=== PATIENT | female | born 1955 | race African-American/Black ===

== ENCOUNTER 2021-10-04 10:44 | Inpatient (IN) | payer OTHER, SELFPAY ==
[2021-10-04] VITALS (7 sets, daily range): BP systolic 130–164; BP diastolic 72–92; PULSE 78–90; RESP 16–20; TEMP 36.9–37.2; O2SAT 95–100; BMI 27.3; BMI 28.8
--- NOTE | ~2021-10-04 | CT_ITS ---
EXAMINATION: CT HEAD WITHOUT CONTRAST CLINICAL INFORMATION: Weakness. COMPARISON: None available. TECHNIQUE: Contiguous axial imaging was performed from the skull base to vertex without intravenous administration of contrast. This CT examination was performed using dose optimization techniques as appropriate, variously including the following: *Automated exposure control. *Adjustment of mA and/or kV according to patient size (this includes techniques or standardized protocols for targeted exams where dose is matched to indication/reason for exam; i.e. extremities or head). *Use of iterative reconstruction technique. DLP: 614 mGy-cm FINDINGS: There appears to be a small region of lost velasco-white matter differentiation within the lateral aspect of the left frontal lobe. No evidence of acute intracranial hemorrhage. Partially confluent and scattered hypoattenuation in the periventricular and deep white matter are consistent with moderate microangiopathy. Proportional prominence of the ventricles and sulcal spaces. No evidence for obstructive hydrocephalus. No abnormal mass effect or midline shift. No extra-axial fluid collections. Calcific atherosclerotic disease of the intracranial internal carotid arteries. No hyperdense vessel sign. No acute soft tissue or osseous abnormalities. Mild mucosal thickening of the paranasal sinuses. The mastoid air cells and middle ear cavities are clear. Bilateral lens extractions. CT/CT head/brain wo con IMPRESSION: 1. There appears to be a small region of lost velasco-white matter differentiation within the lateral left frontal lobe. Although age indeterminate, this may represent sequela of a small acute to subacute infarct. 2. No evidence of acute intracranial hemorrhage. 3. Moderate underlying microangiopathy and generalized cerebral volume loss. This critical result was discussed with Dr. Montague at 15:05 on 10/04/2021 and it was ascertained that the content and urgency of the report was understood at the time of direct communication.
--- NOTE | ~2021-10-04 | MR_ITS ---
EXAMINATION: MR BRAIN WITHOUT CONTRAST CLINICAL INFORMATION: Cerebrovascular accident. COMPARISON: CT head from 10/04/2021. TECHNIQUE: MRI of the brain was obtained using routine sequences without contrast. FINDINGS: No focal restricted diffusion is demonstrated to suggest acute or subacute cerebral ischemia. No evidence of acute or chronic hemorrhagic products on heme-sensitive imaging. Partially confluent and scattered Periventricular, deep white matter, and brainstem T2 FLAIR hyperintensities consistent with moderate underlying microangiopathy. Proportional prominence of the ventricles and sulcal spaces without evidence of obstructive hydrocephalus. No abnormal mass effect. No midline shift. Normal appearance of the pituitary gland. Normal positioning of the cerebellar tonsils. Normal arterial and venous vascular flow voids are present. Normal, homogeneous marrow signal. Mild to moderate mucosal thickening of the paranasal sinuses. No signal abnormalities within the mastoids MR/MR head/brain wo con IMPRESSION: 1. No acute intracranial abnormalities. 2. Moderate underlying microangiopathy and generalized cerebral volume loss.
--- NOTE | ~2021-10-04 | XR_ITS ---
EXAMINATION: XR CHEST CLINICAL INFORMATION: Weakness COMPARISON: None TECHNIQUE: 2 views of the chest were obtained. FINDINGS: No significant abnormality is noted involving the heart, lungs, mediastinum, bony thorax or soft tissues. XR/XR chest 2V IMPRESSION: Unremarkable chest examination.
[2021-10-04 11:23] LABS: MANUAL DIFF FLAG NO
[2021-10-04 11:24] LABS: Basophils Percent Auto 0.4 % (0-2); Eosinophils Absolute Auto 0.4 X10*3/uL (0.0-0.4); Eosinophils Percent Auto 4.4 % (0-4); Hematocrit 39.8 % (37.0-47.0); Hemoglobin 12.5 g/dl (12.0-16.0); Imm Gran Abs Auto 0.02 X10*3/uL (0.00-0.03); Imm Gran Pct Auto 0.2 % (0.0-0.4); Lymphocytes Absolute Auto 2.5 X10*3/uL (1.2-4.9); Lymphocytes Percent Auto 26.4 % (20-40); Mean Corpuscular HGB Conc 31.4 g/dl (31.0-35.0); Mean Corpuscular Hemoglobin 26.7 pg (27.0-33.0); Mean Platelet Volume 10.4 fL (9.4-12.3); Monocytes Absolute Auto 0.6 X10*3/uL (0.1-1.2); Monocytes Percent Auto 6.5 % (2-11); Neutrophils Absolute Auto 5.9 x10*3/uL (2.0-8.3); Neutrophils Percent Auto 62.1 % (45-73); Platelet Count 288 X10*3/uL (160-400); Red Blood Count 4.68 X10*6/uL (4.20-5.50); Red Cell Distribution Width 14.3 % (11.0-16.0); White Blood Count 9.5 X10*3/uL (4.8-10.8)
[2021-10-04 11:45] LABS: Anion Gap 9 (12-20); Blood Urea Nitrogen 11 mg/dL (9-16); Calcium 11.8 mg/dL (8.4-10.2); Carbon Dioxide 28 mmol/L (22-29); Chloride 105 mmol/L (96-108); Creatinine Clr Calc Pharmacy 47.3; Estimated Glomerular Filt Rate 49; Glucose Random 258 mg/dL (60-115); Potassium 4.4 mmol/L (3.3-5.1); Sodium 138 mmol/L (135-145)
--- NOTE | 2021-10-04 12:40 | ECG_ITS ---
Test Reason : weakness Blood Pressure : / mmHG Vent. Rate : 079 BPM Atrial Rate : 079 BPM P-R Int : 144 ms QRS Dur : 094 ms QT Int : 422 ms P-R-T Axes : 017 046 032 degrees QTc Int : 483 ms Normal sinus rhythm Normal ECG No previous ECGs available Referred By: Gordon Montague Electronically Signed By:Victor Manuel Delgado
--- NOTE | 2021-10-04 12:42 | ED_ITS ---
HPI - General Adult General Chief complaint: General Medical Stated complaint: GENERAL WEAKNESS PER EMS Time Seen by Provider: 10/04/21 12:27 Source: patient History of Present Illness HPI narrative: Patient presenting with weakness and imbalance with concerns of possible stroke. Patient states last known well time was last night when she went to bed. She woke up at 09:00 with the symptoms. She describes it as an off-balance sensation with a shuffling gait. She states initially her speech was slurred as well but that seems to be improving but is not 100% back to normal. No prior history of similar issues. She denies any focal weakness. Some blurred vision which is worse today than her baseline blurred vision. No diplopia. Some nausea earlier today without vomiting or diarrhea. No headache. No chest pain. No dyspnea. No recent illness. No history of smoking History of hypertension Related Data Allergies Allergy/AdvReac Type Severity Reaction Status Date / Time oxycodone Allergy Rash Verified 10/04/21 11:09 Penicillins Allergy Rash Verified 10/04/21 11:09 Review of Systems Constitutional: Comments: No fevers or chills Eyes: Comments: Blurred vision. No diplopia Cardiovascular: Comments: No chest pain or palpitation Respiratory: Comments: No dyspnea or cough Gastrointestinal: Comments: Nausea. No vomiting or diarrhea Genitourinary: Comments: No dysuria Musculoskeletal: Comments: No musculoskeletal pain Integumentary/Breasts: Comments: No rash Neurologic: Comments: Generalized weakness with ataxia and slurred speech. [facility] Past Medical History Medical History (Updated 10/04/21 @ 15:11 by Gordon Montague MD) Diabetes 1.5, managed as type 2 HTN (hypertension) Social History Social History Advance Directives: No Advance Directives Information Provided: No Physical Exam ED Vital Signs: Vital Signs - 24 hr 10/04/21 11:10 10/04/21 15:04 Temperature 98.8 F Pulse Rate 90 89 Respiratory Rate 16 16 Blood Pressure 164/92 H 139/79 Pulse Oximetry 100 96 BMI result Body Mass Index 27.3 Const Other: Awake and alert in no acute distress HENMT Other: Normocephalic atraumatic. Pupils equal round reactive to light. Extraocular muscles intact without nystagmus. Eyes Other: No dysconjugate gaze. Vision is grossly intact without obvious field deficits Neck Other: No meningismus Resp Other: No respiratory distress. Clear and equal bilaterally. Mildly diminished however Cardio Other: Regular rate and rhythm without murmurs rubs or gallops GI Other: Soft nontender nondistended Skin Other: Warm and dry without rash Neuro Other: Awake alert and oriented. Strength is intact in all 4 extremities. No obvious aphasia or dysarthria. No pronator drift Rijauk-cz-wvio is intact Mtdw-vk-cqdh is intact Romberg is positive in that she is unable to stand with feet together and eyes closed. She is unable to walk heel to toe. She is able to ambulate although with a slightly shuffling gait. Course Course Course Narrative: Mild generalized weakness with ataxia but without focal cerebellar findings on exam. Stroke is possible but other etiologies are as well. She is outside of any drug-related and no. Her stroke scale is 0 and likely does not have a large vessel occlusion or is candidate for extraction. Will complete workup including blood work and urinalysis. CT scan ordered. 15:10. Lab work is relatively unremarkable but chemistries do show a glucose of 258 with a calcium of 11.8. CT scan shows question of a left frontal area of acute to subacute infarct. Will hospitalized for further workup including Neurology evaluation and MRI. Medical Decision Making Lab Data Result diagrams: 10/04/21 11:20 10/04/21 11:20 Labs: Lab Results 10/04/21 10/04/21 10/04/21 Range/Units 11:20 11:20 12:58 WBC 9.5 (4.8-10.8) X10*3/uL RBC 4.68 (4.20-5.50) X10*6/uL Hgb 12.5 (12.0-16.0) g/dl Hct 39.8 (37.0-47.0) % MCV 85.0 (80.0-98.0) fL MCH 26.7 L (27.0-33.0) pg MCHC 31.4 (31.0-35.0) g/dl RDW 14.3 (11.0-16.0) % Plt Count 288 (160-400) X10*3/uL MPV 10.4 (9.4-12.3) fL Immature Gran % (Auto) 0.2 (0.0-0.4) % Neut % (Auto) 62.1 (45-73) % Lymph % (Auto) 26.4 (20-40) % Barrow % (Auto) 6.5 (2-11) % Eos % (Auto) 4.4 H (0-4) % Baso % (Auto) 0.4 (0-2) % Lymph # (Auto) 2.5 (1.2-4.9) X10*3/uL Barrow # (Auto) 0.6 (0.1-1.2) X10*3/uL Eos # (Auto) 0.4 (0.0-0.4) X10*3/uL Baso # (Auto) 0.0 (0.0-0.2) X10*3/uL Abs Immat Gran (auto) 0.02 (0.00-0.03) X10*3/uL Absolute Neuts (auto) 5.9 (2.0-8.3) x10*3/uL Absolute Nucleated RBC 0.000 (0.0-0.012) X10*3/uL Nucleated RBC % (auto) 0.0 (0.0-0.2) /100WBC Sodium 138 (135-145) mmol/L Potassium 4.4 (3.3-5.1) mmol/L Chloride 105 (96-108) mmol/L Carbon Dioxide 28 (22-29) mmol/L Anion Gap 9 L (12-20) BUN 11 (9-16) mg/dL Creatinine 1.11 (0.5-1.4) mg/dL Estim Creat Clear Calc 47.3 Estimated GFR 49 Random Glucose 258 H (60-115) mg/dL Calcium 11.8 H (8.4-10.2) mg/dL Troponin I High Sens 7.9 (<3.5-17.0) ng/L TSH (0.32-4.0) uIU/mL 10/04/21 Range/Units 12:58 WBC (4.8-10.8) X10*3/uL RBC (4.20-5.50) X10*6/uL Hgb (12.0-16.0) g/dl Hct (37.0-47.0) % MCV (80.0-98.0) fL MCH (27.0-33.0) pg MCHC (31.0-35.0) g/dl RDW (11.0-16.0) % Plt Count (160-400) X10*3/uL MPV (9.4-12.3) fL Immature Gran % (Auto) (0.0-0.4) % Neut % (Auto) (45-73) % Lymph % (Auto) (20-40) % Barrow % (Auto) (2-11) % Eos % (Auto) (0-4) % Baso % (Auto) (0-2) % Lymph # (Auto) (1.2-4.9) X10*3/uL Barrow # (Auto) (0.1-1.2) X10*3/uL Eos # (Auto) (0.0-0.4) X10*3/uL Baso # (Auto) (0.0-0.2) X10*3/uL Abs Immat Gran (auto) (0.00-0.03) X10*3/uL Absolute Neuts (auto) (2.0-8.3) x10*3/uL Absolute Nucleated RBC (0.0-0.012) X10*3/uL Nucleated RBC % (auto) (0.0-0.2) /100WBC Sodium (135-145) mmol/L Potassium (3.3-5.1) mmol/L Chloride (96-108) mmol/L Carbon Dioxide (22-29) mmol/L Anion Gap (12-20) BUN (9-16) mg/dL Creatinine (0.5-1.4) mg/dL Estim Creat Clear Calc Estimated GFR Random Glucose (60-115) mg/dL Calcium (8.4-10.2) mg/dL Troponin I High Sens (<3.5-17.0) ng/L TSH 1.86 (0.32-4.0) uIU/mL Discharge Plan Discharge Patient Disposition: Admitted As Inpatient
[2021-10-04] MEDS: 0.9 % Sodium Chloride 500 ML IV (13:07)
--- NOTE | 2021-10-04 13:13 | PC.NURSE ---
Pt comes in from home via EMS with complaints of feeling off with slurred speech. Pt is A&Ox3, speaking slowly but clearly. +PERRLA, No visable neuro deficiets noted at this time. IV established, labs drawn. Call hernandez within reach. Will continue to monitor.
[2021-10-04 13:36] LABS: Troponin-I High Sensitivity 7.9 ng/L (<3.5-17.0)
[2021-10-04 13:51] LABS: TSH reflex Free T4 1.86 uIU/mL (0.32-4.0)
[2021-10-04 15:21] LABS: Appearance Urine CLEAR; Color Urine YELLOW; Glucose Urine UA NEG (NEG); Leukocyte Esterase Urine 1+ (NEG); Nitrite Urine NEG (NEG); PH 6.5 (5.0-8.0); Specific Gravity - Urine <= 1.005 (1.005-1.025); UACC Culture Trigger YES; Urine Blood NEG (NEG); Urine Ketones NEG (NEG); Urine Protein NEG (NEG-TRACE)
--- NOTE | 2021-10-04 15:32 | PHA.MEDREC ---
Pharmacy Consult ? Medication Reconciliation Pharmacy has completed the medication reconciliation.
[2021-10-04 15:35] LABS: COVID-19 Test Negative (Negative)
[2021-10-04 15:50] LABS: Bacteria Urine TRACE /LPF; RBC Urine 0-2 /HPF (0); Squamous Epithelial Cell Urine TRACE /LPF
--- NOTE | 2021-10-04 15:53 | P.HPHOSP_ITS ---
History of Present Illness Date of Service: 10/04/21 Attending physician on admission: Amira Edward Chief Complaint: cva 66-year-old female with multiple comorbidities including diabetes, hyperlipidemia also has history of bipolar disorder: Came to the hospital because of almost a week of symptoms of slurred speech and feeling wobbly- she says that the symptoms are ongoing for at least a week duration, her balance is also off-because of that she decided to come to the hospital. Currently her speech is improved significantly and back to normal, still has some ataxia with walking. Patient speech improved to the baseline, she can walk some steps but says feels slightly wobbly otherwise that is also improving as per the patient. She denies any blurred vision to me, no diplopia. Patient denies any dizziness, any weakness or numbness or headache. Denies any new complaint of chest pain or shortness of breath or abdominal pain or fever or chills or nausea or vomiting Denies any cough Denies any weakness or numbness. ED: Labs, EKG and imaging reviewed: CBC fine, BMP also fine except creatinine is 1.11, calcium of 11.8 TSH 1.86, troponin x1 is 7.9,ekg : nsr. Review of Systems Review of Systems: As above. [facility] Medical History Diabetes 1.5, managed as type 2 HTN (hypertension) Pertinent family history: sister- has dm. Social History Advance Directives: No Advance Directives Information Provided: No Meds Allergies Allergy/AdvReac Type Severity Reaction Status Date / Time oxycodone Allergy Rash Verified 10/04/21 11:09 Penicillins Allergy Rash Verified 10/04/21 11:09 Active Medications: Current Medications Aspirin (Aspirin Enteric Coated 81 Mg Tablet.) 81 mg PO DAILY GEORGE Atorvastatin Calcium (Atorvastatin Calcium 20 Mg Tablet) 20 mg PO DAILY GEORGE Benztropine Mesylate (Benztropine Mesylate 1 Mg Tablet) 1 mg PO BEDTIME GEORGE Dextrose (Dextrose 50 % 25 Gm/50 Ml Syringe) 25 gm IVPUSH Q15M PRN; Protocol PRN Reason: per Hypoglycemia Standing Ord. Enoxaparin Sodium (Enoxaparin Sodium 40 Mg/0.4 Ml Syringe) 40 mg SUBCUT Q24H GEORGE Glucose (Glucose Gel 15 Gm Gel..Gram.) 15 gm PO Q15M PRN; Protocol PRN Reason: per Hypoglycemia Standing Ord. Haloperidol (Haloperidol 5 Mg Tablet) 10 mg PO BEDTIME [facility] Lactated Ringer's (Lr) 1,000 mls @ 80 mls/hr IVCONT .[id number] [facility] Insulin Human Lispro (Insulin Lispro 100 Unit/Ml 3 Ml Vial) 0 unit SUBCUT QIDACHS [facility]; Protocol Wykoff Carbonate (Wykoff Carbonate Er 450 Mg Tablet.Er) 900 mg PO BEDTIME GEORGE Nortriptyline HCl (Nortriptyline Hcl 10 Mg Capsule) 10 mg PO BEDTIME [facility] Pharmacy Consult (Consult Rx Perform Med Rec) 1 each MISCELLANE ONCE PRN PRN Reason: Consult order Home Medications Medication Instructions Recorded Confirmed Last Taken Type aspirin 81 mg tablet,delayed 1 tab PO DAILY 10/04/21 10/04/21 10/04/21 History release atorvastatin 20 mg tablet 1 tab PO DAILY 10/04/21 10/04/21 10/04/21 History benztropine 1 mg tablet 1 tab PO BEDTIME 10/04/21 10/04/21 10/03/21 History glipizide 5 mg tablet, extended 1 tab PO BID 10/04/21 10/04/21 10/04/21 History release 24 hr haloperidol 10 mg tablet 1 tab PO BEDTIME 10/04/21 10/04/21 10/03/21 History lithium carbonate 450 mg 2 tab PO BEDTIME 10/04/21 10/04/21 10/03/21 History tablet,extended release metformin 500 mg tablet,extended 1,000 mg PO BID 10/04/21 10/04/21 10/03/21 History release 24 hr nortriptyline 10 mg capsule 1 cap PO BEDTIME 10/04/21 10/04/21 10/03/21 History Physical Exam Vital Signs and Narrative: Vital Signs: Last Vital Signs Temp 98.8 F 10/04/21 15:04 Pulse 89 10/04/21 15:04 Resp 16 10/04/21 15:04 BP 139/79 10/04/21 15:04 Pulse Ox 96 10/04/21 15:04 BMI result Body Mass Index 27.3 Appearance: Alert.? Oriented X3.? not in distress.? Eyes: Pupils equal, round and reactive to light.? Sclera nonicteric.? ENT: Pharynx normal.? Moist mucous membranes. cvs: rrr, [id number] . res: clear to auscultation ,no rhonchii or wheezing abd: no rebound or guarding ,nt, bs present. ext pulses present , no cyanosis . neuro: axo3 , strength and sensation -seems intact dtr -equivocal. finger to nose - did walk few steps but feels slightly ataxic . Results Labs CBC and Chem 7: 10/04/21 11:20 10/04/21 11:20 Labs: Laboratory Results - last 24 hr 10/04/21 10/04/21 10/04/21 11:20 11:20 12:58 MCV 85.0 MCH 26.7 L MCHC 31.4 RDW 14.3 Plt Count 288 MPV 10.4 Immature Gran % (Auto) 0.2 Neut % (Auto) 62.1 Lymph % (Auto) 26.4 Weld % (Auto) 6.5 Eos % (Auto) 4.4 H Baso % (Auto) 0.4 Lymph # (Auto) 2.5 Weld # (Auto) 0.6 Eos # (Auto) 0.4 Baso # (Auto) 0.0 Abs Immat Gran (auto) 0.02 Absolute Neuts (auto) 5.9 Absolute Nucleated RBC 0.000 Nucleated RBC % (auto) 0.0 Anion Gap 9 L Creatinine 1.11 Estim Creat Clear Calc 47.3 Estimated GFR 49 Random Glucose 258 H Calcium 11.8 H TSH 1.86 Urine Color Urine Appearance Urine pH Ur Specific Lander Urine Protein Urine Glucose (UA) Urine Ketones Urine Blood Urine Nitrite Ur Leukocyte Esterase Urine RBC Urine WBC Ur Squamous Epith Cells Urine Bacteria COVID-19 (PATRICIA) COVID-19 Clin Com 10/04/21 10/04/21 15:15 15:15 MCV MCH MCHC RDW Plt Count MPV Immature Gran % (Auto) Neut % (Auto) Lymph % (Auto) Weld % (Auto) Eos % (Auto) Baso % (Auto) Lymph # (Auto) Weld # (Auto) Eos # (Auto) Baso # (Auto) Abs Immat Gran (auto) Absolute Neuts (auto) Absolute Nucleated RBC Nucleated RBC % (auto) Anion Gap Creatinine Estim Creat Clear Calc Estimated GFR Random Glucose Calcium TSH Urine Color YELLOW Urine Appearance CLEAR Urine pH 6.5 Ur Specific Lander <= 1.005 Urine Protein NEG Urine Glucose (UA) NEG Urine Ketones NEG Urine Blood NEG Urine Nitrite NEG Ur Leukocyte Esterase 1+ H Urine RBC 0-2 Urine WBC 1-4 Ur Squamous Epith Cells TRACE Urine Bacteria TRACE COVID-19 (PATRICIA) Negative COVID-19 Clin Com See Note ABG Attestation: I personally reviewed and interpreted this ABG as follows: (nsr) Imaging Radiologist's Impressions: Impressions Head CT 10/04/21 14:03 IMPRESSION: 1. There appears to be a small region of lost velasco-white matter differentiation within the lateral left frontal lobe. Although age indeterminate, this may represent sequela of a small acute to subacute infarct. 2. No evidence of acute intracranial hemorrhage. 3. Moderate underlying microangiopathy and generalized cerebral volume loss. This critical result was discussed with Dr. Montague at 15:05 on 10/04/2021 and it was ascertained that the content and urgency of the report was understood at the time of direct communication. Chest X-Ray 10/04/21 14:06 IMPRESSION: Unremarkable chest examination. Assessment and Plan (1) Hypercalcemia: Status: Acute (2) KEESHA (acute kidney injury): Status: Acute (3) Stroke: Status: Acute Plan 66-year-old female with CVA. 1. CVA: moniter tele neurochecks CT head shows:velasco-white matter differentiation within the lateral left frontal lobe-small acute to subacute infarct. MRI and echo added for cva workup. Continue aspirin, statin, lipid panel added, neuro evaluation, pt/ot . 2. DM: Only have 1 fingerstick of 258 so far Monitor fingersticks with coverage Hold oral hypoglycemics. Hemoglobin A1c 3. Hypercalcemia: 11.8 ? Question related to dehydration Hydrate, monitor BMP in the morning, if still elevated calcium level may need further workup, consider nephrology evaluation. 4. Hyperlipidemia: Continue statin 5. Bipolar disorder: Continue home medications. 6. possible mild keesha : baseline cr not available . hydrate and moniter bmp, if does not improve-consider nephrology evaluation. Based on above CVA, hypercalcemia, possible keesha: Patient may need possible 2 midnight stays. Above management discussed with the patient and patient family Mr. Eisenberg (cell [phone]) in detail length they both understand and in agreement with above plan, also discussed what code status patient is full code. Assessment and plan coordination time spent is 70 minute. Quality Stroke Does the patient have a stroke diagnosis?: Yes Reason for No Anti-thrombotic by Day Two: N/A - Med Ordered VTE Prior VTE?: No VTE Risk Level:: Medical - moderate - high VTE Device Contraindication: N/A - Device Ordered VTE Drug Contraindication: N/A - Med Ordered
[2021-10-04] MEDS: Lactated Ringers 1,000 ML 80 ML IVCONT (16:51)
[2021-10-04] MEDS: Aspirin Enteric Coated 325 MG TABLET.DR PO (16:51)
[2021-10-04] MEDS: Enoxaparin Sodium 40 MG/0.4 ML SYRINGE SUBCUT (16:51)
[2021-10-04 18:29] LABS: Glucose, Whole Blood 145 mg/dL (60-115)
[2021-10-04 20:24] LABS: Anion Gap 10 (12-20); Blood Urea Nitrogen 10 mg/dL (9-16); Calcium 11.7 mg/dL (8.4-10.2); Carbon Dioxide 26 mmol/L (22-29); Chloride 109 mmol/L (96-108); Creatinine Clr Calc Pharmacy 49.6; Estimated Glomerular Filt Rate 52; Glucose Random 266 mg/dL (60-115); Potassium 4.6 mmol/L (3.3-5.1); Sodium 140 mmol/L (135-145)
--- NOTE | 2021-10-04 20:46 | PC.NURSE ---
PT AWAITING FOR TRANSPORT TO FLOOR. PT A&OX3, SKIN W/D. RESPIRATIONS EASY, N/L. SKIN W/D. AWAITING FOR FURTHER ORDERS.
--- NOTE | 2021-10-04 21:10 | PC.NURSE ---
REPORT GIVEN TO TIESHA RIVAS. PT TO FLOOR IN [facility] IN [facility].
[2021-10-04 21:55] LABS: Glucose, Whole Blood 196 mg/dL (60-115)
[2021-10-04] MEDS: HaloperidoL 5 MG TABLET 10 MG PO (22:02)
[2021-10-04] MEDS: Lithium Carbonate ER 450 MG TABLET.ER 900 MG PO (22:03)
[2021-10-04] MEDS: Benztropine Mesylate 1 MG TABLET PO (22:03)
[2021-10-04] MEDS: Nortriptyline HCl 10 MG CAPSULE PO (22:03)
[2021-10-05] MEDS: Melatonin 3 MG TABLET 6 MG PO (02:21)
[2021-10-05 03:31] VITALS: BP 130/63; PULSE 81; RESP 19; TEMP 36.8; O2SAT 98
[2021-10-05] MEDS: Lactated Ringers 1,000 ML 80 ML IVCONT ×2 (04:24→20:02)
[2021-10-05 06:56] LABS: MANUAL DIFF FLAG NO
[2021-10-05 07:01] LABS: Basophils Percent Auto 0.4 % (0-2); Eosinophils Absolute Auto 0.5 X10*3/uL (0.0-0.4); Hemoglobin 12.3 g/dl (12.0-16.0); Imm Gran Abs Auto 0.01 X10*3/uL (0.00-0.03); Imm Gran Pct Auto 0.1 % (0.0-0.4); Lymphocytes Absolute Auto 2.6 X10*3/uL (1.2-4.9); Lymphocytes Percent Auto 26.5 % (20-40); Mean Corpuscular HGB Conc 31.5 g/dl (31.0-35.0); Mean Corpuscular Hemoglobin 26.7 pg (27.0-33.0); Mean Corpuscular Volume 84.8 fL (80.0-98.0); Mean Platelet Volume 10.6 fL (9.4-12.3); Monocytes Absolute Auto 0.8 X10*3/uL (0.1-1.2); Monocytes Percent Auto 8.2 % (2-11); Neutrophils Percent Auto 59.8 % (45-73); Platelet Count 308 X10*3/uL (160-400); Red Cell Distribution Width 14.3 % (11.0-16.0)
[2021-10-05 07:14] VITALS: BP 137/69; PULSE 90; RESP 18; TEMP 36.7; O2SAT 98
[2021-10-05 07:16] LABS: Estimated Average Glucose 243 mg/dL; Hemoglobin A1c % 10.1 %
[2021-10-05 07:33] LABS: Anion Gap 9 (12-20); Blood Urea Nitrogen 10 mg/dL (9-16); Calcium 11.6 mg/dL (8.4-10.2); Carbon Dioxide 25 mmol/L (22-29); Chloride 108 mmol/L (96-108); Cholesterol 119 mg/dL; Estimated Glomerular Filt Rate 57; Glucose Random 229 mg/dL (60-115); HDL Cholesterol 28 mg/dL; LDL Cholesterol Calculated 45 mg/dl; Potassium 4.4 mmol/L (3.3-5.1); Sodium 138 mmol/L (135-145); Triglycerides 231 mg/dL
[2021-10-05 07:45] LABS: Glucose, Whole Blood 235 mg/dL (60-115)
[2021-10-05 08:07] LABS: Albumin Level 3.8 g/dL (3.5-5.0)
[2021-10-05] MEDS: Aspirin Enteric Coated 81 MG TABLET.DR PO (08:29)
[2021-10-05] MEDS: Atorvastatin Calcium 20 MG TABLET PO (08:29)
--- NOTE | 2021-10-05 08:30 | CA_ITS ---
Transthoracic Echocardiogram Patient (Last, First, Middle): Jeanne Donis, Gender: Female Date of : 1955 Age: 66 Procedure Date: 10/05/2021 Procedure Type: Transthoracic Echocardiogram Location: [facility] [place] Height: 160.02 cm Weight: 73.48 kg BSA: 1.77 m2 Heart Rate: bpm BP: 130 / 63 mmHg Qa Consultant: JOSÉ MANUEL Elkins MD: Amira Edward MD Symptoms: cva Study Quality: Fair Conclusions: - Normal left ventricular cavity size. There is normal left ventricular wall thickness. The left ventricular systolic function is hyperdynamic. The visually estimated ejection fraction is between 65-70%. - Normal right ventricular cavity size and systolic function. Findings Left Ventricle Normal left ventricular cavity size. There is normal left ventricular wall thickness. The left ventricular systolic function is hyperdynamic. The visually estimated ejection fraction is between 65-70%. There is no evidence of regional wall motion abnormalities. Diastolic function is normal for age. Right Ventricle Normal right ventricular cavity size and systolic function. Atria Both atria are normal in size. Aortic Valve Normal aortic valve structure and function. There is no aortic valve stenosis. There is no aortic valve regurgitation. Mitral Valve The mitral valve appears normal. There is no mitral valve regurgitation. There is no mitral valve stenosis. Pulmonic Valve The pulmonic valve is likely normal. Tricuspid Valve Normal tricuspid valve structure and function. There is trace tricuspid valve regurgitation. Normal right atrial pressure. There is no evidence of pulmonary hypertension. Great Vessels The visualized portions of the pulmonary artery and branches are normal. Venous The inferior vena cava is normal in size and collapses greater than 50% with inspiration. Pericardium/Pleural There is no evidence of pericardial effusion. Prior Study Comparison No prior study available for comparison. Measurements 2D Linear Measurements IVSd: 1.07 0.6-0.9/0.6-1.0 cm LVIDd: 3.59 3.9-5.3/4.2-5.9 cm LVIDd Index: 2.03 2.4-3.2/2.2-3.1 cm/m2 LVIDs: 2.28 2.0-3.6 cm LVPWd: 0.79 0.7-1.1 cm LA Diam: 2.90 2.7-3.8/3.0-4.0 cm LAIDs Index: 1.64 1.5-2.3 cm/m2 LV Mass: 120.33 67-162/88-224 g LV Mass Index: 67.98 43-95/49-115 g/m2 LVOT Diam: 2.00 3.0+(-)1.3 cm 2D Systolic Function EF 4C: 61.80 >55% EF 2C: 57.70 >55% EF BiP: 59.50 >55% Mitral Valve MV Pk E: 0.72 MV PK A: 0.82 MV Decel Time: 245.00 E/A: 0.90 E'Lateral: 9.46 E'Medial: 6.53 E/E' Med: 11.00 E/E' Lat: 7.60 PHT: 72.00 MVA PHT: 3.06 Decel Bingham: 2.93 Aortic Valve AoV Pk Carlos: 1.43 AoV Mn Carlos: 0.97 AoV VTI: 0.25 AoV Pk Grad: 8.00 Aov Mn Grad: 4.00 PERI Cont.VTI: 2.56 LVOT LVOT Pk Carlos: 1.10 LVOT Mn Carlos: 0.69 LVOT VTI: 0.20 LVOT Pk Grad: 5.00 LVOT Mn Grad: 2.00 LVOT Diam: 2.00 LVOT Area: 3.14 Diastolic Function MV Pk E: 0.72 MV Pk A: 0.82 E/A: 0.90 E'Medial: 6.53 E/E' Med: 11.00 E' Laterial: 9.46 E/E' Lat: 7.60 Right Ventricle TAPSE (mm): 17.00 TVS' Carlos: 13.80 Tricuspid Valve TR Pk Carlos: 1.95 TR Pk Grad: 15.00 RA Press: 3.00 RVSP: 18.00 Great Vessels Aorta Ao Asc: 3.30 2.1-3.4 cm Ao Arch: 3.20 Updated in Other Vendor System with Status of Final Victor Manuel Delgado MD electronically signed on 10/05/2021 2:20:11 PM with status of Final
[2021-10-05 08:47] VITALS: BP 137/69; PULSE 90; O2SAT 98
--- NOTE | 2021-10-05 09:34 | MHC.CM.PN ---
CM met with Patient at bedside; Patient lives alone in an apartment and required no DME nor services [employer]. PT is recommending home with services but Patient does have her first appointment with her new PCP- DR.Izabela Guillory until 10/23/21.Patient's Brother is her HCP, but she preferred not to reveal his name. Patient indicated that her [id number] would provide transportation home but also indicated that her Son does not live nearby. Patient has received [facility] vax X3.
[2021-10-05 11:15] LABS: Glucose, Whole Blood 257 mg/dL (60-115)
--- NOTE | 2021-10-05 11:38 | PM.NEUROCN ---
History of Present Illness Data of Consult Service Date: 10/05/21 Primary Care Provider: Unknown Physician HPI Reason for consult: Difficulty speaking 66 years old woman who I was asked to see for possibility of stroke to explain difficulty speaking. Apparently this was noted during last few days with unsteadiness. When she was in hospital her speech was noted to be much better. There was no complaint of headache nausea vomiting change in her vision or loss of consciousness. There was no breathing difficulty. There was no complaint of swallowing difficulty Review of Systems Review of Systems: No recent cold or flu-like illness PMFSH Past Medical History Medical History Diabetes 1.5, managed as type 2 HTN (hypertension) Social History Social History Household Members: None Housing: Apartment Do you presently have visiting nurse or other home services: Yes (just got services but hasn't met them yet) Patient Tobacco Use Status: Never used Tobacco service: No Current occupational status: retired Meds Allergies Allergy/AdvReac Type Severity Reaction Status Date / Time oxycodone Allergy Rash Verified 10/04/21 11:09 Penicillins Allergy Rash Verified 10/04/21 11:09 Active Medications: Current Medications Aspirin (Aspirin Enteric Coated 81 Mg Tablet.) 81 mg PO DAILY [facility] Last Admin: 10/05/21 08:29 Dose: 81 mg Documented by: Atorvastatin Calcium (Atorvastatin Calcium 20 Mg Tablet) 20 mg PO DAILY [facility] Last Admin: 10/05/21 08:29 Dose: 20 mg Documented by: Benztropine Mesylate (Benztropine Mesylate 1 Mg Tablet) 1 mg PO BEDTIME [facility] Last Admin: 10/04/21 22:03 Dose: 1 mg Documented by: Dextrose (Dextrose 50 % 25 Gm/50 Ml Syringe) 25 gm IVPUSH Q15M PRN; Protocol PRN Reason: per Hypoglycemia Standing Ord. Enoxaparin Sodium (Enoxaparin Sodium 40 Mg/0.4 Ml Syringe) 40 mg SUBCUT Q24H [facility] Last Admin: 10/04/21 16:51 Dose: 40 mg Documented by: Glucose (Glucose Gel 15 Gm Gel..Gram.) 15 gm PO Q15M PRN; Protocol PRN Reason: per Hypoglycemia Standing Ord. Haloperidol (Haloperidol 5 Mg Tablet) 10 mg PO BEDTIME [facility] Last Admin: 10/04/21 22:02 Dose: 10 mg Documented by: Lactated Ringer's (Lr) 1,000 mls @ 80 mls/hr IVCONT .[id number] [facility] Last Admin: 10/05/21 04:24 Dose: 80 mls/hr Documented by: Insulin Human Lispro (Insulin Lispro 100 Unit/Ml 3 Ml Vial) 0 unit SUBCUT QIDACHS [facility]; Protocol Last Admin: 10/05/21 08:31 Dose: Not Given Documented by: [place] Carbonate ([place] Carbonate Er 450 Mg Tablet.Er) 900 mg PO BEDTIME [facility] Last Admin: 10/04/21 22:03 Dose: 900 mg Documented by: Melatonin (Melatonin 3 Mg Tablet) 6 mg PO BEDTIME PRN PRN Reason: Sleep Last Admin: 10/05/21 02:21 Dose: 6 mg Documented by: Nortriptyline HCl (Nortriptyline Hcl 10 Mg Capsule) 10 mg PO BEDTIME [facility] Last Admin: 10/04/21 22:03 Dose: 10 mg Documented by: Pharmacy Consult (Consult Rx Perform Med Rec) 1 each MISCELLANE ONCE PRN PRN Reason: Consult order Home Medications Medication Instructions Recorded Confirmed Last Taken Type aspirin 81 mg tablet,delayed 1 tab PO DAILY 10/04/21 10/04/21 10/04/21 History release atorvastatin 20 mg tablet 1 tab PO DAILY 10/04/21 10/04/21 10/04/21 History benztropine 1 mg tablet 1 tab PO BEDTIME 10/04/21 10/04/21 10/03/21 History glipizide 5 mg tablet, extended 1 tab PO BID 10/04/21 10/04/21 10/04/21 History release 24 hr haloperidol 10 mg tablet 1 tab PO BEDTIME 10/04/21 10/04/21 10/03/21 History lithium carbonate 450 mg 2 tab PO BEDTIME 10/04/21 10/04/21 10/03/21 History tablet,extended release metformin 500 mg tablet,extended 1,000 mg PO BID 10/04/21 10/04/21 10/03/21 History release 24 hr nortriptyline 10 mg capsule 1 cap PO BEDTIME 10/04/21 10/04/21 10/03/21 History Physical Exam Vital Signs: Vital Signs: Last Vital Signs Temp 98.1 F 10/05/21 07:14 Pulse 90 10/05/21 08:47 Resp 18 10/05/21 07:14 BP 137/69 10/05/21 08:47 Pulse Ox 98 10/05/21 08:47 BMI result Body Mass Index 28.8 Neuro: Other: She was alert and awake with normal spontaneity of speech fluency comprehension and affect. Speech was normal. Pupils were round reactive to light. Extraocular muscles were intact. Visual feliciano are full. Face was symmetrical. Tongue slightly deviated to right there was no pronator drift. Deep tendon reflexes were trace to absent with flexor plantars. Results Labs CBC & Chem 7: 10/05/21 06:37 10/05/21 06:37 Labs: Short CBC 10/05/21 Range/Units 06:37 WBC 10.0 (4.8-10.8) X10*3/uL Hgb 12.3 (12.0-16.0) g/dl Hct 39.0 (37.0-47.0) % Plt Count 308 (160-400) X10*3/uL BMP 10/04/21 10/04/21 10/05/21 11:20 19:59 06:37 Sodium 138 140 138 Potassium 4.4 4.6 4.4 Chloride 105 109 H 108 Carbon Dioxide 28 26 25 BUN 11 10 10 Creatinine 1.11 1.06 0.98 Calcium 11.8 H 11.7 H 11.6 H Liver Function 10/05/21 Range/Units 06:37 Albumin 3.8 (3.5-5.0) g/dL Urine 10/04/21 Range/Units 15:15 Urine Color YELLOW Urine Appearance CLEAR Urine pH 6.5 (5.0-8.0) Ur Specific [place] <= 1.005 (1.005-1.025) Urine Protein NEG (NEG-TRACE) MG/DL Urine Glucose (UA) NEG (NEG) MG/DL Her noncontrast MRI of brain revealed moderately severe chronic ischemic changes but no acute lesion. Moderately severe atrophy was also noted. Assessment and Plan (1) Difficulty speaking: Status: Acute 66 years old woman who apparently had few days of difficulty speaking and generalized weakness. On examination today her speech was okay and language was normal. There was no focal finding. MRI of brain did not reveal any acute finding though moderately severe atrophy and chronic microvascular ischemic changes were noted. There is no indication of an acute neurological event. Overall presentation was not suggestive of a peripheral neuropathic process either. For microvascular disease, I would recommend anti-platelet agent blood pressure control and statin. Procedures Date of Service Date of Service: 10/05/21
[2021-10-05 11:45] VITALS: BP 149/75; PULSE 90; RESP 20; TEMP 37.2; O2SAT 100
--- NOTE | 2021-10-05 14:40 | P.PNIM_ITS ---
Subjective Subjective Date of Service: 10/05/21 <LONNIE Tellez - Last Filed: 10/05/21 15:02> 10/05/21 <Peter Muller MD - Last Filed: 10/05/21 15:36> Interval History: seen and examined this morning admitted for possible stroke, MRI negative for acute stroke patient reporting some word finding difficulty, vague historian, seems somewhat confused. <LONNIE Tellez - Last Filed: 10/05/21 15:02> Constitutional Constitutional: Denies chills and Denies fever(s) <LONNIE Tellez - Last Filed: 10/05/21 15:02> Cardiovascular Cardiovascular: Denies chest pain <LONNIE Tellez - Last Filed: 10/05/21 15:02> Respiratory Respiratory: Denies cough <LONNIE Tellez - Last Filed: 10/05/21 15:02> Gastrointestinal Gastrointestinal: Denies abdominal pain <LONNIE Tellez - Last Filed: 10/05/21 15:02> Physical Exam Vital Signs: Vital Signs: Last Vital Signs Temp 98.9 F 10/05/21 11:45 Pulse 90 10/05/21 11:45 Resp 20 10/05/21 11:45 BP 149/75 H 10/05/21 11:45 Pulse Ox 100 10/05/21 11:45 BMI result Body Mass Index 28.8 <LONNIE Tellez - Last Filed: 10/05/21 15:02> Const: General: cooperative, comfortable, alert and awake <LONNIE Tellez - Last Filed: 10/05/21 15:02> Resp: Effort & Inspection: normal respiratory effort and able to speak in complete sentences <LONNIE Tellez - Last Filed: 10/05/21 15:02> Auscultation: clear to auscultation bilaterally <LONNIE Tellez - Last Filed: 10/05/21 15:02> Cardio: Rate: regular rate <LONNIE Tellez Last Filed: 10/05/21 15:02> Heart sounds: S1 normal heart sound present and S2 normal heart sound present <LONNIE Tellez - Last Filed: 10/05/21 15:02> Neuro: Other: reporting word finding difficulty; ?mild slurring of speech; strenght equal b/l upper and lower extremities; no focal deficits appreciated <LONNIE Tellez - Last Filed: 10/05/21 15:02> Extrem: Other: moving all 4 extremities spontaneously; no leg edema <LONNIE Tellez - Last Filed: 10/05/21 15:02> Objective Data Active Medications Aspirin (Aspirin Enteric Coated 81 Mg Tablet.Dr) 81 mg PO DAILY [facility] Last Admin: 10/05/21 08:29 Dose: 81 mg Documented by: EMILY Atorvastatin Calcium (Atorvastatin Calcium 20 Mg Tablet) 20 mg PO DAILY [facility] Last Admin: 10/05/21 08:29 Dose: 20 mg Documented by: EMILY Benztropine Mesylate (Benztropine Mesylate 1 Mg Tablet) 1 mg PO BEDTIME [facility] Last Admin: 10/04/21 22:03 Dose: 1 mg Documented by: LUIS Dextrose (Dextrose 50 % 25 Gm/50 Ml Syringe) 25 gm IVPUSH Q15M PRN; Protocol PRN Reason: per Hypoglycemia Standing Ord. Enoxaparin Sodium (Enoxaparin Sodium 40 Mg/0.4 Ml Syringe) 40 mg SUBCUT Q24H [facility] Last Admin: 10/04/21 16:51 Dose: 40 mg Documented by: MATTHEW-RAMSK Glucose (Glucose Gel 15 Gm Gel..Gram.) 15 gm PO Q15M PRN; Protocol PRN Reason: per Hypoglycemia Standing Ord. Haloperidol (Haloperidol 5 Mg Tablet) 10 mg PO BEDTIME [facility] Last Admin: 10/04/21 22:02 Dose: 10 mg Documented by: LUIS Lactated Ringer's (Lr) 1,000 mls @ 80 mls/hr IVCONT .[id number] [facility] Last Admin: 10/05/21 04:24 Dose: 80 mls/hr Documented by: LUIS Insulin Human Lispro (Insulin Lispro 100 Unit/Ml 3 Ml Vial) 0 unit SUBCUT QIDACHS [facility]; Protocol Last Admin: 10/05/21 11:39 Dose: Not Given Documented by: EMILY Non-Admin Reason: Patient Refused [place] Carbonate ([place] Carbonate Er 450 Mg Tablet.Er) 900 mg PO BEDTIME [facility] Last Admin: 10/04/21 22:03 Dose: 900 mg Documented by: LUIS Melatonin (Melatonin 3 Mg Tablet) 6 mg PO BEDTIME PRN PRN Reason: Sleep Last Admin: 10/05/21 02:21 Dose: 6 mg Documented by: LUIS Nortriptyline HCl (Nortriptyline Hcl 10 Mg Capsule) 10 mg PO BEDTIME [facility] Last Admin: 10/04/21 22:03 Dose: 10 mg Documented by: LUIS Pharmacy Consult (Consult Rx Perform Med Rec) 1 each MISCELLANE ONCE PRN PRN Reason: Consult order <LONNIE Tellez - Last Filed: 10/05/21 15:02> Labs CBC & Chem 7: : 10/05/21 06:37 10/05/21 06:37 <LONNIE Tellez - Last Filed: 10/05/21 15:02> Labs: Laboratory Results - last 24 hr 10/04/21 10/04/21 10/04/21 15:15 15:15 18:24 MCV MCH MCHC RDW Plt Count MPV Immature Gran % (Auto) Neut % (Auto) Lymph % (Auto) [place] % (Auto) Eos % (Auto) Baso % (Auto) Lymph # (Auto) [place] # (Auto) Eos # (Auto) Baso # (Auto) Abs Immat Gran (auto) Absolute Neuts (auto) Absolute Nucleated RBC Nucleated RBC % (auto) Anion Gap Estim Creat Clear Calc Estimated GFR POC Glucose 145 H Random Glucose Estimat Average Glucose Hemoglobin A1c % Calcium Albumin Triglycerides Cholesterol LDL Cholesterol, Calc HDL Cholesterol Urine Color YELLOW Urine Appearance CLEAR Urine pH 6.5 Ur Specific [place] <= 1.005 Urine Protein NEG Urine Glucose (UA) NEG Urine Ketones NEG Urine Blood NEG Urine Nitrite NEG Ur Leukocyte Esterase 1+ H Urine RBC 0-2 Urine WBC 1-4 Ur Squamous Epith Cells TRACE Urine Bacteria TRACE COVID-19 (PATRICIA) Negative COVID-19 Clin Com See Note 10/04/21 10/04/21 10/05/21 19:59 21:51 06:37 MCV MCH MCHC RDW Plt Count MPV Immature Gran % (Auto) Neut % (Auto) Lymph % (Auto) [place] % (Auto) Eos % (Auto) Baso % (Auto) Lymph # (Auto) [place] # (Auto) Eos # (Auto) Baso # (Auto) Abs Immat Gran (auto) Absolute Neuts (auto) Absolute Nucleated RBC Nucleated RBC % (auto) Anion Gap 10 L 9 L Estim Creat Clear Calc 49.6 55.0 Estimated GFR 52 57 POC Glucose 196 H Random Glucose 266 H 229 H Estimat Average Glucose Hemoglobin A1c % Calcium 11.7 H 11.6 H Albumin 3.8 Triglycerides 231 Cholesterol 119 LDL Cholesterol, Calc 45 HDL Cholesterol 28 Urine Color Urine Appearance Urine pH Ur Specific [place] Urine Protein Urine Glucose (UA) Urine Ketones Urine Blood Urine Nitrite Ur Leukocyte Esterase Urine RBC Urine WBC Ur Squamous Epith Cells Urine Bacteria COVID-19 (PATRICIA) COVID-19 Clin Com 10/05/21 10/05/21 10/05/21 06:37 06:37 07:13 MCV 84.8 MCH 26.7 L MCHC 31.5 RDW 14.3 Plt Count 308 MPV 10.6 Immature Gran % (Auto) 0.1 Neut % (Auto) 59.8 Lymph % (Auto) 26.5 [place] % (Auto) 8.2 Eos % (Auto) 5.0 H Baso % (Auto) 0.4 Lymph # (Auto) 2.6 [place] # (Auto) 0.8 Eos # (Auto) 0.5 H Baso # (Auto) 0.0 Abs Immat Gran (auto) 0.01 Absolute Neuts (auto) 6.0 Absolute Nucleated RBC 0.000 Nucleated RBC % (auto) 0.0 Anion Gap Estim Creat Clear Calc Estimated GFR POC Glucose 235 H Random Glucose Estimat Average Glucose 243 Hemoglobin A1c % 10.1 Calcium Albumin Triglycerides Cholesterol LDL Cholesterol, Calc HDL Cholesterol Urine Color Urine Appearance Urine pH Ur Specific [place] Urine Protein Urine Glucose (UA) Urine Ketones Urine Blood Urine Nitrite Ur Leukocyte Esterase Urine RBC Urine WBC Ur Squamous Epith Cells Urine Bacteria COVID-19 (PATRICIA) COVID-19 Clin Com 10/05/21 11:06 MCV MCH MCHC RDW Plt Count MPV Immature Gran % (Auto) Neut % (Auto) Lymph % (Auto) [place] % (Auto) Eos % (Auto) Baso % (Auto) Lymph # (Auto) [place] # (Auto) Eos # (Auto) Baso # (Auto) Abs Immat Gran (auto) Absolute Neuts (auto) Absolute Nucleated RBC Nucleated RBC % (auto) Anion Gap Estim Creat Clear Calc Estimated GFR POC Glucose 257 H Random Glucose Estimat Average Glucose Hemoglobin A1c % Calcium Albumin Triglycerides Cholesterol LDL Cholesterol, Calc HDL Cholesterol Urine Color Urine Appearance Urine pH Ur Specific [place] Urine Protein Urine Glucose (UA) Urine Ketones Urine Blood Urine Nitrite Ur Leukocyte Esterase Urine RBC Urine WBC Ur Squamous Epith Cells Urine Bacteria COVID-19 (PATRICIA) COVID-19 Clin Com <LONNIE Tellez - Last Filed: 10/05/21 15:02> Microbiology Microbiology Results: Microbiology 10/04/21 Unknown Urine Culture - Final Urine clean catch - Urine velasco top Strep agalactiae (Grp B) <LONNIE Tellez - Last Filed: 10/05/21 15:02> Assessment and Plan (1) UTI (urinary tract infection): Status: Acute <LONNIE Tellez - Last Filed: 10/05/21 15:02> Plan 66-year-old female with CVA. CVA: CT head shows:velasco-white matter differentiation within the lateral left frontal lobe-small acute to subacute infarct. MRI with no acute intracranial abnormalities - does show moderately severe atrophy and chronic microvascular ischemic changes seen by neuro, no evidence of acute neurological event - rec aspirin, statin and BP control for chronic changes seen Continue aspirin, statin Seen by PT- rec home PT UTI UCx growing group b strep will start IV ceftriaxone follow final culture sensitivities DM: Hold home glipizide and metformin continue SSI, POCs Hypercalcemia: 11.8 ? Question related to dehydration continue IVF recommend outpatient follow up Hyperlipidemia: Continue statin Bipolar disorder: Continue home medications lithium level pending possible mild trent : baseline cr not available slight improvement in creatinine but this may be her baseline renal function follow bnp DVT ppx - mechanical devices code status - full code attending - dr. muller Pt requires continued hospitalization due to UTI, psych eval for competency dispo - pt rec home with PT, unable to have home services as she has not followed up with PCP <LONNIE Tellez - Last Filed: 10/05/21 15:02> 66-year-old female with CVA. CVA: CT head shows:[place]co-white matter differentiation within the lateral left frontal lobe-small acute to subacute infarct. MRI with no acute intracranial abnormalities - does show moderately severe atrophy and chronic microvascular ischemic changes seen by neuro, no evidence of acute neurological event - rec aspirin, statin and BP control for chronic changes seen Continue aspirin, statin Seen by PT- rec home PT UTI UCx growing group b strep will start IV ceftriaxone follow final culture sensitivities DM: Hold home glipizide and metformin continue SSI, POCs Hypercalcemia: 11.8 ? Question related to dehydration continue IVF recommend outpatient follow up Hyperlipidemia: Continue statin Bipolar disorder: Continue home medications lithium level pending possible mild trent : baseline cr not available slight improvement in creatinine but this may be her baseline renal function follow bnp DVT ppx - mechanical devices code status - full code attending - dr. muller Pt requires continued hospitalization due to UTI, psych eval for competency dispo - pt rec home with PT, unable to have home services as she has not foll owed up with PCP Attending addendum: Acute CVA has been ruled out -- negative MRI. <Peter Muller MD - Last Filed: 10/05/21 15:36> Quality Stroke Does the patient have a stroke diagnosis?: Yes <LONNIE Tellez - Last Filed: 10/05/21 15:02> Reason for No Anti-thrombotic by Day Two: N/A - Med Ordered <LONNIE Tellez - Last Filed: 10/05/21 15:02> VTE Prior VTE?: No <LONNIE Tellez - Last Filed: 10/05/21 15:02> VTE Risk Level:: Medical - moderate - high <LONNIE Tellez - Last Filed: 10/05/21 15:02> VTE Device Contraindication: N/A - Device Ordered <LONNIE Tellez - Last Filed: 10/05/21 15:02> VTE Drug Contraindication: N/A - Med Ordered <LONNIE Tellez - Last Filed: 10/05/21 15:02>
[2021-10-05 15:13] LABS: Lithium 1.06 mmol/L (0.60-1.20)
[2021-10-05 15:15] VITALS: BP 149/83; PULSE 94; RESP 14; TEMP 37.1; O2SAT 98
--- NOTE | 2021-10-05 15:52 | PM.PSYCN ---
History of Present Illness Date of Service: 10/05/2021 Chief Complaint: Cva Reason for Consult: Competency Evaluation Requesting physician: Monik Schuler Discussed with referring provider: Yes Sources of Information: patient interviewed and chart reviewed Additional Sources of Information: Attempted to reach son 2X, at [phone], left message. Please note: Patient reports she lives alone, listed same phone number as her home number. HPI Narrative: Patient is a 66-year-old female with multiple comorbidities, including diabetes, hyperlipidemia, bipolar disorder. EMS was activated after almost 1 week of symptoms, including slurred speech and feeling ?wobbly?. When she presented to the hospital, speech was slurred, however has improved. Psychiatry was consulted regarding a capacity evaluation. Patient was sitting up in chair in room, with dark sunglasses on. Upon interview, she was calm, cooperative, but guarded. She was able to tell me that she was at [facility], and that she was here because she may have had a stroke. She was able to tell me it was October, although she did state 2019 for the year. When asked the day or date, after several minutes, she stated she was not sure, but possibly October 07. She says that she lives by herself in an apartment, and that her son lives nearby. Her speech was clear but slow, with some word-finding difficulty. She also was a vague historian at times, with several variations on whether she has any social supports/family nearby. She reported to me that her son lives nearby, however, as per , she had stated earlier today that she does not have any family in the area. She appeared to be vaguely confused at times. However, when discussing treatment, she was able to tell me that therapy has been recommended. When asked about her history of bipolar disorder, she nodded in agreement that she does have bipolar disorder. When asked about her medications, she stated that she feels her medications are fine, I feel stable , with no further discussion. She then stated that her son was coming to the hospital soon, and that she would prefer to answer any further questions while he was present. I attempted to call her son at the phone number listed for him, . I left a voicemail. However, I did notice later in chart that she had also listed the same phone number as her home number. I then went to her room and asked her for her son's phone number, and she declined to provide it. Past Psychiatric History: History of bipolar disorder. Outpatient psychiatrist Dr. Rosa Faulkner prescribes lithium ER 900 mg at bedtime, Haldol 10 mg at bedtime, nortriptyline 10 mg at bedtime., benzotropine at bedtime. Medical Evaluation Reviewed: Yes Personal & Social History: Retired Lives alone Brother is HCP Lists son as assembly person Review of Systems Review of Systems A full review of systems was completed and was negative with the exception of pertinent positives noted in history of the presenting illness (HPI). [facility] Medical History Diabetes 1.5, managed as type 2 HTN (hypertension) Family History: unknown Social History: Retired Lives alone in apartment Has a brother, and a son. Substance History: None reported Trauma History: None reported Diagnostics Vital Signs (24Hr): Vital Signs - 24 hr 10/04/21 18:00 10/04/21 20:30 10/04/21 21:40 Temperature 98.9 F 99.0 F Pulse Rate 81 78 84 Respiratory Rate 17 20 20 Blood Pressure 145/88 H 150/75 H 162/74 H Pulse Oximetry 99 97 97 10/04/21 23:29 10/05/21 03:31 10/05/21 07:14 Temperature 98.5 F 98.3 F 98.1 F Pulse Rate 86 81 90 Respiratory Rate 20 19 18 Blood Pressure 160/72 H 130/63 137/69 Pulse Oximetry 95 98 98 10/05/21 08:47 10/05/21 11:45 10/05/21 15:15 Temperature 98.9 F 98.8 F Pulse Rate 90 90 94 Respiratory Rate 20 14 Blood Pressure 137/69 149/75 H 149/83 H Pulse Oximetry 98 100 98 BMI result Body Mass Index 28.8 Labs Results: 10/05/21 06:37 10/05/21 06:37 Labs: Laboratory Results - last 48 hr 10/04/21 10/04/21 10/04/21 11:20 11:20 12:58 WBC 9.5 RBC 4.68 Hgb 12.5 Hct 39.8 MCV 85.0 MCH 26.7 L MCHC 31.4 RDW 14.3 Plt Count 288 MPV 10.4 Immature Gran % (Auto) 0.2 Neut % (Auto) 62.1 Lymph % (Auto) 26.4 Crane % (Auto) 6.5 Eos % (Auto) 4.4 H Baso % (Auto) 0.4 Lymph # (Auto) 2.5 Crane # (Auto) 0.6 Eos # (Auto) 0.4 Baso # (Auto) 0.0 Abs Immat Gran (auto) 0.02 Absolute Neuts (auto) 5.9 Absolute Nucleated RBC 0.000 Nucleated RBC % (auto) 0.0 Sodium 138 Potassium 4.4 Chloride 105 Carbon Dioxide 28 Anion Gap 9 L BUN 11 Creatinine 1.11 Estim Creat Clear Calc 47.3 Estimated GFR 49 POC Glucose Random Glucose 258 H Estimat Average Glucose Hemoglobin A1c % Calcium 11.8 H Troponin I High Sens 7.9 Albumin Triglycerides Cholesterol LDL Cholesterol, Calc HDL Cholesterol TSH Urine Color Urine Appearance Urine pH Ur Specific Norman Urine Protein Urine Glucose (UA) Urine Ketones Urine Blood Urine Nitrite Ur Leukocyte Esterase Urine RBC Urine WBC Ur Squamous Epith Cells Urine Bacteria Iatan COVID-19 (PATRICIA) COVID-[employer] 10/04/21 10/04/21 10/04/21 12:58 15:15 15:15 WBC RBC Hgb Hct MCV MCH MCHC RDW Plt Count MPV Immature Gran % (Auto) Neut % (Auto) Lymph % (Auto) Crane % (Auto) Eos % (Auto) Baso % (Auto) Lymph # (Auto) Crane # (Auto) Eos # (Auto) Baso # (Auto) Abs Immat Gran (auto) Absolute Neuts (auto) Absolute Nucleated RBC Nucleated RBC % (auto) Sodium Potassium Chloride Carbon Dioxide Anion Gap BUN Creatinine Estim Creat Clear Calc Estimated GFR POC Glucose Random Glucose Estimat Average Glucose Hemoglobin A1c % Calcium Troponin I High Sens Albumin Triglycerides Cholesterol LDL Cholesterol, Calc HDL Cholesterol TSH 1.86 Urine Color YELLOW Urine Appearance CLEAR Urine pH 6.5 Ur Specific Norman <= 1.005 Urine Protein NEG Urine Glucose (UA) NEG Urine Ketones NEG Urine Blood NEG Urine Nitrite NEG Ur Leukocyte Esterase 1+ H Urine RBC 0-2 Urine WBC 1-4 Ur Squamous Epith Cells TRACE Urine Bacteria TRACE Iatan COVID-19 (PATRICIA) Negative COVID-19 [employer] See Note 10/04/21 10/04/21 10/04/21 18:24 19:59 21:51 WBC RBC Hgb Hct MCV MCH MCHC RDW Plt Count MPV Immature Gran % (Auto) Neut % (Auto) Lymph % (Auto) Crane % (Auto) Eos % (Auto) Baso % (Auto) Lymph # (Auto) Crane # (Auto) Eos # (Auto) Baso # (Auto) Abs Immat Gran (auto) Absolute Neuts (auto) Absolute Nucleated RBC Nucleated RBC % (auto) Sodium 140 Potassium 4.6 Chloride 109 H Carbon Dioxide 26 Anion Gap 10 L BUN 10 Creatinine 1.06 Estim Creat Clear Calc 49.6 Estimated GFR 52 POC Glucose 145 H 196 H Random Glucose 266 H Estimat Average Glucose Hemoglobin A1c % Calcium 11.7 H Troponin I High Sens Albumin Triglycerides Cholesterol LDL Cholesterol, Calc HDL Cholesterol TSH Urine Color Urine Appearance Urine pH Ur Specific Norman Urine Protein Urine Glucose (UA) Urine Ketones Urine Blood Urine Nitrite Ur Leukocyte Esterase Urine RBC Urine WBC Ur Squamous Epith Cells Urine Bacteria Iatan COVID-19 (PATRICIA) COVID-19 Clin Com 10/05/21 10/05/21 10/05/21 06:37 06:37 06:37 WBC 10.0 RBC 4.60 Hgb 12.3 Hct 39.0 MCV 84.8 MCH 26.7 L MCHC 31.5 RDW 14.3 Plt Count 308 MPV 10.6 Immature Gran % (Auto) 0.1 Neut % (Auto) 59.8 Lymph % (Auto) 26.5 Crane % (Auto) 8.2 Eos % (Auto) 5.0 H Baso % (Auto) 0.4 Lymph # (Auto) 2.6 Crane # (Auto) 0.8 Eos # (Auto) 0.5 H Baso # (Auto) 0.0 Abs Immat Gran (auto) 0.01 Absolute Neuts (auto) 6.0 Absolute Nucleated RBC 0.000 Nucleated RBC % (auto) 0.0 Sodium 138 Potassium 4.4 Chloride 108 Carbon Dioxide 25 Anion Gap 9 L BUN 10 Creatinine 0.98 Estim Creat Clear Calc 55.0 Estimated GFR 57 POC Glucose Random Glucose 229 H Estimat Average Glucose 243 Hemoglobin A1c % 10.1 Calcium 11.6 H Troponin I High Sens Albumin 3.8 Triglycerides 231 Cholesterol 119 LDL Cholesterol, Calc 45 HDL Cholesterol 28 TSH Urine Color Urine Appearance Urine pH Ur Specific Norman Urine Protein Urine Glucose (UA) Urine Ketones Urine Blood Urine Nitrite Ur Leukocyte Esterase Urine RBC Urine WBC Ur Squamous Epith Cells Urine Bacteria Iatan COVID-19 (PATRICIA) COVID-19 Clin Com 10/05/21 10/05/21 10/05/21 07:13 11:06 14:51 WBC RBC Hgb Hct MCV MCH MCHC RDW Plt Count MPV Immature Gran % (Auto) Neut % (Auto) Lymph % (Auto) Crane % (Auto) Eos % (Auto) Baso % (Auto) Lymph # (Auto) Crane # (Auto) Eos # (Auto) Baso # (Auto) Abs Immat Gran (auto) Absolute Neuts (auto) Absolute Nucleated RBC Nucleated RBC % (auto) Sodium Potassium Chloride Carbon Dioxide Anion Gap BUN Creatinine Estim Creat Clear Calc Estimated GFR POC Glucose 235 H 257 H Random Glucose Estimat Average Glucose Hemoglobin A1c % Calcium Troponin I High Sens Albumin Triglycerides Cholesterol LDL Cholesterol, Calc HDL Cholesterol TSH Urine Color Urine Appearance Urine pH Ur Specific Norman Urine Protein Urine Glucose (UA) Urine Ketones Urine Blood Urine Nitrite Ur Leukocyte Esterase Urine RBC Urine WBC Ur Squamous Epith Cells Urine Bacteria Iatan 1.06 COVID-19 (PATRICIA) COVID-19 Clin Com Imaging Radiology Impressions: ITS Impressions Head CT 10/04/21 14:03 IMPRESSION: 1. There appears to be a small region of lost velasco-white matter differentiation within the lateral left frontal lobe. Although age indeterminate, this may represent sequela of a small acute to subacute infarct. 2. No evidence of acute intracranial hemorrhage. 3. Moderate underlying microangiopathy and generalized cerebral volume loss. This critical result was discussed with Dr. Montague at 15:05 on 10/04/2021 and it was ascertained that the content and urgency of the report was understood at the time of direct communication. Chest X-Ray 10/04/21 14:06 IMPRESSION: Unremarkable chest examination. Brain MRI 10/04/21 16:30 IMPRESSION: 1. No acute intracranial abnormalities. 2. Moderate underlying microangiopathy and generalized cerebral volume loss. Mental Status Exam Mental Status Exam Narrative: Well-developed, overweight female, in NAD. Sitting up in chair in room. No abnormal movements noted, no cogwheeling. Patient did not appear to be responding to any type of internal stimuli during encounter. Presented as suspicious, guarded. Wearing dark colored sunglasses. Speech was clear, slow, appeared to have difficulty with word finding. Patient Appearance: Well Grooomed Patient Orientation: Person, Place and Situation Level of Consciousness: Awake and Alert Patient Behavior: Guarded, Suspicious and Poor Eye Contact (wore dark colored sunglasses throughout interview.) Mood Description: Calm Affect Description: Suspicious and Constricted Patient Cognition Impaired: Yes Ability to Follow Directions: Good Speech Pattern: Clear, Difficulty Finding Words, Soft-Spoken and Long Pauses Memory Description: Intact (Memory appeared grossly intact, however was difficult to fully assess.) Hallucinations: None Delusions: Paranoid Ideation (Presented as guarded, suspicious. Difficult to fully assess if experiencing any paranoia.) Thought Process: Slowed Thinking Thought Content: positive for Disoriented (Oriented to self, place, situation. Appears confused at times however.) Judgement: Fair Medications Medications Current Medications Aspirin (Aspirin Enteric Coated 81 Mg Tablet.) 81 mg PO DAILY [facility] Last Admin: 10/05/21 08:29 Dose: 81 mg Documented by: Atorvastatin Calcium (Atorvastatin Calcium 20 Mg Tablet) 20 mg PO DAILY [facility] Last Admin: 10/05/21 08:29 Dose: 20 mg Documented by: Benztropine Mesylate (Benztropine Mesylate 1 Mg Tablet) 1 mg PO BEDTIME [facility] Last Admin: 10/04/21 22:03 Dose: 1 mg Documented by: Dextrose (Dextrose 50 % 25 Gm/50 Ml Syringe) 25 gm IVPUSH Q15M PRN; Protocol PRN Reason: per Hypoglycemia Standing Ord. Enoxaparin Sodium (Enoxaparin Sodium 40 Mg/0.4 Ml Syringe) 40 mg SUBCUT Q24H [facility] Last Admin: 10/04/21 16:51 Dose: 40 mg Documented by: Glucose (Glucose Gel 15 Gm Gel..Gram.) 15 gm PO Q15M PRN; Protocol PRN Reason: per Hypoglycemia Standing Ord. Haloperidol (Haloperidol 5 Mg Tablet) 10 mg PO BEDTIME [facility] Last Admin: 10/04/21 22:02 Dose: 10 mg Documented by: Lactated Ringer's (Lr) 1,000 mls @ 80 mls/hr IVCONT .[id number] [facility] Last Admin: 10/05/21 04:24 Dose: 80 mls/hr Documented by: Ceftriaxone Sodium 1 gm/ (Sodium Chloride) 50 mls @ 100 mls/hr IV Q24H [facility] Insulin Human Lispro (Insulin Lispro 100 Unit/Ml 3 Ml Vial) 0 unit SUBCUT QIDACHS [facility]; Protocol Last Admin: 10/05/21 11:39 Dose: Not Given Documented by: Iatan Carbonate (Iatan Carbonate Er 450 Mg Tablet.Er) 900 mg PO BEDTIME [facility] Last Admin: 10/04/21 22:03 Dose: 900 mg Documented by: Melatonin (Melatonin 3 Mg Tablet) 6 mg PO BEDTIME PRN PRN Reason: Sleep Last Admin: 10/05/21 02:21 Dose: 6 mg Documented by: Nortriptyline HCl (Nortriptyline Hcl 10 Mg Capsule) 10 mg PO BEDTIME [facility] Last Admin: 10/04/21 22:03 Dose: 10 mg Documented by: Pharmacy Consult (Consult Rx Perform Med Rec) 1 each MISCELLANE ONCE PRN PRN Reason: Consult order Allergies Allergies Allergy/AdvReac Type Severity Reaction Status Date / Time oxycodone Allergy Rash Verified 10/04/21 11:09 Penicillins Allergy Rash Verified 10/04/21 11:09 Assessment & Plan Assessment & Plan (1) Encounter for assessment of healthcare decision-making capacity: Status: Acute Code(s): Z02.79 - Encounter for issue of other medical certificate Assessment and Plan: Patient was mostly agreeable, although did present with constricted affect, guarded during interview. She was able to state where she is, reason she is in the hospital, and her name. She knew the month is October, although had some difficulty with date including year. She stated that she is aware that therapy is being recommended. Patient has also been diagnosed with urinary tract infection, and has begun antibiotic therapy today. (2) Bipolar disorder: Status: Acute Code(s): F31.9 - Bipolar disorder, unspecified Assessment and Plan: Client does state that she has a diagnosis of bipolar disorder. She currently is receiving medications including nortriptyline, lithium, Haldol. She did not discuss anything further, except to state that her medications are fine, and that she feels stable. She did not display any type of manic or hypomanic behavior, and did not make any statements regarding SI or any other safety concerns. Plan At this time, without any collateral information from family, it is unclear as to whether this patient has capacity at this time. As patient has also been diagnosed with both CVA and UTI, if she were determined to lack capacity, there is an expectation that as her symptoms resolve this determination could change. Plan: Continue to obtain collateral information. Iatan level ordered. Follow up with patient tomorrow morning in order to assess further. I have shared this information with provider Monik Schuler, via secure electronic messaging system. I spent 45_ minutes with the patient and/or on the patient floor today, greater than?50% of which was spent counseling/coordinating care. Patient educated on: diagnosis, therapeutic strategies and medical condition Informed Consent: further education needed
[2021-10-05] MEDS: cefTRIAXone sodium 1 GM in 0.9 % Sodium Chloride 50 ML IV (16:26)
[2021-10-05] MEDS: Enoxaparin Sodium 40 MG/0.4 ML SYRINGE SUBCUT (16:27)
[2021-10-05 16:33] LABS: Glucose, Whole Blood 244 mg/dL (60-115)
[2021-10-05 19:00] VITALS: BP 142/73; PULSE 85; RESP 14; TEMP 37.3; O2SAT 98
[2021-10-05] MEDS: Benztropine Mesylate 1 MG TABLET PO (20:02)
[2021-10-05] MEDS: HaloperidoL 5 MG TABLET 10 MG PO (20:02)
[2021-10-05] MEDS: Lithium Carbonate ER 450 MG TABLET.ER 900 MG PO (20:02)
[2021-10-05] MEDS: Nortriptyline HCl 10 MG CAPSULE PO (20:02)
[2021-10-05 21:00] LABS: Glucose, Whole Blood 210 mg/dL (60-115)
[2021-10-06] VITALS (8 sets, daily range): BP systolic 130–155; BP diastolic 66–80; PULSE 75–96; RESP 17–19; TEMP 36.4–37.2; O2SAT 94–98
[2021-10-06 07:26] LABS: Glucose, Whole Blood 239 mg/dL (60-115)
[2021-10-06] MEDS: Aspirin Enteric Coated 81 MG TABLET.DR PO (07:38)
[2021-10-06] MEDS: Atorvastatin Calcium 20 MG TABLET PO (07:38)
[2021-10-06] MEDS: Lactated Ringers 1,000 ML 80 ML IVCONT ×2 (07:44→20:07)
--- NOTE | 2021-10-06 09:04 | HO.PSYCHPN ---
Subjective Subjective Date of Service: 10/06/21 Reason For Visit: [facility] Proxy: No Guardianship: No Medical Problems Affecting Mental Status: Yes Interim History: [place] level 1.06. I met with patient this morning, I also spoke with her son at length on phone. Son informs me that his mother is fully independent and highly functioning when home. A 16-year-old granddaughter lives with her. He came to see his mother last evening, and she was fully alert and oriented, coherent. He did report that he noticed that she had some difficulty with word finding, otherwise was fine. He also reported that in the past when she has had a UTI, she did become confused. Patient was sitting up in chair, dressed in hospital attire when I entered room. She was just finishing up with occupational therapist at the time. She was alert and oriented. Fully conversant, speech clear, soft, coherent. Denied any thoughts of self-harm, denied any depression, anxiety, or symptoms of hypomania. She did state however, that she felt ?a little confused ?. She became tearful at that time. When asked to elaborate, she stated ?I can not find my son's phone number ?. She stated that it is in her cellphone, but that she could not access it. Phone was charged, she had difficulty remembering had to retrieve her son's phone number. I wrote the number down on a piece of paper for her, she looked at the number, and stated yes that is the correct number for her son. Medication Compliance: Yes Side effects from medications: No Review of Systems Constitutional: Reports no additional constitutional complaints Mental Status Exam Mental Status Exam Narrative: Well-developed female, in NAD. Appropriate grooming. Ambulation not observed. No abnormal movements noted. More conversant, more cooperative this morning. Did not appear guarded or constricted. Full range of affect, with no constriction/lability. Tearful for several moments, when reporting she could not remember her son's phone number. Patient Appearance: Well Grooomed and Appropriate Patient Orientation: Person, Time and Situation Level of Consciousness: Awake, Appropriate and Alert Patient Behavior: Appropriate, Cooperative and Good Eye Contact Mood Description: Calm and Appropriate Affect Description: Appropriate and Anxious (briefly tearful, stated she feels she is 'a little confused today . ) Patient Cognition Impaired: No Ability to Follow Directions: Good Speech Pattern: Clear, Soft-Spoken and Long Pauses (difficulty with word finding during encounter. Improved from yesterday) Memory Description: Intact (grossly intact. ) and Working Impaired (could not remember son's phone number. ) Hallucinations: None Delusions: Not Present Thought Process: Intact and Confusion (reports some confusion, difficulty remembering her son's phone number) Thought Content: positive for Intact Judgement: Fair (fair but adequate. ) Diagnostics Vital Signs (24Hr): Vital Signs - 24 hr 10/05/21 11:45 10/05/21 15:15 10/05/21 19:00 Temperature 98.9 F 98.8 F 99.1 F Pulse Rate 90 94 85 Respiratory Rate 20 14 14 Blood Pressure 149/75 H 149/83 H 142/73 H Pulse Oximetry 100 98 98 10/06/21 00:00 10/06/21 04:00 10/06/21 07:05 Temperature 98.4 F 97.5 F 98.1 F Pulse Rate 85 75 79 Respiratory Rate 18 18 18 Blood Pressure 143/66 H 130/71 131/67 Pulse Oximetry 94 98 95 BMI result Body Mass Index 28.8 Labs Results: 10/05/21 06:37 10/05/21 06:37 Labs: Laboratory Results - last 48 hr 10/04/21 10/04/21 10/04/21 11:20 11:20 12:58 WBC 9.5 RBC 4.68 Hgb 12.5 Hct 39.8 MCV 85.0 MCH 26.7 L MCHC 31.4 RDW 14.3 Plt Count 288 MPV 10.4 Immature Gran % (Auto) 0.2 Neut % (Auto) 62.1 Lymph % (Auto) 26.4 Hinds % (Auto) 6.5 Eos % (Auto) 4.4 H Baso % (Auto) 0.4 Lymph # (Auto) 2.5 Hinds # (Auto) 0.6 Eos # (Auto) 0.4 Baso # (Auto) 0.0 Abs Immat Gran (auto) 0.02 Absolute Neuts (auto) 5.9 Absolute Nucleated RBC 0.000 Nucleated RBC % (auto) 0.0 Sodium 138 Potassium 4.4 Chloride 105 Carbon Dioxide 28 Anion Gap 9 L BUN 11 Creatinine 1.11 Estim Creat Clear Calc 47.3 Estimated GFR 49 POC Glucose Random Glucose 258 H Estimat Average Glucose Hemoglobin A1c % Calcium 11.8 H Troponin I High Sens 7.9 Albumin Triglycerides Cholesterol LDL Cholesterol, Calc HDL Cholesterol TSH Urine Color Urine Appearance Urine pH Ur Specific [place] Urine Protein Urine Glucose (UA) Urine Ketones Urine Blood Urine Nitrite Ur Leukocyte Esterase Urine RBC Urine WBC Ur Squamous Epith Cells Urine Bacteria [place] COVID-19 (PATRICIA) COVID-19 Clin Com 10/04/21 10/04/21 10/04/21 12:58 15:15 15:15 WBC RBC Hgb Hct MCV MCH MCHC RDW Plt Count MPV Immature Gran % (Auto) Neut % (Auto) Lymph % (Auto) Hind[place] % (Auto) Eos % (Auto) Baso % (Auto) Lymph # (Auto) [place] # (Auto) Eos # (Auto) Baso # (Auto) Abs Immat Gran (auto) Absolute Neuts (auto) Absolute Nucleated RBC Nucleated RBC % (auto) Sodium Potassium Chloride Carbon Dioxide Anion Gap BUN Creatinine Estim Creat Clear Calc Estimated GFR POC Glucose Random Glucose Estimat Average Glucose Hemoglobin A1c % Calcium Troponin I High Sens Albumin Triglycerides Cholesterol LDL Cholesterol, Calc HDL Cholesterol TSH 1.86 Urine Color YELLOW Urine Appearance CLEAR Urine pH 6.5 Ur Specific [place] <= 1.005 Urine Protein NEG Urine Glucose (UA) NEG Urine Ketones NEG Urine Blood NEG Urine Nitrite NEG Ur Leukocyte Esterase 1+ H Urine RBC 0-2 Urine WBC 1-4 Ur Squamous Epith Cells TRACE Urine Bacteria TRACE [place] COVID-19 (PATRICIA) Negative COVID-19 Clin Com See Note 10/04/21 10/04/21 10/04/21 18:24 19:59 21:51 WBC RBC Hgb Hct MCV MCH MCHC RDW Plt Count MPV Immature Gran % (Auto) Neut % (Auto) Lymph % (Auto) Hind[place] % (Auto) Eos % (Auto) Baso % (Auto) Lymph # (Auto) [place] # (Auto) Eos # (Auto) Baso # (Auto) Abs Immat Gran (auto) Absolute Neuts (auto) Absolute Nucleated RBC Nucleated RBC % (auto) Sodium 140 Potassium 4.6 Chloride 109 H Carbon Dioxide 26 Anion Gap 10 L BUN 10 Creatinine 1.06 Estim Creat Clear Calc 49.6 Estimated GFR 52 POC Glucose 145 H 196 H Random Glucose 266 H Estimat Average Glucose Hemoglobin A1c % Calcium 11.7 H Troponin I High Sens Albumin Triglycerides Cholesterol LDL Cholesterol, Calc HDL Cholesterol TSH Urine Color Urine Appearance Urine pH Ur Specific [place] Urine Protein Urine Glucose (UA) Urine Ketones Urine Blood Urine Nitrite Ur Leukocyte Esterase Urine RBC Urine WBC Ur Squamous Epith Cells Urine Bacteria [place] COVID-19 (PATRICIA) COVID-19 navigaya 10/05/21 10/05/21 10/05/21 06:37 06:37 06:37 WBC 10.0 RBC 4.60 Hgb 12.3 Hct 39.0 MCV 84.8 MCH 26.7 L MCHC 31.5 RDW 14.3 Plt Count 308 MPV 10.6 Immature Gran % (Auto) 0.1 Neut % (Auto) 59.8 Lymph % (Auto) 26.5 Hinds % (Auto) 8.2 Eos % (Auto) 5.0 H Baso % (Auto) 0.4 Lymph # (Auto) 2.6 Hinds # (Auto) 0.8 Eos # (Auto) 0.5 H Baso # (Auto) 0.0 Abs Immat Gran (auto) 0.01 Absolute Neuts (auto) 6.0 Absolute Nucleated RBC 0.000 Nucleated RBC % (auto) 0.0 Sodium 138 Potassium 4.4 Chloride 108 Carbon Dioxide 25 Anion Gap 9 L BUN 10 Creatinine 0.98 Estim Creat Clear Calc 55.0 Estimated GFR 57 POC Glucose Random Glucose 229 H Estimat Average Glucose 243 Hemoglobin A1c % 10.1 Calcium 11.6 H Troponin I High Sens Albumin 3.8 Triglycerides 231 Cholesterol 119 LDL Cholesterol, Calc 45 HDL Cholesterol 28 TSH Urine Color Urine Appearance Urine pH Ur Specific [place] Urine Protein Urine Glucose (UA) Urine Ketones Urine Blood Urine Nitrite Ur Leukocyte Esterase Urine RBC Urine WBC Ur Squamous Epith Cells Urine Bacteria [place] COVID-19 (PATRICIA) COVID-19 navigaya 10/05/21 10/05/21 10/05/21 07:13 11:06 14:51 WBC RBC Hgb Hct MCV MCH MCHC RDW Plt Count MPV Immature Gran % (Auto) Neut % (Auto) Lymph % (Auto) Hinds % (Auto) Eos % (Auto) Baso % (Auto) Lymph # (Auto) [place] # (Auto) Eos # (Auto) Baso # (Auto) Abs Immat Gran (auto) Absolute Neuts (auto) Absolute Nucleated RBC Nucleated RBC % (auto) Sodium Potassium Chloride Carbon Dioxide Anion Gap BUN Creatinine Estim Creat Clear Calc Estimated GFR POC Glucose 235 H 257 H Random Glucose Estimat Average Glucose Hemoglobin A1c % Calcium Troponin I High Sens Albumin Triglycerides Cholesterol LDL Cholesterol, Calc HDL Cholesterol TSH Urine Color Urine Appearance Urine pH Ur Specific [place] Urine Protein Urine Glucose (UA) Urine Ketones Urine Blood Urine Nitrite Ur Leukocyte Esterase Urine RBC Urine WBC Ur Squamous Epith Cells Urine Bacteria [place] 1.06 COVID-19 (PATRICIA) COVID-19 Clin Com 10/05/21 10/05/21 10/06/21 16:27 20:58 07:08 WBC RBC Hgb Hct MCV MCH MCHC RDW Plt Count MPV Immature Gran % (Auto) Neut % (Auto) Lymph % (Auto) [place] % (Auto) Eos % (Auto) Baso % (Auto) Lymph # (Auto) [place] # (Auto) Eos # (Auto) Baso # (Auto) Abs Immat Gran (auto) Absolute Neuts (auto) Absolute Nucleated RBC Nucleated RBC % (auto) Sodium Potassium Chloride Carbon Dioxide Anion Gap BUN Creatinine Estim Creat Clear Calc Estimated GFR POC Glucose 244 H 210 H 239 H Random Glucose Estimat Average Glucose Hemoglobin A1c % Calcium Troponin I High Sens Albumin Triglycerides Cholesterol LDL Cholesterol, Calc HDL Cholesterol TSH Urine Color Urine Appearance Urine pH Ur Specific [place] Urine Protein Urine Glucose (UA) Urine Ketones Urine Blood Urine Nitrite Ur Leukocyte Esterase Urine RBC Urine WBC Ur Squamous Epith Cells Urine Bacteria [place] COVID-19 (PATRICIA) COVID-19 Clin Com Imaging Radiology Impressions: ITS Impressions Head CT 10/04/21 14:03 IMPRESSION: 1. There appears to be a small region of lost velasco-white matter differentiation within the lateral left frontal lobe. Although age indeterminate, this may represent sequela of a small acute to subacute infarct. 2. No evidence of acute intracranial hemorrhage. 3. Moderate underlying microangiopathy and generalized cerebral volume loss. This critical result was discussed with Dr. Montague at 15:05 on 10/04/2021 and it was ascertained that the content and urgency of the report was understood at the time of direct communication. Chest X-Ray 10/04/21 14:06 IMPRESSION: Unremarkable chest examination. Brain MRI 10/04/21 16:30 IMPRESSION: 1. No acute intracranial abnormalities. 2. Moderate underlying microangiopathy and generalized cerebral volume loss. Medications Medications Current Medications Aspirin (Aspirin Enteric Coated 81 Mg Tablet.) 81 mg PO DAILY [facility] Last Admin: 10/06/21 07:38 Dose: 81 mg Documented by: Atorvastatin Calcium (Atorvastatin Calcium 20 Mg Tablet) 20 mg PO DAILY [facility] Last Admin: 10/06/21 07:38 Dose: 20 mg Documented by: Benztropine Mesylate (Benztropine Mesylate 1 Mg Tablet) 1 mg PO BEDTIME [facility] Last Admin: 10/05/21 20:02 Dose: 1 mg Documented by: Dextrose (Dextrose 50 % 25 Gm/50 Ml Syringe) 25 gm IVPUSH Q15M PRN; Protocol PRN Reason: per Hypoglycemia Standing Ord. Enoxaparin Sodium (Enoxaparin Sodium 40 Mg/0.4 Ml Syringe) 40 mg SUBCUT Q24H [facility] Last Admin: 10/05/21 16:27 Dose: 40 mg Documented by: Glucose (Glucose Gel 15 Gm Gel..Gram.) 15 gm PO Q15M PRN; Protocol PRN Reason: per Hypoglycemia Standing Ord. Haloperidol (Haloperidol 5 Mg Tablet) 10 mg PO BEDTIME [facility] Last Admin: 10/05/21 20:02 Dose: 10 mg Documented by: Lactated Ringer's (Lr) 1,000 mls @ 80 mls/hr IVCONT .[id number] [facility] Last Admin: 10/06/21 07:44 Dose: 80 mls/hr Documented by: Ceftriaxone Sodium 1 gm/ (Sodium Chloride) 50 mls @ 100 mls/hr IV Q24H [facility] Last Infusion: 10/05/21 17:33 Dose: Infused Documented by: Insulin Human Lispro (Insulin Lispro 100 Unit/Ml 3 Ml Vial) 0 unit SUBCUT QIDACHS [facility]; Protocol Last Admin: 10/06/21 07:39 Dose: Not Given Documented by: [place] Carbonate ([place] Carbonate Er 450 Mg Tablet.Er) 900 mg PO BEDTIME [facility] Last Admin: 10/05/21 20:02 Dose: 900 mg Documented by: Melatonin (Melatonin 3 Mg Tablet) 6 mg PO BEDTIME PRN PRN Reason: Sleep Last Admin: 10/05/21 02:21 Dose: 6 mg Documented by: Nortriptyline HCl (Nortriptyline Hcl 10 Mg Capsule) 10 mg PO BEDTIME [facility] Last Admin: 10/05/21 20:02 Dose: 10 mg Documented by: Pharmacy Consult (Consult Rx Perform Med Rec) 1 each MISCELLANE ONCE PRN PRN Reason: Consult order Allergies Allergies Allergy/AdvReac Type Severity Reaction Status Date / Time oxycodone Allergy Rash Verified 10/04/21 11:09 Penicillins Allergy Rash Verified 10/04/21 11:09 Assessment & Plan Assessment & Plan (1) Encounter for assessment of healthcare decision-making capacity: Status: Acute Code(s): Z02.79 - Encounter for issue of other medical certificate Assessment and Plan: 10/06/21: Met with patient this a.m.. She was alert and oriented, fully cooperative and conversant. Continues with some difficulty regarding word finding. Reports that she feels she is beginning to feel ?a little confused ?. Became tearful, stating she could not access her son's phone number in her phone, could not remember it. Phone number was provided. Regarding capacity, she was able to take in information regarding her current medical condition, including urinary tract infection. She was able to process this information in a meaningful way, and make decisions based on this information. I spoke with her son at length, [place]. He reports that his mother is highly functioning and independent until several days ago when she came to the hospital. He met with her last evening, and felt that she was fully alert and oriented. Patient has a 16-year-old granddaughter lives with her. He lives 1 hour away, but would like to be contacted regarding any type of discharge planning and care needs. He can be reached at [phone]. He did state however that when his mother has had a UTI in the past, she did become confused during it. RECOMMENDATIONS: At this time, patient appears to have capacity for medical decision making. Patient did express concern that she felt she was becoming slightly confused this morning. Would recommend remain inpatient until she receives several more days of antibiotics. I have shared this with provider Monik Schuler, as well as child welfare caseworker. Thank you. If you have any further questions or concerns, please do not hesitate to contact psychiatry consult service. 10/05/21: Patient was mostly agreeable, although did present with constricted affect, guarded during interview. She was able to state where she is, reason she is in the hospital, and her name. She knew the month is October, although had some difficulty with date including year. She stated that she is aware that therapy is being recommended. Patient has also been diagnosed with urinary tract infection, and has begun antibiotic therapy today. (2) Bipolar disorder: Status: Acute Code(s): F31.9 - Bipolar disorder, unspecified Assessment and Plan: Client does state that she has a diagnosis of bipolar disorder. She currently is receiving medications including nortriptyline, lithium, Haldol. She did not discuss anything further, except to state that her medications are fine, and that she feels stable. She did not display any type of manic or hypomanic behavior, and did not make any statements regarding SI or any other safety concerns. Plan At this time, without any collateral information from family, it is unclear as to whether this patient has capacity at this time. As patient has also been diagnosed with both CVA and UTI, if she were determined to lack capacity, there is an expectation that as her symptoms resolve this determination could change. Plan: Continue to obtain collateral information. [place] level ordered. Follow up with patient tomorrow morning in order to assess further. I have shared this information with provider Monik Schuler, via secure electronic messaging system. I spent minutes with the patient and/or on the patient floor today, greater than?50% of which was spent counseling/coordinating care. Reason for contiued inpatient stay Substantial Risk for: inability to function and med/psych decompensation
--- NOTE | 2021-10-06 11:04 | MHC.SL.SWA ---
Speech Pathologist Impression: Risk of Aspiration Due to: None Dysphasia Diet Status: 1 time follow up with SALES REPRESENTATIVE DOOR TO DOOR may be offered to determine if patient is tolerating his current diet Liquid Consistency and Strategies for Safe Swallow: Liquid Intake Recommendation: Thin Liquid Intake Strategies: Unrestricted Solid Food Consistency: Dietary Recommendations: Regular Additional Modifications to Solid Foods: na Oral Medication Intake: Whole with Liquid Please contact the pharmacy regarding appropriate crushable or liquid drug formulations that are available whenever modified delivery is recommended. Compensatory Strategies and Precautions to be Taken for Safe Swallow: Sitting Upright (90 deg) Liquids from Cup Liquids from Straw Alternate Liquids/Solids Supervision While Eating and Drinking for Safe Swallow: None Needed Foods to Avoid: Swallowing Recommended Treatments: Recommendation for Speech: NA:Typical Evaluation Comment: Mild slushy speech appeared to be related to lack of maxillary dentition. Word retrieval appears to be within functional. Conversational speech was maintained. Frequency/Duration: 1 time follow up for diet toleration Date Range for Service Req: while inpatient Timeline to reassess: PRN Wedding Cake Designer Clinican/Clinical Fellow: No Supervisory Statement: I have reviewed and agree with the student/clinical fellow's documentation: N/A Speech Language Pathologist: Alyce Esparza M.A., CCC-SALES REPRESENTATIVE DOOR TO DOOR
--- NOTE | 2021-10-06 11:11 | HO.PM.IMPN ---
Subjective Subjective Date of Service: 10/06/21 Interval History: seen and examined this morning no slurred speech, still seems somewhat confused awake and alert, oriented to person, vague to situation. unable to remember son's phone number and just staring at phone when asked to look up the number denies any abdominal pain, nausea, vomiting or fever Review of Systems Review of Systems: Yes all other systems are reviewed and are negative Constitutional Constitutional: Denies chills and Denies fever(s) Cardiovascular Cardiovascular: Denies chest pain and Denies dyspnea Respiratory Respiratory: Denies cough and Denies dyspnea Gastrointestinal Gastrointestinal: Denies abdominal pain, Denies nausea and Denies vomiting Genitourinary Genitourinary: Denies dysuria Neurologic Neurologic: Reports confusion Psychiatric Psychiatric: Reports confusion Physical Exam Vital Signs: Vital Signs: Last Vital Signs Temp 98.1 F 10/06/21 07:05 Pulse 79 10/06/21 07:05 Resp 18 10/06/21 07:05 BP 131/67 10/06/21 07:05 Pulse Ox 95 10/06/21 07:05 BMI result Body Mass Index 28.8 Const: General: cooperative, comfortable, no acute distress, alert, awake and confusion Orientation/consciousness: confusion Resp: Effort & Inspection: normal respiratory effort and able to speak in complete sentences Auscultation: clear to auscultation bilaterally Cardio: Rate: regular rate Heart sounds: S1 normal heart sound present and S2 normal heart sound present Neuro: Other: non-focal; moving all extremities; confused, follows commands General: confusion Extrem: Other: moving all 4 extremities spontaneously; no leg edema Objective Data Active Medications Aspirin (Aspirin Enteric Coated 81 Mg Tablet.) 81 mg PO DAILY [facility] Last Admin: 10/06/21 07:38 Dose: 81 mg Documented by: REYMUNDO Atorvastatin Calcium (Atorvastatin Calcium 20 Mg Tablet) 20 mg PO DAILY [facility] Last Admin: 10/06/21 07:38 Dose: 20 mg Documented by: REYMUNDO Benztropine Mesylate (Benztropine Mesylate 1 Mg Tablet) 1 mg PO BEDTIME [facility] Last Admin: 10/05/21 20:02 Dose: 1 mg Documented by: ELI Dextrose (Dextrose 50 % 25 Gm/50 Ml Syringe) 25 gm IVPUSH Q15M PRN; Protocol PRN Reason: per Hypoglycemia Standing Ord. Enoxaparin Sodium (Enoxaparin Sodium 40 Mg/0.4 Ml Syringe) 40 mg SUBCUT Q24H [facility] Last Admin: 10/05/21 16:27 Dose: 40 mg Documented by: ELI Glucose (Glucose Gel 15 Gm Gel..Gram.) 15 gm PO Q15M PRN; Protocol PRN Reason: per Hypoglycemia Standing Ord. Haloperidol (Haloperidol 5 Mg Tablet) 10 mg PO BEDTIME [facility] Last Admin: 10/05/21 20:02 Dose: 10 mg Documented by: ELI Lactated Ringer's (Lr) 1,000 mls @ 80 mls/hr IVCONT .[id number] [facility] Last Admin: 10/06/21 07:44 Dose: 80 mls/hr Documented by: REYMUNDO Ceftriaxone Sodium 1 gm/ (Sodium Chloride) 50 mls @ 100 mls/hr IV Q24H [facility] Last Infusion: 10/05/21 17:33 Dose: 0 mls/hr Documented by: ELI Insulin Human Lispro (Insulin Lispro 100 Unit/Ml 3 Ml Vial) 0 unit SUBCUT QIDACHS [facility]; Protocol Last Admin: 10/06/21 07:39 Dose: Not Given Documented by: REYMUNDO Non-Admin Reason: Patient Refused [place] Carbonate ([place] Carbonate Er 450 Mg Tablet.Er) 900 mg PO BEDTIME [facility] Last Admin: 10/05/21 20:02 Dose: 900 mg Documented by: ELI Melatonin (Melatonin 3 Mg Tablet) 6 mg PO BEDTIME PRN PRN Reason: Sleep Last Admin: 10/05/21 02:21 Dose: 6 mg Documented by: LUIS Nortriptyline HCl (Nortriptyline Hcl 10 Mg Capsule) 10 mg PO BEDTIME [facility] Last Admin: 10/05/21 20:02 Dose: 10 mg Documented by: ELI Pharmacy Consult (Consult Rx Perform Med Rec) 1 each MISCELLANE ONCE PRN PRN Reason: Consult order Labs CBC & Chem 7: 10/05/21 06:37 10/05/21 06:37 Labs: Laboratory Results - last 24 hr 10/05/21 10/05/21 10/05/21 11:06 14:51 16:27 POC Glucose 257 H 244 H [place] 1.06 10/05/21 10/06/21 20:58 07:08 POC Glucose 210 H 239 H [place] Microbiology Microbiology Results: Microbiology 10/04/21 Unknown Urine Culture - Final Urine clean catch - Urine velasco top Strep agalactiae (Grp B) Assessment and Plan (1) Toxic metabolic encephalopathy: Status: Acute Plan 66-year-old female admitted due to concern over acute stroke UTI NO evidence of sepsis UCx growing strep agalactiae continue IV ceftriaxone, day #2; likely d/c with ceftin Toxic metabolic encephalopathy secondary to UTI with probable underlying cognitive impairment based on imaging studies son reports pt was independent prior to admission scored 4/30 on MoCA IV abx as above psych eval for competency CVA ruled out CT head shows:velasco-white matter differentiation within the lateral left frontal lobe-small acute to subacute infarct. MRI with no acute intracranial abnormalities - does show moderately severe atrophy and chronic microvascular ischemic changes seen by neuro, no evidence of acute neurological event - rec aspirin, statin and BP control for chronic changes seen Continue aspirin, statin DM: Hold home glipizide and metformin continue SSI, POCs Hypercalcemia: 11.8 ? Question related to dehydration recommend outpatient follow up Hyperlipidemia: Continue statin Bipolar disorder: Continue home medications lithium level pending possible mild trent : baseline cr not available slight improvement in creatinine but this may be her baseline renal function follow bnp DVT ppx - mechanical devices code status - full code attending - dr. muller Pt requires continued hospitalization due to UTI, requiring IV abx, and encephalopathy. dispo - pt rec home with PT, unable to have home services as she has not followed up with PCP. If no improvement in cognition after treatment for UTI, may need d/c to SNF vs home with family for safety Quality Stroke Does the patient have a stroke diagnosis?: Yes Reason for No Anti-thrombotic by Day Two: N/A - Med Ordered VTE Prior VTE?: No VTE Risk Level:: Medical - moderate - high VTE Device Contraindication: N/A - Device Ordered VTE Drug Contraindication: N/A - Med Ordered
[2021-10-06 11:13] LABS: Glucose, Whole Blood 227 mg/dL (60-115)
--- NOTE | 2021-10-06 13:02 | MHC.CM.PN ---
Female 66 DX UTI Per MD rounds no discharge today. DP home with services, family transport.
[2021-10-06] MEDS: cefTRIAXone sodium 1 GM in 0.9 % Sodium Chloride 50 ML IV (15:13)
[2021-10-06] MEDS: Enoxaparin Sodium 40 MG/0.4 ML SYRINGE SUBCUT (15:18)
[2021-10-06 16:20] LABS: Glucose, Whole Blood 240 mg/dL (60-115)
[2021-10-06 19:50] LABS: Glucose, Whole Blood 272 mg/dL (60-115)
[2021-10-06] MEDS: Lithium Carbonate ER 450 MG TABLET.ER 900 MG PO (20:08)
[2021-10-06] MEDS: Benztropine Mesylate 1 MG TABLET PO (20:08)
[2021-10-06] MEDS: Nortriptyline HCl 10 MG CAPSULE PO (20:08)
[2021-10-06] MEDS: HaloperidoL 5 MG TABLET 10 MG PO (20:08)
[2021-10-07] VITALS (7 sets, daily range): BP systolic 120–159; BP diastolic 71–84; PULSE 71–94; RESP 18–20; TEMP 36.4–37.6; O2SAT 93–100
[2021-10-07] MEDS: Lactated Ringers 1,000 ML 80 ML IVCONT (06:25)
[2021-10-07 07:19] LABS: Glucose, Whole Blood 258 mg/dL (60-115)
[2021-10-07] MEDS: Atorvastatin Calcium 20 MG TABLET PO (10:13)
[2021-10-07] MEDS: Aspirin Enteric Coated 81 MG TABLET.DR PO (10:13)
[2021-10-07 11:28] LABS: Glucose, Whole Blood 328 mg/dL (60-115)
--- NOTE | 2021-10-07 13:39 | HO.PM.IMPN ---
Subjective Subjective Date of Service: 10/07/21 Review of Systems no slurred speech awake and alert, oriented to person, place and situation. denies any abdominal pain, nausea, vomiting or fever Physical Exam Vital Signs: Vital Signs: Last Vital Signs Temp 98.9 F 10/07/21 11:05 Pulse 77 10/07/21 11:05 Resp 18 10/07/21 11:05 BP 120/84 10/07/21 11:05 Pulse Ox 99 10/07/21 11:05 BMI result Body Mass Index 28.8 Appearing in no acute distress lung sounds are clear to auscultation heart regular rate rhythm, clear S1, S2 positive bowel sounds, abdomen is soft, nontender neuro patient is alert x3, no focal deficits Objective Data Active Medications Aspirin (Aspirin Enteric Coated 81 Mg Tablet.Dr) 81 mg PO DAILY [facility] Last Admin: 10/07/21 10:13 Dose: 81 mg Documented by: ANDRIA Atorvastatin Calcium (Atorvastatin Calcium 20 Mg Tablet) 20 mg PO DAILY [facility] Last Admin: 10/07/21 10:13 Dose: 20 mg Documented by: ANDRIA Benztropine Mesylate (Benztropine Mesylate 1 Mg Tablet) 1 mg PO BEDTIME [facility] Last Admin: 10/06/21 20:08 Dose: 1 mg Documented by: LEN Dextrose (Dextrose 50 % 25 Gm/50 Ml Vial) 25 gm IVPUSH Q15M PRN; Protocol PRN Reason: per Hypoglycemia Standing Ord. Enoxaparin Sodium (Enoxaparin Sodium 40 Mg/0.4 Ml Syringe) 40 mg SUBCUT Q24H [facility] Last Admin: 10/06/21 15:18 Dose: 40 mg Documented by: REYMUNDO Glucose (Glucose Gel 15 Gm Gel..Gram.) 15 gm PO Q15M PRN; Protocol PRN Reason: per Hypoglycemia Standing Ord. Haloperidol (Haloperidol 5 Mg Tablet) 10 mg PO BEDTIME [facility] Last Admin: 10/06/21 20:08 Dose: 10 mg Documented by: LEN Lactated Ringer's (Lr) 1,000 mls @ 80 mls/hr IVCONT .[id number] [facility] Last Admin: 10/07/21 06:25 Dose: 80 mls/hr Documented by: LEN Ceftriaxone Sodium 1 gm/ (Sodium Chloride) 50 mls @ 100 mls/hr IV Q24H [facility] Last Infusion: 10/06/21 15:48 Dose: 0 mls/hr Documented by: REYMUNDO Insulin Human Lispro (Insulin Lispro 100 Unit/Ml 3 Ml Vial) 0 unit SUBCUT QIDACHS [facility]; Protocol Last Admin: 10/07/21 10:18 Dose: Not Given Documented by: ANDRIA Non-Admin Reason: No Insulin Coverage Tripp Carbonate (Tripp Carbonate Er 450 Mg Tablet.Er) 900 mg PO BEDTIME [facility] Last Admin: 10/06/21 20:08 Dose: 900 mg Documented by: LEN Melatonin (Melatonin 3 Mg Tablet) 6 mg PO BEDTIME PRN PRN Reason: Sleep Last Admin: 10/05/21 02:21 Dose: 6 mg Documented by: LUIS Nortriptyline HCl (Nortriptyline Hcl 10 Mg Capsule) 10 mg PO BEDTIME [facility] Last Admin: 10/06/21 20:08 Dose: 10 mg Documented by: LEN Pharmacy Consult (Consult Rx Perform Med Rec) 1 each MISCELLANE ONCE PRN PRN Reason: Consult order Labs CBC & Chem 7: 10/05/21 06:37 10/05/21 06:37 Labs: Laboratory Results - last 24 hr 10/06/21 10/06/21 10/07/21 15:57 19:10 07:13 POC Glucose 240 H 272 H 258 H 10/07/21 11:08 POC Glucose 328 H Assessment and Plan (1) Toxic metabolic encephalopathy: Status: Acute Plan 66-year-old female admitted due to concern over acute stroke UTI N evidence of sepsis UCx growing strep agalactiae continue IV ceftriaxone, day likely d/c with ceftin Toxic metabolic encephalopathy secondary to UTI with probable underlying cognitive impairment based on imaging studies son reports pt was independent prior to admission scored 4/30 on [facility]CA IV abx as above psych eval for competency pending CVA ruled out CT head shows:velasco-white matter differentiation within the lateral left frontal lobe-small acute to subacute infarct. MRI with no acute intracranial abnormalities - does show moderately severe atrophy and chronic microvascular ischemic changes seen by neuro, no evidence of acute neurological event - rec aspirin, statin and BP control for chronic changes seen Continue aspirin, statin DM: Hold home glipizide and metformin continue SSI, POCs Hypercalcemia: 11.8 ? Question related to dehydration recommend outpatient follow up Hyperlipidemia: Continue statin Bipolar disorder: Continue home medications lithium level pending possible mild tretn : baseline cr not available slight improvement in creatinine but this may be her baseline renal function follow bnp DVT ppx - mechanical devices code status - full code attending - dr. Dempsey Pt requires continued hospitalization due to UTI, requiring IV abx, and encephalopathy. dispo -Home when medically stable Quality Stroke Does the patient have a stroke diagnosis?: Yes Reason for No Anti-thrombotic by Day Two: N/A - Med Ordered VTE Prior VTE?: No VTE Risk Level:: Medical - moderate - high VTE Device Contraindication: N/A - Device Ordered VTE Drug Contraindication: N/A - Med Ordered
[2021-10-07 16:25] LABS: Glucose, Whole Blood 255 mg/dL (60-115)
[2021-10-07] MEDS: cefTRIAXone sodium 1 GM in 0.9 % Sodium Chloride 50 ML IV (17:24)
--- NOTE | 2021-10-07 18:25 | PC.NURSE ---
Pt was refusing insulin even though her POC were high. She insists that she will only take her home diabetes meds. MOLD SANDER was notified; asked me to tell her that she couldn't go home unless she took the insulin, which I did. Pt because agitated. She now reports that we took her medication and papers out of her purse. I called her son and explained the situation about the insulin and assured him that when she refused I didn't give it. He spoke to her, she told him that we were giving her medication she didn't want to take. MOLD SANDER was notified.
[2021-10-07 20:37] LABS: Glucose, Whole Blood 281 mg/dL (60-115)
[2021-10-07] MEDS: HaloperidoL 5 MG TABLET 10 MG PO (20:52)
[2021-10-07] MEDS: Benztropine Mesylate 1 MG TABLET PO (20:52)
[2021-10-07] MEDS: Nortriptyline HCl 10 MG CAPSULE PO (20:52)
[2021-10-07] MEDS: Lithium Carbonate ER 450 MG TABLET.ER 900 MG PO (20:52)
[2021-10-08 03:33] VITALS: BP 157/70; PULSE 71; RESP 19; TEMP 36.8; O2SAT 96
[2021-10-08 07:17] LABS: Glucose, Whole Blood 146 mg/dL (60-115)
[2021-10-08 07:44] VITALS: BP 132/68; PULSE 77; RESP 16; TEMP 37.1; O2SAT 95
[2021-10-08 11:22] LABS: Glucose, Whole Blood 219 mg/dL (60-115)
--- NOTE | 2021-10-08 11:31 | HO.PM.IMPN ---
Subjective Subjective Date of Service: 10/08/21 Review of Systems no slurred speech awake and alert, oriented to person, place and situation. denies any abdominal pain, nausea, vomiting or fever Agitated today, refusing to take her insulin attempted to call son to update, but no answer Physical Exam Vital Signs: Vital Signs: Last Vital Signs Temp 98.7 F 10/08/21 07:44 Pulse 77 10/08/21 07:44 Resp 16 10/08/21 07:44 BP 132/68 10/08/21 07:44 Pulse Ox 95 10/08/21 07:44 BMI result Body Mass Index 28.8 Patient did not allow me to examine her, she was agitated Objective Data Active Medications Aspirin (Aspirin Enteric Coated 81 Mg Tablet.) 81 mg PO DAILY [facility] Last Admin: 10/08/21 08:48 Dose: Not Given Documented by: ANDRIA Non-Admin Reason: Patient Refused Atorvastatin Calcium (Atorvastatin Calcium 20 Mg Tablet) 20 mg PO DAILY [facility] Last Admin: 10/08/21 08:48 Dose: Not Given Documented by: ANDRIA Non-Admin Reason: Patient Refused Benztropine Mesylate (Benztropine Mesylate 1 Mg Tablet) 1 mg PO BEDTIME [facility] Last Admin: 10/07/21 20:52 Dose: 1 mg Documented by: LEN Dextrose (Dextrose 50 % 25 Gm/50 Ml Vial) 25 gm IVPUSH Q15M PRN; Protocol PRN Reason: per Hypoglycemia Standing Ord. Enoxaparin Sodium (Enoxaparin Sodium 40 Mg/0.4 Ml Syringe) 40 mg SUBCUT Q24H [facility] Last Admin: 10/07/21 17:27 Dose: Not Given Documented by: ANDRIA Non-Admin Reason: Patient Refused Glucose (Glucose Gel 15 Gm Gel..Gram.) 15 gm PO Q15M PRN; Protocol PRN Reason: per Hypoglycemia Standing Ord. Haloperidol (Haloperidol 5 Mg Tablet) 10 mg PO BEDTIME [facility] Last Admin: 10/07/21 20:52 Dose: 10 mg Documented by: LEN Ceftriaxone Sodium 1 gm/ (Sodium Chloride) 50 mls @ 100 mls/hr IV Q24H [facility] Last Infusion: 10/07/21 18:40 Dose: 0 mls/hr Documented by: ANDRIA Insulin Human Lispro (Insulin Lispro 100 Unit/Ml 3 Ml Vial) 0 unit SUBCUT QIDACHS [facility]; Protocol Last Admin: 10/08/21 08:46 Dose: Not Given Documented by: ANDRIA Non-Admin Reason: No Insulin Coverage Rolette Carbonate (Rolette Carbonate Er 450 Mg Tablet.Er) 900 mg PO BEDTIME [facility] Last Admin: 10/07/21 20:52 Dose: 900 mg Documented by: LEN Melatonin (Melatonin 3 Mg Tablet) 6 mg PO BEDTIME PRN PRN Reason: Sleep Last Admin: 10/05/21 02:21 Dose: 6 mg Documented by: LUIS Nortriptyline HCl (Nortriptyline Hcl 10 Mg Capsule) 10 mg PO BEDTIME [facility] Last Admin: 10/07/21 20:52 Dose: 10 mg Documented by: LEN Pharmacy Consult (Consult Rx Perform Med Rec) 1 each MISCELLANE ONCE PRN PRN Reason: Consult order Labs CBC & Chem 7: 10/05/21 06:37 10/05/21 06:37 Labs: Laboratory Results - last 24 hr 10/07/21 10/07/21 10/08/21 16:22 20:33 07:07 POC Glucose 255 H 281 H 146 H 10/08/21 11:15 POC Glucose 219 H Assessment and Plan (1) Toxic metabolic encephalopathy: Status: Acute Plan 66-year-old female admitted due to concern over acute stroke UTI No evidence of sepsis UCx growing strep agalactiae continue IV ceftriaxone, day likely d/c with ceftin Toxic metabolic encephalopathy. more agitated today declining to take insulin and other medication secondary to UTI with probable underlying cognitive impairment based on imaging studies scored 4/30 on [facility]CA psych re-eval for competency pending CVA ruled out CT head shows:velasco-white matter differentiation within the lateral left frontal lobe-small acute to subacute infarct. MRI with no acute intracranial abnormalities - does show moderately severe atrophy and chronic microvascular ischemic changes seen by neuro, no evidence of acute neurological event - rec aspirin, statin and BP control for chronic changes seen Continue aspirin, statin DM: continue glipizide and metformin refusing SSI POCs Hypercalcemia 11.8 related to dehydration recommend outpatient follow up Hyperlipidemia Continue statin Bipolar disorder: Continue home medications lithium level pending possible mild trent : baseline cr not available slight improvement in creatinine but this may be her baseline renal function follow bnp DVT ppx - mechanical devices code status - full code attending - dr. Dempsey Pt requires continued hospitalization due to UTI, requiring IV abx, and encephalopathy. dispo -Home when medically stable Quality Stroke Does the patient have a stroke diagnosis?: Yes Reason for No Anti-thrombotic by Day Two: N/A - Med Ordered VTE Prior VTE?: No VTE Risk Level:: Medical - moderate - high VTE Device Contraindication: N/A - Device Ordered VTE Drug Contraindication: N/A - Med Ordered
[2021-10-08 11:51] VITALS: BP 140/65; PULSE 89; RESP 16; TEMP 37.2; O2SAT 95
[2021-10-08 15:27] VITALS: BP 143/72; PULSE 94; RESP 16; TEMP 36.1; O2SAT 99
[2021-10-08 16:14] LABS: Glucose, Whole Blood 229 mg/dL (60-115)
[2021-10-08 19:52] VITALS: BP 135/79; PULSE 100; RESP 16; TEMP 37.4; O2SAT 99
[2021-10-08 20:08] LABS: Glucose, Whole Blood 239 mg/dL (60-115)
[2021-10-08] MEDS: Lithium Carbonate ER 450 MG TABLET.ER 900 MG PO (21:13)
[2021-10-08] MEDS: HaloperidoL 5 MG TABLET 10 MG PO (21:13)
[2021-10-08] MEDS: Nortriptyline HCl 10 MG CAPSULE PO (21:13)
[2021-10-08] MEDS: Benztropine Mesylate 1 MG TABLET PO (21:14)
[2021-10-09 06:43] LABS: Hematocrit 40.7 % (37.0-47.0); Hemoglobin 12.7 g/dl (12.0-16.0); Mean Corpuscular HGB Conc 31.2 g/dl (31.0-35.0); Mean Corpuscular Hemoglobin 26.7 pg (27.0-33.0); Mean Corpuscular Volume 85.5 fL (80.0-98.0); Mean Platelet Volume 10.8 fL (9.4-12.3); Platelet Count 301 X10*3/uL (160-400); Red Blood Count 4.76 X10*6/uL (4.20-5.50); Red Cell Distribution Width 14.1 % (11.0-16.0); White Blood Count 9.6 X10*3/uL (4.8-10.8)
[2021-10-09 07:02] LABS: Anion Gap 13 (12-20); Blood Urea Nitrogen 10 mg/dL (9-16); Calcium 11.9 mg/dL (8.4-10.2); Carbon Dioxide 22 mmol/L (22-29); Chloride 106 mmol/L (96-108); Creatinine Clr Calc Pharmacy 46.5; Estimated Glomerular Filt Rate 47; Glucose Random 274 mg/dL (60-115); Potassium 4.3 mmol/L (3.3-5.1); Sodium 137 mmol/L (135-145)
[2021-10-09 07:40] LABS: Glucose, Whole Blood 256 mg/dL (60-115)
--- NOTE | 2021-10-09 09:36 | P.PNPSI_ITS ---
Subjective Subjective Date of Service: 10/09/21 Reason For Visit: [facility] Proxy: Yes Guardianship: No Medical Problems Affecting Mental Status: Yes (delirium, UTI) Interim History: Patient was sitting up in chair with breakfast tray. She had a knife and fork in her hands, making cutting motions, with no food present. Distracted, irritable during encounter. Poor eye contact. Refused most of exam. When a sked where she was, stated angrily ?I know where I am at in the hospital ?. Refused to answer any other questions regarding mental status. Medication Compliance: Intermittent Side effects from medications: No Review of Systems UTI, delirium Medical Review of Systems: unchanged Review of Systems Review of Systems Yes Unobtainable due to mental status Mental Status Exam Mental Status Exam Narrative: Patient presented with angry irritable affect. Appear to be confused. Refused to participate with full mental status exam. Patient Appearance: Fatigued and Appropriate Patient Orientation: Person, Place (stated hospital ) and Situation (vague, did not appear to have full understanding at this time) Level of Consciousness: Awake Patient Behavior: Guarded, Belligerent, Confused, Uncooperative and Poor Eye Contact Affect Description: Hostile Speech Pattern: Clear Judgement: Poor Diagnostics Vital Signs (24Hr): Vital Signs - 24 hr 10/08/21 11:51 10/08/21 15:27 10/08/21 19:52 Temperature 99.0 F 97 F 99.3 F Pulse Rate 89 94 100 Respiratory Rate 16 16 16 Blood Pressure 140/65 H 143/72 H 135/79 Pulse Oximetry 95 99 99 BMI result Body Mass Index 28.8 Labs Results: 10/09/21 06:20 10/09/21 06:20 Labs: Laboratory Results - last 48 hr 10/07/21 10/07/21 10/07/21 11:08 16:22 20:33 WBC RBC Hgb Hct MCV MCH MCHC RDW Plt Count MPV Absolute Nucleated RBC Nucleated RBC % (auto) Sodium Potassium Chloride Carbon Dioxide Anion Gap BUN Creatinine Estim Creat Clear Calc Estimated GFR POC Glucose 328 H 255 H 281 H Random Glucose Calcium 10/08/21 10/08/21 10/08/21 07:07 11:15 16:01 WBC RBC Hgb Hct MCV MCH MCHC RDW Plt Count MPV Absolute Nucleated RBC Nucleated RBC % (auto) Sodium Potassium Chloride Carbon Dioxide Anion Gap BUN Creatinine Estim Creat Clear Calc Estimated GFR POC Glucose 146 H 219 H 229 H Random Glucose Calcium 10/08/21 10/09/21 10/09/21 19:56 06:20 06:20 WBC 9.6 RBC 4.76 Hgb 12.7 Hct 40.7 MCV 85.5 MCH 26.7 L MCHC 31.2 RDW 14.1 Plt Count 301 MPV 10.8 Absolute Nucleated RBC 0.000 Nucleated RBC % (auto) 0.0 Sodium 137 Potassium 4.3 Chloride 106 Carbon Dioxide 22 Anion Gap 13 BUN 10 Creatinine 1.16 Estim Creat Clear Calc 46.5 Estimated GFR 47 POC Glucose 239 H Random Glucose 274 H Calcium 11.9 H 10/09/21 07:37 WBC RBC Hgb Hct MCV MCH MCHC RDW Plt Count MPV Absolute Nucleated RBC Nucleated RBC % (auto) Sodium Potassium Chloride Carbon Dioxide Anion Gap BUN Creatinine Estim Creat Clear Calc Estimated GFR POC Glucose 256 H Random Glucose Calcium Imaging Radiology Impressions: ITS Impressions Head CT 10/04/21 14:03 IMPRESSION: 1. There appears to be a small region of lost velasco-white matter differentiation within the lateral left frontal lobe. Although age indeterminate, this may represent sequela of a small acute to subacute infarct. 2. No evidence of acute intracranial hemorrhage. 3. Moderate underlying microangiopathy and generalized cerebral volume loss. This critical result was discussed with Dr. Montague at 15:05 on 10/04/2021 and it was ascertained that the content and urgency of the report was understood at the time of direct communication. Chest X-Ray 10/04/21 14:06 IMPRESSION: Unremarkable chest examination. Brain MRI 10/04/21 16:30 IMPRESSION: 1. No acute intracranial abnormalities. 2. Moderate underlying microangiopathy and generalized cerebral volume loss. Medications Medications Current Medications Aspirin (Aspirin Enteric Coated 81 Mg Tablet.) 81 mg PO DAILY [facility] Last Admin: 10/08/21 08:48 Dose: Not Given Documented by: Atorvastatin Calcium (Atorvastatin Calcium 20 Mg Tablet) 20 mg PO DAILY [facility] Last Admin: 10/08/21 08:48 Dose: Not Given Documented by: Benztropine Mesylate (Benztropine Mesylate 1 Mg Tablet) 1 mg PO BEDTIME [facility] Last Admin: 10/08/21 21:14 Dose: 1 mg Documented by: Dextrose (Dextrose 50 % 25 Gm/50 Ml Vial) 25 gm IVPUSH Q15M PRN; Protocol PRN Reason: per Hypoglycemia Standing Ord. Enoxaparin Sodium (Enoxaparin Sodium 40 Mg/0.4 Ml Syringe) 40 mg SUBCUT Q24H [facility] Last Admin: 10/08/21 16:05 Dose: Not Given Documented by: Glipizide (Glipizide 5 Mg Tablet) 5 mg PO BIDWM [facility] Last Admin: 10/08/21 16:06 Dose: Not Given Documented by: Glucose (Glucose Gel 15 Gm Gel..Gram.) 15 gm PO Q15M PRN; Protocol PRN Reason: per Hypoglycemia Standing Ord. Haloperidol (Haloperidol 5 Mg Tablet) 10 mg PO BEDTIME [facility] Last Admin: 10/08/21 21:13 Dose: 10 mg Documented by: Ceftriaxone Sodium 1 gm/ (Sodium Chloride) 50 mls @ 100 mls/hr IV Q24H [facility] Last Admin: 10/08/21 16:03 Dose: Not Given Documented by: Insulin Human Lispro (Insulin Lispro 100 Unit/Ml 3 Ml Vial) 0 unit SUBCUT QIDACHS [facility]; Protocol Last Admin: 10/08/21 21:11 Dose: Not Given Documented by: Conrad Carbonate (Conrad Carbonate Er 450 Mg Tablet.Er) 900 mg PO BEDTIME [facility] Last Admin: 10/08/21 21:13 Dose: 900 mg Documented by: Melatonin (Melatonin 3 Mg Tablet) 6 mg PO BEDTIME PRN PRN Reason: Sleep Last Admin: 10/05/21 02:21 Dose: 6 mg Documented by: Metformin HCl (Metformin Hcl 1,000 Mg Tablet) 1,000 mg PO BIDWM [facility] Last Admin: 10/08/21 16:06 Dose: Not Given Documented by: Nortriptyline HCl (Nortriptyline Hcl 10 Mg Capsule) 10 mg PO BEDTIME [facility] Last Admin: 10/08/21 21:13 Dose: 10 mg Documented by: Pharmacy Consult (Consult Rx Perform Med Rec) 1 each MISCELLANE ONCE PRN PRN Reason: Consult order Allergies Allergies Allergy/AdvReac Type Severity Reaction Status Date / Time oxycodone Allergy Rash Verified 10/04/21 11:09 Penicillins Allergy Rash Verified 10/04/21 11:09 Assessment & Plan Assessment & Plan (1) Toxic metabolic encephalopathy: Status: Acute Code(s): G92.8 - Other toxic encephalopathy (2) Encounter for assessment of healthcare decision-making capacity: Status: Acute Code(s): Z02.79 - Encounter for issue of other medical certificate Assessment and Plan: Patient appeared confused, and agitated. Oriented to self, and described placed as a hospital . At she was unable to explain why she was in the hospital, or the treatment she was receiving. She then became angry, refusing to answer further questions, with poor eye contact. Appeared to be making cutting motions with a fork and knife, with no food present. Became angry when I offered to open her orange juice container, stating that it was not juice. Stated at 1 point ?0h my God I do not believe this ?. I called her son Elgin and spoke at length with him. He reports that he had spoken with her on the phone earlier today and that she appeared confused while he was speaking with her. He states that when she had an episode of delirium with a UTI 1 year ago, she had been found running around the neighborhood in her [facility], asking people if they had seen her granddaughter. She was taken to the hospital at that time, and once her UTI was treated the delirium quickly resolved. He again stated that normally she is extremely high functioning and independent. (3) Bipolar disorder: Status: Acute Code(s): F31.9 - Bipolar disorder, unspecified Assessment and Plan: Patient has consistently been taking her bipolar medications, does not appear to be in a manic or hypomanic episode at this time. Discuss this with her son, he is in agreement, as he states that when his mother has had manic episodes in the past it is quite different presentation that at present. Plan Psychiatry follow-up on 10/09/21: Patient appears to lack capacity at this time, most likely due to delirium related to UTI. She was unable to take in information regarding her current medical condition. She was unable to process any information in a meaningful way at this time, as well as unable to make sound decisions based on that information. As is frequent with delirium, it waxes and wanes. Capacity is fluid, and she may be fully alert and oriented within several days, or even at times during the same day, and at that time may be fully capable of making informed decisions. However, she appears to have declined since I last met with her on October 06. I did speak at length with her son on the phone, and he was in agreement with this, as when he spoke with her earlier today she had appeared more confused. PSYCH RECOMMENDATIONS: 1. Patient lacks capacity at this time. 2. Continue with current medications prescribed for bipolar disorder. She does not appear to be experiencing any type of lucila or hypomania related to bipolar disorder. 3. Her son Elgin Donis, phone number [phone], would like to be kept informed regarding his mother's condition, and also regarding discharge planning. 4. Please take into consideration the following delirium prevention strategies: Avoid benzodiazepines or anticholinergic medications. Room lights should be on during the day, which shades up. Lytes should be off which shades drawn at night. Try to minimize nighttime disruptions. Keep patient awake and engaged during the day. Allow her son to visit as much as possible, as this will help reorient her. Any glasses/hearing aids, if uses, should be readily available. Thank you. 66-year-old female admitted due to concern over acute stroke UTI No evidence of sepsis UCx growing strep agalactiae continue IV ceftriaxone, day likely d/c with ceftin Toxic metabolic encephalopathy. more agitated today declining to take insulin and other medication secondary to UTI with probable underlying cognitive impairment based on imaging studies scored 4/30 on [facility] psych re-eval for competency pending CVA ruled out CT head shows:velasco-white matter differentiation within the lateral left frontal lobe-small acute to subacute infarct. MRI with no acute intracranial abnormalities - does show moderately severe atrophy and chronic microvascular ischemic changes seen by neuro, no evidence of acute neurological event - rec aspirin, statin and BP control for chronic changes seen Continue aspirin, statin DM: continue glipizide and metformin refusing SSI POCs Hypercalcemia 11.8 related to dehydration recommend outpatient follow up Hyperlipidemia Continue statin Bipolar disorder: Continue home medications lithium level pending possible mild trent : baseline cr not available slight improvement in creatinine but this may be her baseline renal function follow bnp DVT ppx - mechanical devices code status - full code attending - dr. Dempsey Pt requires continued hospitalization due to UTI, requiring IV abx, and ence phalopathy. dispo -Home when medically stable I spent minutes with the patient and/or on the patient floor today, greater than?50% of which was spent counseling/coordinating care. Reason for contiued inpatient stay Substantial Risk for: inability to function, rapid decompensation and med/psych decompensation
--- NOTE | 2021-10-09 10:51 | P.PNIM_ITS ---
Subjective Subjective Date of Service: 10/09/21 Review of Systems awake and alert, oriented to person, place and situation. denies any abdominal pain, nausea, vomiting or fever Agitated today, refusing to take her insulin Physical Exam 2 Vital Signs: Vital Signs: Last Vital Signs Temp 99.3 F 10/08/21 19:52 Pulse 100 10/08/21 19:52 Resp 16 10/08/21 19:52 BP 135/79 10/08/21 19:52 Pulse Ox 99 10/08/21 19:52 BMI result Body Mass Index 28.8 Appearing in no acute distress lung sounds are clear to auscultation heart regular rate rhythm, clear S1, S2 positive bowel sounds, abdomen is soft, nontender neuro patient is alert x3, confused Objective Data Active Medications Aspirin (Aspirin Enteric Coated 81 Mg Tablet.Dr) 81 mg PO DAILY [facility] Last Admin: 10/09/21 09:57 Dose: Not Given Documented by: ARACELI Non-Admin Reason: Patient Refused Atorvastatin Calcium (Atorvastatin Calcium 20 Mg Tablet) 20 mg PO DAILY [facility] Last Admin: 10/09/21 09:57 Dose: Not Given Documented by: ARACELI Non-Admin Reason: Patient Refused Benztropine Mesylate (Benztropine Mesylate 1 Mg Tablet) 1 mg PO BEDTIME [facility] Last Admin: 10/08/21 21:14 Dose: 1 mg Documented by: LUIS Dextrose (Dextrose 50 % 25 Gm/50 Ml Vial) 25 gm IVPUSH Q15M PRN; Protocol PRN Reason: per Hypoglycemia Standing Ord. Enoxaparin Sodium (Enoxaparin Sodium 40 Mg/0.4 Ml Syringe) 40 mg SUBCUT Q24H [facility] Last Admin: 10/08/21 16:05 Dose: Not Given Documented by: ANDREA Non-Admin Reason: Patient Refused Comments: [employer]ER and nursing camera supervisor (NS) notified Glipizide (Glipizide 5 Mg Tablet) 5 mg PO BIDWM [facility] Last Admin: 10/09/21 09:56 Dose: Not Given Documented by: ARACELI Non-Admin Reason: Patient Refused Glucose (Glucose Gel 15 Gm Gel..Gram.) 15 gm PO Q15M PRN; Protocol PRN Reason: per Hypoglycemia Standing Ord. Haloperidol (Haloperidol 5 Mg Tablet) 10 mg PO BEDTIME [facility] Last Admin: 10/08/21 21:13 Dose: 10 mg Documented by: LUIS Ceftriaxone Sodium 1 gm/ (Sodium Chloride) 50 mls @ 100 mls/hr IV Q24H [facility] Last Admin: 10/08/21 16:03 Dose: Not Given Documented by: ANDREA Non-Admin Reason: Patient Refused Comments: [employer]ORER and NS notified Insulin Human Lispro (Insulin Lispro 100 Unit/Ml 3 Ml Vial) 0 unit SUBCUT QIDACHS [facility]; Protocol Last Admin: 10/09/21 09:53 Dose: Not Given Documented by: ARACELI Non-Admin Reason: Patient Refused [place] Carbonate ([place] Carbonate Er 450 Mg Tablet.Er) 900 mg PO BEDTIME [facility] Last Admin: 10/08/21 21:13 Dose: 900 mg Documented by: LUIS Melatonin (Melatonin 3 Mg Tablet) 6 mg PO BEDTIME PRN PRN Reason: Sleep Last Admin: 10/05/21 02:21 Dose: 6 mg Documented by: LUIS Metformin HCl (Metformin Hcl 1,000 Mg Tablet) 1,000 mg PO BIDWM [facility] Last Admin: 10/09/21 09:57 Dose: Not Given Documented by: ARACELI Non-Admin Reason: Patient Refused Nortriptyline HCl (Nortriptyline Hcl 10 Mg Capsule) 10 mg PO BEDTIME [facility] Last Admin: 10/08/21 21:13 Dose: 10 mg Documented by: LUIS Pharmacy Consult (Consult Rx Perform Med Rec) 1 each MISCELLANE ONCE PRN PRN Reason: Consult order Labs CBC & Chem 7: 10/09/21 06:20 10/09/21 06:20 Labs: Laboratory Results - last 24 hr 10/08/21 10/08/21 10/08/21 11:15 16:01 19:56 MCV MCH MCHC RDW Plt Count MPV Absolute Nucleated RBC Nucleated RBC % (auto) Anion Gap Estim Creat Clear Calc Estimated GFR POC Glucose 219 H 229 H 239 H Random Glucose Calcium 10/09/21 10/09/21 10/09/21 06:20 06:20 07:37 MCV 85.5 MCH 26.7 L MCHC 31.2 RDW 14.1 Plt Count 301 MPV 10.8 Absolute Nucleated RBC 0.000 Nucleated RBC % (auto) 0.0 Anion Gap 13 Estim Creat Clear Calc 46.5 Estimated GFR 47 POC Glucose 256 H Random Glucose 274 H Calcium 11.9 H Assessment and Plan (1) Toxic metabolic encephalopathy: Status: Acute Plan 66-year-old female admitted due to concern over acute stroke Toxic metabolic encephalopathy. more agitated today declining to take insulin and other medication secondary to UTI with probable underlying cognitive impairment based on imaging studies scored 4/30 on [facility] psych re-eval 10/09/21 deemed patient not competent, delirium, patient's son is aware, she will need placement to a nursing facility UTI No evidence of sepsis UCx growing strep agalactiae continue IV ceftriaxone, d/c with ceftin CVA ruled out CT head shows:velasco-white matter differentiation within the lateral left frontal lobe-small acute to subacute infarct. MRI with no acute intracranial abnormalities - does show moderately severe atrophy and chronic microvascular ischemic changes seen by neuro, no evidence of acute neurological event - rec aspirin, statin and BP control for chronic changes seen Continue aspirin, statin DM: continue glipizide and metformin refusing SSI POCs Hypercalcemia 11.8 related to dehydration recommend outpatient follow up Hyperlipidemia Continue statin Bipolar disorder: Continue home medications lithium level pending possible mild trent : baseline cr not available slight improvement in creatinine but this may be her baseline renal function follow bnp DVT ppx - mechanical devices code status - full code attending -Dr. Basilio Pt requires continued hospitalization at this point as patient is medically clear she has been found incompetent of making medical decisions, she does not have 24 hour care at home therefore she require placement in a nursing facility, that is pending Quality Stroke Does the patient have a stroke diagnosis?: Yes Reason for No Anti-thrombotic by Day Two: N/A - Med Ordered VTE Prior VTE?: No VTE Risk Level:: Medical - moderate - high VTE Device Contraindication: N/A - Device Ordered VTE Drug Contraindication: N/A - Med Ordered
[2021-10-09 11:13] LABS: Glucose, Whole Blood 265 mg/dL (60-115)
--- NOTE | 2021-10-09 11:34 | MHC.CM.PN ---
CM spoke with Son/Elgin at [phone] regarding dc planning. Elgin is in agreement to STR and multiple referrals have been made.Patient does not have a HCP and per Psych, Capacity appears to wax and wane and today Psych deemed her to not have capacity. Patient has received all 3 Covid vax. CM will follow.
[2021-10-09] MEDS: Insulin Lispro 100 UNIT/ML 3 ML VIAL SUBCUT (11:57)
[2021-10-09 13:51] VITALS: BP 135/79; PULSE 100; O2SAT 99
[2021-10-09 15:11] VITALS: BP 139/85; PULSE 102; RESP 18; TEMP 37.1; O2SAT 98
[2021-10-09 16:00] LABS: Glucose, Whole Blood 236 mg/dL (60-115)
[2021-10-09] MEDS: cefTRIAXone sodium 1 GM in 0.9 % Sodium Chloride 50 ML IV (16:17)
--- NOTE | 2021-10-09 16:26 | MHC.SLORD ---
Speech Language Pathology Order Status: Patient is on unmodified diet regular solids and thin liquids- Plan for f/u tomorrow to ensure tolerance.
[2021-10-09] MEDS: glipiZIDE 5 MG TABLET PO (17:30)
[2021-10-09] MEDS: metFORMIN HCl 1,000 MG TABLET 1000 MG PO (17:30)
--- NOTE | 2021-10-09 23:11 | PC.NURSE ---
Patient refusing all care tonight, refusing medications: [place], Cogentin, Northriptyline,Haldol DR Taylor pittman
[2021-10-10 07:48] LABS: Glucose, Whole Blood 189 mg/dL (60-115)
[2021-10-10] MEDS: Insulin Lispro 100 UNIT/ML 3 ML VIAL SUBCUT ×2 (08:34→12:09)
--- NOTE | 2021-10-10 10:08 | P.PNIM_ITS ---
Subjective Subjective Date of Service: 10/10/21 Review of Systems awake and alert, more confused today, pinching at the air Refusing medications Physical Exam Vital Signs: Vital Signs: Last Vital Signs Temp 98.7 F 10/09/21 15:11 Pulse 102 H 10/09/21 15:11 Resp 18 10/09/21 15:11 BP 139/85 10/09/21 15:11 Pulse Ox 98 10/09/21 15:11 BMI result Body Mass Index 28.8 Appearing in no acute distress lung sounds are clear to auscultation heart regular rate rhythm, clear S1, S2 positive bowel sounds, abdomen is soft, nontender neuro patient is alert, confused Objective Data Active Medications Aspirin (Aspirin Enteric Coated 81 Mg Tablet.Dr) 81 mg PO DAILY [facility] Last Admin: 10/10/21 08:37 Dose: Not Given Documented by: DILLON Non-Admin Reason: Patient Refused Atorvastatin Calcium (Atorvastatin Calcium 20 Mg Tablet) 20 mg PO DAILY [facility] Last Admin: 10/10/21 08:37 Dose: Not Given Documented by: DILLON Non-Admin Reason: Patient Refused Benztropine Mesylate (Benztropine Mesylate 1 Mg Tablet) 1 mg PO BEDTIME [facility] Last Admin: 10/09/21 21:12 Dose: Not Given Documented by: ELI Non-Admin Reason: Patient Refused Dextrose (Dextrose 50 % 25 Gm/50 Ml Vial) 25 gm IVPUSH Q15M PRN; Protocol PRN Reason: per Hypoglycemia Standing Ord. Enoxaparin Sodium (Enoxaparin Sodium 40 Mg/0.4 Ml Syringe) 40 mg SUBCUT Q24H [facility] Last Admin: 10/09/21 17:33 Dose: Not Given Documented by: ELI Non-Admin Reason: Patient Refused Glipizide (Glipizide 5 Mg Tablet) 5 mg PO BIDWM [facility] Last Admin: 10/10/21 08:36 Dose: Not Given Documented by: DILLON Non-Admin Reason: Patient Refused Glucose (Glucose Gel 15 Gm Gel..Gram.) 15 gm PO Q15M PRN; Protocol PRN Reason: per Hypoglycemia Standing Ord. Haloperidol (Haloperidol 5 Mg Tablet) 10 mg PO BEDTIME [facility] Last Admin: 10/09/21 21:12 Dose: Not Given Documented by: ELI Non-Admin Reason: Patient Refused Insulin Human Lispro (Insulin Lispro 100 Unit/Ml 3 Ml Vial) 0 unit SUBCUT QIDACHS [facility]; Protocol Last Admin: 10/10/21 08:34 Dose: 2 unit Documented by: DILLON [place] Carbonate ([place] Carbonate Er 450 Mg Tablet.Er) 900 mg PO BEDTIME [facility] Last Admin: 10/09/21 21:12 Dose: Not Given Documented by: ELI Non-Admin Reason: Patient Refused Melatonin (Melatonin 3 Mg Tablet) 6 mg PO BEDTIME PRN PRN Reason: Sleep Last Admin: 10/05/21 02:21 Dose: 6 mg Documented by: LUIS Metformin HCl (Metformin Hcl 1,000 Mg Tablet) 1,000 mg PO BIDWM [facility] Last Admin: 10/10/21 08:37 Dose: Not Given Documented by: DILLON Non-Admin Reason: Patient Refused Nortriptyline HCl (Nortriptyline Hcl 10 Mg Capsule) 10 mg PO BEDTIME [facility] Last Admin: 10/09/21 21:13 Dose: Not Given Documented by: ELI Non-Admin Reason: Patient Refused Pharmacy Consult (Consult Rx Perform Med Rec) 1 each MISCELLANE ONCE PRN PRN Reason: Consult order Labs CBC & Chem 7: 10/09/21 06:20 10/09/21 06:20 Labs: Laboratory Results - last 24 hr 10/09/21 10/09/21 10/10/21 11:08 15:23 07:45 POC Glucose 265 H 236 H 189 H Assessment and Plan (1) Toxic metabolic encephalopathy: Status: Acute Plan 66-year-old female admitted with ecnephalopathy secondary to UTI Toxic metabolic encephalopathy. more agitated today declining to take insulin and other medication secondary to UTI with probable underlying cognitive impairment based on imaging studies scored 4/30 on [facility] psych re-eval 10/09/21 deemed patient not competent, delirium, patient's son is aware, she will need placement to a nursing facility repeat ua and blood cx, try to switch medications to IV/IM if available UTI No evidence of sepsis UCx growing strep agalactiae continue IV ceftriaxone completed 5 day course CVA ruled out CT head shows:velasco-white matter differentiation within the lateral left frontal lobe-small acute to subacute infarct. MRI with no acute intracranial abnormalities - does show moderately severe atrophy and chronic microvascular ischemic changes seen by neuro, no evidence of acute neurological event - rec aspirin, statin and BP control for chronic changes seen Continue aspirin, statin DM: continue glipizide and metformin refusing SSI POCs Hypercalcemia 11.8 related to dehydration recommend outpatient follow up Hyperlipidemia Continue statin Bipolar disorder: Continue home medications lithium level pending possible mild trent : baseline cr not available slight improvement in creatinine but this may be her baseline renal function follow bnp DVT ppx - mechanical devices code status - full code attending -Dr. Basilio Pt requires continued hospitalization at this point as patient is medically clear she has been found incompetent of making medical decisions, she does not have 24 hour care at home therefore she require placement in a nursing facility, that is pending Quality Stroke Does the patient have a stroke diagnosis?: Yes Reason for No Anti-thrombotic by Day Two: N/A - Med Ordered VTE Prior VTE?: No VTE Risk Level:: Medical - moderate - high VTE Device Contraindication: N/A - Device Ordered VTE Drug Contraindication: N/A - Med Ordered
[2021-10-10 11:46] VITALS: BP 145/68; PULSE 98; RESP 18; TEMP 36.6; O2SAT 99
[2021-10-10 11:48] LABS: Glucose, Whole Blood 253 mg/dL (60-115)
--- NOTE | 2021-10-10 12:54 | PC.NURSE ---
Patient refusing cardiac monitoring. Patient fighting with staff when attempt to place back on. Vikki Couch made aware, per [employer] [facility]GR okay for cardiac monitoring to be discharged.
--- NOTE | 2021-10-10 13:02 | MHC.SLORD ---
Speech Language Pathology Order Status: Attempted to see pt this a.m. Per sitter, Pt had refused breakfast this morning. When re-attempted, Pt refused food from [employer]IDENC[employer] PROGRAM COORDINATOR. Pt agitated, confused, asking for son and asking that I check into her food. Will re-attempt tomorrow a.m.
--- NOTE | 2021-10-10 13:22 | P.CNNE_ITS ---
History of Present Illness Data of Consult Service Date: 10/10/21 Primary Care Provider: Unknown Physician HPI Reason for consult: Altered mental status and agitation This is a 66-year-old woman with a long psychiatric history, bipolar disorder on not Haldol and lithium with therapeutic lithium levels was admitted with acute to did knee injury hypercalcemia and was evaluated earlier by Dr. Aries schmitz possible stroke because of some speech problems however the MRI did not show any acute stroke. I was asked to evaluate her because of her ongoing mental status problems of aggitation and confusion and fluctuating status. Review of Systems Review of Systems: Drowsy but arousable. Mumbles and does noot provide any useful information. Occasionally follows one-step commands. Playing with the bedclothes Refusing medications Yes all other systems are reviewed and are negative and Unobtainable due to mental status Constitutional: Constitutional: Reports no additional constitutional complaints, Denies chills and Denies fever(s) Cardiovascular: Cardiovascular: Denies chest pain and Denies dyspnea Respiratory: Respiratory: Denies cough and Denies dyspnea Gastrointestinal: Gastrointestinal: Denies abdominal pain, Denies nausea and Denies vomiting Neurologic: Reports confusion Psychiatric: Psychiatric: Reports confusion [facility] Past Medical History Medical History Diabetes 1.5, managed as type 2 HTN (hypertension) Family History Pertinent family history: sister- has dm. Social History Social History Household Members: None Housing: Apartment Do you presently have visiting nurse or other home services: Yes (just got services but hasn't met them yet) Patient Tobacco Use Status: Never used Tobacco service: No Current occupational status: retired Meds Allergies Allergy/AdvReac Type Severity Reaction Status Date / Time oxycodone Allergy Rash Verified 10/04/21 11:09 Penicillins Allergy Rash Verified 10/04/21 11:09 Active Medications: Current Medications Aspirin (Aspirin Enteric Coated 81 Mg Tablet.) 81 mg PO DAILY [facility] Last Admin: 10/10/21 08:37 Dose: Not Given Documented by: Atorvastatin Calcium (Atorvastatin Calcium 20 Mg Tablet) 20 mg PO DAILY [facility] Last Admin: 10/10/21 08:37 Dose: Not Given Documented by: Benztropine Mesylate (Benztropine Mesylate 1 Mg Tablet) 1 mg PO BEDTIME [facility] Last Admin: 10/09/21 21:12 Dose: Not Given Documented by: Dextrose (Dextrose 50 % 25 Gm/50 Ml Vial) 25 gm IVPUSH Q15M PRN; Protocol PRN Reason: per Hypoglycemia Standing Ord. Enoxaparin Sodium (Enoxaparin Sodium 40 Mg/0.4 Ml Syringe) 40 mg SUBCUT Q24H [facility] Last Admin: 10/09/21 17:33 Dose: Not Given Documented by: Glipizide (Glipizide 5 Mg Tablet) 5 mg PO BIDWM [facility] Last Admin: 10/10/21 08:36 Dose: Not Given Documented by: Glucose (Glucose Gel 15 Gm Gel..Gram.) 15 gm PO Q15M PRN; Protocol PRN Reason: per Hypoglycemia Standing Ord. Haloperidol Lactate (Haloperidol Lactate 5 Mg/Ml Vial) 10 mg IM BEDTIME [facility] Insulin Human Lispro (Insulin Lispro 100 Unit/Ml 3 Ml Vial) 0 unit SUBCUT QIDACHS [facility]; Protocol Last Admin: 10/10/21 12:09 Dose: 6 unit Documented by: [place] Carbonate ([place] Carbonate 300 Mg Capsule) 300 mg PO TID [facility] Melatonin (Melatonin 3 Mg Tablet) 6 mg PO BEDTIME PRN PRN Reason: Sleep Last Admin: 10/05/21 02:21 Dose: 6 mg Documented by: Metformin HCl (Metformin Hcl 1,000 Mg Tablet) 1,000 mg PO BIDWM [facility] Last Admin: 10/10/21 08:37 Dose: Not Given Documented by: Nortriptyline HCl (Nortriptyline Hcl 10 Mg Capsule) 10 mg PO BEDTIME [facility] Last Admin: 10/09/21 21:13 Dose: Not Given Documented by: Pharmacy Consult (Consult Rx Perform Med Rec) 1 each MISCELLANE ONCE PRN PRN Reason: Consult order Home Medications Medication Instructions Recorded Confirmed Last Taken Type aspirin 81 mg tablet,delayed 1 tab PO DAILY 10/04/21 10/04/21 10/04/21 History release atorvastatin 20 mg tablet 1 tab PO DAILY 10/04/21 10/04/21 10/04/21 History benztropine 1 mg tablet 1 tab PO BEDTIME 10/04/21 10/04/21 10/03/21 History glipizide 5 mg tablet, extended 1 tab PO BID 10/04/21 10/04/21 10/04/21 History release 24 hr haloperidol 10 mg tablet 1 tab PO BEDTIME 10/04/21 10/04/21 10/03/21 History lithium carbonate 450 mg 2 tab PO BEDTIME 10/04/21 10/04/21 10/03/21 History tablet,extended release metformin 500 mg tablet,extended 1,000 mg PO BID 10/04/21 10/04/21 10/03/21 History release 24 hr nortriptyline 10 mg capsule 1 cap PO BEDTIME 10/04/21 10/04/21 10/03/21 History Physical Exam Vital Signs: Vital Signs: Last Vital Signs Temp 97.9 F 10/10/21 11:46 Pulse 98 10/10/21 11:46 Resp 18 10/10/21 11:46 BP 145/68 H 10/10/21 11:46 Pulse Ox 99 10/10/21 11:46 BMI result Body Mass Index 28.8 Const: General: cooperative, comfortable, no acute distress, alert, awake and confusion Orientation/consciousness: confusion Resp: Effort & Inspection: normal respiratory effort and able to speak in complete sentences Auscultation: clear to auscultation bilaterally Cardio: Rate: regular rate Heart sounds: S1 normal heart sound present and S2 normal heart sound present Neuro: Other: Lethargic but arousable. Only mumbles and moans and will occasionally follow one step commands. No meaningful or intelligible speech. Non-focalExam, moving all extremities; confused, General: confusion Extrem: Other: moving all 4 extremities spontaneously; no leg edema Results Labs CBC & Chem 7: 10/09/21 06:20 10/09/21 06:20 Microbiology Microbiology Results: Microbiology 10/04/21 Unknown Urine clean catch - Urine velasco top Urine Culture - Final Strep agalactiae (Grp B) Assessment and Plan (1) Toxic metabolic encephalopathy: Status: Acute She appears to have a fluctuating mental status of agitation and confusion which appears to be superimposed on possible baseline dementia. No baseline information is available and there are no family members who can provide that information. Her MRI shows generalized atrophy and diffuse white matter microangiopathy. Metabolic parameters are unremarkable except for hyperg lycemia. Recommendations: EEG. Check liver profile and serum ammonia. Recheck kidney functions. TSH, T4, B12 and folate levels and RPR (2) Bipolar disorder: Status: Acute (3) Dementia: Status: Acute Plan 66-year-old female admitted with ecnephalopathy secondary to UTI Toxic metabolic encephalopathy. more agitated today declining to take insulin and other medication secondary to UTI with probable underlying cognitive impairment based on imaging studies scored 4/30 on [facility] psych re-eval 10/09/21 deemed patient not competent, delirium, patient's son is aware, she will need placement to a nursing facility repeat ua and blood cx, try to switch medications to IV/IM if available UTI No evidence of sepsis UCx growing strep agalactiae continue IV ceftriaxone completed 5 day course CVA ruled out CT head shows:velasco-white matter differentiation within the lateral left frontal lobe-small acute to subacute infarct. MRI with no acute intracranial abnormalities - does show moderately severe atrophy and chronic microvascular ischemic changes seen by neuro, no evidence of acute neurological event - rec aspirin, statin and BP control for chronic changes seen Continue aspirin, statin DM: continue glipizide and metformin refusing SSI POCs Hypercalcemia 11.8 related to dehydration recommend outpatient follow up Hyperlipidemia Continue statin Bipolar disorder: Continue home medications lithium level pending possible mild trent : baseline cr not available slight improvement in creatinine but this may be her baseline renal function follow bnp DVT ppx - mechanical devices code status - full code attending -Dr. Basilio Pt requires continued hospitalization at this point as patient is medically clear she has been found incompetent of making medical decisions, she does not have 24 hour care at home therefore she require placement in a nursing facility, that is pending Procedures Date of Service Date of Service: 10/10/21
[2021-10-10 15:51] LABS: Appearance Urine CLEAR; Color Urine YELLOW; Glucose Urine UA NEG (NEG); Leukocyte Esterase Urine 2+ (NEG); Nitrite Urine NEG (NEG); Specific Gravity - Urine 1.025 (1.005-1.025); UACC Culture Trigger YES; Urine Blood NEG (NEG); Urine Ketones 15 MG/DL (NEG); Urine Protein 1+ MG/DL (NEG-TRACE)
[2021-10-10 16:00] LABS: RBC Urine 0 /HPF (0); Squamous Epithelial Cell Urine 1+ /LPF; WBC Urine 30-49 /HPF (0-4)
[2021-10-10 16:01] LABS: Bacteria Urine 1+ /LPF
[2021-10-10 19:14] VITALS: BP 136/80; PULSE 87; RESP 18; TEMP 37.2; O2SAT 98
[2021-10-10] MEDS: Haloperidol Lactate 5 MG/ML VIAL 10 MG IM (20:39)
--- NOTE | 2021-10-10 20:50 | PC.NURSE ---
Pt agreed to take her po medications ,she was holding medications in her mouth and then she went to the bathroom an spit them out. patient agreed to take Haldol IM .
[2021-10-11 06:59] VITALS: BP 140/72; PULSE 83; RESP 16; TEMP 36.7; O2SAT 100
[2021-10-11 07:01] LABS: Glucose, Whole Blood 234 mg/dL (60-115)
[2021-10-11] MEDS: Insulin Lispro 100 UNIT/ML 3 ML VIAL SUBCUT ×2 (07:47→13:20)
--- NOTE | 2021-10-11 10:39 | MHC.SLORD ---
Speech Language Pathology Order Status: Per RN patient has no reported difficulty with regular solids/thin liquids. Further ST intervention is no longer warranted as patient is tolerating unmodified consistencies. Please re-refer if there are any changes or further concern.
[2021-10-11 12:00] VITALS: BP 138/69; PULSE 91; RESP 18; TEMP 36.8; O2SAT 98
[2021-10-11 12:24] LABS: Glucose, Whole Blood 207 mg/dL (60-115)
--- NOTE | 2021-10-11 12:34 | HO.PM.IMPN ---
Subjective Subjective Date of Service: 10/11/21 Interval History: Seen in f/u for confusion, agiation, seem calmer today Review of Systems confsion, agitation at time Physical Exam Vital Signs: Vital Signs: Last Vital Signs Temp 98.2 F 10/11/21 12:00 Pulse 91 10/11/21 12:00 Resp 18 10/11/21 12:00 BP 138/69 10/11/21 12:00 Pulse Ox 98 10/11/21 12:00 BMI result Body Mass Index 28.8 Const: Other: General: AO X 1, no acute distress Resp: CTA bilateral CVS: S1,S2,RRR GI: +BS, NT, no distention Skin: No rash Neuro: motor grossly intact Psych: appropriate affect Objective Data Active Medications Aspirin (Aspirin Enteric Coated 81 Mg Tablet.) 81 mg PO DAILY [facility] Last Admin: 10/11/21 07:51 Dose: Not Given Documented by: COLUMBA Non-Admin Reason: Patient Refused Atorvastatin Calcium (Atorvastatin Calcium 20 Mg Tablet) 20 mg PO DAILY [facility] Last Admin: 10/11/21 07:51 Dose: Not Given Documented by: COLUMBA Non-Admin Reason: Patient Refused Benztropine Mesylate (Benztropine Mesylate 1 Mg Tablet) 1 mg PO BEDTIME [facility] Last Admin: 10/10/21 21:18 Dose: Not Given Documented by: ELI Non-Admin Reason: Patient Refused Dextrose (Dextrose 50 % 25 Gm/50 Ml Vial) 25 gm IVPUSH Q15M PRN; Protocol PRN Reason: per Hypoglycemia Standing Ord. Enoxaparin Sodium (Enoxaparin Sodium 40 Mg/0.4 Ml Syringe) 40 mg SUBCUT Q24H [facility] Last Admin: 10/10/21 17:49 Dose: Not Given Documented by: ELI Non-Admin Reason: Patient Refused Glipizide (Glipizide 5 Mg Tablet) 5 mg PO BIDWM [facility] Last Admin: 10/11/21 07:50 Dose: Not Given Documented by: COLUMBA Non-Admin Reason: Patient Refused Glucose (Glucose Gel 15 Gm Gel..Gram.) 15 gm PO Q15M PRN; Protocol PRN Reason: per Hypoglycemia Standing Ord. Haloperidol Lactate (Haloperidol Lactate 5 Mg/Ml Vial) 10 mg IM BEDTIME [facility] Last Admin: 10/10/21 20:39 Dose: 10 mg Documented by: ELI Insulin Human Lispro (Insulin Lispro 100 Unit/Ml 3 Ml Vial) 0 unit SUBCUT QIDACHS [facility]; Protocol Last Admin: 10/11/21 11:34 Dose: Not Given Documented by: COLUMBA Non-Admin Reason: Patient Refused [place] Carbonate ([place] Carbonate 300 Mg Capsule) 300 mg PO TID [facility] Last Admin: 10/11/21 07:52 Dose: Not Given Documented by: COLUMBA Non-Admin Reason: Patient Refused Melatonin (Melatonin 3 Mg Tablet) 6 mg PO BEDTIME PRN PRN Reason: Sleep Last Admin: 10/05/21 02:21 Dose: 6 mg Documented by: LUIS Metformin HCl (Metformin Hcl 1,000 Mg Tablet) 1,000 mg PO BIDWM [facility] Last Admin: 10/11/21 07:51 Dose: Not Given Documented by: COLUMBA Non-Admin Reason: Patient Refused Nortriptyline HCl (Nortriptyline Hcl 10 Mg Capsule) 10 mg PO BEDTIME [facility] Last Admin: 10/10/21 21:19 Dose: Not Given Documented by: ELI Non-Admin Reason: Patient Refused Pharmacy Consult (Consult Rx Perform Med Rec) 1 each MISCELLANE ONCE PRN PRN Reason: Consult order Labs CBC & Chem 7: 10/09/21 06:20 10/09/21 06:20 Labs: Laboratory Results - last 24 hr 10/10/21 10/11/21 10/11/21 15:26 06:57 12:16 POC Glucose 234 H 207 H Urine Color YELLOW Urine Appearance CLEAR Urine pH 6.0 Ur Specific [place] 1.025 Urine Protein 1+ H Urine Glucose (UA) NEG Urine Ketones 15 Urine Blood NEG Urine Nitrite NEG Ur Leukocyte Esterase 2+ H Urine RBC 0 Urine WBC 30-49 H Ur Squamous Epith Cells 1+ Urine Bacteria 1+ Assessment and Plan (1) Toxic metabolic encephalopathy: Status: Acute Plan 66-year-old female admitted with ecnephalopathy secondary to UTI Toxic metabolic encephalopathy. Fluctuating sensorium,, etiology no exact.. possible dementia, UTI, CT and MRI chronic changes, no acute stroke neuro recom: EEG.? Check liver profile and serum ammonia.? Recheck kidney functions.? TSH, T4, B12 and folate levels and RPR..TSH is normal, check rest of labs UT--group B strep, treated with Ceftriaxone x 5 days DM: continue glipizide and metformin refusing SSI POCs Hypercalcemia--could be contributiing to AMS, repeat calcium Hyperlipidemia Continue statin Bipolar disorder: Continue home medications lithium level on 10/05 was normal mild KEESHA--resolved. DVT ppx - mechanical devices code status - full code attending -Dr. Basilio Pt requires continued hospitalization at this point as patient is medically clear she has been found incompetent of making medical decisions, she does not have 24 hour care at home therefore she require placement in a nursing facility, that is pending Quality Stroke Does the patient have a stroke diagnosis?: Yes Reason for No Anti-thrombotic by Day Two: N/A - Med Ordered VTE Prior VTE?: No VTE Risk Level:: Medical - moderate - high VTE Device Contraindication: N/A - Device Ordered VTE Drug Contraindication: N/A - Med Ordered
[2021-10-11] MEDS: metFORMIN HCl 1,000 MG TABLET 1000 MG PO (13:17)
[2021-10-11] MEDS: glipiZIDE 5 MG TABLET PO (13:17)
[2021-10-11] MEDS: Lithium Carbonate 300 MG CAPSULE PO ×2 (13:19→21:22)
--- NOTE | 2021-10-11 15:17 | MHC.CM.PN ---
Female 66 UTI confusion, 1:[address] PT is working with patient. Patient has psych history. She now has a UTI. DP STR vs Possible INPT Psych admit.
[2021-10-11 16:22] VITALS: BP 153/91; PULSE 87; RESP 20; TEMP 36.7; O2SAT 100
[2021-10-11 16:29] LABS: Glucose, Whole Blood 170 mg/dL (60-115)
[2021-10-11 21:20] VITALS: BP 140/77; PULSE 92; RESP 18; TEMP 36.1; O2SAT 98
[2021-10-11] MEDS: Benztropine Mesylate 1 MG TABLET PO (21:22)
[2021-10-11] MEDS: Nortriptyline HCl 10 MG CAPSULE PO (21:22)
[2021-10-11] MEDS: Haloperidol Lactate 5 MG/ML VIAL 10 MG IM (21:27)
[2021-10-11 21:37] LABS: Glucose, Whole Blood 148 mg/dL (60-115)
[2021-10-12] VITALS: BP 136/61; PULSE 90; RESP 18; TEMP 36.2; O2SAT 99
--- NOTE | 2021-10-12 | EEG_ITS ---
This is a 16-channel EEG with an EKG lead. Patient is reported confused and restless during the tracing. Background EEG rhythm is generally slow and 7 to 8 hertz, 5 to 30 microvolt anteriorly and lower amplitude fast anteriorly. Photic stimulation and hyperventilation were not performed. Cardiac lead does not reveal any significant abnormality. No sharp wave spikes or paroxysmal tendency noted. IMPRESSION: Generalized slowing with no evidence of seizure disorder. Generalized slowing usually comes from metabolic toxic abnormalities. MD JOSE Leonard/BEE / [id number]
--- NOTE | 2021-10-12 00:09 | PC.NURSE ---
7p-11p Patient was calm, cooperative during assessment with this rn, patient took all bedtime medications without issue. Patient allowed to take vital signs, asked for a snack.
[2021-10-12 07:13] LABS: Glucose, Whole Blood 165 mg/dL (60-115)
[2021-10-12 07:32] VITALS: BP 130/60; PULSE 80; RESP 12; TEMP 36.5; O2SAT 100
--- NOTE | 2021-10-12 10:00 | P.CDIC_ITS ---
CDI Concurrent Query Documentation Clarification: PHYSICIAN'S DOCUMENTATION REQUEST Date of Query: 10/12/21 1000 Patient Name: Jeanne Donis Admit Date: 10/04/21 Dear Doctor, A review of the medical record indicates additional documentation may be needed. Please review below and update the documentation accordingly. Clinical Indicators: Risk Factors/Clinical Indicators/Treatments [facility] Dementia Nursing notes 10/05 - patient refusing all care, refusing medications, MD aware. Nursing notes 10/09 - Psych deemed her to be not to have capacity. Nursing notes 10/10 - patient refusing cardiac monitoring, fighting with staff, DUTY MANAGER made aware. If possible, please further clarify type of Dementia and any associated manifestations: Disease Type: Dementia Associated Manifestations: * Dementia without behavioral disturbance * Dementia with behavioral disturbance * Aggressive behavior * Combative behavior * Violent behavior * Dementia with delirium * Confusion * Sundowning * Dementia with wandering * No associated manifestations * Other ? please specify * Unable to determine Use of terms such as suspected, likely, concern for, or probable (associated with a specific diagnosis that is being evaluated, monitored, or treated as if it exists) are acceptable and can be coded in the inpatient setting, when documented at the time of discharge. Thank you, Gege Reid [facility], CDIS Extension: [phone] Please use your independent medical judgment in providing your response. THIS QUERY IS PART OF THE PERMANENT MEDICAL RECORD Provider Response: Other Other Diagnosis: dementia with behavioral disturbance
--- NOTE | 2021-10-12 10:00 | MHC.CDI.CONC ---
CDI Concurrent Query Documentation Clarification: PHYSICIAN'S DOCUMENTATION REQUEST Date of Query: 10/12/21 1000 Patient Name: Jeanne Donis Admit Date: 10/04/21 Dear Doctor, A review of the medical record indicates additional documentation may be needed. Please review below and update the documentation accordingly. Clinical Indicators: Risk Factors/Clinical Indicators/Treatments [facility] Dementia Nursing notes 10/05 - patient refusing all care, refusing medications, MD aware. Nursing notes 10/09 - Psych deemed her to be not to have capacity. Nursing notes 10/10 - patient refusing cardiac monitoring, fighting with staff, UNIT COORDINATOR made aware. If possible, please further clarify type of Dementia and any associated manifestations: Disease Type: Dementia Associated Manifestations: Dementia without behavioral disturbance Dementia with behavioral disturbance Aggressive behavior Combative behavior Violent behavior Dementia with delirium Confusion Sundowning Dementia with wandering No associated manifestations Other ? please specify Unable to determine Use of terms such as suspected, likely, concern for, or probable (associated with a specific diagnosis that is being evaluated, monitored, or treated as if it exists) are acceptable and can be coded in the inpatient setting, when documented at the time of discharge. Thank you, Gege Reid [facility], CDIS Extension: [phone] Please use your independent medical judgment in providing your response. THIS QUERY IS PART OF THE PERMANENT MEDICAL RECORD Provider Response: Other Other Diagnosis: dementia with behavioral disturbance
[2021-10-12 11:29] LABS: Alanine Aminotransferase 21 U/L (0-31); Albumin Level 4.4 g/dL (3.5-5.0); Alkaline Phosphatase 208 U/L (39-117); Anion Gap 12 (12-20); Aspartate Amino Transferase 29 U/L (5-31); Bilirubin Direct 0.3 mg/dL (0.0-0.5); Bilirubin Total 0.8 mg/dL (0.0-1.0); Blood Urea Nitrogen 16 mg/dL (9-16); Carbon Dioxide 25 mmol/L (22-29); Chloride 103 mmol/L (96-108); Creatinine Clr Calc Pharmacy 39.6; Estimated Glomerular Filt Rate 39; Glucose Random 246 mg/dL (60-115); Potassium 4.3 mmol/L (3.3-5.1); Sodium 136 mmol/L (135-145)
--- NOTE | 2021-10-12 11:35 | MHC.CM.PN ---
CM left a detailed message for Son/Elgin @ [phone], requesting a copy of Patient's HCP, if indeed there is one. CM will follow.Patient is not yet ready for dc to SNF/STR r/t still having a 1:1 Sitter.
[2021-10-12 11:46] LABS: Syphilis Screen Nonreactive (Nonreactive)
[2021-10-12 11:57] LABS: Folate 12.7 ng/mL (> or = 4.0); Vitamin B12 604 pg/mL (200-900)
--- NOTE | 2021-10-12 13:22 | MHC.CM.PN ---
CM received a return call from Patient's Son Elgin; he is not aware of there being a HCP.
[2021-10-12 13:51] LABS: Lithium 0.92 mmol/L (0.60-1.20)
--- NOTE | 2021-10-12 14:27 | MHC.CARE ---
Risk Assessment: CARE Team met with Pt secondary to consult placed for bipolar disorder. Upon approach Pt was completing ADLs. Pt presented as calm with a somewhat irritable edge of wanting to leave though not understanding she can't at this time. Pt was orientated to time and situation only. Pt reported she lives alone and was doing well until she came to the hospital and does not correlate her medical admission due to her being unwell. Pt reports she has a psychiatrist who she is unaware who it is. Pt reported one prior IPLOC admission. Pts short term memory appears impaired. CARE Team left message with Pts son Elgin to obtain more collateral information. Based on meeting with Pt and based on chart review. Pt does not present with significant psychiatric symptoms and does not require a IPLOC admission at this time. Plan for Pt to continue to followed by case management for placement. CARE Team consulted with MANPREET Whitfield
--- NOTE | 2021-10-12 14:30 | PC.NURSE ---
Pt refused all AM meds. Including insulin. Pt has no IV access. Monik FLEMING made aware. Pt resting in bed. Telesitter present. No current complaints
[2021-10-12] MEDS: metFORMIN HCl 1,000 MG TABLET 1000 MG PO (16:57)
[2021-10-12] MEDS: glipiZIDE 5 MG TABLET PO (16:57)
[2021-10-12] MEDS: Lithium Carbonate 300 MG CAPSULE PO ×2 (16:58→21:35)
--- NOTE | 2021-10-12 17:38 | HO.PM.IMPN ---
Subjective Subjective Date of Service: 10/12/21 Interval History: seen and examined this morning patient easily awakens to verbal stimuli denies any specific complaints, but states she wants to go home today continues to be confused, not a reliable historian Review of Systems Review of Systems: Yes Unobtainable due to mental condition Physical Exam Vital Signs: Vital Signs: Last Vital Signs Temp 97.7 F 10/12/21 07:32 Pulse 80 10/12/21 07:32 Resp 12 10/12/21 07:32 BP 130/60 10/12/21 07:32 Pulse Ox 100 10/12/21 07:32 BMI result Body Mass Index 28.8 Const: General: healthy appearing, comfortable, no acute distress, alert and awake Nutritional Appearance: average body habitus and well nourished Resp: Effort & Inspection: normal respiratory effort and able to speak in complete sentences Cardio: Rate: regular rate Heart sounds: S1 normal heart sound present and S2 normal heart sound present GI: Inspection: No distended Palpation (GI): Soft to palpation and nontender Extrem: Other: moving all 4 extremities spontaneously Objective Data Active Medications Aspirin (Aspirin Enteric Coated 81 Mg Tablet.) 81 mg PO DAILY [facility] Last Admin: 10/12/21 12:34 Dose: Not Given Documented by: EMILY Non-Admin Reason: Patient Refused Atorvastatin Calcium (Atorvastatin Calcium 20 Mg Tablet) 20 mg PO DAILY [facility] Last Admin: 10/12/21 12:34 Dose: Not Given Documented by: EMILY Non-Admin Reason: Patient Refused Benztropine Mesylate (Benztropine Mesylate 1 Mg Tablet) 1 mg PO BEDTIME [facility] Last Admin: 10/11/21 21:22 Dose: 1 mg Documented by: ARUNA Dextrose (Dextrose 50 % 25 Gm/50 Ml Vial) 25 gm IVPUSH Q15M PRN; Protocol PRN Reason: per Hypoglycemia Standing Ord. Enoxaparin Sodium (Enoxaparin Sodium 40 Mg/0.4 Ml Syringe) 40 mg SUBCUT Q24H [facility] Last Admin: 10/12/21 16:59 Dose: Not Given Documented by: ANDREA Non-Admin Reason: Patient Refused Glipizide (Glipizide 5 Mg Tablet) 5 mg PO BIDWM [facility] Last Admin: 10/12/21 16:57 Dose: 5 mg Documented by: ANDREA Glucose (Glucose Gel 15 Gm Gel..Gram.) 15 gm PO Q15M PRN; Protocol PRN Reason: per Hypoglycemia Standing Ord. Haloperidol Lactate (Haloperidol Lactate 5 Mg/Ml Vial) 7 mg IM BEDTIME [facility] Insulin Human Lispro (Insulin Lispro 100 Unit/Ml 3 Ml Vial) 0 unit SUBCUT QIDACHS [facility]; Protocol Last Admin: 10/12/21 16:59 Dose: Not Given Documented by: ANDREA Non-Admin Reason: Patient Refused [place] Carbonate ([place] Carbonate 300 Mg Capsule) 300 mg PO TID [facility] Last Admin: 10/12/21 16:58 Dose: 300 mg Documented by: ANDREA Melatonin (Melatonin 3 Mg Tablet) 6 mg PO BEDTIME PRN PRN Reason: Sleep Last Admin: 10/05/21 02:21 Dose: 6 mg Documented by: LUIS Metformin HCl (Metformin Hcl 1,000 Mg Tablet) 1,000 mg PO BIDWM [facility] Last Admin: 10/12/21 16:57 Dose: 1,000 mg Documented by: ANDREA Nortriptyline HCl (Nortriptyline Hcl 10 Mg Capsule) 10 mg PO BEDTIME [facility] Last Admin: 10/11/21 21:22 Dose: 10 mg Documented by: ARUNA Pharmacy Consult (Consult Rx Perform Med Rec) 1 each MISCELLANE ONCE PRN PRN Reason: Consult order Labs CBC & Chem 7: 10/09/21 06:20 10/12/21 10:20 Labs: Laboratory Results - last 24 hr 10/11/21 10/12/21 10/12/21 21:30 07:09 10:20 Anion Gap 12 Estim Creat Clear Calc 39.6 Estimated GFR 39 POC Glucose 148 H 165 H Random Glucose 246 H Calcium 12.0 H Total Bilirubin 0.8 Direct Bilirubin 0.3 AST 29 ALT 21 Alkaline Phosphatase 208 H Total Protein 8.0 Albumin 4.4 Vitamin B12 Folate [place] T.pallidum Ab (EIA) 10/12/21 10/12/21 10/12/21 10:20 10:20 13:34 Anion Gap Estim Creat Clear Calc Estimated GFR POC Glucose Random Glucose Calcium Total Bilirubin Direct Bilirubin AST ALT Alkaline Phosphatase Total Protein Albumin Vitamin B12 604 Folate 12.7 [place] 0.92 T.pallidum Ab (EIA) Nonreactive Microbiology Microbiology Results: Microbiology 10/11/21 09:13 Blood Culture - Preliminary Blood - Venous No growth after 24 hours. 10/11/21 09:19 Blood Culture - Preliminary Blood - Venous No growth after 24 hours. 10/10/21 15:52 Urine Culture - Final Urine clean catch - Urine velasco top Assessment and Plan (1) Dementia: Status: Acute (2) Bipolar disorder: Status: Acute Plan 66-year-old female admitted with encephalopathy secondary to UTI Toxic metabolic encephalopathy with probably underlying dementia scored 4/30 on [facility] psych deemed patient not competent s/p treatment for UTI with no improvement Brain imaging with no stroke only chronic changes Seen by neuro B12, folate, tsh, RPR wnl Hypercalcemia unclear if contributing to change in mental status PTH pending Bipolar disorder:? Continue home medications lithium level from 3/3 normal, repeat today also therapeutic seen by care team, does not meet criteria for inpatient psych strep agalactiae UTI completed 5 day course DM:? continue glipizide and metformin refusing SSI POCs Hyperlipidemia Continue statin possible mild trent : baseline cr not available slight improvement in creatinine but this may be her baseline renal function follow bnp DVT ppx - mechanical devices code status - full code attending -Dr. Basilio? Pt requires continued hospitalization for ongoing workup related to encephalopathy and hypercalcemia does NOT have capacity to make medical decisions Will requrie placement - no HCP on file, CM following Quality Stroke Does the patient have a stroke diagnosis?: Yes Reason for No Anti-thrombotic by Day Two: N/A - Med Ordered VTE Prior VTE?: No VTE Risk Level:: Medical - moderate - high VTE Device Contraindication: N/A - Device Ordered VTE Drug Contraindication: N/A - Med Ordered
[2021-10-12] MEDS: Nortriptyline HCl 10 MG CAPSULE PO (21:35)
[2021-10-12] MEDS: Benztropine Mesylate 1 MG TABLET PO (21:36)
[2021-10-12] MEDS: HaloperidoL 5 MG TABLET PO (21:39)
[2021-10-13 03:11] VITALS: BP 147/70; PULSE 82; RESP 17; TEMP 36.4; O2SAT 100
[2021-10-13 07:30] VITALS: BP 131/64; PULSE 88; RESP 18; TEMP 36.3; O2SAT 98
[2021-10-13 07:55] LABS: Glucose, Whole Blood 145 mg/dL (60-115)
[2021-10-13] MEDS: Lithium Carbonate 300 MG CAPSULE PO ×2 (13:00→20:34)
[2021-10-13] MEDS: Atorvastatin Calcium 20 MG TABLET PO (13:01)
[2021-10-13] MEDS: Aspirin Enteric Coated 81 MG TABLET.DR PO (13:01)
[2021-10-13] MEDS: glipiZIDE 5 MG TABLET PO (13:01)
[2021-10-13] MEDS: metFORMIN HCl 1,000 MG TABLET 1000 MG PO (13:01)
--- NOTE | 2021-10-13 13:11 | CONS_ITS ---
DATE OF SERVICE: 10/13/2021 REASON FOR CONSULTATION: I was asked to see the patient to assist in evaluation and management of the patient's calcium level, which was 12.0. In reviewing the records, the calcium has been in the 11.6 to 12.0 range since October 04. PTH level is pending. HISTORY OF PRESENT ILLNESS: In summary, the patient is a 66-year-old admitted to the hospital on October 04 with slurred speech and feeling wobbly for the past several days and altered mental status with psychiatric history. The patient is being evaluated for urinary tract infection, which she is getting some antibiotics and the altered mental status and her psych issues and noted to have hypercalcemia. PAST MEDICAL HISTORY: Notable for diabetes, hyperlipidemia, bipolar disorder, hypertension and now the hypercalcemia and urinary tract infections and psych history. MEDICATIONS ON ADMISSION: Listed including aspirin; Lipitor; glipizide; Haldol; lithium, which she has been on long-standing; and metformin. ALLERGIES: SHE HAS ALLERGIES OXYCODONE AND PENICILLIN LISTED. CURRENT MEDICATIONS: Noted in the MAR. SOCIAL HISTORY: She is nonsmoker, nondrinker. No illicit drug use. REVIEW OF SYSTEMS: As noted above. PHYSICAL EXAMINATION: VITAL SIGNS: Blood pressure 130/60 with a heart rate in the 80s. HEAD: Atraumatic, normocephalic. NECK: Supple. Mucous membranes moist. LUNGS: Breath sounds bilaterally. CARDIAC: Regular rate and rhythm without rub. ABDOMEN: Soft, nontender. Good bowel sounds. No CVA tenderness. EXTREMITIES: No edema. LABORATORY DATA: Labs from yesterday show sodium 136, potassium 4.3, chloride 103, bicarb 25, BUN 16, creatinine 1.36. Creatinine has been in the 0.9 to 1.36 range. Calcium level 12.0. That has now been a 4.4. As mentioned, PTH is pending. Hemoglobin 12.7, hematocrit 40.7, white blood cell 9.6. IMPRESSION: 1. A 66-year-old diabetic, hypertensive patient noted to be hypercalcemic with a psych history, maintained on lithium. 2. Hypercalcemia. There is a subgroup of patients on lithium who developed hyperparathyroidism. Certainly need to rule this out. This would be very suspicious as the cause of her hypercalcemia. Other possibilities such as vitamin D overload state need to be ruled out, although seems less likely. Occasionally, we can see in patient with sarcoid and Americans have more risk for sarcoid and this could be in the cause and so we need to rule this out. Underlying myeloma would also be in the differential as the cause of the hypercalcemia. 3. Renal dysfunction. Creatinine has bumped up to 1.36. It is most likely multifactorial. We will need to monitor it. She is maintained on lithium. 4. Psychiatric disorder, bipolar, maintained on lithium. 5. Diabetes. SUGGESTIONS: At this time include check intact PTH level. Check vitamin D 25 and 125 level. Serum immunofixation. Follow serum calcium level. Depending on the workup, she may need further evaluation and management including possibly a parathyroidectomy depending on the workup. We will check a urine calcium level to creatinine ratio as well. There are several patients that have hypercalcemia with normal urinary calcium excretion that is familial hypercalcemia. We will follow the patient with the team. 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 This is a benign cause of hypercalcemia that tends to runs in families. The way you diagnose it can be tricky. They have mild hypercalcemia with a normal PTH typically and low urine calcium excretion. Occasionally, the patient could have a slightly high PTH, which makes the diagnosis more challenging. MD GALILEA Garza/BEE / [id number]
--- NOTE | 2021-10-13 14:02 | P.PNIM_ITS ---
Subjective Subjective Date of Service: 10/13/21 Interval History: seen and examined this morning pleasant and cooperative no overnight events no specific complaints at this time Review of Systems Review of Systems: Yes all other systems are reviewed and are negative Cardiovascular Cardiovascular: Denies chest pain and Denies dyspnea Respiratory Respiratory: Denies dyspnea Gastrointestinal Gastrointestinal: Denies abdominal pain, Denies diarrhea, Denies nausea and Denies vomiting Neurologic Neurologic: Reports confusion Psychiatric Psychiatric: Reports confusion Physical Exam Vital Signs: Vital Signs: Last Vital Signs Temp 97.3 F 10/13/21 07:30 Pulse 88 10/13/21 07:30 Resp 18 10/13/21 07:30 BP 131/64 10/13/21 07:30 Pulse Ox 98 10/13/21 07:30 BMI result Body Mass Index 28.8 Const: General: cooperative, healthy appearing, comfortable, no acute distress, alert, awake and confusion Nutritional Appearance: average body habitus and well nourished Orientation/consciousness: confusion Resp: Effort & Inspection: normal respiratory effort and able to speak in complete sentences Auscultation: clear to auscultation bilaterally Cardio: Rate: regular rate Heart sounds: S1 normal heart sound present and S2 normal heart sound present GI: Inspection: No distended Palpation (GI): Soft to palpation and nontender Neuro: Other: non-focal; moving all extremities; confused, follows commands General: confusion Extrem: Other: moving all 4 extremities spontaneously Objective Data Active Medications Aspirin (Aspirin Enteric Coated 81 Mg Tablet.) 81 mg PO DAILY [facility] Last Admin: 10/13/21 13:01 Dose: 81 mg Documented by: SHERLY Atorvastatin Calcium (Atorvastatin Calcium 20 Mg Tablet) 20 mg PO DAILY [facility] Last Admin: 10/13/21 13:01 Dose: 20 mg Documented by: SHERLY Benztropine Mesylate (Benztropine Mesylate 1 Mg Tablet) 1 mg PO BEDTIME [facility] Last Admin: 10/12/21 21:36 Dose: 1 mg Documented by: ANDREA Dextrose (Dextrose 50 % 25 Gm/50 Ml Vial) 25 gm IVPUSH Q15M PRN; Protocol PRN Reason: per Hypoglycemia Standing Ord. Enoxaparin Sodium (Enoxaparin Sodium 40 Mg/0.4 Ml Syringe) 40 mg SUBCUT Q24H [facility] Last Admin: 10/12/21 16:59 Dose: Not Given Documented by: ANDREA Non-Admin Reason: Patient Refused Glipizide (Glipizide 5 Mg Tablet) 5 mg PO BIDWM [facility] Last Admin: 10/13/21 13:01 Dose: 5 mg Documented by: SHERLY Glucose (Glucose Gel 15 Gm Gel..Gram.) 15 gm PO Q15M PRN; Protocol PRN Reason: per Hypoglycemia Standing Ord. Haloperidol (Haloperidol 5 Mg Tablet) 5 mg PO BEDTIME [facility] Last Admin: 10/12/21 21:39 Dose: 5 mg Documented by: ANDREA Insulin Human Lispro (Insulin Lispro 100 Unit/Ml 3 Ml Vial) 0 unit SUBCUT QIDACHS [facility]; Protocol Last Admin: 10/13/21 12:44 Dose: Not Given Documented by: SHERLY Non-Admin Reason: Patient Refused [place] Carbonate ([place] Carbonate 300 Mg Capsule) 300 mg PO TID [facility] Last Admin: 10/13/21 13:02 Dose: Not Given Documented by: SHERLY Non-Admin Reason: Patient Refused Melatonin (Melatonin 3 Mg Tablet) 6 mg PO BEDTIME PRN PRN Reason: Sleep Last Admin: 10/05/21 02:21 Dose: 6 mg Documented by: LUIS Metformin HCl (Metformin Hcl 1,000 Mg Tablet) 1,000 mg PO BIDWM [facility] Last Admin: 10/13/21 13:01 Dose: 1,000 mg Documented by: SHERLY Nortriptyline HCl (Nortriptyline Hcl 10 Mg Capsule) 10 mg PO BEDTIME [facility] Last Admin: 10/12/21 21:35 Dose: 10 mg Documented by: ANDREA Pharmacy Consult (Consult Rx Perform Med Rec) 1 each MISCELLANE ONCE PRN PRN Reason: Consult order Labs CBC & Chem 7: 10/09/21 06:20 10/12/21 10:20 Labs: Laboratory Results - last 24 hr 10/13/21 07:33 POC Glucose 145 H Microbiology Microbiology Results: Microbiology 10/11/21 09:19 Blood Culture - Preliminary Blood - Venous No growth after 48 hours. 10/11/21 09:13 Blood Culture - Preliminary Blood - Venous No growth after 48 hours. Assessment and Plan (1) Toxic metabolic encephalopathy: Status: Acute (2) Bipolar disorder: Status: Acute (3) Hypercalcemia: Status: Acute Plan 66-year-old female admitted with encephalopathy secondary to UTI Toxic metabolic encephalopathy superimposed on likely underlying dementia scored 4/30 on MoCA Seen by psych, patient does not have capacity to make medical decisions Brain imaging with no stroke only chronic changes s/p treatment for UTI with no improvement in cognitive function Seen by neuro EEG showing generalized slowing, no evidence of seizure disorder B12, folate, tsh, RPR wnl seen by care team, does not feel that this represents acute decompensation of bipolar disorder and no need for inpatient pscyh Hypercalcemia secondary to probable primary hyperparathyroidism not likely to be contributing to change in mental status seen by nephrology, further workup in progress trend calcium levels Bipolar disorder:? Continue home medications lithium level from 10/05, 10/12 therapeutic seen by care team, does not meet criteria for inpatient psych strep agalactiae UTI completed 5 day course DM:? continue glipizide and metformin refusing SSI follow POCs Hyperlipidemia Continue statin DVT ppx - mechanical devices code status - full code attending -Dr. Basilio? Pt requires continued hospitalization for ongoing workup related to encephalopathy and hypercalcemia does NOT have capacity to make medical decisions Will require placement - no HCP on file, CM following, will need guardianship Quality Stroke Does the patient have a stroke diagnosis?: Yes Reason for No Anti-thrombotic by Day Two: N/A - Med Ordered VTE Prior VTE?: No VTE Risk Level:: Medical - moderate - high VTE Device Contraindication: N/A - Device Ordered VTE Drug Contraindication: N/A - Med Ordered
--- NOTE | 2021-10-13 15:27 | MHC.CM.PN ---
hcp filed and placed on chart
[2021-10-13 18:21] LABS: PTHI 160 pg/mL (14-64)
[2021-10-13 20:00] VITALS: BP 144/83; PULSE 83; RESP 18; TEMP 36.1; O2SAT 100
[2021-10-13] MEDS: Nortriptyline HCl 10 MG CAPSULE PO (20:34)
[2021-10-13] MEDS: HaloperidoL 5 MG TABLET PO (20:34)
[2021-10-13] MEDS: Benztropine Mesylate 1 MG TABLET PO (20:37)
[2021-10-13 20:50] LABS: Glucose, Whole Blood 57 mg/dL (60-115)
[2021-10-13] MEDS: Glucose Gel 15 GM GEL..GRAM. PO (21:16)
[2021-10-13 21:43] LABS: Glucose, Whole Blood 105 mg/dL (60-115)
[2021-10-14 03:47] VITALS: BP 130/60; PULSE 88; RESP 18; TEMP 36.1; O2SAT 100
--- NOTE | 2021-10-14 05:23 | PC.NURSE ---
Patient blood sugar taken after refusing all day at 20:43. It was noted to be 59. Overnight hospitalist was notified and patient was given two cups of cranberry juice. Patient refused suggestion of refused orange juice. Patient was also given Glutose 15 gel. Blood sugar after recheck came up to 105, hospitalist notified.
[2021-10-14 07:33] LABS: Anion Gap 12 (12-20); Blood Urea Nitrogen 16 mg/dL (9-16); Calcium 11.6 mg/dL (8.4-10.2); Carbon Dioxide 24 mmol/L (22-29); Chloride 104 mmol/L (96-108); Creatinine Clr Calc Pharmacy 44.9; Estimated Glomerular Filt Rate 45; Glucose Random 180 mg/dL (60-115); Potassium 4.2 mmol/L (3.3-5.1); Sodium 136 mmol/L (135-145)
[2021-10-14 07:51] LABS: Glucose, Whole Blood 168 mg/dL (60-115)
[2021-10-14 07:52] LABS: Vitamin D 25-OH Total 16.7 ng/mL (>30)
[2021-10-14] MEDS: Aspirin Enteric Coated 81 MG TABLET.DR PO (07:59)
[2021-10-14] MEDS: glipiZIDE 5 MG TABLET PO (07:59)
[2021-10-14] MEDS: Lithium Carbonate 300 MG CAPSULE PO ×3 (07:59→20:51)
[2021-10-14] MEDS: Insulin Lispro 100 UNIT/ML 3 ML VIAL SUBCUT (07:59)
[2021-10-14] MEDS: metFORMIN HCl 1,000 MG TABLET 1000 MG PO ×2 (07:59→16:49)
[2021-10-14] MEDS: Atorvastatin Calcium 20 MG TABLET PO (07:59)
[2021-10-14 08:00] VITALS: BP 104/56; PULSE 76; RESP 20; TEMP 36.1; O2SAT 100
[2021-10-14 11:48] LABS: Glucose, Whole Blood 82 mg/dL (60-115)
[2021-10-14 12:00] VITALS: BP 147/58; PULSE 90; RESP 18; TEMP 36.2; O2SAT 98
--- NOTE | 2021-10-14 13:08 | HO.PM.IMPN ---
Subjective Subjective Date of Service: 10/14/21 Interval History: seen and examined this morning hypoglycemia last night, asymptomatic no complaints this morning Review of Systems Review of Systems: Yes all other systems are reviewed and are negative Constitutional Constitutional: Denies chills and Denies fever(s) Cardiovascular Cardiovascular: Denies chest pain, Denies palpitations and Denies dyspnea Respiratory Respiratory: Denies cough and Denies dyspnea Gastrointestinal Gastrointestinal: Denies abdominal pain, Denies nausea and Denies vomiting Neurologic Neurologic: Reports confusion Psychiatric Psychiatric: Reports confusion Endocrine Endocrine: Denies palpitations Physical Exam Vital Signs: Vital Signs: Last Vital Signs Temp 97.0 F 10/14/21 08:00 Pulse 76 10/14/21 08:00 Resp 20 10/14/21 08:00 BP 104/56 L 10/14/21 08:00 Pulse Ox 100 10/14/21 08:00 BMI result Body Mass Index 28.8 Const: General: cooperative, healthy appearing, comfortable, no acute distress, alert, awake and confusion Nutritional Appearance: average body habitus and well nourished Orientation/consciousness: confusion Resp: Effort & Inspection: normal respiratory effort and able to speak in complete sentences Auscultation: clear to auscultation bilaterally Cardio: Rate: regular rate Heart sounds: S1 normal heart sound present and S2 normal heart sound present GI: Inspection: No distended Palpation (GI): Soft to palpation and nontender Neuro: Other: non-focal; moving all extremities; confused, follows commands General: confusion Extrem: Other: moving all 4 extremities spontaneously Objective Data Active Medications Aspirin (Aspirin Enteric Coated 81 Mg Tablet.) 81 mg PO DAILY [facility] Last Admin: 10/14/21 07:59 Dose: 81 mg Documented by: HOWARD Atorvastatin Calcium (Atorvastatin Calcium 20 Mg Tablet) 20 mg PO DAILY [facility] Last Admin: 10/14/21 07:59 Dose: 20 mg Documented by: HOWARD Benztropine Mesylate (Benztropine Mesylate 1 Mg Tablet) 1 mg PO BEDTIME [facility] Last Admin: 10/13/21 20:37 Dose: 1 mg Documented by: LUIS Dextrose (Dextrose 50 % 25 Gm/50 Ml Vial) 25 gm IVPUSH Q15M PRN; Protocol PRN Reason: per Hypoglycemia Standing Ord. Enoxaparin Sodium (Enoxaparin Sodium 40 Mg/0.4 Ml Syringe) 40 mg SUBCUT Q24H [facility] Last Admin: 10/13/21 15:52 Dose: Not Given Documented by: NICKI Non-Admin Reason: Patient Refused Glipizide (Glipizide 5 Mg Tablet) 5 mg PO BIDWM [facility] Last Admin: 10/14/21 07:59 Dose: 5 mg Documented by: HOWARD Glucose (Glucose Gel 15 Gm Gel..Gram.) 15 gm PO Q15M PRN; Protocol PRN Reason: per Hypoglycemia Standing Ord. Last Admin: 10/13/21 21:16 Dose: 15 gm Documented by: LUIS Haloperidol (Haloperidol 5 Mg Tablet) 5 mg PO BEDTIME [facility] Last Admin: 10/13/21 20:34 Dose: 5 mg Documented by: LUIS Insulin Human Lispro (Insulin Lispro 100 Unit/Ml 3 Ml Vial) 0 unit SUBCUT QIDACHS [facility]; Protocol Last Admin: 10/14/21 12:33 Dose: Not Given Documented by: HOWARD Non-Admin Reason: No Insulin Coverage [place] Carbonate ([place] Carbonate 300 Mg Capsule) 300 mg PO TID [facility] Last Admin: 10/14/21 07:59 Dose: 300 mg Documented by: HOWARD Melatonin (Melatonin 3 Mg Tablet) 6 mg PO BEDTIME PRN PRN Reason: Sleep Last Admin: 10/05/21 02:21 Dose: 6 mg Documented by: LUIS Metformin HCl (Metformin Hcl 1,000 Mg Tablet) 1,000 mg PO BIDWM [facility] Last Admin: 10/14/21 07:59 Dose: 1,000 mg Documented by: HOWARD Nortriptyline HCl (Nortriptyline Hcl 10 Mg Capsule) 10 mg PO BEDTIME [facility] Last Admin: 10/13/21 20:34 Dose: 10 mg Documented by: LUIS Pharmacy Consult (Consult Rx Perform Med Rec) 1 each MISCELLANE ONCE PRN PRN Reason: Consult order Labs CBC & Chem 7: 10/09/21 06:20 10/14/21 06:26 Labs: Laboratory Results - last 24 hr 10/12/21 10/13/21 10/13/21 10:20 20:43 21:39 Anion Gap Estim Creat Clear Calc Estimated GFR POC Glucose 57 L* 105 Random Glucose Calcium 25-OH Vitamin D Total PTH Intact 160 H Calcium (PTH Intact) 12.0 H 10/14/21 10/14/21 10/14/21 06:26 06:26 07:39 Anion Gap 12 Estim Creat Clear Calc 44.9 Estimated GFR 45 POC Glucose 168 H Random Glucose 180 H Calcium 11.6 H 25-OH Vitamin D Total 16.7 PTH Intact Calcium (PTH Intact) 10/14/21 11:37 Anion Gap Estim Creat Clear Calc Estimated GFR POC Glucose 82 Random Glucose Calcium 25-OH Vitamin D Total PTH Intact Calcium (PTH Intact) Microbiology Microbiology Results: Microbiology 10/11/21 09:19 Blood Culture - Preliminary Blood - Venous No growth after 48 hours. 10/11/21 09:13 Blood Culture - Preliminary Blood - Venous No growth after 48 hours. Assessment and Plan (1) Toxic metabolic encephalopathy: Status: Acute (2) Bipolar disorder: Status: Acute (3) Hypercalcemia: Status: Acute Plan 66-year-old female admitted with encephalopathy secondary to UTI Toxic metabolic encephalopathy superimposed on likely underlying dementia scored 4/30 on MoCA Seen by psych, patient does not have capacity to make medical decisions Brain imaging with no stroke only chronic changes s/p treatment for UTI with no improvement in cognitive function Seen by neuro EEG showing generalized slowing, no evidence of seizure disorder B12, folate, tsh, RPR wnl seen by care team, does not feel that this represents acute decompensation of bipolar disorder and no need for inpatient pscyh Hypercalcemia, calcium down to 11.6 secondary to probable primary hyperparathyroidism not likely to be contributing to change in mental status seen by nephrology, further workup in progress trend calcium levels DM:? hypoglycemia overnight frequently refusing POCs will hold glipizide continue metformin refusing SSI follow POCs if pt agreeable Bipolar disorder:? Continue home medications lithium level from 10/05, 10/12 therapeutic seen by care team, does not meet criteria for inpatient psych strep agalactiae UTI completed 5 day course Hyperlipidemia Continue statin DVT ppx - mechanical devices code status - full code attending -Dr. Johnson Pt requires continued hospitalization for ongoing workup related to encephalopathy and hypercalcemia does NOT have capacity to make medical decisions. Will require placement - CM following Quality Stroke Does the patient have a stroke diagnosis?: Yes Reason for No Anti-thrombotic by Day Two: N/A - Med Ordered VTE Prior VTE?: No VTE Risk Level:: Medical - moderate - high VTE Device Contraindication: N/A - Device Ordered VTE Drug Contraindication: N/A - Med Ordered
[2021-10-14 16:08] LABS: Glucose, Whole Blood 113 mg/dL (60-115)
--- NOTE | 2021-10-14 17:28 | P.PNNP_ITS ---
Subjective Subjective Date of Service: 10/14/21 Interval history: Seen and examined, events noted Physical Exam Vital Signs: Vital Signs: Last Vital Signs Temp 97.2 F 10/14/21 12:00 Pulse 90 10/14/21 12:00 Resp 18 10/14/21 12:00 BP 147/58 H 10/14/21 12:00 Pulse Ox 98 10/14/21 12:00 BMI result Body Mass Index 28.8 Const: Other: General: AO X 1, no acute distress Resp: CTA bilateral CVS: S1,S2,RRR GI: +BS, NT, no distention Skin: No rash Neuro: motor grossly intact Psych: appropriate affect General: cooperative, healthy appearing, comfortable, no acute distress, alert, awake and confusion Nutritional Appearance: average body habitus and well nourished Orientation/consciousness: confusion Chest: Chest palpation & inspection: normal inspection of the chest Resp: Effort & Inspection: normal respiratory effort and able to speak in complete sentences Auscultation: clear to auscultation bilaterally Cardio: Rate: regular rate Heart sounds: S1 normal heart sound present and S2 normal heart sound present GI: Inspection: No distended Palpation (GI): Soft to palpation and nontender Neuro: Other: non-focal; moving all extremities; confused, follows commands General: confusion Extrem: Other: moving all 4 extremities spontaneously Objective Data Labs CBC & Chem 7: 10/09/21 06:20 10/14/21 06:26 Labs: Laboratory Results - last 24 hr 10/12/21 10/13/21 10/13/21 10:20 20:43 21:39 Sodium Potassium Chloride Carbon Dioxide Anion Gap BUN Creatinine Estim Creat Clear Calc Estimated GFR POC Glucose 57 L* 105 Random Glucose Calcium 25-OH Vitamin D Total PTH Intact 160 H Calcium (PTH Intact) 12.0 H 10/14/21 10/14/21 10/14/21 06:26 06:26 07:39 Sodium 136 Potassium 4.2 Chloride 104 Carbon Dioxide 24 Anion Gap 12 BUN 16 Creatinine 1.20 Estim Creat Clear Calc 44.9 Estimated GFR 45 POC Glucose 168 H Random Glucose 180 H Calcium 11.6 H 25-OH Vitamin D Total 16.7 PTH Intact Calcium (PTH Intact) 10/14/21 10/14/21 11:37 16:00 Sodium Potassium Chloride Carbon Dioxide Anion Gap BUN Creatinine Estim Creat Clear Calc Estimated GFR POC Glucose 82 113 Random Glucose Calcium 25-OH Vitamin D Total PTH Intact Calcium (PTH Intact) Microbiology Microbiology Results: Microbiology 10/11/21 09:19 Blood - Venous Blood Culture - Preliminary No growth after 48 hours. 10/11/21 09:13 Blood - Venous Blood Culture - Preliminary No growth after 48 hours. 10/10/21 15:52 Urine clean catch - Urine [place] top Urine Culture - Final 10/04/21 Unknown Urine clean catch - Urine [place] top Urine Culture - Final Strep agalactiae (Grp B) Procedures Date of Service Date of Service: 10/14/21 Assessment & Plan Assessment and plan (1) Toxic metabolic encephalopathy: Status: Acute (2) Bipolar disorder: Status: Acute (3) Hypercalcemia: Status: Acute Plan 66-year-old female admitted with encephalopathy secondary to UTI and hyperCa 1. HyperCa:w/u c/w primary HPTism note that [place] acn be a risk factor for primary HPTism Treatment Options: parathyroidectomy med Tx with sensipar 2. AMS: ques psych 3. CKD 2/3 REC: avoid Ca, vit D and thiazide diuretics; refer to endocrine and endocrine surgeon ( Dr Day at [facility]); treat with sensipar if SCa incr > 12.0; avoid NSAIDs Will follow with team Time Spent With Patient Time: Total time spent is greater than 50% in coordination of care (as documented) at patient's floor/unit and/or counseling patient: Progress Note: Quality Stroke Does the patient have a stroke diagnosis?: Yes Reason for No Anti-thrombotic by Day Two: N/A - Med Ordered
[2021-10-14 19:27] VITALS: BP 108/55; PULSE 72; RESP 18; TEMP 36.7; O2SAT 98
[2021-10-14 20:15] LABS: Glucose, Whole Blood 92 mg/dL (60-115)
[2021-10-14] MEDS: Nortriptyline HCl 10 MG CAPSULE PO (20:51)
[2021-10-14] MEDS: Benztropine Mesylate 1 MG TABLET PO (20:51)
[2021-10-14] MEDS: HaloperidoL 5 MG TABLET PO (20:51)
[2021-10-14 23:34] VITALS: BP 172/74; PULSE 79; RESP 18; O2SAT 100
[2021-10-15 04:00] VITALS: BP 131/69; PULSE 80; RESP 18; TEMP 36.8; O2SAT 98
[2021-10-15 08:00] VITALS: BP 155/73; PULSE 72; RESP 20; O2SAT 97
[2021-10-15 08:07] LABS: Glucose, Whole Blood 191 mg/dL (60-115)
[2021-10-15] MEDS: Atorvastatin Calcium 20 MG TABLET PO (08:14)
[2021-10-15] MEDS: Aspirin Enteric Coated 81 MG TABLET.DR PO (08:14)
[2021-10-15] MEDS: Lithium Carbonate 300 MG CAPSULE PO ×3 (08:14→21:17)
--- NOTE | 2021-10-15 10:41 | P.PNIM_ITS ---
Subjective Subjective Date of Service: 10/15/21 <LONNIE Tellez - Last Filed: 10/15/21 10:48> 10/15/21 <Matt Holland DO - Last Filed: 10/15/21 13:02> Interval History: seen and examined this morning no overnight events resting comfortably this morning, so specific complaints <LONNIE Tellez - Last Filed: 10/15/21 10:48> Review of Systems Review of Systems: Yes all other systems are reviewed and are negative <LONNIE Tellez - Last Filed: 10/15/21 10:48> Constitutional Constitutional: Denies chills and Denies fever(s) <LONNIE Tellez - Last Filed: 10/15/21 10:48> Cardiovascular Cardiovascular: Denies chest pain, Denies palpitations and Denies dyspnea <LONNIE Tellez - Last Filed: 10/15/21 10:48> Respiratory Respiratory: Denies cough and Denies dyspnea <LONNIE Tellez - Last Filed: 10/15/21 10:48> Gastrointestinal Gastrointestinal: Denies abdominal pain <LONNIE Tellez - Last Filed: 10/15/21 10:48> Neurologic Neurologic: Reports confusion <LONNIE Tellez - Last Filed: 10/15/21 10:48> Psychiatric Psychiatric: Reports confusion <LONNIE Tellez - Last Filed: 10/15/21 10:48> Endocrine Endocrine: Denies palpitations <LONNIE Tellez - Last Filed: 10/15/21 10:48> Physical Exam Vital Signs: Vital Signs: Last Vital Signs Temp 98.2 F 10/15/21 04:00 Pulse 72 10/15/21 08:00 Resp 20 10/15/21 08:00 BP 155/73 H 10/15/21 08:00 Pulse Ox 97 10/15/21 08:00 BMI result Body Mass Index 28.8 <LONNIE Tellez - Last Filed: 10/15/21 10:48> Const: General: cooperative, healthy appearing, comfortable, no acute distress, alert, awake and confusion <LONNIE Tellez - Last Filed: 10/15/21 10:48> Nutritional Appearance: average body habitus and well nourished <LONNIE Tellez - Last Filed: 10/15/21 10:48> Orientation/consciousness: confusion <LONNIE Tellez - Last Filed: 10/15/21 10:48> Resp: Effort & Inspection: normal respiratory effort and able to speak in complete sentences <LONNIE Tellez - Last Filed: 10/15/21 10:48> Auscultation: clear to auscultation bilaterally <LONNIE Tellez - Last Filed: 10/15/21 10:48> Cardio: Rate: regular rate <LONNIE Tellez - Last Filed: 10/15/21 10:48> Heart sounds: S1 normal heart sound present and S2 normal heart sound present <LONNIE Tellez - Last Filed: 10/15/21 10:48> GI: Inspection: No distended <LONNIE Tellez - Last Filed: 10/15/21 10:48> Palpation (GI): Soft to palpation and nontender <LONNIE Tellez - Last Filed: 10/15/21 10:48> Neuro: Other: non-focal; moving all extremities; confused, follows commands <LONNIE Tellez - Last Filed: 10/15/21 10:48> General: confusion <LONNIE Tellez - Last Filed: 10/15/21 10:48> Extrem: Other: moving all 4 extremities spontaneously <LONNIE Tellez - Last Filed: 10/15/21 10:48> Objective Data Active Medications Aspirin (Aspirin Enteric Coated 81 Mg Tablet.) 81 mg PO DAILY [facility] Last Admin: 10/15/21 08:14 Dose: 81 mg Documented by: ARACELI Atorvastatin Calcium (Atorvastatin Calcium 20 Mg Tablet) 20 mg PO DAILY [facility] Last Admin: 10/15/21 08:14 Dose: 20 mg Documented by: ARACELI Benztropine Mesylate (Benztropine Mesylate 1 Mg Tablet) 1 mg PO BEDTIME [facility] Last Admin: 10/14/21 20:51 Dose: 1 mg Documented by: ELI Dextrose (Dextrose 50 % 25 Gm/50 Ml Vial) 25 gm IVPUSH Q15M PRN; Protocol PRN Reason: per Hypoglycemia Standing Ord. Enoxaparin Sodium (Enoxaparin Sodium 40 Mg/0.4 Ml Syringe) 40 mg SUBCUT Q24H [facility] Last Admin: 10/14/21 16:49 Dose: Not Given Documented by: ELI Non-Admin Reason: Patient Refused Glucose (Glucose Gel 15 Gm Gel..Gram.) 15 gm PO Q15M PRN; Protocol PRN Reason: per Hypoglycemia Standing Ord. Last Admin: 10/13/21 21:16 Dose: 15 gm Documented by: LUIS Haloperidol (Haloperidol 5 Mg Tablet) 5 mg PO BEDTIME [facility] Last Admin: 10/14/21 20:51 Dose: 5 mg Documented by: ELI Insulin Human Lispro (Insulin Lispro 100 Unit/Ml 3 Ml Vial) 0 unit SUBCUT QIDACHS [facility]; Protocol Last Admin: 10/15/21 08:13 Dose: Not Given Documented by: ARACELI Non-Admin Reason: Patient Refused [place] Carbonate ([place] Carbonate 300 Mg Capsule) 300 mg PO TID [facility] Last Admin: 10/15/21 08:14 Dose: 300 mg Documented by: ARACELI Melatonin (Melatonin 3 Mg Tablet) 6 mg PO BEDTIME PRN PRN Reason: Sleep Last Admin: 10/05/21 02:21 Dose: 6 mg Documented by: LUIS Metformin HCl (Metformin Hcl 1,000 Mg Tablet) 1,000 mg PO BIDWM [facility] Last Admin: 10/15/21 08:19 Dose: Not Given Documented by: ARACELI Non-Admin Reason: spit out Nortriptyline HCl (Nortriptyline Hcl 10 Mg Capsule) 10 mg PO BEDTIME [facility] Last Admin: 10/14/21 20:51 Dose: 10 mg Documented by: ELI Pharmacy Consult (Consult Rx Perform Med Rec) 1 each MISCELLANE ONCE PRN PRN Reason: Consult order <LONNIE Tellez - Last Filed: 10/15/21 10:48> Labs CBC & Chem 7: : 10/09/21 06:20 10/14/21 06:26 <LONNIE Tellez - Last Filed: 10/15/21 10:48> Labs: Laboratory Results - last 24 hr 10/14/21 10/14/21 10/14/21 11:37 16:00 20:09 POC Glucose 82 113 92 10/15/21 08:00 POC Glucose 191 H <LONNIE Tellez - Last Filed: 10/15/21 10:48> Assessment and Plan (1) Toxic metabolic encephalopathy: Status: Acute <LONNIE Tellez - Last Filed: 10/15/21 10:48> (2) Hyperparathyroidism: Status: Acute <LONNIE Tellez - Last Filed: 10/15/21 10:48> Plan 66-year-old female admitted with encephalopathy secondary to UTI Toxic metabolic encephalopathy superimposed on likely underlying dementia scored 4/30 on MoCA Seen by psych, patient does not have capacity to make medical decisions Brain imaging with no stroke only chronic changes s/p treatment for UTI with no improvement in cognitive function Seen by neuro EEG showing generalized slowing, no evidence of seizure disorder B12, folate, tsh, RPR wnl seen by care team, does not feel that this represents acute decompensation of bipolar disorder and no need for inpatient pscyh Hypercalcemia secondary to primary hyperparathyroidism not likely to be contributing to change in mental status can treat with sensipar if calcium levels >12 will need outpatient follow up with endocrine and refer [place] endocrine [place] [facility] [place]rology following - rec appreciated avoid Ca, vit D, thiazide diuretics and NSAIDs DM:? hypoglycemia overnight frequently refusing POCs will hold glipizide continue metformin refusing SSI follow POCs if pt agreeable Bipolar disorder:? Continue home medications lithium level from 10/05, 10/12 therapeutic seen by care team, does not meet criteria for inpatient psych strep agalactiae UTI completed 5 day course Hyperlipidemia Continue statin DVT ppx - lovenox code status - full code attending -Dr. Holland Pt requires continued hospitalization as she is unsafe to return home on own, needs placement - following does NOT have capacity to make medical decisions. <LONNIE Tellez - Last Filed: 10/15/21 10:48> 66-year-old female admitted with encephalopathy secondary to UTI Toxic metabolic encephalopathy superimposed on likely underlying dementia scored 4/30 on MoCA Seen by psych, patient does not have capacity to make medical decisions Brain imaging with no stroke only chronic changes s/p treatment for UTI with no improvement in cognitive function Seen by neuro EEG showing generalized slowing, no evidence of seizure disorder B12, folate, tsh, RPR wnl seen by care team, does not feel that this represents acute decompensation of bipolar disorder and no need for inpatient pscyh Hypercalcemia secondary to primary hyperparathyroidism not likely to be contributing to change in mental status can treat with sensipar if calcium levels >12 will need outpatient follow up with endocrine and refer to endocrine surgeon [place] [facility] [place] nephrology following - rec appreciated avoid Ca, vit D, thiazide diuretics and NSAIDs DM:? hypoglycemia overnight frequently refusing POCs will hold glipizide continue metformin refusing SSI follow POCs if pt agreeable Bipolar disorder:? Continue home medications lithium level from 10/05, 10/12 therapeutic seen by care team, does not meet criteria for inpatient psych strep agalactiae UTI completed 5 day course Hyperlipidemia Continue statin DVT ppx - lovenox code status - full code attending -Dr. Holland Pt requires continued hospitalization as she is unsafe to return home on own, needs placement - CM following does NOT have capacity to make medical decisions. Pt seen/examined. Agree with H+P/physical exam and assessment /plan as outlined by Armandoemili <Matt Holland DO - Last Filed: 10/15/21 13:02> Quality Stroke Does the patient have a stroke diagnosis?: Yes <LONNIE Tellez - Last Filed: 10/15/21 10:48> Reason for No Anti-thrombotic by Day Two: N/A - Med Ordered <LONNIE Tellez - Last Filed: 10/15/21 10:48> VTE Prior VTE?: No <LONNIE Tellez - Last Filed: 10/15/21 10:48> VTE Risk Level:: Medical - moderate - high <LONNIE Tellez - Last Filed: 10/15/21 10:48> VTE Device Contraindication: N/A - Device Ordered <LONNIE Tellez - Last Filed: 10/15/21 10:48> VTE Drug Contraindication: N/A - Med Ordered <LONNIE Tellez - Last Filed: 10/15/21 10:48>
[2021-10-15 15:40] VITALS: BP 159/86; PULSE 87; RESP 18; TEMP 37.1; O2SAT 98
[2021-10-15 15:48] LABS: Glucose, Whole Blood 248 mg/dL (60-115)
[2021-10-15] MEDS: metFORMIN HCl 1,000 MG TABLET 1000 MG PO (16:50)
--- NOTE | 2021-10-15 17:07 | P.PNNP_ITS ---
Subjective Subjective Date of Service: 10/15/21 Interval history: seen and examined, events noted Physical Exam Vital Signs: Vital Signs: Last Vital Signs Temp 98.7 F 10/15/21 15:40 Pulse 87 10/15/21 15:40 Resp 18 10/15/21 15:40 BP 159/86 H 10/15/21 15:40 Pulse Ox 98 10/15/21 15:40 BMI result Body Mass Index 28.8 Const: Other: General: AO X 1, no acute distress Resp: CTA bilateral CVS: S1,S2,RRR GI: +BS, NT, no distention Skin: No rash Neuro: motor grossly intact Psych: appropriate affect General: cooperative, healthy appearing, comfortable, no acute distress, alert, awake and confusion Nutritional Appearance: average body habitus and well nourished Orientation/consciousness: confusion Chest: Chest palpation & inspection: normal inspection of the chest Resp: Effort & Inspection: normal respiratory effort and able to speak in complete sentences Auscultation: clear to auscultation bilaterally Cardio: Rate: regular rate Heart sounds: S1 normal heart sound present and S2 normal heart sound present GI: Inspection: No distended Palpation (GI): Soft to palpation and nontender Neuro: Other: non-focal; moving all extremities; confused, follows commands General: confusion Extrem: Other: moving all 4 extremities spontaneously Objective Data Labs CBC & Chem 7: 10/09/21 06:20 10/14/21 06:26 Labs: Laboratory Results - last 24 hr 10/14/21 10/14/21 10/15/21 16:00 20:09 08:00 POC Glucose 113 92 191 H 10/15/21 15:38 POC Glucose 248 H Microbiology Microbiology Results: Microbiology 10/11/21 09:19 Blood - Venous Blood Culture - Preliminary No growth after 48 hours. 10/11/21 09:13 Blood - Venous Blood Culture - Preliminary No growth after 48 hours. 10/10/21 15:52 Urine clean catch - Urine [place] top Urine Culture - Final 10/04/21 Unknown Urine clean catch - Urine [place] top Urine Culture - Final Strep agalactiae (Grp B) Procedures Date of Service Date of Service: 10/15/21 Assessment & Plan Assessment and plan (1) Toxic metabolic encephalopathy: Status: Acute (2) Bipolar disorder: Status: Acute (3) Hypercalcemia: Status: Acute Plan 66-year-old female admitted with encephalopathy secondary to UTI and hyperCa 1. HyperCa:w/u c/w primary HPTism note that [place] acn be a risk factor for primary HPTism Treatment Options: parathyroidectomy med Tx with sensipar 2. 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
[2021-10-15 19:42] VITALS: BP 142/67; PULSE 98; RESP 18; TEMP 37.1; O2SAT 98
[2021-10-15 20:05] LABS: Glucose, Whole Blood 215 mg/dL (60-115)
[2021-10-15] MEDS: HaloperidoL 5 MG TABLET PO (21:17)
[2021-10-15] MEDS: Benztropine Mesylate 1 MG TABLET PO (21:17)
[2021-10-15] MEDS: Nortriptyline HCl 10 MG CAPSULE PO (21:17)
[2021-10-15 23:56] VITALS: BP 143/67; PULSE 72; RESP 20; TEMP 35.9
[2021-10-16 04:00] VITALS: TEMP 36.5
--- NOTE | 2021-10-16 04:28 | PC.NURSE ---
Patient uncooperative overnight with assessments and vitals. Refusing vitals if not done quickly enough and is refusing assessments - will only tell this RN her name and birthday. States I'm sick of this nonsense and I'm not doing this anymore .
[2021-10-16 07:22] VITALS: BP 149/69; PULSE 69; RESP 18; TEMP 36.4; O2SAT 98
[2021-10-16 07:45] LABS: Glucose, Whole Blood 190 mg/dL (60-115)
[2021-10-16 11:05] VITALS: BP 130/70; PULSE 72; RESP 17; TEMP 36.4; O2SAT 100
[2021-10-16 11:34] LABS: Glucose, Whole Blood 226 mg/dL (60-115)
--- NOTE | 2021-10-16 12:23 | PM.PNNEP ---
Subjective Subjective Date of Service: 10/16/21 Interval history: seen and examined, events noted. All recent data reviewed Physical Exam Vital Signs: Vital Signs: Last Vital Signs Temp 97.6 F 10/16/21 11:05 Pulse 72 10/16/21 11:05 Resp 17 10/16/21 11:05 BP 130/70 10/16/21 11:05 Pulse Ox 100 10/16/21 11:05 BMI result Body Mass Index 28.8 Const: General: comfortable Eyes: EOM: EOMs intact bilaterally Resp: Auscultation: diminished lung sounds Cardio: Rate: regular rate GI: Palpation (GI): Soft to palpation Neuro: General: moves all extremities Objective Data Labs CBC & Chem 7: 10/09/21 06:20 10/14/21 06:26 Labs: Laboratory Results - last 24 hr 10/15/21 10/15/21 10/16/21 15:38 19:59 07:26 POC Glucose 248 H 215 H 190 H 10/16/21 11:09 POC Glucose 226 H Microbiology Microbiology Results: Microbiology 10/11/21 09:13 Blood - Venous Blood Culture - Final No growth after 5 days. 10/11/21 09:19 Blood - Venous Blood Culture - Final No growth after 5 days. 10/10/21 15:52 Urine clean catch - Urine [place] top Urine Culture - Final 10/04/21 Unknown Urine clean catch - Urine [place] top Urine Culture - Final Strep agalactiae (Grp B) Procedures Date of Service Date of Service: 10/16/21 Assessment & Plan Assessment and plan (1) Hypercalcemia: Status: Acute Assessment and Plan: 66-year-old female admitted with encephalopathy secondary to UTI and hyperCa Hypercalcemia :w/u c/w primary HPTism [place] acn be a risk factor for primary HPTism Starte sensipar 30 mg daily Avoid Ca, vit D and thiazide diuretics Shall arrange office F/U when D/Lauro Time Spent With Patient Time: Total time spent is greater than 50% in coordination of care (as documented) at patient's floor/unit and/or counseling patient: Progress Note: Quality Stroke Does the patient have a stroke diagnosis?: Yes Reason for No Anti-thrombotic by Day Two: N/A - Med Ordered
[2021-10-16] MEDS: Cinacalcet HCl 30 MG TABLET PO (13:45)
[2021-10-16 16:01] LABS: Glucose, Whole Blood 182 mg/dL (60-115)
--- NOTE | 2021-10-16 16:17 | HO.PM.IMPN ---
Subjective Subjective Date of Service: 10/16/21 Interval History: Patient resting in bed does not want to talk, refused breakfast and medications this morning Review of Systems Review of Systems: Yes Unobtainable due to mental status Physical Exam Vital Signs: Vital Signs: Last Vital Signs Temp 97.6 F 10/16/21 11:05 Pulse 72 10/16/21 11:05 Resp 17 10/16/21 11:05 BP 130/70 10/16/21 11:05 Pulse Ox 100 10/16/21 11:05 BMI result Body Mass Index 28.8 Const: Other: General awake alert,resting comfortably in no acute distress. Neck supple, no JVD. CVS regular rate rhythm, Respiratory lungs clear to auscultation, no respiratory distress, no wheeze, no rhonchi. Gastrointestinal abdomen soft, nontender, bowel sounds audible, Extremities no edema. Neuro nonfocal , patient moving all 4 extremity , speech clear. Skin no rash Musculoskeletal no deformity Objective Data Active Medications Aspirin (Aspirin Enteric Coated 81 Mg Tablet.) 81 mg PO DAILY [facility] Last Admin: 10/16/21 10:03 Dose: Not Given Documented by: ARGENTINA Non-Admin Reason: Patient Refused Atorvastatin Calcium (Atorvastatin Calcium 20 Mg Tablet) 20 mg PO DAILY [facility] Last Admin: 10/16/21 10:04 Dose: Not Given Documented by: ARGENTINA Non-Admin Reason: Patient Refused Benztropine Mesylate (Benztropine Mesylate 1 Mg Tablet) 1 mg PO BEDTIME [facility] Last Admin: 10/15/21 21:17 Dose: 1 mg Documented by: ELI Cinacalcet (Cinacalcet Hcl 30 Mg Tablet) 30 mg PO DAILY [facility] Last Admin: 10/16/21 13:45 Dose: 30 mg Documented by: ARGENTINA Dextrose (Dextrose 50 % 25 Gm/50 Ml Vial) 25 gm IVPUSH Q15M PRN; Protocol PRN Reason: per Hypoglycemia Standing Ord. Enoxaparin Sodium (Enoxaparin Sodium 40 Mg/0.4 Ml Syringe) 40 mg SUBCUT Q24H [facility] Last Admin: 10/16/21 16:03 Dose: Not Given Documented by: ARGENTINA Non-Admin Reason: Patient Refused Glucose (Glucose Gel 15 Gm Gel..Gram.) 15 gm PO Q15M PRN; Protocol PRN Reason: per Hypoglycemia Standing Ord. Last Admin: 10/13/21 21:16 Dose: 15 gm Documented by: LUIS Haloperidol (Haloperidol 5 Mg Tablet) 5 mg PO BEDTIME [facility] Last Admin: 10/15/21 21:17 Dose: 5 mg Documented by: ELI Insulin Human Lispro (Insulin Lispro 100 Unit/Ml 3 Ml Vial) 0 unit SUBCUT QIDACHS [facility]; Protocol Last Admin: 10/16/21 12:34 Dose: Not Given Documented by: ARGENTINA Non-Admin Reason: Patient Refused [place] Carbonate ([place] Carbonate 300 Mg Capsule) 300 mg PO TID [facility] Last Admin: 10/16/21 10:04 Dose: Not Given Documented by: ARGENTINA Non-Admin Reason: Patient Refused Melatonin (Melatonin 3 Mg Tablet) 6 mg PO BEDTIME PRN PRN Reason: Sleep Last Admin: 10/05/21 02:21 Dose: 6 mg Documented by: LUIS Metformin HCl (Metformin Hcl 1,000 Mg Tablet) 1,000 mg PO BIDWM [facility] Last Admin: 10/16/21 10:03 Dose: Not Given Documented by: ARGENTINA Non-Admin Reason: Patient Refused Nortriptyline HCl (Nortriptyline Hcl 10 Mg Capsule) 10 mg PO BEDTIME [facility] Last Admin: 10/15/21 21:17 Dose: 10 mg Documented by: ELI Pharmacy Consult (Consult Rx Perform Med Rec) 1 each MISCELLANE ONCE PRN PRN Reason: Consult order Labs CBC & Chem 7: 10/09/21 06:20 10/14/21 06:26 Labs: Laboratory Results - last 24 hr 10/15/21 10/16/21 10/16/21 19:59 07:26 11:09 POC Glucose 215 H 190 H 226 H 10/16/21 15:57 POC Glucose 182 H Microbiology Microbiology Results: Microbiology 10/11/21 09:13 Blood Culture - Final Blood - Venous No growth after 5 days. 10/11/21 09:19 Blood Culture - Final Blood - Venous No growth after 5 days. Assessment and Plan (1) Toxic metabolic encephalopathy: Status: Acute (2) Hyperparathyroidism: Status: Acute Plan 66-year-old female admitted with encephalopathy secondary to UTI Toxic metabolic encephalopathy superimposed on likely underlying dementia No episodes of agitation noted, likely at baseline Seen by psych, patient does not have capacity to make medical decisions Brain imaging with no stroke only chronic changes, MRI showed generalized atrophy and diffuse white matter microangiopathy s/p treatment for UTI with no improvement in cognitive function Seen by neuro EEG showing generalized slowing, no evidence of seizure disorder B12, folate, tsh, RPR wnl seen by care team, does not feel that this represents acute decompensation of bipolar disorder and no need for inpatient pscyh Hypercalcemia secondary to primary hyperparathyroidism not likely to be contributing to change in mental status Case discussed with Nephrology Dr. Guajardo recommend Sensipar 30 mg by mouth daily will need outpatient follow up with endocrine and refer [place] endocrine [place] [facility] [place] Will avoid Ca, vit D, thiazide diuretics and NSAIDs DM:? No recurrent episodes of hypoglycemia blood sugars around 200 ,continue metformin 1000mg bid,refusing SSI follow POCs if pt agreeable, glipizide discontinued due to hypoglycemia, hemoglobin A1c 10.1 Bipolar disorder:? Continue home medications lithium level from 10/05, 10/12 therapeutic ,seen by care team, does not meet criteria for inpatient psych strep agalactiae UTI completed 5 day course Hyperlipidemia Continue statin DVT ppx - lovenox code status - full code Pt requires continued hospitalization as she is unsafe to return home on own, needs placement - CM following does NOT have capacity to make medical decisions. Quality Stroke Does the patient have a stroke diagnosis?: Yes Reason for No Anti-thrombotic by Day Two: N/A - Med Ordered VTE Prior VTE?: No VTE Risk Level:: Medical - moderate - high VTE Device Contraindication: N/A - Device Ordered VTE Drug Contraindication: N/A - Med Ordered
[2021-10-16] MEDS: metFORMIN HCl 1,000 MG TABLET 1000 MG PO (16:28)
[2021-10-16] MEDS: Lithium Carbonate 300 MG CAPSULE PO ×2 (16:28→20:06)
[2021-10-16 17:13] LABS: COVID-19 Test Negative (Negative); IDNOW Serial# 16C4AD1C
[2021-10-16 20:00] VITALS: BP 135/67; PULSE 83; RESP 14; TEMP 36.7; O2SAT 100
[2021-10-16] MEDS: Benztropine Mesylate 1 MG TABLET PO (20:06)
[2021-10-16] MEDS: Nortriptyline HCl 10 MG CAPSULE PO (20:06)
[2021-10-16] MEDS: HaloperidoL 5 MG TABLET PO (20:06)
[2021-10-16 20:19] LABS: Glucose, Whole Blood 188 mg/dL (60-115)
[2021-10-17] VITALS: RESP 20
[2021-10-17 03:31] VITALS: BP 134/70; PULSE 77; RESP 18
[2021-10-17 07:30] VITALS: BP 128/71; PULSE 78; RESP 18; O2SAT 100
[2021-10-17] MEDS: Lithium Carbonate 300 MG CAPSULE PO ×3 (10:15→20:39)
[2021-10-17] MEDS: Cinacalcet HCl 30 MG TABLET PO (10:15)
[2021-10-17] MEDS: Atorvastatin Calcium 20 MG TABLET PO (10:15)
[2021-10-17] MEDS: metFORMIN HCl 1,000 MG TABLET 1000 MG PO ×2 (10:15→16:29)
[2021-10-17] MEDS: Aspirin Enteric Coated 81 MG TABLET.DR PO (10:15)
--- NOTE | 2021-10-17 10:16 | P.CDIC_ITS ---
CDI Concurrent Query Documentation Clarification: PHYSICIAN'S DOCUMENTATION REQUEST Date of Query: 10/17/21 1017 Patient Name: Jeanne Donis Admit Date: 10/04/21 Dear Doctor, A review of the medical record indicates additional documentation may be needed. Please review below and update the documentation accordingly. Clinical Indicators: Documentation in the record includes the diagnosis of KEESHA and CKD. The following clinical information was noted in the record: Risk Factors/Clinical Indicators/Treatments Nephrology consult notes: 10/13 & 10/14 & 10/16 Assessment/plan: CKD 2/3 Please clarify which of the following most accurately represents the patient's renal status: * Acute kidney injury on CKD Stage 2 * Acute kidney injury on CKD Stage 3 * Other (please specify) * Unable to determine Criteria for KEESHA* Stages of Chronic Kidney Disease* 1. Increase in serum creatinine by ? 0.3 mg/dL Level Description GFR (?26.5 micromol/L) within 48 hours, or G1 Normal or High > 90 2. Increase in serum creatinine to ?1.5 times baseline, G2 Mildly decreased 60 ? 89 which is known or presumed to have occurred within 7 days, or G3a Mildly to moderately decreased 45 ? 59 3. Urine volume <0.5 mL/kg/hour for six hours G3b Moderately to severely decreased 30 - 44 G4 Severely decreased 15 ? 29 G5 Kidney failure < 15 *Source: Kidney Disease: Improving Global Outcomes (KDIGO) 2012 Use of terms such as suspected, likely, concern for, or probable (associated with a specific diagnosis that is being evaluated, monitored, or treated as if it exists) are acceptable and can be coded in the inpatient setting, when documented at the time of discharge. Thank you, Gege Reid [facility], CDIS Extension: [phone] Please use your independent medical judgment in providing your response. THIS QUERY IS PART OF THE PERMANENT MEDICAL RECORD Provider Response: Other Other Diagnosis: No acute kidney injury there is no GFR prior to October to suggests chronic kidney disease, as per 1 [employer] Specialist CKD 2/3
--- NOTE | 2021-10-17 10:52 | P.PNNP_ITS ---
Subjective Subjective Date of Service: 10/17/21 Interval history: Events noted. All recent data reviewed Physical Exam Vital Signs: Vital Signs: Last Vital Signs Temp 98.1 F 10/16/21 20:00 Pulse 78 10/17/21 07:30 Resp 18 10/17/21 07:30 BP 128/71 10/17/21 07:30 Pulse Ox 100 10/17/21 07:30 BMI result Body Mass Index 28.8 Const: General: no acute distress Eyes: EOM: EOMs intact bilaterally Neck: Neck: Yes supple Resp: Auscultation: diminished lung sounds Cardio: Rate: regular rate GI: Palpation (GI): Soft to palpation Neuro: General: moves all extremities Objective Data Labs CBC & Chem 7: 10/09/21 06:20 10/14/21 06:26 Labs: Laboratory Results - last 24 hr 10/16/21 10/16/21 10/16/21 11:09 15:57 16:30 POC Glucose 226 H 182 H COVID-19 (PATRICIA) Negative COVID-19 Clin Com See Note 10/16/21 20:15 POC Glucose 188 H COVID-19 (PATRICIA) COVID-19 Clin Com Microbiology Microbiology Results: Microbiology 10/11/21 09:13 Blood - Venous Blood Culture - Final No growth after 5 days. 10/11/21 09:19 Blood - Venous Blood Culture - Final No growth after 5 days. 10/10/21 15:52 Urine clean catch - Urine velasco top Urine Culture - Final 10/04/21 Unknown Urine clean catch - Urine velasco top Urine Culture - Final Strep agalactiae (Grp B) Procedures Date of Service Date of Service: 10/17/21 Assessment & Plan Assessment and plan (1) Hypercalcemia: Status: Acute Assessment and Plan: 66-year-old female admitted with encephalopathy secondary to UTI and hyperCa Hypercalcemia :w/u c/w primary HPTism [place] can be a risk factor for primary HPTism Started sensipar 30 mg daily Avoid Ca, vit D and thiazide diuretics Shall arrange office F/U when D/Lauro Time Spent With Patient Time: Total time spent is greater than 50% in coordination of care (as documented) at patient's floor/unit and/or counseling patient: Progress Note: Quality Stroke Does the patient have a stroke diagnosis?: Yes Reason for No Anti-thrombotic by Day Two: N/A - Med Ordered
[2021-10-17 13:42] LABS: IgA 409 mg/dL (70-320); IgG 1103 mg/dL (600-1540); IgM 394 mg/dL (50-300)
--- NOTE | 2021-10-17 14:24 | P.PNIM_ITS ---
Subjective Subjective Date of Service: 10/17/21 Interval History: Patient more awake alert this morning verbalizing more answering questions yes and no appropriately, family at bedside including son and sister they do not feel this is her baseline since patient before was able to ambulate take public past talking full sentences, no acute issues overnight, patient eating and taking her medications. Review of Systems Review of Systems: Yes all other systems are reviewed and are negative Physical Exam Vital Signs: Vital Signs: Last Vital Signs Temp 98.1 F 10/16/21 20:00 Pulse 78 10/17/21 07:30 Resp 18 10/17/21 07:30 BP 128/71 10/17/21 07:30 Pulse Ox 100 10/17/21 07:30 BMI result Body Mass Index 28.8 Const: Other: General awake alert, no acute distress.? Neck? supple, no JVD. CVS? regular rate rhythm, Respiratory lungs clear to auscultation, no respiratory distress, no wheeze, no rhonchi. Gastrointestinal abdomen soft, nontender, bowel sounds audible, Extremities no edema. Neuro nonfocal , patient moving all 4 extremity , speech clear. Skin no rash Musculoskeletal no deformity, walking small steps holding on to chair and wall. Objective Data Active Medications Aspirin (Aspirin Enteric Coated 81 Mg Tablet.) 81 mg PO DAILY [facility] Last Admin: 10/17/21 10:15 Dose: 81 mg Documented by: ARGENTINA Atorvastatin Calcium (Atorvastatin Calcium 20 Mg Tablet) 20 mg PO DAILY [facility] Last Admin: 10/17/21 10:15 Dose: 20 mg Documented by: ARGENTINA Benztropine Mesylate (Benztropine Mesylate 1 Mg Tablet) 1 mg PO BEDTIME [facility] Last Admin: 10/16/21 20:06 Dose: 1 mg Documented by: LY Cinacalcet (Cinacalcet Hcl 30 Mg Tablet) 30 mg PO DAILY [facility] Last Admin: 10/17/21 10:15 Dose: 30 mg Documented by: ARGENTINA Dextrose (Dextrose 50 % 25 Gm/50 Ml Vial) 25 gm IVPUSH Q15M PRN; Protocol PRN Reason: per Hypoglycemia Standing Ord. Enoxaparin Sodium (Enoxaparin Sodium 40 Mg/0.4 Ml Syringe) 40 mg SUBCUT Q24H [facility] Last Admin: 10/16/21 16:03 Dose: Not Given Documented by: ARGENTINA Non-Admin Reason: Patient Refused Glucose (Glucose Gel 15 Gm Gel..Gram.) 15 gm PO Q15M PRN; Protocol PRN Reason: per Hypoglycemia Standing Ord. Last Admin: 10/13/21 21:16 Dose: 15 gm Documented by: LUIS Haloperidol (Haloperidol 5 Mg Tablet) 5 mg PO BEDTIME [facility] Last Admin: 10/16/21 20:06 Dose: 5 mg Documented by: LY Insulin Human Lispro (Insulin Lispro 100 Unit/Ml 3 Ml Vial) 0 unit SUBCUT QIDACHS [facility]; Protocol Last Admin: 10/17/21 11:57 Dose: Not Given Documented by: ARGENTINA Non-Admin Reason: Patient Refused [place]tinger Carbonate (Hettinger Carbonate 300 Mg Capsule) 300 mg PO TID [facility] Last Admin: 10/17/21 10:15 Dose: 300 mg Documented by: ARGENTINA Melatonin (Melatonin 3 Mg Tablet) 6 mg PO BEDTIME PRN PRN Reason: Sleep Last Admin: 10/05/21 02:21 Dose: 6 mg Documented by: LUIS Metformin HCl (Metformin Hcl 1,000 Mg Tablet) 1,000 mg PO BIDWM [facility] Last Admin: 10/17/21 10:15 Dose: 1,000 mg Documented by: ARGENTINA Nortriptyline HCl (Nortriptyline Hcl 10 Mg Capsule) 10 mg PO BEDTIME [facility] Last Admin: 10/16/21 20:06 Dose: 10 mg Documented by: LY Pharmacy Consult (Consult Rx Perform Med Rec) 1 each MISCELLANE ONCE PRN PRN Reason: Consult order Labs CBC & Chem 7: 10/09/21 06:20 10/14/21 06:26 Labs: Laboratory Results - last 24 hr 10/14/21 10/16/21 10/16/21 06:26 15:57 16:30 POC Glucose 182 H IgG Total 1103 IgA Total 409 H IgM 394 H SUDHIR Interpretation COVID-19 (PATRICIA) Negative COVID-19 Clin Com See Note 10/16/21 20:15 POC Glucose 188 H IgG Total IgA Total IgM SUDHIR Interpretation COVID-19 (PATRICIA) COVID-19 Clin Com Microbiology Microbiology Results: Microbiology 10/11/21 09:13 Blood Culture - Final Blood - Venous No growth after 5 days. 10/11/21 09:19 Blood Culture - Final Blood - Venous No growth after 5 days. Assessment and Plan (1) Toxic metabolic encephalopathy: Status: Acute (2) Hyperparathyroidism: Status: Acute Plan 66-year-old female admitted with encephalopathy secondary to UTI Toxic metabolic encephalopathy superimposed on likely underlying dementia under diagnosis No episodes of agitation noted, patient more awake alert but as per son and sister not at her baseline since was ambulating without difficulty in talking in full sentences Seen by psych, patient does not have capacity to make medical decisions Brain imaging with no stroke only chronic changes, MRI showed generalized atrophy and diffuse white matter microangiopathy s/p treatment for UTI with no improvement in cognitive function Seen by neuro, EEG showing generalized slowing, no evidence of seizure disorder B12, folate, tsh, RPR wnl seen by care team, does not feel that this represents acute decompensation of bipolar disorder and no need for inpatient pscyh Will re-consult PT OT due to unsteady gait and cognitive impairment Will re-consult psych for re-evaluation since patient more awake alert and conversing better Hypercalcemia secondary to primary hyperparathyroidism not likely to be contributing to change in mental status Started on Sensipar 30 mg by mouth daily as per Nephro recommendations patient diagnosed to have hypercalcemia workup consistent with primary hyper parathyroidism will need outpatient follow up with endocrine and refer to endocrine surgeon [place] [facility] Will avoid Ca, vit D, thiazide diuretics and NSAIDs DM:? No recurrent episodes of hypoglycemia blood sugars around 200 ,continue metformin 1000mg bid follow POCs , glipizide discontinued due to hypoglycemia, hemoglobin A1c 10.1, once by mouth intake improves will resume glipizide Bipolar disorder:? Continue home medications lithium level from 10/05, 10/12 therapeutic ,seen by care team, does not meet criteria for inpatient psych strep agalactiae UTI completed 5 day course Hyperlipidemia Continue statin DVT ppx - lovenox code status - full code Pt requires continued hospitalization as she is unsafe to return home on own, needs placement - following does NOT have capacity to make medical decisions, will re-consult PT OT since patient more awake alert, previously was discharged from their services since was not participating likely due to confusion. Had family meeting with patient's son healthcare proxy Elgin Donis and patient's sister gave the result of all testing and informed them about MRI findings of generalized atrophy and diffuse white matter microangiopathy likely suggestive of vascular dementia, patient family feels she is not at her baseline to live alone therefore will obtain PT OT services case discussed with high school social science teacher will arrange for rehab bed . Quality Stroke Does the patient have a stroke diagnosis?: Yes Reason for No Anti-thrombotic by Day Two: N/A - Med Ordered VTE Prior VTE?: No VTE Risk Level:: Medical - moderate - high VTE Device Contraindication: N/A - Device Ordered VTE Drug Contraindication: N/A - Med Ordered
--- NOTE | 2021-10-17 15:25 | MHC.CM.PN ---
met with pt,son ,sister wilberto plunkett [phone] we discussed pt being denied for str by [facility] will be reordering pt and ot evals,family speaking to pt about particapation for these new ervals
[2021-10-17 15:58] VITALS: BP 149/94; PULSE 102; RESP 18; TEMP 36.1; O2SAT 96
[2021-10-17 16:22] LABS: Glucose, Whole Blood 224 mg/dL (60-115)
[2021-10-17 20:00] VITALS: BP 191/74; PULSE 92; RESP 17; TEMP 36.2
[2021-10-17] MEDS: HaloperidoL 5 MG TABLET PO (20:38)
[2021-10-17] MEDS: Nortriptyline HCl 10 MG CAPSULE PO (20:39)
[2021-10-17] MEDS: Benztropine Mesylate 1 MG TABLET PO (20:39)
[2021-10-18 04:00] VITALS: BP 123/56; PULSE 82; RESP 18; TEMP 36.1; O2SAT 100
[2021-10-18 07:42] LABS: Glucose, Whole Blood 181 mg/dL (60-115)
[2021-10-18] MEDS: Aspirin Enteric Coated 81 MG TABLET.DR PO (08:51)
[2021-10-18] MEDS: Lithium Carbonate 300 MG CAPSULE PO (08:51)
[2021-10-18] MEDS: metFORMIN HCl 1,000 MG TABLET 1000 MG PO (08:51)
[2021-10-18] MEDS: Insulin Lispro 100 UNIT/ML 3 ML VIAL SUBCUT (08:51)
[2021-10-18] MEDS: Atorvastatin Calcium 20 MG TABLET PO (08:52)
[2021-10-18] MEDS: Cinacalcet HCl 30 MG TABLET PO (08:55)
--- NOTE | 2021-10-18 10:28 | MHC.CM.PN ---
pt still n ot requiring skilled care referral to fincial counselor for [facility]
[2021-10-18 10:57] LABS: Estimated Glomerular Filt Rate 18
--- NOTE | 2021-10-18 11:11 | PM.PNNEP ---
Subjective Subjective Date of Service: 10/18/21 Interval history: Events noted. All recent data reviewed. Physical Exam Vital Signs: Vital Signs: Last Vital Signs Temp 97 F 10/18/21 04:00 Pulse 82 10/18/21 04:00 Resp 18 10/18/21 04:00 BP 123/56 L 10/18/21 04:00 Pulse Ox 100 10/18/21 04:00 BMI result Body Mass Index 28.8 Const: General: no acute distress Eyes: EOM: EOMs intact bilaterally Neck: Neck: Yes supple Resp: Auscultation: diminished lung sounds Cardio: Rate: regular rate GI: Palpation (GI): Soft to palpation Neuro: General: moves all extremities Objective Data Labs CBC & Chem 7: 10/09/21 06:20 10/18/21 10:37 Labs: Laboratory Results - last 24 hr 10/14/21 10/17/21 10/18/21 06:26 16:01 07:38 Creatinine Estim Creat Clear Calc Estimated GFR POC Glucose 224 H 181 H IgG Total 1103 IgA Total 409 H IgM 394 H SUDHIR Interpretation 10/18/21 10:37 Creatinine 2.69 H Estim Creat Clear Calc 20.0 Estimated GFR 18 POC Glucose IgG Total IgA Total IgM SUDHIR Interpretation Microbiology Microbiology Results: Microbiology 10/11/21 09:13 Blood - Venous Blood Culture - Final No growth after 5 days. 10/11/21 09:19 Blood - Venous Blood Culture - Final No growth after 5 days. 10/10/21 15:52 Urine clean catch - Urine velasco top Urine Culture - Final 10/04/21 Unknown Urine clean catch - Urine velasco top Urine Culture - Final Strep agalactiae (Grp B) Procedures Date of Service Date of Service: 10/18/21 Assessment & Plan Assessment and plan (1) KEESHA (acute kidney injury): Status: Acute Assessment and Plan: 66-year-old female admitted with encephalopathy secondary to UTI and hyperCa Currently has KEESHA likely due to tubular injury Hypercalcemia :w/u c/w primary HPTism [place] can be a risk factor for primary HPTism On sensipar 30 mg daily; Start NS 100/ hour Avoid Ca, vit D and thiazide diuretics Time Spent With Patient Time: Total time spent is greater than 50% in coordination of care (as documented) at patient's floor/unit and/or counseling patient: Progress Note: Quality Stroke Does the patient have a stroke diagnosis?: Yes Reason for No Anti-thrombotic by Day Two: N/A - Med Ordered
[2021-10-18 11:16] VITALS: BP 122/65; PULSE 81; RESP 18; TEMP 36.6; O2SAT 96
--- NOTE | 2021-10-18 11:18 | P.PNIM_ITS ---
Subjective Subjective Date of Service: 10/18/21 Interval History: Resting in bed comfortably, refusing to eat breakfast and take medication, mumbling answers, no acute events overnight patient refused to participate with physical therapy Review of Systems Review of Systems: Yes Unobtainable due to mental status Physical Exam Vital Signs: Vital Signs: Last Vital Signs Temp 97.9 F 10/18/21 11:16 Pulse 81 10/18/21 11:16 Resp 18 10/18/21 11:16 BP 122/65 10/18/21 11:16 Pulse Ox 96 10/18/21 11:16 BMI result Body Mass Index 28.8 Const: Other: General awake , mo re confused today than yesterday,no acute distress.? N yaneli? supple, no JV D. CVS? regular ra te rhythm, Respira tory lungs clear t o auscultation, no respiratory distr ess, no wheeze, no rhonchi. Gastroin testinal abdomen s oft, nontender, mine wel sounds audible , Extremities no e karina. Neuro nonfoc al , patient movin g all 4 extremity , speech clear, no tremor, confused Skin no rash Muscu loskeletal no defo rmity, Psych poor insight Objective Data Active Medications Aspirin (Aspirin Enteric Coated 81 Mg Tablet.) 81 mg PO DAILY [facility] Last Admin: 10/18/21 08:51 Dose: 81 mg Documented by: COLUMBA Atorvastatin Calcium (Atorvastatin Calcium 20 Mg Tablet) 20 mg PO DAILY [facility] Last Admin: 10/18/21 08:52 Dose: 20 mg Documented by: COLUMBA Benztropine Mesylate (Benztropine Mesylate 1 Mg Tablet) 1 mg PO BEDTIME [facility] Last Admin: 10/17/21 20:39 Dose: 1 mg Documented by: CITLALY Cinacalcet (Cinacalcet Hcl 30 Mg Tablet) 30 mg PO DAILY [facility] Last Admin: 10/18/21 08:55 Dose: 30 mg Documented by: COLUMBA Dextrose (Dextrose 50 % 25 Gm/50 Ml Vial) 25 gm IVPUSH Q15M PRN; Protocol PRN Reason: per Hypoglycemia Standing Ord. Glucose (Glucose Gel 15 Gm Gel..Gram.) 15 gm PO Q15M PRN; Protocol PRN Reason: per Hypoglycemia Standing Ord. Last Admin: 10/13/21 21:16 Dose: 15 gm Documented by: LUIS Haloperidol (Haloperidol 5 Mg Tablet) 5 mg PO BEDTIME [facility] Last Admin: 10/17/21 20:38 Dose: 5 mg Documented by: CITLALY Sodium Chloride (Ns) 1,000 mls @ 125 mls/hr IVCONT .Q8H [facility] Insulin Human Lispro (Insulin Lispro 100 Unit/Ml 3 Ml Vial) 0 unit SUBCUT QIDACHS [facility]; Protocol Last Admin: 10/18/21 08:51 Dose: 2 unit Documented by: COLUMBA Storden Carbonate (Storden Carbonate 300 Mg Capsule) 300 mg PO TID [facility] Last Admin: 10/18/21 08:51 Dose: 300 mg Documented by: COLUMBA Melatonin (Melatonin 3 Mg Tablet) 6 mg PO BEDTIME PRN PRN Reason: Sleep Last Admin: 10/05/21 02:21 Dose: 6 mg Documented by: LUIS Nortriptyline HCl (Nortriptyline Hcl 10 Mg Capsule) 10 mg PO BEDTIME [facility] Last Admin: 10/17/21 20:39 Dose: 10 mg Documented by: CITLALY Pharmacy Consult (Consult Rx Perform Med Rec) 1 each MISCELLANE ONCE PRN PRN Reason: Consult order Labs CBC & Chem 7: 10/09/21 06:20 10/18/21 10:37 Labs: Laboratory Results - last 24 hr 10/14/21 10/17/21 10/18/21 06:26 16:01 07:38 Estim Creat Clear Calc Estimated GFR POC Glucose 224 H 181 H IgG Total 1103 IgA Total 409 H IgM 394 H SUDHIR Interpretation 10/18/21 10:37 Estim Creat Clear Calc 20.0 Estimated GFR 18 POC Glucose IgG Total IgA Total IgM SUDHIR Interpretation Assessment and Plan (1) Toxic metabolic encephalopathy: Status: Acute (2) Hyperparathyroidism: Status: Acute (3) Bipolar disorder: Status: Acute (4) KEESHA (acute kidney injury): Status: Acute (5) Hypercalcemia: Status: Acute Plan 66-year-old female admitted with encephalopathy secondary to UTI Toxic metabolic encephalopathy superimposed on likely underlying dementia under diagnosis Appears more confused and when drawn this morning, no agitation, awake refusing medications and food Brain imaging with no stroke only chronic changes, MRI showed generalized atrophy and diffuse white matter microangiopathy s/p treatment for UTI with no improvement in cognitive function Seen by neuro, EEG showing generalized slowing, no evidence of seizure disorder B12, folate, tsh, RPR wnl seen by care team, does not feel that this represents acute decompensation of bipolar disorder and [facility] psych today they find her to be confused likely hypoactive del irium, symptoms could be related to acute renal failure/question lithium toxicity due to ARF Will repeat lithium level, psych will continue to follow closely Patient re-evaluated by Physical therapy and deemed not a candidate for rehab Spoke with family patient was high functioning prior to admission using public transport ambulating without difficulty, was living alone in her apartment granddaughter was living with her, does not seem to be at baseline Acute renal failure Likely due to decreased by mouth intake, will treat with IV fluids follow BMP, will DC metformin, hold lithium check lithium level, avoid nephrotoxins. Hypercalcemia secondary to primary hyperparathyroidism /and due to lithium not likely to be contributing to change in mental status Started on Sensipar 30 mg by mouth daily as per Nephro, hypercalcemia workup consistent with primary hyper parathyroidism will need outpatient follow up with endocrine/ endocrine [place] [facility] Will avoid Ca, vit D, thiazide diuretics and NSAIDs Follow calcium level DM:? Blood sugars around 200, No recurrent episodes of hypoglycemia , will discontinue metformin 1000mg bid due to acute renal injury Continue insulin sliding scale, follow POCs , glipizide discontinued due to hypoglycemia, hemoglobin A1c 10.1, once by mouth intake improves will resume glipizide Bipolar disorder:? Continue home medications lithium level from 10/05, 10/12 therapeutic , will hold lithium today due to acute renal failure recheck lithium level and renal function at a.m. strep agalactiae UTI completed 5 day course Hyperlipidemia Continue statin DVT ppx - patient declining Lovenox therefore will discontinue and place patient on compression boots code status - full code Pt requires continued hospitalization due to acute renal failure, requiring IV fluid, and has persistent confusion with decreased by mouth intake being evaluated by Psychiatry . Had family meeting on 10/17/21 with patient's son healthcare proxy Elgin Donis and patient's sister gave the result of all testing and informed them about MRI findings of generalized atrophy and diffuse white matter microangiopathy likely suggestive of vascular dementia, patient family feels she is not at her baseline to live alone, will treat acute renal failure, being re-evaluated by psych. Quality Stroke Does the patient have a stroke diagnosis?: Yes Reason for No Anti-thrombotic by Day Two: N/A - Med Ordered VTE Prior VTE?: No VTE Risk Level:: Medical - moderate - high VTE Device Contraindication: N/A - Device Ordered VTE Drug Contraindication: N/A - Med Ordered
[2021-10-18 11:29] LABS: Glucose, Whole Blood 184 mg/dL (60-115)
[2021-10-18 11:36] LABS: Hematocrit 42.6 % (37.0-47.0); Hemoglobin 13.5 g/dl (12.0-16.0); Mean Corpuscular HGB Conc 31.7 g/dl (31.0-35.0); Mean Corpuscular Hemoglobin 26.8 pg (27.0-33.0); Mean Corpuscular Volume 84.5 fL (80.0-98.0); Mean Platelet Volume 12.3 fL (9.4-12.3); Platelet Count 341 X10*3/uL (160-400); Red Blood Count 5.04 X10*6/uL (4.20-5.50); Red Cell Distribution Width 14.8 % (11.0-16.0); White Blood Count 13.6 X10*3/uL (4.8-10.8)
[2021-10-18 11:46] LABS: Anion Gap 16 (12-20); Blood Urea Nitrogen 30 mg/dL (9-16); Calcium 11.8 mg/dL (8.4-10.2); Carbon Dioxide 22 mmol/L (22-29); Chloride 103 mmol/L (96-108); Glucose Random 195 mg/dL (60-115); Potassium 4.3 mmol/L (3.3-5.1); Sodium 137 mmol/L (135-145)
--- NOTE | 2021-10-18 14:07 | PM.DS ---
DS: Providers Provider Date of admission: 10/04/21 15:45 Primary care physician: Unknown Physician Consults: 10/04/21 15:42 Consult to Neurology Routine Consulting Provider: [facility] Reason for consultation: cva -acute to subacute Has provider been notified: No 10/05/21 13:52 Consult to Psychiatry Routine Consulting Provider: [facility] Reason for consultation: eval for capacity Has provider been notified: No 10/10/21 08:47 Consult to Neurology Routine Consulting Provider: [facility] Reason for consultation: worsening encephalopathy Has provider been notified: No 10/12/21 11:41 Consult to Care Team Routine Comment: Reason for consultation: depression; h/o bipolar disorder 10/13/21 12:04 Consult to Nephrology Routine Consulting Provider: Oneal Segovia Reason for consultation: hypercalcemia Has provider been notified: No DS: Diagnosis Discharge Diagnosis (1) Toxic metabolic encephalopathy: Status: Acute (2) Hyperparathyroidism: Status: Acute (3) Bipolar disorder: Status: Acute (4) KEESHA (acute kidney injury): Status: Acute (5) Hypercalcemia: Status: Acute DS: Summary Time Spent with Patient Time attestation: Total time spent providing and/or coordinating discharge services: Physical Exam Vital Signs: Vital Signs: Last Vital Signs Temp 97.9 F 10/18/21 11:16 Pulse 81 10/18/21 11:16 Resp 18 10/18/21 11:16 BP 122/65 10/18/21 11:16 Pulse Ox 96 10/18/21 11:16 BMI result Body Mass Index 28.8 DS: Data Data Completed and Pending Labs on day of discharge: Laboratory Results - last 24 hr 10/17/21 10/18/21 10/18/21 16:01 07:38 10:37 WBC RBC Hgb Hct MCV MCH MCHC RDW Plt Count MPV Absolute Nucleated RBC Nucleated RBC % (auto) Sodium 137 Potassium 4.3 Chloride 103 Carbon Dioxide 22 Anion Gap 16 BUN 30 H D Creatinine 2.69 H Estim Creat Clear Calc 20.0 Estimated GFR 18 POC Glucose 224 H 181 H Random Glucose 195 H Calcium 11.8 H 10/18/21 10/18/21 10:37 11:15 WBC 13.6 H RBC 5.04 Hgb 13.5 Hct 42.6 MCV 84.5 MCH 26.8 L MCHC 31.7 RDW 14.8 Plt Count 341 MPV 12.3 Absolute Nucleated RBC 0.000 Nucleated RBC % (auto) 0.0 Sodium Potassium Chloride Carbon Dioxide Anion Gap BUN Creatinine Estim Creat Clear Calc Estimated GFR POC Glucose 184 H Random Glucose Calcium Discharge Plan Discharge Patient Disposition: Home, Self-Care Discharge Diagnosis: Encephalopathy UTI Referrals: Physician,Unknown J [Primary Care Provider] - 1 Week Discharge Medications: New cinacalcet [Sensipar] 30 mg Tablet 30 mg PO DAILY Qty: 30 0RF Continued atorvastatin 20 mg tablet 1 tab PO DAILY 0RF aspirin 81 mg tablet,delayed release (DR/EC) 1 tab PO DAILY 0RF lithium carbonate 450 mg tablet extended release 2 tab PO BEDTIME 0RF nortriptyline 10 mg capsule 1 cap PO BEDTIME 0RF haloperidol 10 mg tablet 1 tab PO BEDTIME 0RF benztropine 1 mg tablet 1 tab PO BEDTIME 0RF metformin 500 mg tablet extended release 24 hr 1,000 mg PO BID 0RF Changed glipizide 5 mg tablet extended release 24 hr 1 tab PO DAILY Qty: 0 0RF Diet: advance to usual diet Activity on Discharge: As tolerated Stand Alone Forms: Patient Portal Discharge page Care Plan Goals: Resolution of urinary symptoms Health Concerns: Encephalopathy UTI Plan of Treatment: Follow up with your primary care provider as needed and with Psychiatry Assessment: See discharge summary
--- NOTE | 2021-10-18 16:02 | MHC.CM.PN ---
received a call from pts son michelle who is her hcp updated him on physical therapy berteduar explined that a referral was made to [facility] g [facility] to start a [facility] he is requesting a referral to rehabs in the [place] area as that where he lives ,explined that we would try to plaxce pt in that area first
--- NOTE | 2021-10-18 16:06 | P.PNPSI_ITS ---
Subjective Subjective Date of Service: 10/18/21 Reason For Visit: Assess for capacity Medical Problems Affecting Mental Status: Yes (delirium) Interim History: I was asked to meet with patient again today to assess for capacity. According to her family who was present yesterday, they are concerned because she is not at baseline. When I met with her, she was lying on her side in her bed. She does have a fine tremor noticed bilat hands. She displayed poor eye contact, blunted affect. When asked if she feels safe, she replied ?no ?. When asked to elaborate, she stated ?I mean .... , not completing sentence. When asked if she was having any thoughts of self-harm, she stated ?no ?. She then turned towards television, and did not engage with me any further. Her nurse reports that she did not take her medications yet this morning, but that she has been taking them recently. Per chart review, it appears she has been taking her Haldol consistently from 10/12/2021 through 10/17/2021. She has also been consistently taking Cogentin, nortriptyline. On 10/16 she did refuse her a.m. lithium 300 mg, and has missed several mid day doses since 10/11/2021. Prior to 10 11, she had been refusing meds for several days. [place] level on 10/05 was 1.06. [place] level on 10/12 was 0.92. Medication Compliance: Intermittent Side effects from medications: No Review of Systems Acute medical concerns: Yes Recent UTI with delirium. Review of Systems Review of Systems Yes Unobtainable due to mental status Constitutional: Reports no additional constitutional complaints Mental Status Exam Mental Status Exam Narrative: Patient appeared blunted, poor eye contact, only briefly responded to questions, mumbled speech, although coherent at first. Fine tremor noted bilat hands. Was resting on side, appropriate grooming. Appeared oriented to self only during encounter. Patient Appearance: Appropriate Patient Orientation: Person Level of Consciousness: Awake and Disoriented Patient Behavior: Confused and Poor Eye Contact Mood Description: Blunted Affect Description: Blunted Patient Cognition Impaired: Yes Speech Pattern: Mumbled Thought Process: Disoriented Thought Content: positive for Disoriented Judgement: Poor Diagnostics Vital Signs (24Hr): Vital Signs - 24 hr 10/17/21 20:00 10/18/21 04:00 10/18/21 11:16 Temperature 97.1 F 97 F 97.9 F Pulse Rate 92 82 81 Respiratory Rate 17 18 18 Blood Pressure 191/74 H 123/56 L 122/65 Pulse Oximetry 100 96 BMI result Body Mass Index 28.8 Labs Results: 10/18/21 10:37 10/18/21 10:37 Labs: Laboratory Results - last 48 hr 10/14/21 10/16/21 10/16/21 06:26 16:30 20:15 WBC RBC Hgb Hct MCV MCH MCHC RDW Plt Count MPV Absolute Nucleated RBC Nucleated RBC % (auto) Sodium Potassium Chloride Carbon Dioxide Anion Gap BUN Creatinine Estim Creat Clear Calc Estimated GFR POC Glucose 188 H Random Glucose Calcium IgG Total 1103 IgA Total 409 H IgM 394 H SUDHIR Interpretation COVID-19 (PATRICIA) Negative COVID-19 Clin Com See Note 10/17/21 10/18/21 10/18/21 16:01 07:38 10:37 WBC RBC Hgb Hct MCV MCH MCHC RDW Plt Count MPV Absolute Nucleated RBC Nucleated RBC % (auto) Sodium 137 Potassium 4.3 Chloride 103 Carbon Dioxide 22 Anion Gap 16 BUN 30 H D Creatinine 2.69 H Estim Creat Clear Calc 20.0 Estimated GFR 18 POC Glucose 224 H 181 H Random Glucose 195 H Calcium 11.8 H IgG Total IgA Total IgM SUDHIR Interpretation COVID-19 (PATRICIA) COVID-19 Clin Com 10/18/21 10/18/21 10:37 11:15 WBC 13.6 H RBC 5.04 Hgb 13.5 Hct 42.6 MCV 84.5 MCH 26.8 L MCHC 31.7 RDW 14.8 Plt Count 341 MPV 12.3 Absolute Nucleated RBC 0.000 Nucleated RBC % (auto) 0.0 Sodium Potassium Chloride Carbon Dioxide Anion Gap BUN Creatinine Estim Creat Clear Calc Estimated GFR POC Glucose 184 H Random Glucose Calcium IgG Total IgA Total IgM SUDHIR Interpretation COVID-19 (PATRICIA) COVID-19 Clin Com Imaging Radiology Impressions: ITS Impressions Head CT 10/04/21 14:03 IMPRESSION: 1. There appears to be a small region of lost velasco-white matter differentiation within the lateral left frontal lobe. Although age indeterminate, this may represent sequela of a small acute to subacute infarct. 2. No evidence of acute intracranial hemorrhage. 3. Moderate underlying microangiopathy and generalized cerebral volume loss. This critical result was discussed with Dr. Montague at 15:05 on 10/04/2021 and it was ascertained that the content and urgency of the report was understood at the time of direct communication. Chest X-Ray 10/04/21 14:06 IMPRESSION: Unremarkable chest examination. Brain MRI 10/04/21 16:30 IMPRESSION: 1. No acute intracranial abnormalities. 2. Moderate underlying microangiopathy and generalized cerebral volume loss. Medications Medications Current Medications Aspirin (Aspirin Enteric Coated 81 Mg Tablet.) 81 mg PO DAILY [facility] Last Admin: 10/18/21 08:51 Dose: 81 mg Documented by: Atorvastatin Calcium (Atorvastatin Calcium 20 Mg Tablet) 20 mg PO DAILY [facility] Last Admin: 10/18/21 08:52 Dose: 20 mg Documented by: Benztropine Mesylate (Benztropine Mesylate 1 Mg Tablet) 1 mg PO BEDTIME [facility] Last Admin: 10/17/21 20:39 Dose: 1 mg Documented by: Cinacalcet (Cinacalcet Hcl 30 Mg Tablet) 30 mg PO DAILY [facility] Last Admin: 10/18/21 08:55 Dose: 30 mg Documented by: Dextrose (Dextrose 50 % 25 Gm/50 Ml Vial) 25 gm IVPUSH Q15M PRN; Protocol PRN Reason: per Hypoglycemia Standing Ord. Glucose (Glucose Gel 15 Gm Gel..Gram.) 15 gm PO Q15M PRN; Protocol PRN Reason: per Hypoglycemia Standing Ord. Last Admin: 10/13/21 21:16 Dose: 15 gm Documented by: Haloperidol (Haloperidol 5 Mg Tablet) 5 mg PO BEDTIME [facility] Last Admin: 10/17/21 20:38 Dose: 5 mg Documented by: Sodium Chloride (Ns) 1,000 mls @ 125 mls/hr IVCONT .Q8H [facility] Insulin Human Lispro (Insulin Lispro 100 Unit/Ml 3 Ml Vial) 0 unit SUBCUT QIDACHS [facility]; Protocol Last Admin: 10/18/21 12:27 Dose: Not Given Documented by: [place] Carbonate ([place] Carbonate 300 Mg Capsule) 300 mg PO TID [facility] Last Admin: 10/18/21 08:51 Dose: 300 mg Documented by: Melatonin (Melatonin 3 Mg Tablet) 6 mg PO BEDTIME PRN PRN Reason: Sleep Last Admin: 10/05/21 02:21 Dose: 6 mg Documented by: Nortriptyline HCl (Nortriptyline Hcl 10 Mg Capsule) 10 mg PO BEDTIME [facility] Last Admin: 10/17/21 20:39 Dose: 10 mg Documented by: Pharmacy Consult (Consult Rx Perform Med Rec) 1 each MISCELLANE ONCE PRN PRN Reason: Consult order Allergies Allergies Allergy/AdvReac Type Severity Reaction Status Date / Time oxycodone Allergy Rash Verified 10/04/21 11:09 Penicillins Allergy Rash Verified 10/04/21 11:09 Assessment & Plan Assessment & Plan (1) Toxic metabolic encephalopathy: Status: Acute Code(s): G92.8 - Other toxic encephalopathy Assessment and Plan: Patient appears to continue with hypoactive delirium. Does not appear to have capacity at this time to make decisions regarding healthcare. (2) Hyperparathyroidism: Status: Acute Code(s): E21.3 - Hyperparathyroidism, unspecified (3) Bipolar disorder: Status: Acute Code(s): F31.9 - Bipolar disorder, unspecified Assessment and Plan: Patient did not display any acute bipolar symptoms, rather appear to have hypoactive delirium rather than any type of manic or depressed state at this time. (4) KEESHA (acute kidney injury): Status: Acute Code(s): N17.9 - Acute kidney failure, unspecified (5) Hypercalcemia: Status: Acute Code(s): E83.52 - Hypercalcemia Plan Psych reassessment 10/18/21: Patient appears to continue with hypoactive delirium. 1. [place] level ordered for tomorrow morning. Concern regarding bilat hand tremor. Patient does have Cogentin already ordered, as this may be a longstanding concern and not new. 2. Does not appear to be inpatient psychiatric level of care at this time. 3. Does not appear to have decision making capacity at this time regarding healthcare decisions. This may change, as delirium clears. I have shared this with Dr. Chelsey Angelo, via secure electronic messaging system. 66-year-old female admitted with encephalopathy secondary to UTI Toxic metabolic encephalopathy superimposed on likely underlying dementia under diagnosis Appears more confused and when drawn this morning, no agitation, awake refusing medications and food Brain imaging with no stroke only chronic changes, MRI showed generalized atrophy and diffuse white matter microangiopathy s/p treatment for UTI with no improvement in cognitive function Seen by neuro, EEG showing generalized slowing, no evidence of seizure disorder B12, folate, tsh, RPR wnl seen by care team, does not feel that this represents acute decompensation of bipolar disorder and no need for inpatient the medical centery re-evaluated by psych today they find her to be confused likely hypoactive delirium, symptoms could be related to acute renal failure/question lithium toxicity due to ARF Will repeat lithium level, psych will continue to follow closely Patient re-evaluated by Physical therapy and deemed not a candidate for rehab Spoke with family patient was high functioning prior to admission using public transport ambulating without difficulty, was living alone in her apartment granddaughter was living with her, does not seem to be at baseline Acute renal failure Likely due to decreased by mouth intake, will treat with IV fluids follow BMP, will DC metformin, hold lithium check lithium level, avoid nephrotoxins. Hypercalcemia secondary to primary hyperparathyroidism /and due to lithium not likely to be contributing to change in mental status Started on Sensipar 30 mg by mouth daily as per Nephro, hypercalcemia workup consistent with primary hyper parathyroidism will need outpatient follow up with endocrine/ endocrine surgeon [place] [facility] [place] Will avoid Ca, vit D, thiazide diuretics and NSAIDs Follow calcium level DM:? Blood sugars around 200, No recurrent episodes of hypoglycemia , will discontinue metformin 1000mg bid due to acute renal injury Continue insulin sliding scale, follow POCs , glipizide discontinued due to hypoglycemia, hemoglobin A1c 10.1, once by mouth intake improves will resume glipizide Bipolar disorder:? Continue home medications lithium level from 10/05, 10/12 therapeutic , will hold lithium today due to acute renal failure recheck lithium level and renal function at a.m. strep agalactiae UTI completed 5 day course Hyperlipidemia Continue statin DVT ppx - patient declining Lovenox therefore will discontinue and place patient on compression boots code status - full code Pt requires continued hospitalization due to acute renal failure, requiring IV fluid, and has persistent confusion with decreased by mouth intake being evaluated by Psychiatry . Had family meeting on 10/17/21 with patient's son healthcare proxy Elgin Donis and patient's sister gave the result of all testing and informed them about MRI findings of generalized atrophy and diffuse white matter microangiopathy likely suggestive of vascular dementia, patient family feels she is not at her baseline to live alone, will treat acute renal failure, being re-evaluated by psych. I spent minutes with the patient and/or on the patient floor today, greater than?50% of which was spent counseling/coordinating care. Reason for contiued inpatient stay Substantial Risk for: inability to function
--- NOTE | 2021-10-18 17:17 | PC.NURSE ---
1700 attempted sev times to get IV access for IVF. Pt refusing and becoming agitated. Will cont to try. Dr Angelo aware. Encouraged to increase PO fluids. Is drinking water with encouragement.
[2021-10-18 19:18] LABS: Glucose, Whole Blood 240 mg/dL (60-115)
[2021-10-18 19:24] VITALS: BP 119/73; PULSE 82; RESP 18; TEMP 37.1; O2SAT 95
[2021-10-18] MEDS: HaloperidoL 5 MG TABLET PO (20:33)
[2021-10-19 04:30] VITALS: BP 127/58; PULSE 88; RESP 16; TEMP 36.6; O2SAT 96
[2021-10-19 06:24] LABS: Lithium 1.27 mmol/L (0.60-1.20)
[2021-10-19 06:31] LABS: Anion Gap 15 (12-20); Blood Urea Nitrogen 37 mg/dL (9-16); Calcium 11.5 mg/dL (8.4-10.2); Carbon Dioxide 21 mmol/L (22-29); Chloride 102 mmol/L (96-108); Estimated Glomerular Filt Rate 22; Glucose Random 212 mg/dL (60-115); Potassium 4.2 mmol/L (3.3-5.1); Sodium 134 mmol/L (135-145)
[2021-10-19 07:02] LABS: VITAMIN D (1,25 OH) D3 47 pg/mL; Vit D (1,25-Dihydroxy) Total 47 pg/mL (18-72); Vitamin D (1,25 OH) D2 <8 pg/mL
[2021-10-19 07:16] VITALS: BP 160/78; PULSE 88; RESP 18; TEMP 36.3; O2SAT 100
[2021-10-19 07:36] LABS: Glucose, Whole Blood 195 mg/dL (60-115)
[2021-10-19] MEDS: Insulin Lispro 100 UNIT/ML 3 ML VIAL SUBCUT ×2 (08:00→12:07)
[2021-10-19] MEDS: Atorvastatin Calcium 20 MG TABLET PO (08:00)
[2021-10-19] MEDS: Cinacalcet HCl 30 MG TABLET PO (08:00)
[2021-10-19] MEDS: Aspirin Enteric Coated 81 MG TABLET.DR PO (08:00)
--- NOTE | 2021-10-19 10:08 | MHC.CM.PN ---
CM received a call from Patient's Son and his Fiance/Shanna at [phone], who expressed a number of concerns/questions;CM has relayed this information to CM Management, who will discuss with the appropriate Nursing Supervisor [employer]. Per Co worker CM documentation, Son/Elgin expressed an interest in SNFs in the [facility] and this CM has added 14 SNF referrals in that area. CM will continue to follow.
--- NOTE | 2021-10-19 10:42 | P.PNNP_ITS ---
Subjective Subjective Date of Service: 10/19/21 Interval history: Events noted. All recent data reviewed. D/W Hospitalist Physical Exam Vital Signs: Vital Signs: Last Vital Signs Temp 97.3 F 10/19/21 07:16 Pulse 88 10/19/21 07:16 Resp 18 10/19/21 07:16 BP 160/78 H 10/19/21 07:16 Pulse Ox 100 10/19/21 07:16 BMI result Body Mass Index 28.8 Const: General: no acute distress Neck: Neck: Yes supple Resp: Auscultation: diminished lung sounds Cardio: Rate: regular rate GI: Palpation (GI): Soft to palpation Neuro: General: moves all extremities Objective Data Labs CBC & Chem 7: 10/18/21 10:37 10/19/21 06:09 Labs: Laboratory Results - last 24 hr 10/14/21 10/18/21 10/18/21 06:26 10:37 10:37 WBC 13.6 H RBC 5.04 Hgb 13.5 Hct 42.6 MCV 84.5 MCH 26.8 L MCHC 31.7 RDW 14.8 Plt Count 341 MPV 12.3 Absolute Nucleated RBC 0.000 Nucleated RBC % (auto) 0.0 Sodium 137 Potassium 4.3 Chloride 103 Carbon Dioxide 22 Anion Gap 16 BUN 30 H D Creatinine 2.69 H Estim Creat Clear Calc 20.0 Estimated GFR 18 POC Glucose Random Glucose 195 H Calcium 11.8 H 1,25 Dihydroxy Vit D 47 1,25 Dihydroxy Vit D2 <8 1,25 Dihydroxy Vit D3 47 [place] 10/18/21 10/18/21 10/19/21 11:15 19:15 06:09 WBC RBC Hgb Hct MCV MCH MCHC RDW Plt Count MPV Absolute Nucleated RBC Nucleated RBC % (auto) Sodium 134 L Potassium 4.2 Chloride 102 Carbon Dioxide 21 L Anion Gap 15 BUN 37 H Creatinine 2.25 H Estim Creat Clear Calc 24.0 Estimated GFR 22 POC Glucose 184 H 240 H Random Glucose 212 H Calcium 11.5 H 1,25 Dihydroxy Vit D 1,25 Dihydroxy Vit D2 1,25 Dihydroxy Vit D3 [place] 10/19/21 10/19/21 06:09 07:15 WBC RBC Hgb Hct MCV MCH MCHC RDW Plt Count MPV Absolute Nucleated RBC Nucleated RBC % (auto) Sodium Potassium Chloride Carbon Dioxide Anion Gap BUN Creatinine Estim Creat Clear Calc Estimated GFR POC Glucose 195 H Random Glucose Calcium 1,25 Dihydroxy Vit D 1,25 Dihydroxy Vit D2 1,25 Dihydroxy Vit D3 [place] 1.27 H Microbiology Microbiology Results: Microbiology 10/11/21 09:13 Blood - Venous Blood Culture - Final No growth after 5 days. 10/11/21 09:19 Blood - Venous Blood Culture - Final No growth after 5 days. 10/10/21 15:52 Urine clean catch - Urine velasco top Urine Culture - Final 10/04/21 Unknown Urine clean catch - Urine velasco top Urine Culture - Final Strep agalactiae (Grp B) Procedures Date of Service Date of Service: 10/19/21 Assessment & Plan Assessment and plan (1) KEESHA (acute kidney injury): Status: Acute Assessment and Plan: 66-year-old female admitted with encephalopathy secondary to UTI, hyperCa & KEESHA Currently has KEESHA likely due to tubular injury Serum creatinine currently stable Hypercalcemia :w/u c/w primary HPTism [place] can be a risk factor for primary HPTism( can consider changing it) On sensipar 30 mg daily; C/W NS 100/ hour Avoid Ca, vit D and thiazide diuretics Time Spent With Patient Time Spent With Patient Time: Total time spent is greater than 50% in coordination of care (as documented) at patient's floor/unit and/or counseling patient: Progress Note: Quality Stroke Does the patient have a stroke diagnosis?: Yes Reason for No Anti-thrombotic by Day Two: N/A - Med Ordered
[2021-10-19 11:11] LABS: Glucose, Whole Blood 234 mg/dL (60-115)
[2021-10-19 11:39] VITALS: BP 140/78; PULSE 93; RESP 18; TEMP 36.4; O2SAT 95
--- NOTE | 2021-10-19 11:44 | MHC.CM.PN ---
CM spoke with Patient's Son/Elgin and Son's Colt/Shanna at [phone] at their request to review the dc plan. 22 SNF referrals have been made, approximately 16 of which were made in the requested [place] area. At Shanna's request, CM transferred the call to [facility] at Ext. [phone], because family is eager to do whatever is necessary to establish [facility]ANDARD for Patient. CM will continue to follow.
--- NOTE | 2021-10-19 13:53 | P.PNIM_ITS ---
Subjective Subjective Date of Service: 10/19/21 Interval History: Confused, disoriented Review of Systems Review of Systems: Yes Unobtainable due to mental status Physical Exam Vital Signs: Vital Signs: Last Vital Signs Temp 97.6 F 10/19/21 11:39 Pulse 93 10/19/21 11:39 Resp 18 10/19/21 11:39 BP 140/78 H 10/19/21 11:39 Pulse Ox 95 10/19/21 11:39 BMI result Body Mass Index 28.8 Gen: in no acute distress HEENT: sclera anicteric, moist mucus membranes Neck: supple Lungs: clear to auscultation bilaterally Heart: regular rate and rhythm, no murmurs Abd: soft, non-tender, non-distended Ext: no edema Skin: warm/well-perfused Neuro: alert, oriented to self only Psych: impaired insight Objective Data Active Medications Aspirin (Aspirin Enteric Coated 81 Mg Tablet.) 81 mg PO DAILY [facility] Last Admin: 10/19/21 08:00 Dose: 81 mg Documented by: EUGENIA Atorvastatin Calcium (Atorvastatin Calcium 20 Mg Tablet) 20 mg PO DAILY [facility] Last Admin: 10/19/21 08:00 Dose: 20 mg Documented by: EUGENIA Benztropine Mesylate (Benztropine Mesylate 1 Mg Tablet) 1 mg PO BEDTIME [facility] Last Admin: 10/18/21 20:41 Dose: Not Given Documented by: ELI Non-Admin Reason: Patient Refused Cinacalcet (Cinacalcet Hcl 30 Mg Tablet) 30 mg PO DAILY [facility] Last Admin: 10/19/21 08:00 Dose: 30 mg Documented by: EUGENIA Dextrose (Dextrose 50 % 25 Gm/50 Ml Vial) 25 gm IVPUSH Q15M PRN; Protocol PRN Reason: per Hypoglycemia Standing Ord. Glucose (Glucose Gel 15 Gm Gel..Gram.) 15 gm PO Q15M PRN; Protocol PRN Reason: per Hypoglycemia Standing Ord. Last Admin: 10/13/21 21:16 Dose: 15 gm Documented by: LUIS Haloperidol (Haloperidol 5 Mg Tablet) 5 mg PO BEDTIME [facility] Last Admin: 10/18/21 20:33 Dose: 5 mg Documented by: ELI Sodium Chloride (Ns) 1,000 mls @ 125 mls/hr IVCONT .Q8H [facility] Last Admin: 10/19/21 12:08 Dose: Not Given Documented by: EUGENIA Non-Admin Reason: Patient Refused Insulin Human Lispro (Insulin Lispro 100 Unit/Ml 3 Ml Vial) 0 unit SUBCUT QIDACHS [facility]; Protocol Last Admin: 10/19/21 12:07 Dose: 4 unit Documented by: EUGENIA [place] Carbonate ([place] Carbonate 300 Mg Capsule) 300 mg PO TID [facility] Last Admin: 10/19/21 08:01 Dose: Not Given Documented by: EUGENIA Non-Admin Reason: on hold Melatonin (Melatonin 3 Mg Tablet) 6 mg PO BEDTIME PRN PRN Reason: Sleep Last Admin: 10/05/21 02:21 Dose: 6 mg Documented by: LUIS Nortriptyline HCl (Nortriptyline Hcl 10 Mg Capsule) 10 mg PO BEDTIME [facility] Last Admin: 10/18/21 20:42 Dose: Not Given Documented by: ELI Non-Admin Reason: Patient Refused Pharmacy Consult (Consult Rx Perform Med Rec) 1 each MISCELLANE ONCE PRN PRN Reason: Consult order Labs CBC & Chem 7: 10/18/21 10:37 10/19/21 06:09 Labs: Laboratory Results - last 24 hr 10/14/21 10/18/21 10/19/21 06:26 19:15 06:09 Anion Gap 15 Estim Creat Clear Calc 24.0 Estimated GFR 22 POC Glucose 240 H Random Glucose 212 H Calcium 11.5 H 1,25 Dihydroxy Vit D 47 1,25 Dihydroxy Vit D2 <8 1,25 Dihydroxy Vit D3 47 [place] 10/19/21 10/19/21 10/19/21 06:09 07:15 10:59 Anion Gap Estim Creat Clear Calc Estimated GFR POC Glucose 195 H 234 H Random Glucose Calcium 1,25 Dihydroxy Vit D 1,25 Dihydroxy Vit D2 1,25 Dihydroxy Vit D3 [place] 1.27 H Assessment and Plan (1) Toxic metabolic encephalopathy: Status: Acute (2) Hyperparathyroidism: Status: Acute (3) Bipolar disorder: Status: Acute (4) KEESHA (acute kidney injury): Status: Acute (5) Hypercalcemia: Status: Acute Plan hospital d#16 66yo F with bipolar disorder admitted with encephalopathy initially attributed to UTI but now likely more psychiatric in nature # toxic-metabolic encephalopathy superimposed on likely underlying dementia of probable vascular cause - MRI showed generalized atrophy and diffuse white matter microangiopathy - s/p treatment for UTI with no improvement in cognitive function - seen by neuro, EEG showing generalized slowing, no evidence of seizure disorder - B12, folate, TSH, RPR WNL - lithium level supratherapeutic -> held - per PT, not a rehab candidate - per Dr Xiao's discussion with family, patient was high-functioning prior to admission; using public tranportation, ambulating without difficulty, living alone and independently in her apartment - after all this workup, it is fairly certain that her mental status changes are psychiatric in nature and will discuss with Psychiatry # KEESHA - SCr improving, continue IV isotonic saline, d/c'ed MTF + held lithium - Nephrology following # hyperCa - due to underlying primary hyperparathyroidism and exacerbated by lithium - not likely at this level to be contributing to her mental status changes - Nephrology following, started on cincalcet 30 mg daily - outpt f/u with Endocrine Surgery (Dr Day at [facility] [place]) - avoid Ca, vitamin D, thiazides, NSAIDs # DM2 - d/c'ed MTF due to KEESHA, GPZ due to hypoglycemia; continue correction-dose lispro # bipolar disorder - lithium on hold; discuss alternatives with Psychiatry # Streptococcus agalactiae UTI - completed 5-day ABX course # HLD - statin # VTE ppx - SCDs # dispo - ?suresh psych In my professional opinion, patient requires continued hospitalization for the above reasons (mental status changes, IV fluid dependence) Quality Stroke Does the patient have a stroke diagnosis?: Yes Reason for No Anti-thrombotic by Day Two: N/A - Med Ordered VTE Prior VTE?: No VTE Risk Level:: Medical - moderate - high VTE Device Contraindication: N/A - Device Ordered VTE Drug Contraindication: N/A - Med Ordered
--- NOTE | 2021-10-19 14:03 | PC.NURSE ---
This RN called Shanna with updates on patient. She was informed about room change,PO intake and patients status. Elgin was called first but was not able to parts picker the call.
--- NOTE | 2021-10-19 15:04 | PC.NURSE ---
Detail for communication with family placed under communication order. Intervention frequency QS.
[2021-10-19 16:20] LABS: Glucose, Whole Blood 119 mg/dL (60-115)
--- NOTE | 2021-10-19 16:50 | HO.PHPPROGNO ---
Subjective Subjective Date of Service: 10/19/21 Reason For Visit: Assess for capacity Medical Problems Affecting Mental Status: Yes Interim History: Met with patient briefly this morning. She was sitting up in chair. Speech mumbling, was able to make good eye contact, and tell me that she was in [facility]. [place] level on 10/05 was 1.06.? [place] level on 10/12 was 0.92. [place] level this morning 1.27. Review of Systems Constitutional: Reports no additional constitutional complaints Mental Status Exam Mental Status Exam Narrative: Patient appeared blunted, mumbled speech, although coherent. No tremor observed. Was sitting up in chair, appropriate. Improved orientation, was able to tell me she was at [facility]. Patient Appearance: Appropriate Patient Orientation: Person Level of Consciousness: Awake Patient Behavior: Good Eye Contact Mood Description: Blunted Affect Description: Blunted Patient Cognition Impaired: Yes Ability to Follow Directions: Good Speech Pattern: Mumbled Judgement: Fair Diagnostics Vital Signs (24Hr): Vital Signs - 24 hr 10/18/21 19:24 10/19/21 04:30 10/19/21 07:16 Temperature 98.7 F 97.8 F 97.3 F Pulse Rate 82 88 88 Respiratory Rate 18 16 18 Blood Pressure 119/73 127/58 L 160/78 H Pulse Oximetry 95 96 100 10/19/21 11:39 Temperature 97.6 F Pulse Rate 93 Respiratory Rate 18 Blood Pressure 140/78 H Pulse Oximetry 95 BMI result Body Mass Index 28.8 Labs Results: 10/18/21 10:37 10/19/21 06:09 Labs: Laboratory Results - last 48 hr 10/14/21 10/18/21 10/18/21 06:26 07:38 10:37 WBC RBC Hgb Hct MCV MCH MCHC RDW Plt Count MPV Absolute Nucleated RBC Nucleated RBC % (auto) Sodium 137 Potassium 4.3 Chloride 103 Carbon Dioxide 22 Anion Gap 16 BUN 30 H D Creatinine 2.69 H Estim Creat Clear Calc 20.0 Estimated GFR 18 POC Glucose 181 H Random Glucose 195 H Calcium 11.8 H 1,25 Dihydroxy Vit D 47 1,25 Dihydroxy Vit D2 <8 1,25 Dihydroxy Vit D3 47 [place] 10/18/21 10/18/21 10/18/21 10:37 11:15 19:15 WBC 13.6 H RBC 5.04 Hgb 13.5 Hct 42.6 MCV 84.5 MCH 26.8 L MCHC 31.7 RDW 14.8 Plt Count 341 MPV 12.3 Absolute Nucleated RBC 0.000 Nucleated RBC % (auto) 0.0 Sodium Potassium Chloride Carbon Dioxide Anion Gap BUN Creatinine Estim Creat Clear Calc Estimated GFR POC Glucose 184 H 240 H Random Glucose Calcium 1,25 Dihydroxy Vit D 1,25 Dihydroxy Vit D2 1,25 Dihydroxy Vit D3 [place] 10/19/21 10/19/21 10/19/21 06:09 06:09 07:15 WBC RBC Hgb Hct MCV MCH MCHC RDW Plt Count MPV Absolute Nucleated RBC Nucleated RBC % (auto) Sodium 134 L Potassium 4.2 Chloride 102 Carbon Dioxide 21 L Anion Gap 15 BUN 37 H Creatinine 2.25 H Estim Creat Clear Calc 24.0 Estimated GFR 22 POC Glucose 195 H Random Glucose 212 H Calcium 11.5 H 1,25 Dihydroxy Vit D 1,25 Dihydroxy Vit D2 1,25 Dihydroxy Vit D3 [place] 1.27 H 10/19/21 10/19/21 10:59 16:17 WBC RBC Hgb Hct MCV MCH MCHC RDW Plt Count MPV Absolute Nucleated RBC Nucleated RBC % (auto) Sodium Potassium Chloride Carbon Dioxide Anion Gap BUN Creatinine Estim Creat Clear Calc Estimated GFR POC Glucose 234 H 119 H Random Glucose Calcium 1,25 Dihydroxy Vit D 1,25 Dihydroxy Vit D2 1,25 Dihydroxy Vit D3 [place] Imaging Radiology Impressions: ITS Impressions Head CT 10/04/21 14:03 IMPRESSION: 1. There appears to be a small region of lost velasco-white matter differentiation within the lateral left frontal lobe. Although age indeterminate, this may represent sequela of a small acute to subacute infarct. 2. No evidence of acute intracranial hemorrhage. 3. Moderate underlying microangiopathy and generalized cerebral volume loss. This critical result was discussed with Dr. Montague at 15:05 on 10/04/2021 and it was ascertained that the content and urgency of the report was understood at the time of direct communication. Chest X-Ray 10/04/21 14:06 IMPRESSION: Unremarkable chest examination. Brain MRI 10/04/21 16:30 IMPRESSION: 1. No acute intracranial abnormalities. 2. Moderate underlying microangiopathy and generalized cerebral volume loss. Assessment & Plan Assessment & Plan (1) Bipolar disorder: Qualifiers: Most recent bipolar episode type: most recent episode unspecified type Status: Acute Code(s): F31.9 - Bipolar disorder, unspecified Assessment and Plan: Patient appears somewhat improved regarding mental status, more alert and oriented. [place] level was 1.27 morning. (2) Encounter for assessment of healthcare decision-making capacity: Status: Acute Code(s): Z02.79 - Encounter for issue of other medical certificate Assessment and Plan: Patient appears somewhat improved regarding mental status, more alert and oriented. [place] level was 1.27 morning. Plan Patient appears somewhat improved regarding mental status, more alert and oriented. [place] level was 1.27 morning. Recommend continue to hold lithium. Patient will be assessed by Psychiatry again tomorrow. Reason for contiued partial hosp. stay Substantial Risk for: inability to function Certification I certify that partial hospital treatment is medically necessary due to the symptoms and problems resulting from the patient's mental illness and the failure to treat the patient at the partial hospital level of care would likely result in the patient requiring inpatient psychiatric care which could not be prevented at a less intensive level of care. I spent minutes with the patient and/or on the patient floor today, greater than?50% of which was spent counseling/coordinating care. Discharge Plan Discharge Anticipated Discharge Date/Time: 10/07/21 13:10 Patient Disposition: Home, Self-Care Discharge Diagnosis: Encephalopathy UTI Referrals: Physician,Unknown J [Primary Care Provider] - 1 Week Discharge Medications: New cinacalcet [Sensipar] 30 mg Tablet 30 mg PO DAILY Qty: 30 0RF Continued atorvastatin 20 mg tablet 1 tab PO DAILY 0RF aspirin 81 mg tablet,delayed release (DR/EC) 1 tab PO DAILY 0RF lithium carbonate 450 mg tablet extended release 2 tab PO BEDTIME 0RF nortriptyline 10 mg capsule 1 cap PO BEDTIME 0RF haloperidol 10 mg tablet 1 tab PO BEDTIME 0RF benztropine 1 mg tablet 1 tab PO BEDTIME 0RF metformin 500 mg tablet extended release 24 hr 1,000 mg PO BID 0RF Changed glipizide 5 mg tablet extended release 24 hr 1 tab PO DAILY Qty: 0 0RF Diet: advance to usual diet Activity on Discharge: As tolerated Stand Alone Forms: Patient Portal Discharge page Care Plan Goals: Resolution of urinary symptoms Health Concerns: Encephalopathy UTI Plan of Treatment: Follow up with your primary care provider as needed and with Psychiatry Assessment: See discharge summary
--- NOTE | 2021-10-19 16:56 | PC.NURSE ---
Patient encouraged PO intake, fluids,food.
[2021-10-20 07:11] LABS: Glucose, Whole Blood 294 mg/dL (60-115)
[2021-10-20 07:40] VITALS: BP 133/62; PULSE 81; RESP 17; TEMP 35.6; O2SAT 99
--- NOTE | 2021-10-20 10:11 | MHC.CARE ---
Risk Assessment: Pt is not presenting with acute psychiatric symptoms at this time necessitating a crisis evaluation . Pt baseline is notably different from prior to medical admission. Pt is now medically clear after extensive medical work up since admission on 10/04/21. Pt has been followed by [facility] throughout her stay in HCP has been invoked.
--- NOTE | 2021-10-20 10:16 | MHC.SLORD ---
Speech Language Pathology Order Status: In speaking with patient, she reports that she is eating and drinking well and is making her plans to head home. When confirming this with her nurse we find that she is refuses to eat or drink or take any medication. This is not a swallow issue but it is related to behavior/investment.
[2021-10-20] MEDS: Aspirin Enteric Coated 81 MG TABLET.DR PO (10:20)
[2021-10-20] MEDS: Atorvastatin Calcium 20 MG TABLET PO (10:20)
[2021-10-20] MEDS: Cinacalcet HCl 30 MG TABLET PO (10:20)
[2021-10-20 11:06] LABS: Glucose, Whole Blood 280 mg/dL (60-115)
[2021-10-20] MEDS: Insulin Lispro 100 UNIT/ML 3 ML VIAL SUBCUT (12:01)
--- NOTE | 2021-10-20 13:02 | HO.PM.IMPN ---
Subjective Subjective Date of Service: 10/20/21 Interval History: Confused + disoriented Says she has to leave but unclear where she is trying to go Review of Systems Review of Systems: Yes Unobtainable due to mental status Physical Exam Vital Signs: Vital Signs: Last Vital Signs Temp 96.1 F L 10/20/21 07:40 Pulse 81 10/20/21 07:40 Resp 17 10/20/21 07:40 BP 133/62 10/20/21 07:40 Pulse Ox 99 10/20/21 07:40 BMI result Gen: in no acute d istress HEENT: scl era anicteric, [place] st mucus membranes Neck: supple Lung s: clear to auscul tation bilaterally Heart: regular ra te and rhythm, no murmurs Abd: soft, non-tender, non-d istended Ext: no e karina Skin: warm/we ll-perfused Neuro: alert, oriented t o self only Psych: impaired insightB bonita Mass Index 28.8 Objective Data Active Medications Aspirin (Aspirin Enteric Coated 81 Mg Tablet.) 81 mg PO DAILY [facility] Last Admin: 10/20/21 10:20 Dose: 81 mg Documented by: NORMA Atorvastatin Calcium (Atorvastatin Calcium 20 Mg Tablet) 20 mg PO DAILY [facility] Last Admin: 10/20/21 10:20 Dose: 20 mg Documented by: NORMA Benztropine Mesylate (Benztropine Mesylate 1 Mg Tablet) 1 mg PO BEDTIME [facility] Last Admin: 10/19/21 21:26 Dose: Not Given Documented by: CITLALY Non-Admin Reason: Patient Refused Cinacalcet (Cinacalcet Hcl 30 Mg Tablet) 30 mg PO DAILY [facility] Last Admin: 10/20/21 10:20 Dose: 30 mg Documented by: NORMA Dextrose (Dextrose 50 % 25 Gm/50 Ml Vial) 25 gm IVPUSH Q15M PRN; Protocol PRN Reason: per Hypoglycemia Standing Ord. Glucose (Glucose Gel 15 Gm Gel..Gram.) 15 gm PO Q15M PRN; Protocol PRN Reason: per Hypoglycemia Standing Ord. Last Admin: 10/13/21 21:16 Dose: 15 gm Documented by: LUIS Haloperidol (Haloperidol 5 Mg Tablet) 5 mg PO BEDTIME [facility] Last Admin: 10/19/21 21:26 Dose: Not Given Documented by: CITLALY Non-Admin Reason: Patient Refused Sodium Chloride (Ns) 1,000 mls @ 125 mls/hr IVCONT .Q8H [facility] Last Admin: 10/20/21 11:43 Dose: Not Given Documented by: ZAFAR Non-Admin Reason: No Access Insulin Human Lispro (Insulin Lispro 100 Unit/Ml 3 Ml Vial) 0 unit SUBCUT QIDACHS [facility]; Protocol Last Admin: 10/20/21 12:01 Dose: 6 unit Documented by: ZAFAR Lenox Carbonate ([place] Carbonate 300 Mg Capsule) 300 mg PO TID [facility] Last Admin: 10/19/21 08:01 Dose: Not Given Documented by: LYSOli Non-Admin Reason: on hold Melatonin (Melatonin 3 Mg Tablet) 6 mg PO BEDTIME PRN PRN Reason: Sleep Last Admin: 10/05/21 02:21 Dose: 6 mg Documented by: LUIS Nortriptyline HCl (Nortriptyline Hcl 10 Mg Capsule) 10 mg PO BEDTIME [facility] Last Admin: 10/19/21 21:27 Dose: Not Given Documented by: CITLALY Non-Admin Reason: Patient Refused Pharmacy Consult (Consult Rx Perform Med Rec) 1 each MISCELLANE ONCE PRN PRN Reason: Consult order Labs CBC & Chem 7: 10/18/21 10:37 10/19/21 06:09 Labs: Laboratory Results - last 24 hr 10/19/21 10/20/21 10/20/21 16:17 07:08 11:00 POC Glucose 119 H 294 H 280 H Assessment and Plan (1) Toxic metabolic encephalopathy: Status: Acute (2) Hyperparathyroidism: Status: Acute (3) Bipolar disorder: Status: Acute (4) KEESHA (acute kidney injury): Status: Acute (5) Hypercalcemia: Status: Acute Plan hospital d#17 66yo F with bipolar disorder admitted with encephalopathy initially attributed to UTI but now likely more psychiatric in nature # toxic-metabolic encephalopathy superimposed on likely underlying dementia of probable vascular cause with behavioral agitation - MRI showed generalized atrophy and diffuse white matter microangiopathy - s/p treatment for UTI with no improvement in cognitive function - seen by neuro, EEG showing generalized slowing, no evidence of seizure disorder - B12, folate, TSH, RPR WNL - lithium level supratherapeutic -> held - per PT, not a rehab candidate - per Dr Xiao's discussion with family, patient was high-functioning prior to admission; using public tranportation, ambulating without difficulty, living alone and independently in her apartment - after all this workup, it is fairly certain that her mental status changes are psychiatric in nature and will discuss with Psychiatry as she would benefit from inpatient psychiatric treatment # KEESHA - refused labs this AM, d/c'ed MTF + held lithium - Nephrology following # hyperCa - due to underlying primary hyperparathyroidism and exacerbated by lithium - not likely at this level to be contributing to her mental status changes - Nephrology following, started on cincalcet 30 mg daily - outpt f/u with Endocrine Surgery (Dr Day at [facility] [place]) - avoid Ca, vitamin D, thiazides, NSAIDs # DM2 - d/c'ed MTF due to KEESHA, GPZ due to hypoglycemia; continue correction-dose lispro # bipolar disorder - lithium on hold; discuss alternatives with Psychiatry # Streptococcus agalactiae UTI - completed 5-day ABX course # HLD - statin # VTE ppx - SCDs # dispo - ?suresh psych In my professional opinion, patient requires continued hospitalization for the above reasons (mental status changes) Quality Stroke Does the patient have a stroke diagnosis?: Yes Reason for No Anti-thrombotic by Day Two: N/A - Med Ordered VTE Prior VTE?: No VTE Risk Level:: Medical - moderate - high VTE Device Contraindication: N/A - Device Ordered VTE Drug Contraindication: N/A - Med Ordered
--- NOTE | 2021-10-20 13:28 | P.CNPS_ITS ---
History of Present Illness Date of Service: t Chief Complaint: Follow-up Reason for Consult: follow-up Requesting physician: Susanna Minor Discussed with referring provider: Yes (text by Winnie) Sources of Information: patient interviewed and chart reviewed Additional Sources of Information: Son HPI Narrative: the patient is a 66-year-old female with a long history of bipolar disorder who was admitted for altered mental status do most likely for toxic and metabolic encephalopathy. The psychiatric service has been following her since the patient has altered mental status and she was on delirium for several days. She usually takes 900 mg of lithium and she had a high dose a few days ago so lithium was stopped. On interview, the patient was awake and alert, she was wearing her own clothes and she was pleasant and cooperative. She was in company of her son who provides some extra information regarding her past history of bipolar disorder. She denies lucila or depression at this moment, she looked a little confused and disoriented on date but she is fully oriented on place, situation and person. she denies side effects with the current medications Past Psychiatric History: History of bipolar disorder. Outpatient psychiatrist Dr. Rosa Faulkner prescribes lithium ER 900 mg at bedtime, Haldol 10 mg at bedtime, nortriptyline 10 mg at bedtime., benzotropine at bedtime. Medical Evaluation Reviewed: Yes [facility] Medical History Diabetes 1.5, managed as type 2 HTN (hypertension) Family History: unknown Social History: Retired Lives alone in apartment Has a brother, and a son. Trauma History: None reported Diagnostics Vital Signs (24Hr): Vital Signs - 24 hr 10/20/21 07:40 Temperature 96.1 F L Pulse Rate 81 Respiratory Rate 17 Blood Pressure 133/62 Pulse Oximetry 99 BMI result Body Mass Index 28.8 Labs Results: 10/18/21 10:37 10/19/21 06:09 Labs: Laboratory Results - last 48 hr 10/14/21 10/18/21 10/19/21 06:26 19:15 06:09 Sodium 134 L Potassium 4.2 Chloride 102 Carbon Dioxide 21 L Anion Gap 15 BUN 37 H Creatinine 2.25 H Estim Creat Clear Calc 24.0 Estimated GFR 22 POC Glucose 240 H Random Glucose 212 H Calcium 11.5 H 1,25 Dihydroxy Vit D 47 1,25 Dihydroxy Vit D2 <8 1,25 Dihydroxy Vit D3 47 [place] 10/19/21 10/19/21 10/19/21 06:09 07:15 10:59 Sodium Potassium Chloride Carbon Dioxide Anion Gap BUN Creatinine Estim Creat Clear Calc Estimated GFR POC Glucose 195 H 234 H Random Glucose Calcium 1,25 Dihydroxy Vit D 1,25 Dihydroxy Vit D2 1,25 Dihydroxy Vit D3 [place] 1.27 H 10/19/21 10/20/21 10/20/21 16:17 07:08 11:00 Sodium Potassium Chloride Carbon Dioxide Anion Gap BUN Creatinine Estim Creat Clear Calc Estimated GFR POC Glucose 119 H 294 H 280 H Random Glucose Calcium 1,25 Dihydroxy Vit D 1,25 Dihydroxy Vit D2 1,25 Dihydroxy Vit D3 [place] Imaging Radiology Impressions: ITS Impressions Head CT 10/04/21 14:03 IMPRESSION: 1. There appears to be a small region of lost velasco-white matter differentiation within the lateral left frontal lobe. Although age indeterminate, this may represent sequela of a small acute to subacute infarct. 2. No evidence of acute intracranial hemorrhage. 3. Moderate underlying microangiopathy and generalized cerebral volume loss. This critical result was discussed with Dr. Montague at 15:05 on 10/04/2021 and it was ascertained that the content and urgency of the report was understood at the time of direct communication. Chest X-Ray 10/04/21 14:06 IMPRESSION: Unremarkable chest examination. Brain MRI 10/04/21 16:30 IMPRESSION: 1. No acute intracranial abnormalities. 2. Moderate underlying microangiopathy and generalized cerebral volume loss. Mental Status Exam Mental Status Exam Patient Appearance: Well Grooomed Patient Orientation: Person, Place and Situation Level of Consciousness: Awake and Appropriate Patient Behavior: Guarded and Passive Mood Description: Calm Affect Description: Constricted Patient Cognition Impaired: Yes Ability to Follow Directions: Good Speech Pattern: Clear Hallucinations: None Delusions: Not Present Thought Process: Distracted and Evasive Thought Content: positive for [place] and positive for Linear Judgement: Fair Medications Medications Current Medications Aspirin (Aspirin Enteric Coated 81 Mg Tablet.) 81 mg PO DAILY [facility] Last Admin: 10/20/21 10:20 Dose: 81 mg Documented by: Atorvastatin Calcium (Atorvastatin Calcium 20 Mg Tablet) 20 mg PO DAILY [facility] Last Admin: 10/20/21 10:20 Dose: 20 mg Documented by: Benztropine Mesylate (Benztropine Mesylate 1 Mg Tablet) 1 mg PO BEDTIME [facility] Last Admin: 10/19/21 21:26 Dose: Not Given Documented by: Cinacalcet (Cinacalcet Hcl 30 Mg Tablet) 30 mg PO DAILY [facility] Last Admin: 10/20/21 10:20 Dose: 30 mg Documented by: Dextrose (Dextrose 50 % 25 Gm/50 Ml Vial) 25 gm IVPUSH Q15M PRN; Protocol PRN Reason: per Hypoglycemia Standing Ord. Glucose (Glucose Gel 15 Gm Gel..Gram.) 15 gm PO Q15M PRN; Protocol PRN Reason: per Hypoglycemia Standing Ord. Last Admin: 10/13/21 21:16 Dose: 15 gm Documented by: Haloperidol (Haloperidol 5 Mg Tablet) 5 mg PO BEDTIME [facility] Last Admin: 10/19/21 21:26 Dose: Not Given Documented by: Sodium Chloride (Ns) 1,000 mls @ 125 mls/hr IVCONT .Q8H [facility] Last Admin: 10/20/21 11:43 Dose: Not Given Documented by: Insulin Human Lispro (Insulin Lispro 100 Unit/Ml 3 Ml Vial) 0 unit SUBCUT QIDACHS [facility]; Protocol Last Admin: 10/20/21 12:01 Dose: 6 unit Documented by: [place] Carbonate ([place] Carbonate 300 Mg Capsule) 300 mg PO TID [facility] Last Admin: 10/19/21 08:01 Dose: Not Given Documented by: Melatonin (Melatonin 3 Mg Tablet) 6 mg PO BEDTIME PRN PRN Reason: Sleep Last Admin: 10/05/21 02:21 Dose: 6 mg Documented by: Nortriptyline HCl (Nortriptyline Hcl 10 Mg Capsule) 10 mg PO BEDTIME [facility] Last Admin: 10/19/21 21:27 Dose: Not Given Documented by: Pharmacy Consult (Consult Rx Perform Med Rec) 1 each MISCELLANE ONCE PRN PRN Reason: Consult order Allergies Allergies Allergy/AdvReac Type Severity Reaction Status Date / Time oxycodone Allergy Rash Verified 10/04/21 11:09 Penicillins Allergy Rash Verified 10/04/21 11:09 Assessment & Plan Assessment & Plan (1) Bipolar disorder: Qualifiers: Most recent bipolar episode type: most recent episode unspecified type Status: Acute Code(s): F31.9 - Bipolar disorder, unspecified Plan the patient is an elderly female with a long history of bipolar disorder followed in the community by Dr. Rosa Faulkner, on lithium who was admitted into the facility for altered mental status due to toxic metabolic encephalopathy. At this moment, the patient looks much more oriented, pleasant and cooperative with no evidence of depression or lucila. No safety concerns at this moment. Plan 1. At this moment, the patient does not have criteria for inpatient level of care of Psychiatry. 2. The patient can restart lithium at a lower dose such as 600 mg a day. we are fully aware that the patient has hypercalcemia but it will be unwise to start another mood stabilizer since the efficacy of lithium is by far much superior than any other alternatives. Risk and benefits should be discussed at length with the patient. 3. The patient will benefit of outpatient psychiatric services . 4. Reassessment as demand. I spent ___20___ minutes with the patient and/or on the patient floor today, greater than?50% of which was spent counseling/coordinating care. Patient educated on: diagnosis and therapeutic strategies Informed Consent: further education needed
--- NOTE | 2021-10-20 15:25 | PM.PNNEP ---
Subjective Subjective Date of Service: 10/20/21 Principal diagnosis: KEESHA Interval history: Confused + disoriented Says she has to leave but unclear where she is trying to go Refusing Labs. Telling me to keep them away from me and my son Physical Exam Vital Signs: Vital Signs: Last Vital Signs Temp 96.1 F L 10/20/21 07:40 Pulse 81 10/20/21 07:40 Resp 17 10/20/21 07:40 BP 133/62 10/20/21 07:40 Pulse Ox 99 10/20/21 07:40 BMI result Body Mass Index 28.8 Const: General: cooperative, no acute distress and confusion Orientation/consciousness: confusion HENMT: Head: Yes normocephalic and Yes atraumatic Neck: Neck: Yes normal visual inspection, Yes trachea midline and Yes supple Resp: Effort & Inspection: normal respiratory effort Cardio: Jugular venous distension: no JVD Rate: regular rate Heart sounds: S1 normal heart sound present and S2 normal heart sound present GI: Auscultation: normal bowel sounds Neuro: General: confusion Psych: Attitude: Guarded attititude/behavior present Thought process: Flight of ideas present Thought content: Paranoid delusions present Objective Data Labs CBC & Chem 7: 10/18/21 10:37 10/19/21 06:09 Labs: Laboratory Results - last 24 hr 10/19/21 10/20/21 10/20/21 16:17 07:08 11:00 POC Glucose 119 H 294 H 280 H Microbiology Microbiology Results: Microbiology 10/11/21 09:13 Blood - Venous Blood Culture - Final No growth after 5 days. 10/11/21 09:19 Blood - Venous Blood Culture - Final No growth after 5 days. 10/10/21 15:52 Urine clean catch - Urine velasco top Urine Culture - Final 10/04/21 Unknown Urine clean catch - Urine velasco top Urine Culture - Final Strep agalactiae (Grp B) Procedures Date of Service Date of Service: 10/20/21 Assessment & Plan Assessment and plan (1) Hyperparathyroidism: Status: Acute (2) KEESHA (acute kidney injury): Status: Acute (3) Hypercalcemia: Status: Acute (4) UTI (urinary tract infection): Status: Acute Plan 66-year-old female admitted with encephalopathy secondary to UTI,? hyperCa & KESEHA Currently has KEESHA likely due to tubular injury Serum creatinine currently stable but not yet at [facility]. [place] for now. Monitor I/O's she unfortunately is refusing lab draws. Please add UA, U-Cr, U-Na, U-urea to help provide some insight into whether she is pre-renal. Hypercalcemia :w/u c/w primary HPTism - will precipitate renal vasoconstriction, polyuria. [place] can be a risk factor for primary HPTism( can consider changing it) On sensipar 30 mg daily; Consider 75 cc NS x 1 liter. Avoid Ca, vit D and thiazide diuretics Time Spent With Patient Time: Total time spent is greater than 50% in coordination of care (as documented) at patient's floor/unit and/or counseling patient: Time with patient: 25 - 35 minutes Progress Note: Quality Stroke Does the patient have a stroke diagnosis?: Yes Reason for No Anti-thrombotic by Day Two: N/A - Med Ordered
[2021-10-20 20:46] LABS: Creatinine Urine 66.25 mg/dL; Microalbum/Creatinine Ratio Ur 57.3 ug/mg cr
[2021-10-21 03:47] VITALS: BP 136/65; PULSE 18; RESP 18; TEMP 37; O2SAT 96
[2021-10-21 07:23] VITALS: BP 142/75; PULSE 68; RESP 17; TEMP 36.4; O2SAT 95
--- NOTE | 2021-10-21 10:50 | P.PNIM_ITS ---
Subjective Subjective Date of Service: 10/21/21 Interval History: No complaints but refusing lab work + IV Walking hallways with supervision Review of Systems Review of Systems: Yes Unobtainable due to mental status Physical Exam Vital Signs: Vital Signs: Last Vital Signs Temp 97.5 F 10/21/21 07:23 Pulse 68 10/21/21 07:23 Resp 17 10/21/21 07:23 BP 142/75 H 10/21/21 07:23 Pulse Ox 95 10/21/21 07:23 BMI result Body Mass Index 28.8 Gen: in no acute distress HEENT: sclera anicteric, moist mucus membranes Neck: supple Lungs: clear to auscultation bilaterally Heart: regular rate and rhythm, no murmurs Abd: soft, non-tender, non-distended Ext: no edema Skin: warm/well-perfused Neuro: alert, oriented to self only Psych: impaired insight Objective Data Active Medications Aspirin (Aspirin Enteric Coated 81 Mg Tablet.) 81 mg PO DAILY [facility] Last Admin: 10/21/21 09:51 Dose: Not Given Documented by: GUS Non-Admin Reason: Patient Refused Atorvastatin Calcium (Atorvastatin Calcium 20 Mg Tablet) 20 mg PO DAILY [facility] Last Admin: 10/21/21 09:51 Dose: Not Given Documented by: GUS Non-Admin Reason: Patient Refused Benztropine Mesylate (Benztropine Mesylate 1 Mg Tablet) 1 mg PO BEDTIME [facility] Last Admin: 10/20/21 22:11 Dose: Not Given Documented by: ELI Non-Admin Reason: Patient Refused Cinacalcet (Cinacalcet Hcl 30 Mg Tablet) 30 mg PO DAILY [facility] Last Admin: 10/21/21 09:51 Dose: Not Given Documented by: GUS Non-Admin Reason: Patient Refused Dextrose (Dextrose 50 % 25 Gm/50 Ml Vial) 25 gm IVPUSH Q15M PRN; Protocol PRN Reason: per Hypoglycemia Standing Ord. Glucose (Glucose Gel 15 Gm Gel..Gram.) 15 gm PO Q15M PRN; Protocol PRN Reason: per Hypoglycemia Standing Ord. Last Admin: 10/13/21 21:16 Dose: 15 gm Documented by: LUIS Haloperidol (Haloperidol 5 Mg Tablet) 5 mg PO BEDTIME [facility] Last Admin: 10/20/21 22:11 Dose: Not Given Documented by: ELI Non-Admin Reason: Patient Refused Sodium Chloride (Ns) 1,000 mls @ 125 mls/hr IVCONT .Q8H [facility] Last Admin: 10/21/21 04:27 Dose: Not Given Documented by: KRISTEL Non-Admin Reason: Patient Refused Insulin Human Lispro (Insulin Lispro 100 Unit/Ml 3 Ml Vial) 0 unit SUBCUT QIDACHS [facility]; Protocol Last Admin: 10/21/21 09:51 Dose: Not Given Documented by: GUS Non-Admin Reason: Patient Refused Duson Carbonate (Duson Carbonate 300 Mg Capsule) 300 mg PO BID GEORGE Melatonin (Melatonin 3 Mg Tablet) 6 mg PO BEDTIME PRN PRN Reason: Sleep Last Admin: 10/05/21 02:21 Dose: 6 mg Documented by: LUIS Nortriptyline HCl (Nortriptyline Hcl 10 Mg Capsule) 10 mg PO BEDTIME [facility] Last Admin: 10/20/21 22:11 Dose: Not Given Documented by: ELI Non-Admin Reason: Patient Refused Pharmacy Consult (Consult Rx Perform Med Rec) 1 each MISCELLANE ONCE PRN PRN Reason: Consult order Labs CBC & Chem 7: 10/18/21 10:37 10/19/21 06:09 Labs: Laboratory Results - last 24 hr 10/20/21 10/20/21 11:00 19:53 POC Glucose 280 H Urine Creatinine 66.25 Urine Microalbumin 38.0 Microalb/Creat Ratio 57.3 Assessment and Plan (1) Toxic metabolic encephalopathy: Status: Acute (2) Hyperparathyroidism: Status: Acute (3) Bipolar disorder: Status: Acute (4) KEESHA (acute kidney injury): Status: Acute (5) Hypercalcemia: Status: Acute Plan hospital d#18 66yo F with bipolar disorder admitted with encephalopathy initially attributed to UTI but now likely more psychiatric in nature # toxic-metabolic encephalopathy superimposed on likely underlying dementia of probable vascular cause with behavioral agitation - MRI showed generalized atrophy and diffuse white matter microangiopathy - s/p treatment for UTI with no improvement in cognitive function - seen by neuro, EEG showing generalized slowing, no evidence of seizure disorder - B12, folate, TSH, RPR WNL - lithium level supratherapeutic -> held - per PT, not a rehab candidate - per Dr Xiao's discussion with family, patient was high-functioning prior to admission; using public tranportation, ambulating without difficulty, living alone and independently in her apartment - after all this workup, it is fairly certain that her mental status changes are psychiatric in nature and will discuss with Psychiatry as she would benefit from inpatient psychiatric treatment # KEESHA - refused labs this AM - d/c'ed MTF - lithium resumed at lower dose - Nephrology following # hyperCa - due to underlying primary hyperparathyroidism and exacerbated by lithium - not likely at this level to be contributing to her mental status changes - Nephrology following, started on cincalcet 30 mg daily - outpt f/u with Endocrine Surgery (Dr Day at [facility] [place]) - avoid Ca, vitamin D, thiazides, NSAIDs # DM2 - d/c'ed MTF due to KEESHA, GPZ due to hypoglycemia; continue correction-dose lispro # bipolar disorder - lithium resumed at lower dose per Psychiatry recommendation; check level on 10/23 # Streptococcus agalactiae UTI - completed 5-day ABX course # HLD - statin # VTE ppx - SCDs # dispo - per Psych does not need inpt psych hospitalization; cannot go home given dementia; plan STR; discussed with alexia Eisenberg at bedside yesterday Quality Stroke Does the patient have a stroke diagnosis?: Yes Reason for No Anti-thrombotic by Day Two: N/A - Med Ordered VTE Prior VTE?: No VTE Risk Level:: Medical - moderate - high VTE Device Contraindication: N/A - Device Ordered VTE Drug Contraindication: N/A - Med Ordered
[2021-10-21 11:25] VITALS: BP 147/80; PULSE 79; RESP 15; TEMP 36; O2SAT 95
[2021-10-21 11:42] LABS: Glucose, Whole Blood 373 mg/dL (60-115)
[2021-10-21] MEDS: Insulin Lispro 100 UNIT/ML 3 ML VIAL SUBCUT (11:53)
--- NOTE | 2021-10-21 16:07 | PM.PNNEP ---
Subjective Subjective Date of Service: 10/21/21 Principal diagnosis: KEESHA Interval history: No complaints. Chart Reviewed. Events noted. Physical Exam Vital Signs: Vital Signs: Last Vital Signs Temp 96.8 F 10/21/21 11:25 Pulse 79 10/21/21 11:25 Resp 15 10/21/21 11:25 BP 147/80 H 10/21/21 11:25 Pulse Ox 95 10/21/21 11:25 BMI result Body Mass Index 28.8 Neck: Neck: Yes normal visual inspection and Yes no JVD Resp: Effort & Inspection: normal respiratory effort Cardio: Jugular venous distension: no JVD Rhythm: regular rhythm Heart sounds: S1 normal heart sound present and S2 normal heart sound present GI: Auscultation: normal bowel sounds Extrem: General: Yes normal to inspection Psych: Attitude: Guarded attititude/behavior present Objective Data Labs CBC & Chem 7: 10/18/21 10:37 10/19/21 06:09 Labs: Laboratory Results - last 24 hr 10/20/21 10/21/21 19:53 11:38 POC Glucose 373 H* Urine Creatinine 66.25 Urine Microalbumin 38.0 Microalb/Creat Ratio 57.3 Microbiology Microbiology Results: Microbiology 10/11/21 09:13 Blood - Venous Blood Culture - Final No growth after 5 days. 10/11/21 09:19 Blood - Venous Blood Culture - Final No growth after 5 days. 10/10/21 15:52 Urine clean catch - Urine velasco top Urine Culture - Final 10/04/21 Unknown Urine clean catch - Urine velasco top Urine Culture - Final Strep agalactiae (Grp B) Procedures Date of Service Date of Service: 10/21/21 Assessment & Plan Assessment and plan (1) Hyperparathyroidism: Status: Acute (2) KEESHA (acute kidney injury): Status: Acute (3) Hypercalcemia: Status: Acute Plan 66-year-old female admitted with encephalopathy secondary to UTI,? hyperCa & KEESHA Currently has KEESHA likely due to tubular injury Patient rfusing lab draws so we do not have a recent S-Cr Li restarted at lower dose today. I will add UA Monitor I/O's Hypercalcemia :w/u c/w primary HPTism - will precipitate renal vasoconstriction, polyuria. [place] can be a risk factor for primary HPTism On sensipar 30 mg daily; Consider 75 cc NS x 1 liter. Avoid Ca, vit D and thiazide diuretics Encourage po intake of boost/ensure if patient agreeable. Time Spent With Patient Time: Total time spent is greater than 50% in coordination of care (as documented) at patient's floor/unit and/or counseling patient: Time with patient: 25 - 35 minutes Progress Note: Quality Stroke Does the patient have a stroke diagnosis?: Yes Reason for No Anti-thrombotic by Day Two: N/A - Med Ordered
[2021-10-21 16:51] LABS: Glucose, Whole Blood 131 mg/dL (60-115)
[2021-10-21] MEDS: HaloperidoL 1 MG TABLET PO (17:01)
[2021-10-21 20:00] VITALS: BP 120/63; PULSE 80; RESP 18; TEMP 36.2; O2SAT 99
[2021-10-21 20:27] LABS: Glucose, Whole Blood 173 mg/dL (60-115)
[2021-10-22] MEDS: Lithium Carbonate 300 MG CAPSULE PO ×2 (08:56→21:23)
--- NOTE | 2021-10-22 10:55 | HO.PM.IMPN ---
Subjective Subjective Date of Service: 10/22/21 Interval History: Confused. Refusing labs + IV Review of Systems Review of Systems: Yes Unobtainable due to mental status Physical Exam Vital Signs: Vital Signs: Last Vital Signs Temp 97.1 F 10/21/21 20:00 Pulse 80 10/21/21 20:00 Resp 18 10/21/21 20:00 BP 120/63 10/21/21 20:00 Pulse Ox 99 10/21/21 20:00 BMI result Body Mass Index 28.8 Gen: in no acute distress HEENT: sclera anicteric, moist mucus membranes Neck: supple Lungs: clear to auscultation bilaterally Heart: regular rate and rhythm, no murmurs Abd: soft, non-tender, non-distended Ext: no edema Skin: warm/well-perfused Neuro: alert, oriented to self only Psych: impaired insight Objective Data Active Medications Aspirin (Aspirin Enteric Coated 81 Mg Tablet.) 81 mg PO DAILY [facility] Last Admin: 10/22/21 09:16 Dose: Not Given Documented by: GUS Non-Admin Reason: Patient Refused Atorvastatin Calcium (Atorvastatin Calcium 20 Mg Tablet) 20 mg PO DAILY [facility] Last Admin: 10/22/21 09:16 Dose: Not Given Documented by: GUS Non-Admin Reason: Patient Refused Benztropine Mesylate (Benztropine Mesylate 1 Mg Tablet) 1 mg PO BEDTIME [facility] Last Admin: 10/21/21 20:53 Dose: Not Given Documented by: NA Non-Admin Reason: Patient Refused Cinacalcet (Cinacalcet Hcl 30 Mg Tablet) 30 mg PO DAILY [facility] Last Admin: 10/22/21 09:16 Dose: Not Given Documented by: GUS Non-Admin Reason: Patient Refused Dextrose (Dextrose 50 % 25 Gm/50 Ml Vial) 25 gm IVPUSH Q15M PRN; Protocol PRN Reason: per Hypoglycemia Standing Ord. Glucose (Glucose Gel 15 Gm Gel..Gram.) 15 gm PO Q15M PRN; Protocol PRN Reason: per Hypoglycemia Standing Ord. Last Admin: 10/13/21 21:16 Dose: 15 gm Documented by: LUIS Haloperidol (Haloperidol 5 Mg Tablet) 5 mg PO BEDTIME [facility] Last Admin: 10/21/21 20:55 Dose: Not Given Documented by: NA Non-Admin Reason: Patient Refused Insulin Human Lispro (Insulin Lispro 100 Unit/Ml 3 Ml Vial) 0 unit SUBCUT QIDACHS [facility]; Protocol Last Admin: 10/22/21 09:16 Dose: Not Given Documented by: GUS Non-Admin Reason: Patient Refused Ponder Carbonate (Ponder Carbonate 300 Mg Capsule) 300 mg PO BID [facility] Last Admin: 10/22/21 08:56 Dose: 300 mg Documented by: GUS Melatonin (Melatonin 3 Mg Tablet) 6 mg PO BEDTIME PRN PRN Reason: Sleep Last Admin: 10/05/21 02:21 Dose: 6 mg Documented by: LUIS Nortriptyline HCl (Nortriptyline Hcl 10 Mg Capsule) 10 mg PO BEDTIME [facility] Last Admin: 10/21/21 20:54 Dose: Not Given Documented by: NA Non-Admin Reason: Patient Refused Pharmacy Consult (Consult Rx Perform Med Rec) 1 each MISCELLANE ONCE PRN PRN Reason: Consult order Labs CBC & Chem 7: 10/18/21 10:37 10/19/21 06:09 Labs: Laboratory Results - last 24 hr 10/21/21 10/21/21 10/21/21 11:38 16:47 20:20 POC Glucose 373 H* 131 H 173 H Assessment and Plan (1) Toxic metabolic encephalopathy: Status: Acute (2) Hyperparathyroidism: Status: Acute (3) Bipolar disorder: Status: Acute (4) KEESHA (acute kidney injury): Status: Acute (5) Hypercalcemia: Status: Acute Plan hospital d#19 66yo F with bipolar disorder admitted with encephalopathy initially attributed to UTI but now likely more psychiatric in nature # toxic-metabolic encephalopathy superimposed on likely underlying dementia of probable vascular cause with behavioral agitation - MRI showed generalized atrophy and diffuse white matter microangiopathy - s/p treatment for UTI with no improvement in cognitive function - seen by neuro, EEG showing generalized slowing, no evidence of seizure disorder - B12, folate, TSH, RPR WNL - lithium level supratherapeutic -> held - per PT, not a rehab candidate - per Dr Holland's discussion with family, patient was high-functioning prior to admission; using public tranportation, ambulating without difficulty, living alone and independently in her apartment - after all this workup, it is fairly certain that her mental status changes are due to dementia + decompensated bipolar disorder # KEESHA - refused labs this AM- will attempt again - d/c'ed MTF - lithium resumed at lower dose - Nephrology following # hyperCa - due to underlying primary hyperparathyroidism and exacerbated by lithium - not likely at this level to be contributing to her mental status changes - Nephrology following, started on cincalcet 30 mg daily - outpt f/u with Endocrine Surgery (Dr Day at [facility] [place]) - avoid Ca, vitamin D, thiazides, NSAIDs # DM2 - d/c'ed MTF due to KEESHA, GPZ due to hypoglycemia; continue correction-dose lispro # bipolar disorder - lithium resumed at lower dose per Psychiatry recommendation; check level on 10/23 # Streptococcus agalactiae UTI - completed 5-day ABX course # HLD - statin # VTE ppx - SCDs # dispo - per Psych does not need inpt psych hospitalization; cannot go home given dementia; plan STR; discussed with alexia Eisenberg at bedside 10/20 Quality Stroke Does the patient have a stroke diagnosis?: Yes Reason for No Anti-thrombotic by Day Two: N/A - Med Ordered VTE Prior VTE?: No VTE Risk Level:: Medical - moderate - high VTE Device Contraindication: N/A - Device Ordered VTE Drug Contraindication: N/A - Med Ordered
[2021-10-22] MEDS: Insulin Lispro 100 UNIT/ML 3 ML VIAL SUBCUT ×3 (11:55→21:23)
[2021-10-22 11:59] LABS: Glucose, Whole Blood 287 mg/dL (60-115)
[2021-10-22 17:07] LABS: Glucose, Whole Blood 190 mg/dL (60-115)
--- NOTE | 2021-10-22 17:33 | PM.PNNEP ---
Subjective Subjective Date of Service: 10/22/21 Principal diagnosis: KEESHA Interval history: Confused. Refusing labs + IV Physical Exam Vital Signs: Vital Signs: Last Vital Signs Temp 97.1 F 10/21/21 20:00 Pulse 80 10/21/21 20:00 Resp 18 10/21/21 20:00 BP 120/63 10/21/21 20:00 Pulse Ox 99 10/21/21 20:00 BMI result Body Mass Index 28.8 Const: General: cooperative and confusion Orientation/consciousness: confusion and Other orientation findings HENMT: Head: Yes normal to inspection, Yes normocephalic and Yes atraumatic Neck: Neck: Yes normal visual inspection and Yes no JVD Resp: Effort & Inspection: normal respiratory effort Auscultation: clear to auscultation bilaterally GI: Inspection: Yes normal to inspection Auscultation: normal bowel sounds Skin: General skin exam: no rashes or lesions noted Neuro: General: confusion Psych: Attitude: Guarded attititude/behavior present Judgement: Poor judgement present (Psych) Objective Data Labs CBC & Chem 7: 10/18/21 10:37 10/19/21 06:09 Labs: Laboratory Results - last 24 hr 10/21/21 10/22/21 10/22/21 20:20 11:52 17:02 POC Glucose 173 H 287 H 190 H Microbiology Microbiology Results: Microbiology 10/11/21 09:13 Blood - Venous Blood Culture - Final No growth after 5 days. 10/11/21 09:19 Blood - Venous Blood Culture - Final No growth after 5 days. 10/10/21 15:52 Urine clean catch - Urine velasco top Urine Culture - Final 10/04/21 Unknown Urine clean catch - Urine velasco top Urine Culture - Final Strep agalactiae (Grp B) Procedures Date of Service Date of Service: 10/22/21 Assessment & Plan Assessment and plan (1) Hyperparathyroidism: Status: Acute (2) KEESHA (acute kidney injury): Status: Acute Assessment and Plan: 66-year-old female admitted with encephalopathy secondary to UTI,? hyperCa & KEESHA Currently has KEESHA likely due to tubular injury Patient refusing lab draws so we do not have a recent S-Cr Li restarted at lower dose today. Urine studies added. If able to collect may provide inside into hydration status and renal perfusion. Patient very suspicious of any questioning, lab work requests. Monitor I/O's Hypercalcemia :w/u c/w primary HPTism - will precipitate renal vasoconstriction, polyuria. [place] can be a risk factor for primary HPTism On sensipar 30 mg daily; Consider 75 cc NS x 1 liter. Avoid Ca, vit D and thiazide diuretics Encourage po intake of boost/ensure if patient agreeable (3) Hypercalcemia: Status: Acute Time Spent With Patient Time: Total time spent is greater than 50% in coordination of care (as documented) at patient's floor/unit and/or counseling patient: Time with patient: 25 - 35 minutes Progress Note: Quality Stroke Does the patient have a stroke diagnosis?: Yes Reason for No Anti-thrombotic by Day Two: N/A - Med Ordered
[2021-10-22 20:00] VITALS: BP 137/77; PULSE 82; RESP 18; TEMP 36.1; O2SAT 100
[2021-10-22 20:47] LABS: Glucose, Whole Blood 298 mg/dL (60-115)
[2021-10-22] MEDS: Nortriptyline HCl 10 MG CAPSULE PO (21:23)
[2021-10-22] MEDS: HaloperidoL 5 MG TABLET PO (21:23)
[2021-10-22] MEDS: Benztropine Mesylate 1 MG TABLET PO (21:23)
[2021-10-22 23:29] VITALS: BP 139/83; PULSE 79; RESP 16; TEMP 36.4; O2SAT 96
[2021-10-23 06:45] VITALS: BP 130/61; PULSE 69; RESP 18; TEMP 36.1; O2SAT 96
[2021-10-23 07:09] LABS: Glucose, Whole Blood 153 mg/dL (60-115)
[2021-10-23] MEDS: Lithium Carbonate 300 MG CAPSULE PO ×2 (08:57→21:50)
[2021-10-23] MEDS: Atorvastatin Calcium 20 MG TABLET PO (08:57)
[2021-10-23] MEDS: Cinacalcet HCl 30 MG TABLET PO ×2 (08:57→13:47)
[2021-10-23] MEDS: Aspirin Enteric Coated 81 MG TABLET.DR PO (08:57)
--- NOTE | 2021-10-23 10:29 | PM.PNNEP ---
Subjective Subjective Date of Service: 10/23/21 Principal diagnosis: KEESHA Interval history: Confused. Refusing labs + IV again but Hospitalist is hopeful that he can get labs this am Physical Exam Vital Signs: Vital Signs: Last Vital Signs Temp 97 F 10/23/21 06:45 Pulse 69 10/23/21 06:45 Resp 18 10/23/21 06:45 BP 130/61 10/23/21 06:45 Pulse Ox 96 10/23/21 06:45 BMI result Body Mass Index 28.8 Const: Other: General: AO X 1, no acute distress Resp: CTA bilateral CVS: S1,S2,RRR GI: +BS, NT, no distention Skin: No rash Neuro: motor grossly intact Psych: appropriate affect General: cooperative, healthy appearing, comfortable, no acute distress, alert, awake and confusion Nutritional Appearance: average body habitus and well nourished Orientation/consciousness: confusion and Other orientation findings HEENT: Head: Yes normal to inspection, Yes normocephalic and Yes atraumatic Eyes: EOM: EOMs intact bilaterally Neck: Neck: Yes normal visual inspection, Yes trachea midline, Yes supple and Yes no JVD Chest: Chest palpation & inspection: normal inspection of the chest Resp: Effort & Inspection: normal respiratory effort and able to speak in complete sentences Auscultation: clear to auscultation bilaterally and diminished lung sounds Cardio: Jugular venous distension: no JVD Rate: regular rate Rhythm: regular rhythm Heart sounds: S1 normal heart sound present and S2 normal heart sound present GI: Inspection: Yes normal to inspection and No distended Palpation (GI): Soft to palpation and nontender Auscultation: normal bowel sounds Skin: General skin exam: no rashes or lesions noted Neuro: Other: non-focal; moving all extremities; confused, follows commands General: moves all extremities and confusion Extrem: Other: moving all 4 extremities spontaneously General: Yes normal to inspection Psych: Attitude: Guarded attititude/behavior present Thought process: Flight of ideas present Thought content: Paranoid delusions present Judgement: Poor judgement present (Psych) Objective Data Labs CBC & Chem 7: 10/18/21 10:37 10/19/21 06:09 Labs: Laboratory Results - last 24 hr 10/22/21 10/22/21 10/22/21 11:52 17:02 20:43 POC Glucose 287 H 190 H 298 H 10/23/21 06:46 POC Glucose 153 H Microbiology Microbiology Results: Microbiology 10/11/21 09:13 Blood - Venous Blood Culture - Final No growth after 5 days. 10/11/21 09:19 Blood - Venous Blood Culture - Final No growth after 5 days. 10/10/21 15:52 Urine clean catch - Urine velasco top Urine Culture - Final 10/04/21 Unknown Urine clean catch - Urine velasco top Urine Culture - Final Strep agalactiae (Grp B) Procedures Date of Service Date of Service: 10/23/21 Assessment & Plan Assessment and plan (1) Hyperparathyroidism: Status: Acute (2) KEESHA (acute kidney injury): Status: Acute Assessment and Plan: 66-year-old female admitted with encephalopathy secondary to UTI,? hyperCa & KEESHA 1. KEESHA: very cincerning and needs further evaluation especially since she was back on Li and this can be cause of KEESHA 2. HyperCa: c/w primary Hyperpara: now on sensipar but we nweed repeat labs to t/d if dose adjustment needed; to be eval as outpt fpor PTX REC: d/c Lithiium in face of KEESHA; cehck labs including Li level and renal labs--if she refuses then need pych eval and competency reassessed as NEEDS labs (3) Hypercalcemia: Status: Acute Time Spent With Patient Time: Total time spent is greater than 50% in coordination of care (as documented) at patient's floor/unit and/or counseling patient: Progress Note: Quality Stroke Does the patient have a stroke diagnosis?: Yes Reason for No Anti-thrombotic by Day Two: N/A - Med Ordered
[2021-10-23 11:30] LABS: Lithium 1.11 mmol/L (0.60-1.20)
[2021-10-23 11:41] LABS: Anion Gap 12 (12-20); Blood Urea Nitrogen 23 mg/dL (9-16); Calcium 11.7 mg/dL (8.4-10.2); Carbon Dioxide 22 mmol/L (22-29); Chloride 108 mmol/L (96-108); Creatinine Clr Calc Pharmacy 39.4; Estimated Glomerular Filt Rate 39; Glucose Random 196 mg/dL (60-115); Potassium 4.2 mmol/L (3.3-5.1); Sodium 138 mmol/L (135-145)
[2021-10-23 11:43] LABS: Glucose, Whole Blood 158 mg/dL (60-115)
[2021-10-23 12:00] VITALS: BP 132/74; PULSE 88; RESP 20; TEMP 36.1; O2SAT 96
[2021-10-23] MEDS: Insulin Lispro 100 UNIT/ML 3 ML VIAL SUBCUT ×2 (12:00→21:50)
--- NOTE | 2021-10-23 12:32 | P.PNIM_ITS ---
Subjective Subjective Date of Service: 10/23/21 Interval History: Had lab draw this morning. Confused. Review of Systems Review of Systems: Yes Unobtainable due to mental status Physical Exam Vital Signs: Vital Signs: Last Vital Signs Temp 97 F 10/23/21 06:45 Pulse 69 10/23/21 06:45 Resp 18 10/23/21 06:45 BP 130/61 10/23/21 06:45 Pulse Ox 96 10/23/21 06:45 BMI result Body Mass Index 28.8 Gen: in no acute distress HEENT: sclera anicteric, moist mucus membranes Neck: supple Lungs: clear to auscultation bilaterally Heart: regular rate and rhythm, no murmurs Abd: soft, non-tender, non-distended Ext: no edema Skin: warm/well-perfused Neuro: alert, oriented to self only Psych: impaired insight Objective Data Active Medications Aspirin (Aspirin Enteric Coated 81 Mg Tablet.) 81 mg PO DAILY [facility] Last Admin: 10/23/21 08:57 Dose: 81 mg Documented by: NORM Atorvastatin Calcium (Atorvastatin Calcium 20 Mg Tablet) 20 mg PO DAILY [facility] Last Admin: 10/23/21 08:57 Dose: 20 mg Documented by: NORM Benztropine Mesylate (Benztropine Mesylate 1 Mg Tablet) 1 mg PO BEDTIME [facility] Last Admin: 10/22/21 21:23 Dose: 1 mg Documented by: BRAN Cinacalcet (Cinacalcet Hcl 30 Mg Tablet) 30 mg PO DAILY [facility] Last Admin: 10/23/21 08:57 Dose: 30 mg Documented by: ONRM Dextrose (Dextrose 50 % 25 Gm/50 Ml Vial) 25 gm IVPUSH Q15M PRN; Protocol PRN Reason: per Hypoglycemia Standing Ord. Glucose (Glucose Gel 15 Gm Gel..Gram.) 15 gm PO Q15M PRN; Protocol PRN Reason: per Hypoglycemia Standing Ord. Last Admin: 10/13/21 21:16 Dose: 15 gm Documented by: LUIS Haloperidol (Haloperidol 5 Mg Tablet) 5 mg PO BEDTIME [facility] Last Admin: 10/22/21 21:23 Dose: 5 mg Documented by: BRAN Insulin Human Lispro (Insulin Lispro 100 Unit/Ml 3 Ml Vial) 0 unit SUBCUT QIDACHS [facility]; Protocol Last Admin: 10/23/21 12:00 Dose: 2 unit Documented by: NORM Melatonin (Melatonin 3 Mg Tablet) 6 mg PO BEDTIME PRN PRN Reason: Sleep Last Admin: 10/05/21 02:21 Dose: 6 mg Documented by: LUIS Nortriptyline HCl (Nortriptyline Hcl 10 Mg Capsule) 10 mg PO BEDTIME [facility] Last Admin: 10/22/21 21:23 Dose: 10 mg Documented by: BRAN Pharmacy Consult (Consult Rx Perform Med Rec) 1 each MISCELLANE ONCE PRN PRN Reason: Consult order Labs CBC & Chem 7: 10/18/21 10:37 10/23/21 11:13 Labs: Laboratory Results - last 24 hr 10/22/21 10/22/21 10/23/21 17:02 20:43 06:46 Anion Gap Estim Creat Clear Calc Estimated GFR POC Glucose 190 H 298 H 153 H Random Glucose Calcium [place] 10/23/21 10/23/21 10/23/21 11:13 11:13 11:40 Anion Gap 12 Estim Creat Clear Calc 39.4 Estimated GFR 39 POC Glucose 158 H Random Glucose 196 H [place]cium 11.7 H [place] 1.11 Assessment and Plan (1) Toxic metabolic encephalopathy: Status: Acute (2) Hyperparathyroidism: Status: Acute (3) Bipolar disorder: Status: Acute (4) KEESHA (acute kidney injury): Status: Acute (5) Hypercalcemia: Status: Acute Plan hospital d#20 66yo F with bipolar disorder admitted with encephalopathy initially attributed to UTI but now likely more psychiatric in nature # toxic-metabolic encephalopathy superimposed on likely underlying dementia of probable vascular cause with behavioral agitation - MRI showed generalized atrophy and diffuse white matter microangiopathy - s/p treatment for UTI with no improvement in cognitive function - seen by neuro, EEG showing generalized slowing, no evidence of seizure disorder - B12, folate, TSH, RPR WNL - per PT, not a rehab candidate - per Dr Holland's discussion with family, patient was high-functioning prior to admission; using public tranportation, ambulating without difficulty, living alone and independently in her apartment - after all this workup, it is fairly certain that her mental status changes are due to dementia + decompensated bipolar disorder # KEESHA - improved - d/c'ed MTF - lithium resumed at lower dose - Nephrology following # hyperCa - due to underlying primary hyperparathyroidism and exacerbated by lithium - not likely at this level to be contributing to her mental status changes - Nephrology following, started on cincalcet 30 mg daily, increased to 60 mg daily - outpt f/u with Endocrine Surgery (Dr Day at [facility]) - avoid Ca, vitamin D, thiazides, NSAIDs # DM2 - d/c'ed MTF due to KEESHA, GPZ due to hypoglycemia; continue correction-dose lispro # bipolar disorder - lithium resumed at lower dose after consutling with Psychiatry and Nephrology # Streptococcus agalactiae UTI - completed 5-day ABX course # HLD - statin # VTE ppx - SCDs # dispo - per Psych does not need inpt psych hospitalization; cannot go home given dementia; plan STR; discussed with alexia Eisenberg at bedside 10/20 Quality Stroke Does the patient have a stroke diagnosis?: Yes Reason for No Anti-thrombotic by Day Two: N/A - Med Ordered VTE Prior VTE?: No VTE Risk Level:: Medical - moderate - high VTE Device Contraindication: N/A - Device Ordered VTE Drug Contraindication: N/A - Med Ordered
--- NOTE | 2021-10-23 13:23 | P.CNHOSGPS_ITS ---
History of Present Illness Data of Consult Service Date: 10/23/21 Requesting physician: Susanna Minor / Ariana Primary Care Provider: Unknown Physician HPI Reason for consult: Consult for management The patient is a 66-year-old female, living alone, unemployed, with some social support,admitted to Medicine for altered mental status in the context of several medical conditions. The patient has been on delirium on and off for several days. The current consult was asked to see if the patient again and assess if she is suitable for psychiatric inpatient treatment. The pa kareem carries a diagnosis of bipolar disorder and she has been on lithium for several years. I have seen the patient last week and she was pleasant and cooperative, confused, with poor short-term memory but with no evidence of depression or lucila. Also she does not have psychotic symptoms. According to the nursing staff, over the weekend, the patient refused blood work and medications. Today the patient was assessed at bedside, she was pleasant, cooperative with good eye contact. There was no evidence of depression or lucila or psychotic symptoms. She denies suicidal or homicidal thoughts. She looked confused, disoriented in time but she was oriented in place, person and situation. Today, we had a lithium level that it is inaccurate since the patient received lithium by mouth 2 hours before the taking of the blood sample. At this moment, the patient does not have criteria for inpatient level of care for Psychiatry. she should be assessed as an outpatient by her regular provider. [facility] Medical History Diabetes 1.5, managed as type 2 HTN (hypertension) Social History Household Members: None Housing: Apartment Do you presently have visiting nurse or other home services: Yes (just got services but hasn't met them yet) Patient Tobacco Use Status: Never used Tobacco service: No Current occupational status: retired Meds Allergies Allergy/AdvReac Type Severity Reaction Status Date / Time oxycodone Allergy Rash Verified 10/04/21 11:09 Penicillins Allergy Rash Verified 10/04/21 11:09 Active Medications: Current Medications Aspirin (Aspirin Enteric Coated 81 Mg Tablet.) 81 mg PO DAILY [facility] Last Admin: 10/23/21 08:57 Dose: 81 mg Documented by: Atorvastatin Calcium (Atorvastatin Calcium 20 Mg Tablet) 20 mg PO DAILY [facility] Last Admin: 10/23/21 08:57 Dose: 20 mg Documented by: Benztropine Mesylate (Benztropine Mesylate 1 Mg Tablet) 1 mg PO BEDTIME [facility] Last Admin: 10/22/21 21:23 Dose: 1 mg Documented by: Cinacalcet (Cinacalcet Hcl 30 Mg Tablet) 60 mg PO DAILY [facility] Dextrose (Dextrose 50 % 25 Gm/50 Ml Vial) 25 gm IVPUSH Q15M PRN; Protocol PRN Reason: per Hypoglycemia Standing Ord. Glucose (Glucose Gel 15 Gm Gel..Gram.) 15 gm PO Q15M PRN; Protocol PRN Reason: per Hypoglycemia Standing Ord. Last Admin: 10/13/21 21:16 Dose: 15 gm Documented by: Haloperidol (Haloperidol 5 Mg Tablet) 5 mg PO BEDTIME [facility] Last Admin: 10/22/21 21:23 Dose: 5 mg Documented by: Insulin Human Lispro (Insulin Lispro 100 Unit/Ml 3 Ml Vial) 0 unit SUBCUT QIDACHS [facility]; Protocol Last Admin: 10/23/21 12:00 Dose: 2 unit Documented by: [place] Carbonate ([place] Carbonate 300 Mg Capsule) 300 mg PO BID [facility] Melatonin (Melatonin 3 Mg Tablet) 6 mg PO BEDTIME PRN PRN Reason: Sleep Last Admin: 10/05/21 02:21 Dose: 6 mg Documented by: Nortriptyline HCl (Nortriptyline Hcl 10 Mg Capsule) 10 mg PO BEDTIME [facility] Last Admin: 10/22/21 21:23 Dose: 10 mg Documented by: Pharmacy Consult (Consult Rx Perform Med Rec) 1 each MISCELLANE ONCE PRN PRN Reason: Consult order Home Medications Medication Instructions Recorded Confirmed Last Taken Type aspirin 81 mg tablet,delayed 1 tab PO DAILY 10/04/21 10/04/21 10/04/21 History release atorvastatin 20 mg tablet 1 tab PO DAILY 10/04/21 10/04/21 10/04/21 History benztropine 1 mg tablet 1 tab PO BEDTIME 10/04/21 10/04/21 10/03/21 History glipizide 5 mg tablet, extended 1 tab PO BID 10/04/21 10/04/21 10/04/21 History release 24 hr haloperidol 10 mg tablet 1 tab PO BEDTIME 10/04/21 10/04/21 10/03/21 History lithium carbonate 450 mg 2 tab PO BEDTIME 03/09/2610/04/21 10/03/21 History tablet,extended release metformin 500 mg tablet,extended 1,000 mg PO BID 10/04/21 10/04/21 10/03/21 History release 24 hr nortriptyline 10 mg capsule 1 cap PO BEDTIME 10/04/21 10/04/21 10/03/21 History Results Labs CBC and Chem 7: 10/18/21 10:37 10/23/21 11:13 Labs: Laboratory Results - last 24 hr 10/22/21 10/22/21 10/23/21 17:02 20:43 06:46 Anion Gap Estim Creat Clear Calc Estimated GFR POC Glucose 190 H 298 H 153 H Random Glucose Calcium [place] 10/23/21 10/23/21 10/23/21 11:13 11:13 11:40 Anion Gap 12 Estim Creat Clear Calc 39.4 Estimated GFR 39 POC Glucose 158 H Random Glucose 196 H Calcium 11.7 H [place] 1.11 Physical Exam Vital Signs: Last Vital Signs Temp 97 F 10/23/21 12:00 Pulse 88 10/23/21 12:00 Resp 20 10/23/21 12:00 BP 132/74 10/23/21 12:00 Pulse Ox 96 10/23/21 12:00 BMI result Body Mass Index 28.8
--- NOTE | 2021-10-23 13:51 | P.CNPS_ITS ---
History of Present Illness Date of Service: t Chief Complaint: Follow-up Reason for Consult: Assessment if patient is inpatient level of care. Requesting physician: Susanna Minor / JOSELINE Discussed with referring provider: Yes Sources of Information: patient interviewed and chart reviewed HPI Narrative: the patient is a 66-year-old female, mother father children, living by herself, admitted several days ago for altered mental status, on delirium for several days. The patient carries the diagnosis of bipolar disorder and she has been on lithium for several years. The patient was seen before by our service due to her altered mental status. We discussed the possibility of continue lithium at a lower dose because she was highly toxic on her regular dose of 900 mg a day. According to the nursing staff, the patient has refused lithium and Blood work over the weekend. Today the patient had a blood sample 2 hours after she received lithium 300 mg p.o. q.a.m. so that value is not reliable. On interview, the patient is awake, alert in place per son but not in time. She has an mild slurred speech and delayed in response but in general, she adamantly denies depressive symptoms, lucila or psychosis. She wants to go home. At this moment, the patient does not have inpatient level of care criteria for Psychiatry. The patient can be followed as an outpatient by her regular team or other outpatient services. Past Psychiatric History: History of bipolar disorder. Outpatient psychiatrist Dr. Rosa Faulkner prescribes lithium ER 900 mg at bedtime, Haldol 10 mg at bedtime, nortriptyline 10 mg at bedtime., benzotropine at bedtime. Medical Evaluation Reviewed: Yes [facility] Medical History Diabetes 1.5, managed as type 2 HTN (hypertension) Family History: unknown Social History: Retired Lives alone in apartment Has a brother, and a son. Trauma History: None reported Diagnostics Vital Signs (24Hr): Vital Signs - 24 hr 10/22/21 20:00 10/22/21 23:29 10/23/21 06:45 Temperature 97.0 F 97.5 F 97 F Pulse Rate 82 79 69 Respiratory Rate 18 16 18 Blood Pressure 137/77 139/83 130/61 Pulse Oximetry 100 96 96 10/23/21 12:00 Temperature 97 F Pulse Rate 88 Respiratory Rate 20 Blood Pressure 132/74 Pulse Oximetry 96 BMI result Body Mass Index 28.8 Labs Results: 10/18/21 10:37 10/23/21 11:13 Labs: Laboratory Results - last 48 hr 10/21/21 10/21/21 10/22/21 16:47 20:20 11:52 Sodium Potassium Chloride Carbon Dioxide Anion Gap BUN Creatinine Estim Creat Clear Calc Estimated GFR POC Glucose 131 H 173 H 287 H Random Glucose Calcium [place] 10/22/21 10/22/21 10/23/21 17:02 20:43 06:46 Sodium Potassium Chloride Carbon Dioxide Anion Gap BUN Creatinine Estim Creat Clear Calc Estimated GFR POC Glucose 190 H 298 H 153 H Random Glucose Calcium [place] 10/23/21 10/23/21 10/23/21 11:13 11:13 11:40 Sodium 138 Potassium 4.2 Chloride 108 Carbon Dioxide 22 Anion Gap 12 BUN 23 H Creatinine 1.37 Estim Creat Clear Calc 39.4 Estimated GFR 39 POC Glucose 158 H Random Glucose 196 H Calcium 11.7 H [place] 1.11 Imaging Radiology Impressions: ITS Impressions Head CT 10/04/21 14:03 IMPRESSION: 1. There appears to be a small region of lost [place]as[place]-white matter differentiation within the lateral left frontal lobe. Although age indeterminate, this may represent sequela of a small acute to subacute infarct. 2. No evidence of acute intracranial hemorrhage. 3. Moderate underlying microangiopathy and generalized cerebral volume loss. This critical result was discussed with Dr. Montague at 15:05 on 10/04/2021 and it was ascertained that the content and urgency of the report was understood at the time of direct communication. Chest X-Ray 10/04/21 14:06 IMPRESSION: Unremarkable chest examination. Brain MRI 10/04/21 16:30 IMPRESSION: 1. No acute intracranial abnormalities. 2. Moderate underlying microangiopathy and generalized cerebral volume loss. Mental Status Exam Mental Status Exam Patient Appearance: Appropriate Patient Orientation: Person, Place and Situation Level of Consciousness: Awake Patient Behavior: Guarded Mood Description: Flat Affect Description: Constricted Patient Cognition Impaired: Yes Ability to Follow Directions: Good Speech Pattern: Slurred and Poor Articulation Hallucinations: None Delusions: Not Present Thought Process: Distracted Thought Content: positive for [place] and positive for Poverty of Content Judgement: Fair Medications Medications Current Medications Aspirin (Aspirin Enteric Coated 81 Mg Tablet.) 81 mg PO DAILY [facility] Last Admin: 10/23/21 08:57 Dose: 81 mg Documented by: Atorvastatin Calcium (Atorvastatin Calcium 20 Mg Tablet) 20 mg PO DAILY [facility] Last Admin: 10/23/21 08:57 Dose: 20 mg Documented by: Benztropine Mesylate (Benztropine Mesylate 1 Mg Tablet) 1 mg PO BEDTIME [facility] Last Admin: 10/22/21 21:23 Dose: 1 mg Documented by: Cinacalcet (Cinacalcet Hcl 30 Mg Tablet) 60 mg PO DAILY [facility] Dextrose (Dextrose 50 % 25 Gm/50 Ml Vial) 25 gm IVPUSH Q15M PRN; Protocol PRN Reason: per Hypoglycemia Standing Ord. Glucose (Glucose Gel 15 Gm Gel..Gram.) 15 gm PO Q15M PRN; Protocol PRN Reason: per Hypoglycemia Standing Ord. Last Admin: 10/13/21 21:16 Dose: 15 gm Documented by: Haloperidol (Haloperidol 5 Mg Tablet) 5 mg PO BEDTIME [facility] Last Admin: 10/22/21 21:23 Dose: 5 mg Documented by: Insulin Human Lispro (Insulin Lispro 100 Unit/Ml 3 Ml Vial) 0 unit SUBCUT QIDACHS [facility]; Protocol Last Admin: 10/23/21 12:00 Dose: 2 unit Documented by: [place] Carbonate ([place] Carbonate 300 Mg Capsule) 300 mg PO BID [facility] Melatonin (Melatonin 3 Mg Tablet) 6 mg PO BEDTIME PRN PRN Reason: Sleep Last Admin: 10/05/21 02:21 Dose: 6 mg Documented by: Nortriptyline HCl (Nortriptyline Hcl 10 Mg Capsule) 10 mg PO BEDTIME [facility] Last Admin: 10/22/21 21:23 Dose: 10 mg Documented by: Pharmacy Consult (Consult Rx Perform Med Rec) 1 each MISCELLANE ONCE PRN PRN Reason: Consult order Allergies Allergies Allergy/AdvReac Type Severity Reaction Status Date / Time oxycodone Allergy Rash Verified 10/04/21 11:09 Penicillins Allergy Rash Verified 10/04/21 11:09 Assessment & Plan Assessment & Plan (1) Toxic metabolic encephalopathy: Status: Acute Code(s): G92.8 - Other toxic encephalopathy (2) Bipolar disorder: Qualifiers: Most recent bipolar episode type: most recent episode unspecified type Status: Acute Code(s): F31.9 - Bipolar disorder, unspecified Plan The patient is an elderly female with a past history of bipolar disorder type 1, who has been stable for several years on lithium 900 mg. She was admitted into the hospital frontal mental status, encephalopathic, very cecum Medicine. The consult was asked to see if the patient would be a candidate for inpatient level of care. Plan 1. The patient does not have criteria for inpatient level of care. At this moment the patient does not have depression, lucila or psychosis. The patient looks confused but it is unclear correlation with the delirium she has a for for several weeks due to her encephalopathy. Delirium is not considered a psychiatric emergency, it is a medical emergency. 2. Keep lithium 300 mg p.o. b.i.d. and recheck levels in 3 or 4 days. 3. Disposition as per health care social worker. 4. Reassessment as demand the patient should be followed by outpatient services I spent ___30___ minutes with the patient and/or on the patient floor today, greater than?50% of which was spent counseling/coordinating care. Patient educated on: diagnosis and therapeutic strategies Informed Consent: understands
[2021-10-23 15:00] VITALS: BP 125/75; PULSE 82; RESP 18; TEMP 36.6; O2SAT 96
[2021-10-23 16:23] LABS: Glucose, Whole Blood 163 mg/dL (60-115)
[2021-10-23 17:06] LABS: Calcium, Random Urine 3.4 mg/dL
[2021-10-23 19:46] LABS: Glucose, Whole Blood 207 mg/dL (60-115)
[2021-10-23] MEDS: Benztropine Mesylate 1 MG TABLET PO (21:50)
[2021-10-23] MEDS: HaloperidoL 5 MG TABLET PO (21:50)
[2021-10-23] MEDS: Nortriptyline HCl 10 MG CAPSULE PO (21:50)
[2021-10-23 23:34] VITALS: BP 123/58; PULSE 74; RESP 16; TEMP 36.5; O2SAT 94
[2021-10-24] MEDS: Aspirin Enteric Coated 81 MG TABLET.DR PO (09:13)
[2021-10-24] MEDS: Cinacalcet HCl 30 MG TABLET 60 MG PO (09:13)
[2021-10-24] MEDS: Lithium Carbonate 300 MG CAPSULE PO (09:14)
[2021-10-24] MEDS: Atorvastatin Calcium 20 MG TABLET PO (09:14)
--- NOTE | 2021-10-24 10:20 | PM.PNNEP ---
Subjective Subjective Date of Service: 10/24/21 Principal diagnosis: KEESHA Interval history: Seen and examiend, events noted Physical Exam Vital Signs: Vital Signs: Last Vital Signs Temp 97.7 F 10/23/21 23:34 Pulse 74 10/23/21 23:34 Resp 16 10/23/21 23:34 BP 123/58 L 10/23/21 23:34 Pulse Ox 94 10/23/21 23:34 BMI result Body Mass Index 28.8 Const: Other: General: AO X 1, no acute distress Resp: CTA bilateral CVS: S1,S2,RRR GI: +BS, NT, no distention Skin: No rash Neuro: motor grossly intact Psych: appropriate affect General: cooperative, healthy appearing, comfortable, no acute distress, alert, awake and confusion Nutritional Appearance: average body habitus and well nourished Orientation/consciousness: confusion and Other orientation findings HEENT: Head: Yes normal to inspection, Yes normocephalic and Yes atraumatic Eyes: EOM: EOMs intact bilaterally Neck: Neck: Yes normal visual inspection, Yes trachea midline, Yes supple and Yes no JVD Chest: Chest palpation & inspection: normal inspection of the chest Resp: Effort & Inspection: normal respiratory effort and able to speak in complete sentences Auscultation: clear to auscultation bilaterally and diminished lung sounds Cardio: Jugular venous distension: no JVD Rate: regular rate Rhythm: regular rhythm Heart sounds: S1 normal heart sound present and S2 normal heart sound present GI: Inspection: Yes normal to inspection and No distended Palpation (GI): Soft to palpation and nontender Auscultation: normal bowel sounds Skin: General skin exam: no rashes or lesions noted Neuro: Other: non-focal; moving all extremities; confused, follows commands General: moves all extremities and confusion Extrem: Other: moving all 4 extremities spontaneously General: Yes normal to inspection Psych: Attitude: Guarded attititude/behavior present Thought process: Flight of ideas present Thought content: Paranoid delusions present Judgement: Poor judgement present (Psych) Objective Data Labs CBC & Chem 7: 10/18/21 10:37 10/23/21 11:13 Labs: Laboratory Results - last 24 hr 10/20/21 10/23/21 10/23/21 19:53 11:13 11:13 Sodium 138 Potassium 4.2 Chloride 108 Carbon Dioxide 22 Anion Gap 12 BUN 23 H Creatinine 1.37 Estim Creat Clear Calc 39.4 Estimated GFR 39 POC Glucose Random Glucose 196 H Calcium 11.7 H Ur Random Calcium 3.4 [place] 1.11 10/23/21 10/23/21 10/23/21 11:40 15:05 19:41 Sodium Potassium Chloride Carbon Dioxide Anion Gap BUN Creatinine Estim Creat Clear Calc Estimated GFR POC Glucose 158 H 163 H 207 H Random Glucose Calcium [place] Random Calcium [place] Microbiology Microbiology Results: Microbiology 10/11/21 09:13 Blood - Venous Blood Culture - Final No growth after 5 days. 10/11/21 09:19 Blood - Venous Blood Culture - Final No growth after 5 days. 10/10/21 15:52 Urine clean catch - Urine [place] top Urine Culture - Final 10/04/21 Unknown Urine clean catch - Urine [place] top Urine Culture - Final Strep agalactiae (Grp B) Procedures Date of Service Date of Service: 10/24/21 Assessment & Plan Assessment and plan (1) Hyperparathyroidism: Status: Acute (2) KEESHA (acute kidney injury): Status: Acute Assessment and Plan: 66-year-old female admitted with encephalopathy secondary to UTI,? hyperCa & KEESHA 1. KEESHA: resolved based on SCr 1.37 yesterday 2. HyperCa: c/w primary Hyperpara: now on sensipar but Ca still too high; will incr sensipar; to be eval as outpt fpor PTX 3. CKD 3: need to monitor renal func while on LI and track Li levels ---if Scr > 1.7 will need to stop [place] REC: incr sensipar 60 ( i ordered); needs renal labs and Ca level 2x/week for next several weeks (3) Hypercalcemia: Status: Acute Time Spent With Patient Time: Total time spent is greater than 50% in coordination of care (as documented) at patient's floor/unit and/or counseling patient: Progress Note: Quality Stroke Does the patient have a stroke diagnosis?: Yes Reason for No Anti-thrombotic by Day Two: N/A - Med Ordered
[2021-10-24 11:13] VITALS: BP 112/70; PULSE 88; RESP 18; TEMP 36.1; O2SAT 96
[2021-10-24 11:18] LABS: Glucose, Whole Blood 290 mg/dL (60-115)
[2021-10-24] MEDS: Insulin Lispro 100 UNIT/ML 3 ML VIAL SUBCUT (12:11)
--- NOTE | 2021-10-24 12:34 | HO.PM.IMPN ---
Subjective Subjective Date of Service: 10/24/21 Interval History: no acute issues overnight Review of Systems unable to obtain accurate ROS secondary to dementia Physical Exam Vital Signs: Vital Signs: Last Vital Signs Temp 97 F 10/24/21 11:13 Pulse 88 10/24/21 11:13 Resp 18 10/24/21 11:13 BP 112/70 10/24/21 11:13 Pulse Ox 96 10/24/21 11:13 BMI result Body Mass Index 28.8 Const: Other: awake alert no acute distress Resp: Other: clear to auscultation bilaterally no rales rhonchi wheezes Cardio: Other: no S4; positive S1-S2; no S3 murmurs rubs or gallops GI: Other: soft nontender nondistended normoactive bowel sounds Extrem: Other: no edema bilateral Objective Data Active Medications Aspirin (Aspirin Enteric Coated 81 Mg Tablet.) 81 mg PO DAILY [facility] Last Admin: 10/24/21 09:13 Dose: 81 mg Documented by: GUS Atorvastatin Calcium (Atorvastatin Calcium 20 Mg Tablet) 20 mg PO DAILY [facility] Last Admin: 10/24/21 09:14 Dose: 20 mg Documented by: GUS Benztropine Mesylate (Benztropine Mesylate 1 Mg Tablet) 1 mg PO BEDTIME [facility] Last Admin: 10/23/21 21:50 Dose: 1 mg Documented by: BRAN Cinacalcet (Cinacalcet Hcl 30 Mg Tablet) 60 mg PO DAILY [facility] Last Admin: 10/24/21 09:13 Dose: 60 mg Documented by: GUS Dextrose (Dextrose 50 % 25 Gm/50 Ml Vial) 25 gm IVPUSH Q15M PRN; Protocol PRN Reason: per Hypoglycemia Standing Ord. Glucose (Glucose Gel 15 Gm Gel..Gram.) 15 gm PO Q15M PRN; Protocol PRN Reason: per Hypoglycemia Standing Ord. Last Admin: 10/13/21 21:16 Dose: 15 gm Documented by: LUIS Haloperidol (Haloperidol 5 Mg Tablet) 5 mg PO BEDTIME [facility] Last Admin: 10/23/21 21:50 Dose: 5 mg Documented by: BRAN Insulin Human Lispro (Insulin Lispro 100 Unit/Ml 3 Ml Vial) 0 unit SUBCUT QIDACHS [facility]; Protocol Last Admin: 10/24/21 12:11 Dose: 6 unit Documented by: GUS [place] Carbonate ([place] Carbonate 300 Mg Capsule) 300 mg PO BID [facility] Last Admin: 10/24/21 09:14 Dose: 300 mg Documented by: GUS Melatonin (Melatonin 3 Mg Tablet) 6 mg PO BEDTIME PRN PRN Reason: Sleep Last Admin: 10/05/21 02:21 Dose: 6 mg Documented by: LUIS Nortriptyline HCl (Nortriptyline Hcl 10 Mg Capsule) 10 mg PO BEDTIME [facility] Last Admin: 10/23/21 21:50 Dose: 10 mg Documented by: BRNA Pharmacy Consult (Consult Rx Perform Med Rec) 1 each MISCELLANE ONCE PRN PRN Reason: Consult order Labs CBC & Chem 7: 10/18/21 10:37 10/23/21 11:13 Labs: Laboratory Results - last 24 hr 10/20/21 10/23/21 10/23/21 19:53 15:05 19:41 POC Glucose 163 H 207 H Ur Random Calcium 3.4 10/24/21 11:12 POC Glucose 290 H Ur Random Calcium Assessment and Plan (1) Toxic metabolic encephalopathy: Status: Acute (2) Hyperparathyroidism: Status: Acute (3) Bipolar disorder: Status: Acute (4) KEESHA (acute kidney injury): Status: Acute (5) Hypercalcemia: Status: Acute Plan 66yo F with bipolar disorder admitted with encephalopathy initially attributed to UTI but now likely more psychiatric in nature 1.Toxic-metabolic encephalopathy - MRI showed generalized atrophy and diffuse white matter microangiopathy - s/p treatment for UTI with no improvement in cognitive function - seen by neuro, EEG showing generalized slowing, no evidence of seizure disorder - waiting placement 2.KEESHA on CKD 3 - improved - follow renals/divalents daily - as per Nephrology if creatinine raise is greater than 1.7 lithium will be discontinued 3.HyperCalcemia - Nephrology; sensipar increased to 60 mg daily - outpt f/u with Endocrine Surgery (Dr Day at [facility] [place]) - avoid Ca, vitamin D, thiazides, NSAIDs 4. DMII -acceptable control on correction dose lispro -adjust as clinically indicated 5.Bipolar disorder - lithium resumed at lower dose # VTE ppx - SCDs will likely need 1-2 additional midnights given the need of placement Quality Stroke Does the patient have a stroke diagnosis?: Yes Reason for No Anti-thrombotic by Day Two: N/A - Med Ordered VTE Prior VTE?: No VTE Risk Level:: Medical - moderate - high VTE Device Contraindication: N/A - Device Ordered VTE Drug Contraindication: N/A - Med Ordered
[2021-10-24 12:45] LABS: Anion Gap 13 (12-20); Blood Urea Nitrogen 19 mg/dL (9-16); Calcium 11.3 mg/dL (8.4-10.2); Carbon Dioxide 25 mmol/L (22-29); Chloride 108 mmol/L (96-108); Estimated Glomerular Filt Rate 38; Glucose Random 178 mg/dL (60-115); Potassium 4.1 mmol/L (3.3-5.1); Sodium 142 mmol/L (135-145)
[2021-10-24 15:42] LABS: Glucose, Whole Blood 148 mg/dL (60-115)
[2021-10-24 20:00] VITALS: BP 133/60; PULSE 68; RESP 18; TEMP 37; O2SAT 96
[2021-10-24 20:37] LABS: Glucose, Whole Blood 176 mg/dL (60-115)
--- NOTE | 2021-10-25 01:28 | PC.NURSE ---
7p-11p; Patient allowed this rn to assess patient and vitals were taken, but patient refused all scheduled bedtime medications after multiple attempts. Dr. Wheat made aware.
[2021-10-25 09:05] LABS: Glucose, Whole Blood 203 mg/dL (60-115)
--- NOTE | 2021-10-25 10:03 | MHC.CM.PN ---
alina employment case manager note electronic medical record reviewed , case disucssed with financial service counselor, she reported she has not heard or recived any paperwork from patients health care proxy , regarding required paperwork for [facility] application. called to p[atients spon /hcp michelle man at 9;45 am , i asked him how he was coming along with gathering required [facility] paperwork, he reported to me he is working on it, i encouraged him that we need as soon as he could , as we could not place patient for mechanical project engineer care until patient has [facility] approval , he responded that he understood. i encouraged him to call ebony stebbing with any questions he may have , he reporte he had her phone number. patient continues to be followed by renal and psychiatry , daily labs neuro checks daily and physical thearpy following discharge plan mechanical project engineer care placement once [facility] application has been approved (to date application has not as yet been started waiting for paperwrok from son)
[2021-10-25] MEDS: Lithium Carbonate 300 MG CAPSULE PO ×2 (10:41→19:34)
[2021-10-25] MEDS: Cinacalcet HCl 30 MG TABLET 60 MG PO (10:42)
[2021-10-25] MEDS: Aspirin Enteric Coated 81 MG TABLET.DR PO (10:42)
[2021-10-25] MEDS: Atorvastatin Calcium 20 MG TABLET PO (10:42)
[2021-10-25 11:53] VITALS: BP 123/75; PULSE 69; RESP 18; TEMP 36.1; O2SAT 100
[2021-10-25 11:53] LABS: Glucose, Whole Blood 351 mg/dL (60-115)
[2021-10-25] MEDS: Insulin Lispro 100 UNIT/ML 3 ML VIAL SUBCUT (12:01)
--- NOTE | 2021-10-25 14:56 | P.PNIM_ITS ---
Subjective Subjective Date of Service: 10/25/21 Interval History: no acute issues overnight Review of Systems unable to obtain accurate ROS secondary to dementia Physical Exam Vital Signs: Vital Signs: Last Vital Signs Temp 96.9 F 10/25/21 11:53 Pulse 69 10/25/21 11:53 Resp 18 10/25/21 11:53 BP 123/75 10/25/21 11:53 Pulse Ox 100 10/25/21 11:53 BMI result Body Mass Index 28.8 Const: Other: awake alert no acute distress Resp: Other: clear to auscultation bilaterally no rales rhonchi wheezes Cardio: Other: no S4; positive S1-S2; no S3 murmurs rubs or gallops GI: Other: soft nontender nondistended normoactive bowel sounds Extrem: Other: no edema bilateral Objective Data Active Medications Aspirin (Aspirin Enteric Coated 81 Mg Tablet.) 81 mg PO DAILY [facility] Last Admin: 10/25/21 10:42 Dose: 81 mg Documented by: EUGENIA Atorvastatin Calcium (Atorvastatin Calcium 20 Mg Tablet) 20 mg PO DAILY [facility] Last Admin: 10/25/21 10:42 Dose: 20 mg Documented by: EUGENIA Benztropine Mesylate (Benztropine Mesylate 1 Mg Tablet) 1 mg PO BEDTIME [facility] Last Admin: 10/24/21 22:06 Dose: Not Given Documented by: ARUNA Non-Admin Reason: Patient Refused Cinacalcet (Cinacalcet Hcl 30 Mg Tablet) 60 mg PO DAILY [facility] Last Admin: 10/25/21 10:42 Dose: 60 mg Documented by: EUGENIA Dextrose (Dextrose 50 % 25 Gm/50 Ml Vial) 25 gm IVPUSH Q15M PRN; Protocol PRN Reason: per Hypoglycemia Standing Ord. Glucose (Glucose Gel 15 Gm Gel..Gram.) 15 gm PO Q15M PRN; Protocol PRN Reason: per Hypoglycemia Standing Ord. Last Admin: 10/13/21 21:16 Dose: 15 gm Documented by: LUIS Haloperidol (Haloperidol 5 Mg Tablet) 5 mg PO BEDTIME [facility] Last Admin: 10/24/21 22:07 Dose: Not Given Documented by: ARUNA Non-Admin Reason: Patient Refused Insulin Human Lispro (Insulin Lispro 100 Unit/Ml 3 Ml Vial) 0 unit SUBCUT QIDACHS [facility]; Protocol Last Admin: 10/25/21 12:01 Dose: 10 unit Documented by: EUGENIA [place] Carbonate ([place] Carbonate 300 Mg Capsule) 300 mg PO BID [facility] Last Admin: 10/25/21 10:41 Dose: 300 mg Documented by: EUGENIA Melatonin (Melatonin 3 Mg Tablet) 6 mg PO BEDTIME PRN PRN Reason: Sleep Last Admin: 10/05/21 02:21 Dose: 6 mg Documented by: LUIS Nortriptyline HCl (Nortriptyline Hcl 10 Mg Capsule) 10 mg PO BEDTIME [facility] Last Admin: 10/24/21 22:07 Dose: Not Given Documented by: ARUNA Non-Admin Reason: Patient Refused Pharmacy Consult (Consult Rx Perform Med Rec) 1 each MISCELLANE ONCE PRN PRN Reason: Consult order Labs CBC & Chem 7: 10/18/21 10:37 10/24/21 12:16 Labs: Laboratory Results - last 24 hr 10/24/21 10/24/21 10/25/21 15:38 20:17 08:58 POC Glucose 148 H 176 H 203 H 10/25/21 11:39 POC Glucose 351 H* Assessment and Plan (1) Dementia: Status: Acute Plan 66yo F with bipolar disorder admitted with encephalopathy initially attributed to UTI but now likely more psychiatric in nature 1.Toxic-metabolic encephalopathy -resolved - waiting placement 2.KEESHA on CKD 3 - improved - follow renals/divalents daily - as per Nephrology if creatinine raise is greater than 1.7 lithium will be discontinued 3.HyperCalcemia - Nephrology; sensipar increased to 60 mg daily - outpt f/u with Endocrine [place] [facility] [place] - avoid Ca, vitamin D, thiazides, NSAIDs 4. DMII -acceptable control on correction dose lispro -adjust as clinically indicated 5.Bipolar disorder - lithium resumed at lower dose # VTE ppx - SCDs Awaiting placement Quality Stroke Does the patient have a stroke diagnosis?: Yes Reason for No Anti-thrombotic by Day Two: N/A - Med Ordered VTE Prior VTE?: No VTE Risk Level:: Medical - moderate - high VTE Device Contraindication: N/A - Device Ordered VTE Drug Contraindication: N/A - Med Ordered
--- NOTE | 2021-10-25 15:58 | MHC.CLN ---
NUTRITION PATIENT WITH VARIABLE INTAKE. MD ADDED ENSURE BID TO PROVIDE ADDITIONAL 700 KCAL, 40 G PROTEIN.
[2021-10-25 16:00] VITALS: BP 128/71; PULSE 72; RESP 18; TEMP 36.2; O2SAT 100
[2021-10-25 16:38] LABS: Glucose, Whole Blood 93 mg/dL (60-115)
--- NOTE | 2021-10-25 18:35 | PM.PNNEP ---
Subjective Subjective Date of Service: 10/25/21 Principal diagnosis: KEESHA Interval history: Seen and examined, events noted Physical Exam Vital Signs: Vital Signs: Last Vital Signs Temp 97.2 F 10/25/21 16:00 Pulse 72 10/25/21 16:00 Resp 18 10/25/21 16:00 BP 128/71 10/25/21 16:00 Pulse Ox 100 10/25/21 16:00 BMI result Body Mass Index 28.8 Const: Other: General: AO X 1, no acute distress Resp: CTA bilateral CVS: S1,S2,RRR GI: +BS, NT, no distention Skin: No rash Neuro: motor grossly intact Psych: appropriate affect General: cooperative, healthy appearing, comfortable, no acute distress, alert, awake and confusion Nutritional Appearance: average body habitus and well nourished Orientation/consciousness: confusion and Other orientation findings HEENT: Head: Yes normal to inspection, Yes normocephalic and Yes atraumatic Eyes: EOM: EOMs intact bilaterally Neck: Neck: Yes normal visual inspection, Yes trachea midline, Yes supple and Yes no JVD Chest: Chest palpation & inspection: normal inspection of the chest Resp: Effort & Inspection: normal respiratory effort and able to speak in complete sentences Auscultation: clear to auscultation bilaterally and diminished lung sounds Cardio: Jugular venous distension: no JVD Rate: regular rate Rhythm: regular rhythm Heart sounds: S1 normal heart sound present and S2 normal heart sound present GI: Inspection: Yes normal to inspection and No distended Palpation (GI): Soft to palpation and nontender Auscultation: normal bowel sounds Skin: General skin exam: no rashes or lesions noted Neuro: Other: non-focal; moving all extremities; confused, follows commands General: moves all extremities and confusion Extrem: Other: moving all 4 extremities spontaneously General: Yes normal to inspection Psych: Attitude: Guarded attititude/behavior present Thought process: Flight of ideas present Thought content: Paranoid delusions present Judgement: Poor judgement present (Psych) Objective Data Labs CBC & Chem 7: 10/18/21 10:37 10/24/21 12:16 Labs: Laboratory Results - last 24 hr 10/24/21 10/25/21 10/25/21 20:17 08:58 11:39 POC Glucose 176 H 203 H 351 H* 10/25/21 16:32 POC Glucose 93 Microbiology Microbiology Results: Microbiology 10/11/21 09:13 Blood - Venous Blood Culture - Final No growth after 5 days. 10/11/21 09:19 Blood - Venous Blood Culture - Final No growth after 5 days. 10/10/21 15:52 Urine clean catch - Urine [place] top Urine Culture - Final 10/04/21 Unknown Urine clean catch - Urine [place] top Urine Culture - Final Strep agalactiae (Grp B) Procedures Date of Service Date of Service: 10/25/21 Assessment & Plan Assessment and plan (1) Hyperparathyroidism: Status: Acute (2) KEESHA (acute kidney injury): Status: Acute Assessment and Plan: 66-year-old female admitted with encephalopathy secondary to UTI,? hyperCa & KEESHA 1. KEESHA: resolving 2. HyperCa: c/w primary Hyperpara: now on sensipar but Ca still too high; will incr sensipar; to be eval as outpt fpor PTX 3. CKD 3: need to monitor renal func while on LI and track Li levels ---if Scr > 1.7 will need to stop [place] REC: cont sensipar 60 ( i ordered); needs renal labs and Ca level 2x/week for next several weeks will cont to follow with team (3) Hypercalcemia: Status: Acute Time Spent With Patient Time: Total time spent is greater than 50% in coordination of care (as documented) at patient's floor/unit and/or counseling patient: Progress Note: Quality Stroke Does the patient have a stroke diagnosis?: Yes Reason for No Anti-thrombotic by Day Two: N/A - Med Ordered
[2021-10-25 19:03] LABS: Urea, Random Urine 448 mg/dL
[2021-10-25] MEDS: Benztropine Mesylate 1 MG TABLET PO (19:34)
[2021-10-25] MEDS: HaloperidoL 5 MG TABLET PO (19:34)
[2021-10-25] MEDS: Nortriptyline HCl 10 MG CAPSULE PO (19:34)
[2021-10-25 19:55] VITALS: BP 156/68; PULSE 72; RESP 18; TEMP 36.2; O2SAT 100
[2021-10-25 20:24] LABS: Glucose, Whole Blood 229 mg/dL (60-115)
[2021-10-26 08:00] VITALS: BP 127/73; PULSE 66; RESP 18; TEMP 36; O2SAT 100
[2021-10-26 08:55] LABS: Glucose, Whole Blood 222 mg/dL (60-115)
[2021-10-26] MEDS: Cinacalcet HCl 30 MG TABLET 60 MG PO (09:55)
[2021-10-26] MEDS: Lithium Carbonate 300 MG CAPSULE PO ×2 (09:55→19:56)
[2021-10-26] MEDS: Insulin Lispro 100 UNIT/ML 3 ML VIAL SUBCUT ×2 (09:55→12:27)
[2021-10-26] MEDS: Aspirin Enteric Coated 81 MG TABLET.DR PO (09:55)
[2021-10-26] MEDS: Atorvastatin Calcium 20 MG TABLET PO (09:55)
--- NOTE | 2021-10-26 10:44 | MHC.CM.PN ---
NURSE MORTICIAN HELPER NOTE AWAITE PLAN DATE/TIME FOR TOE AMPUTAION NOW THAT FAMILY HAS AGREEDS MORTICIAN HELPER TO CONTINUE TO FOLLOW
[2021-10-26 11:51] VITALS: BP 132/72; PULSE 62; RESP 18; TEMP 36; O2SAT 100
--- NOTE | 2021-10-26 11:53 | P.PNIM_ITS ---
Subjective Subjective Date of Service: 10/26/21 Interval History: no acute issues overnight.Refused labs Review of Systems unable to obtain accurate ROS secondary to dementia Physical Exam Vital Signs: Vital Signs: Last Vital Signs Temp 96.8 F 10/26/21 11:51 Pulse 62 10/26/21 11:51 Resp 18 10/26/21 11:51 BP 132/72 10/26/21 11:51 Pulse Ox 100 10/26/21 11:51 BMI result Body Mass Index 28.8 Const: Other: awake alert no acute distress Resp: Other: clear to auscultation bilaterally no rales rhonchi wheezes Cardio: Other: no S4; positive S1-S2; no S3 murmurs rubs or gallops GI: Other: soft nontender nondistended normoactive bowel sounds Extrem: Other: no edema bilateral Objective Data Active Medications Aspirin (Aspirin Enteric Coated 81 Mg Tablet.) 81 mg PO DAILY [facility] Last Admin: 10/26/21 09:55 Dose: 81 mg Documented by: JENISE Atorvastatin Calcium (Atorvastatin Calcium 20 Mg Tablet) 20 mg PO DAILY [facility] Last Admin: 10/26/21 09:55 Dose: 20 mg Documented by: JENISE Benztropine Mesylate (Benztropine Mesylate 1 Mg Tablet) 1 mg PO BEDTIME [facility] Last Admin: 10/25/21 19:34 Dose: 1 mg Documented by: FEROZ Cinacalcet (Cinacalcet Hcl 30 Mg Tablet) 60 mg PO DAILY [facility] Last Admin: 10/26/21 09:55 Dose: 60 mg Documented by: JENISE Dextrose (Dextrose 50 % 25 Gm/50 Ml Vial) 25 gm IVPUSH Q15M PRN; Protocol PRN Reason: per Hypoglycemia Standing Ord. Glucose (Glucose Gel 15 Gm Gel..Gram.) 15 gm PO Q15M PRN; Protocol PRN Reason: per Hypoglycemia Standing Ord. Last Admin: 10/13/21 21:16 Dose: 15 gm Documented by: LUIS Haloperidol (Haloperidol 5 Mg Tablet) 5 mg PO BEDTIME [facility] Last Admin: 10/25/21 19:34 Dose: 5 mg Documented by: FEROZ Insulin Human Lispro (Insulin Lispro 100 Unit/Ml 3 Ml Vial) 0 unit SUBCUT QIDACHS [facility]; Protocol Last Admin: 10/26/21 09:55 Dose: 4 unit Documented by: JENISE [place] Carbonate ([place] Carbonate 300 Mg Capsule) 300 mg PO BID [facility] Last Admin: 10/26/21 09:55 Dose: 300 mg Documented by: JENISE Melatonin (Melatonin 3 Mg Tablet) 6 mg PO BEDTIME PRN PRN Reason: Sleep Last Admin: 10/05/21 02:21 Dose: 6 mg Documented by: LUIS Nortriptyline HCl (Nortriptyline Hcl 10 Mg Capsule) 10 mg PO BEDTIME [facility] Last Admin: 10/25/21 19:34 Dose: 10 mg Documented by: FEROZ Pharmacy Consult (Consult Rx Perform Med Rec) 1 each MISCELLANE ONCE PRN PRN Reason: Consult order Labs CBC & Chem 7: 10/18/21 10:37 10/24/21 12:16 Labs: Laboratory Results - last 24 hr 10/23/21 10/25/21 10/25/21 13:05 11:39 16:32 POC Glucose 351 H* 93 Ur Random Urea 448 10/25/21 10/26/21 20:20 08:51 POC Glucose 229 H 222 H Ur Random Urea Assessment and Plan (1) Dementia: Status: Acute Plan 66yo F with bipolar disorder admitted with encephalopathy initially attributed to UTI but now likely more psychiatric in nature 1.Toxic-metabolic encephalopathy -resolved - waiting placement 2.KEESHA on CKD 3 - improved - follow renals/divalents daily - as per Nephrology if creatinine raise is greater than 1.7 lithium will be discontinued 3.HyperCalcemia - Nephrology; sensipar increased to 60 mg daily - outpt f/u with Endocrine Surgery (Dr Day at [facility] [place] - avoid Ca, vitamin D, thiazides, NSAIDs 4. DMII -acceptable control on correction dose lispro -adjust as clinically indicated 5.Bipolar disorder - lithium resumed at lower dose # VTE ppx - SCDs Awaiting placement Quality Stroke Does the patient have a stroke diagnosis?: Yes Reason for No Anti-thrombotic by Day Two: N/A - Med Ordered VTE Prior VTE?: No VTE Risk Level:: Medical - moderate - high VTE Device Contraindication: N/A - Device Ordered VTE Drug Contraindication: N/A - Med Ordered
[2021-10-26 11:58] LABS: Glucose, Whole Blood 248 mg/dL (60-115)
[2021-10-26 15:21] VITALS: BP 125/63; PULSE 72; RESP 18; TEMP 36.4; O2SAT 99
[2021-10-26 16:31] LABS: Glucose, Whole Blood 96 mg/dL (60-115)
[2021-10-26] MEDS: Benztropine Mesylate 1 MG TABLET PO (19:56)
[2021-10-26] MEDS: Nortriptyline HCl 10 MG CAPSULE PO (19:56)
[2021-10-26] MEDS: HaloperidoL 5 MG TABLET PO (19:57)
[2021-10-27] VITALS: RESP 18
[2021-10-27 04:00] VITALS: RESP 18
--- NOTE | 2021-10-27 08:05 | HO.PM.IMPN ---
Subjective Subjective Date of Service: 10/27/21 Interval History: no acute issues overnight.Refused labs Review of Systems unable to obtain accurate ROS secondary to dementia Constitutional Constitutional: Reports no additional constitutional complaints, Denies chills and Denies fever(s) Cardiovascular Cardiovascular: Denies chest pain, Denies palpitations and Denies dyspnea Respiratory Respiratory: Denies cough and Denies dyspnea Gastrointestinal Gastrointestinal: Denies abdominal pain, Denies diarrhea, Denies nausea and Denies vomiting Neurologic Neurologic: Reports confusion Psychiatric Psychiatric: Reports confusion Endocrine Endocrine: Denies palpitations Physical Exam Vital Signs: Vital Signs: Last Vital Signs Temp 97.5 F 10/26/21 15:21 Pulse 72 10/26/21 15:21 Resp 18 10/27/21 04:00 BP 125/63 10/26/21 15:21 Pulse Ox 99 10/26/21 15:21 BMI result Body Mass Index 28.8 Const: Other: awake alert no acute distress General: confusion Orientation/consciousness: confusion Resp: Other: clear to auscultation bilaterally no rales rhonchi wheezes Cardio: Other: no S4; positive S1-S2; no S3 murmurs rubs or gallops GI: Other: soft nontender nondistended normoactive bowel sounds Neuro: General: confusion Extrem: Other: no edema bilateral Objective Data Active Medications Aspirin (Aspirin Enteric Coated 81 Mg Tablet.) 81 mg PO DAILY [facility] Last Admin: 10/26/21 09:55 Dose: 81 mg Documented by: JENISE Atorvastatin Calcium (Atorvastatin Calcium 20 Mg Tablet) 20 mg PO DAILY [facility] Last Admin: 10/26/21 09:55 Dose: 20 mg Documented by: JENISE Benztropine Mesylate (Benztropine Mesylate 1 Mg Tablet) 1 mg PO BEDTIME [facility] Last Admin: 10/26/21 19:56 Dose: 1 mg Documented by: SUSAN Cinacalcet (Cinacalcet Hcl 30 Mg Tablet) 60 mg PO DAILY [facility] Last Admin: 10/26/21 09:55 Dose: 60 mg Documented by: JENISE Dextrose (Dextrose 50 % 25 Gm/50 Ml Vial) 25 gm IVPUSH Q15M PRN; Protocol PRN Reason: per Hypoglycemia Standing Ord. Glucose (Glucose Gel 15 Gm Gel..Gram.) 15 gm PO Q15M PRN; Protocol PRN Reason: per Hypoglycemia Standing Ord. Last Admin: 10/13/21 21:16 Dose: 15 gm Documented by: LUIS Haloperidol (Haloperidol 5 Mg Tablet) 5 mg PO BEDTIME [facility] Last Admin: 10/26/21 19:57 Dose: 5 mg Documented by: SUSAN Insulin Human Lispro (Insulin Lispro 100 Unit/Ml 3 Ml Vial) 0 unit SUBCUT QIDACHS [facility]; Protocol Last Admin: 10/26/21 22:30 Dose: Not Given Documented by: SUSAN Non-Admin Reason: Patient Refused [place] Carbonate ([place] Carbonate 300 Mg Capsule) 300 mg PO BID [facility] Last Admin: 10/26/21 19:56 Dose: 300 mg Documented by: SUSAN Melatonin (Melatonin 3 Mg Tablet) 6 mg PO BEDTIME PRN PRN Reason: Sleep Last Admin: 10/05/21 02:21 Dose: 6 mg Documented by: LUIS Nortriptyline HCl (Nortriptyline Hcl 10 Mg Capsule) 10 mg PO BEDTIME [facility] Last Admin: 10/26/21 19:56 Dose: 10 mg Documented by: SUSAN Pharmacy Consult (Consult Rx Perform Med Rec) 1 each MISCELLANE ONCE PRN PRN Reason: Consult order Labs CBC & Chem 7: 10/18/21 10:37 10/24/21 12:16 Labs: Laboratory Results - last 24 hr 10/26/21 10/26/21 10/26/21 08:51 11:50 15:28 POC Glucose 222 H 248 H 96 Assessment and Plan (1) Dementia: Status: Acute Plan 66yo F with bipolar disorder admitted with encephalopathy initially attributed to UTI but now likely more psychiatric in nature 1.Toxic-metabolic encephalopathy -resolved - waiting placement 2.KEESHA on CKD 3 - improved - follow renals/divalents daily - as per Nephrology if creatinine raise is greater than 1.7 lithium will be discontinued 3.HyperCalcemia - Nephrology; sensipar increased to 60 mg daily - outpt f/u with Endocrine Surgery (Dr Day at [facility] [place]) - avoid Ca, vitamin D, thiazides, NSAIDs 4. DMII -acceptable control on correction dose lispro -adjust as clinically indicated 5.Bipolar disorder - lithium resumed at lower dose # VTE ppx - SCDs Awaiting placement Quality Stroke Does the patient have a stroke diagnosis?: Yes Reason for No Anti-thrombotic by Day Two: N/A - Med Ordered VTE Prior VTE?: No VTE Risk Level:: Medical - moderate - high VTE Device Contraindication: N/A - Device Ordered VTE Drug Contraindication: N/A - Med Ordered
[2021-10-27 10:35] VITALS: BP 121/58; PULSE 65; RESP 20; TEMP 36.6; O2SAT 92
[2021-10-27] MEDS: Cinacalcet HCl 30 MG TABLET 60 MG PO (10:39)
[2021-10-27] MEDS: Atorvastatin Calcium 20 MG TABLET PO (10:39)
[2021-10-27] MEDS: Lithium Carbonate 300 MG CAPSULE PO ×2 (10:39→20:02)
[2021-10-27] MEDS: Aspirin Enteric Coated 81 MG TABLET.DR PO (10:40)
[2021-10-27] MEDS: Insulin Lispro 100 UNIT/ML 3 ML VIAL SUBCUT ×2 (10:45→20:02)
[2021-10-27 10:55] LABS: Glucose, Whole Blood 326 mg/dL (60-115)
--- NOTE | 2021-10-27 12:28 | MHC.CM.PN ---
NURSE ELECTRICAL MAINTENANCE MAN NOTE ELECTRONIC RECORD REVIEWED AND FOLLOED UP ON NURSING HOME CARE REFERRALS DECLINED BY THE FOLLOWING ( [facility] EXTENDS PATIENTS SERVICES) 2, [facility] ARE NOT ACCEPTING [facility] PENDING PATIENTS 3. RESEND AND NEW REFERRALS WERE SENT TO THE FOLLOWING ( DEISI ANDERSON, [facility]. [facility]. [facility] JOSE PORTILLO [facility] DISCHARGE PLAN 1. FINAICIAL PAPERWORJ STILL NEEDS TO BE COMPLETED (PATIENTS SON BROUGHT SOME INTO THE FINANCIAL OFFICE ON MORE NEEED BEFORE THE PROGRAM ENGINEER [facility] APPLICATION CAN BE SENT IN #ALSO NEED TO FIND POWER OF COMPUTER GRAPHICS ILLUSTRATOR PAPERWORK TO BE ABLE TO SIGN PATIENT INTO A FACILITY. T/C TO PATIENT SON TODAY AND LEFT NMESAGE FOR HIM TO CALL ME BACK
[2021-10-27 19:29] LABS: Glucose, Whole Blood 216 mg/dL (60-115)
[2021-10-27 19:36] VITALS: BP 135/69; PULSE 71; RESP 20; TEMP 36.6; O2SAT 100
[2021-10-27] MEDS: Benztropine Mesylate 1 MG TABLET PO (20:02)
[2021-10-27] MEDS: HaloperidoL 5 MG TABLET PO (20:02)
[2021-10-27] MEDS: Nortriptyline HCl 10 MG CAPSULE PO (20:02)
[2021-10-27 20:37] LABS: Glucose, Whole Blood 217 mg/dL (60-115)
[2021-10-27 23:27] VITALS: BP 142/66; PULSE 70; RESP 16; TEMP 36; O2SAT 99
[2021-10-28 07:31] LABS: Glucose, Whole Blood 209 mg/dL (60-115)
[2021-10-28 07:36] VITALS: BP 137/69; PULSE 95; RESP 16; TEMP 36.3; O2SAT 98
[2021-10-28] MEDS: Insulin Lispro 100 UNIT/ML 3 ML VIAL SUBCUT ×2 (07:50→16:32)
[2021-10-28] MEDS: Cinacalcet HCl 30 MG TABLET 60 MG PO (07:51)
[2021-10-28] MEDS: Aspirin Enteric Coated 81 MG TABLET.DR PO (07:52)
[2021-10-28] MEDS: Lithium Carbonate 300 MG CAPSULE PO (07:52)
[2021-10-28] MEDS: Atorvastatin Calcium 20 MG TABLET PO (07:52)
--- NOTE | 2021-10-28 08:51 | P.PNIM_ITS ---
Subjective Subjective Date of Service: 10/28/21 Interval History: no acute issues overnight.Refused labs Review of Systems unable to obtain accurate ROS secondary to dementia Physical Exam Vital Signs: Vital Signs: Last Vital Signs Temp 97.3 F 10/28/21 07:36 Pulse 95 10/28/21 07:36 Resp 16 10/28/21 07:36 BP 137/69 10/28/21 07:36 Pulse Ox 98 10/28/21 07:36 BMI result Body Mass Index 28.8 Const: Other: awake alert no acute distress Resp: Other: clear to auscultation bilaterally no rales rhonchi wheezes Cardio: Other: no S4; positive S1-S2; no S3 murmurs rubs or gallops GI: Other: soft nontender nondistended normoactive bowel sounds Extrem: Other: no edema bilateral Objective Data Active Medications Aspirin (Aspirin Enteric Coated 81 Mg Tablet.) 81 mg PO DAILY [facility] Last Admin: 10/28/21 07:52 Dose: 81 mg Documented by: GUY Atorvastatin Calcium (Atorvastatin Calcium 20 Mg Tablet) 20 mg PO DAILY [facility] Last Admin: 10/28/21 07:52 Dose: 20 mg Documented by: GUY Benztropine Mesylate (Benztropine Mesylate 1 Mg Tablet) 1 mg PO BEDTIME [facility] Last Admin: 10/27/21 20:02 Dose: 1 mg Documented by: BRAN Cinacalcet (Cinacalcet Hcl 30 Mg Tablet) 60 mg PO DAILY [facility] Last Admin: 10/28/21 07:51 Dose: 60 mg Documented by: GUY Dextrose (Dextrose 50 % 25 Gm/50 Ml Vial) 25 gm IVPUSH Q15M PRN; Protocol PRN Reason: per Hypoglycemia Standing Ord. Glucose (Glucose Gel 15 Gm Gel..Gram.) 15 gm PO Q15M PRN; Protocol PRN Reason: per Hypoglycemia Standing Ord. Last Admin: 10/13/21 21:16 Dose: 15 gm Documented by: LUIS Haloperidol (Haloperidol 5 Mg Tablet) 5 mg PO BEDTIME [facility] Last Admin: 10/27/21 20:02 Dose: 5 mg Documented by: BRAN Insulin Human Lispro (Insulin Lispro 100 Unit/Ml 3 Ml Vial) 0 unit SUBCUT Q IDACHS [facility]; Protocol Last Admin: 10/28/21 07:50 Dose: 4 unit Documented by: GUY [place] Carbonate ([place] Carbonate 300 Mg Capsule) 300 mg PO BID [facility] Last Admin: 10/28/21 07:52 Dose: 300 mg Documented by: GUY Melatonin (Melatonin 3 Mg Tablet) 6 mg PO BEDTIME PRN PRN Reason: Sleep Last Admin: 10/05/21 02:21 Dose: 6 mg Documented by: LUIS Nortriptyline HCl (Nortriptyline Hcl 10 Mg Capsule) 10 mg PO BEDTIME [facility] Last Admin: 10/27/21 20:02 Dose: 10 mg Documented by: BRAN Pharmacy Consult (Consult Rx Perform Med Rec) 1 each MISCELLANE ONCE PRN PRN Reason: Consult order Labs CBC & Chem 7: 10/18/21 10:37 10/24/21 12:16 Labs: Laboratory Results - last 24 hr 10/27/21 10/27/21 10/27/21 10:39 19:25 20:33 POC Glucose 326 H 216 H 217 H 10/28/21 07:28 POC Glucose 209 H Assessment and Plan (1) Bipolar disorder: Status: Acute (2) KEESHA (acute kidney injury): Status: Acute Plan 66yo F with bipolar disorder admitted with encephalopathy initially attributed to UTI but now likely more psychiatric in nature 1.Bipolar disorder - lithium resumed at lower dose -awaiting placement 2.KEESHA on CKD 3 - improved - follow renals/divalents daily - as per Nephrology if creatinine raise is greater than 1.7 lithium will be discontinued 3.HyperCalcemia - Nephrology; sensipar increased to 60 mg daily - outpt f/u with Endocrine Surgery (Dr Day at [facility] [place]) - avoid Ca, vitamin D, thiazides, NSAIDs 4. DMII -acceptable control on correction dose lispro -adjust as clinically indicated Ambulatory Full Jewelry Coater Awaiting placement Quality Stroke Does the patient have a stroke diagnosis?: Yes Reason for No Anti-thrombotic by Day Two: N/A - Med Ordered VTE Prior VTE?: No VTE Risk Level:: Medical - moderate - high VTE Device Contraindication: N/A - Device Ordered VTE Drug Contraindication: N/A - Med Ordered
[2021-10-28 11:38] LABS: Glucose, Whole Blood 168 mg/dL (60-115)
[2021-10-28 16:33] LABS: Glucose, Whole Blood 245 mg/dL (60-115)
[2021-10-28 16:36] VITALS: PULSE 61; RESP 16; TEMP 36.1; O2SAT 100
[2021-10-28 19:31] VITALS: BP 142/57; PULSE 70; RESP 16; TEMP 36.6; O2SAT 100
--- NOTE | 2021-10-29 07:39 | PC.NURSE ---
BENJI Schultz attempted to obtain vitals and POC, pt refused POC. This nurse attempted as well and pt. still refused.
--- NOTE | 2021-10-29 08:35 | P.PNIM_ITS ---
Subjective Subjective Date of Service: 10/29/21 Interval History: no acute issues overnight.Refused labs Review of Systems unable to obtain accurate ROS secondary to dementia Constitutional Constitutional: Reports no additional constitutional complaints, Denies chills and Denies fever(s) Cardiovascular Cardiovascular: Denies chest pain, Denies palpitations and Denies dyspnea Respiratory Respiratory: Denies cough and Denies dyspnea Gastrointestinal Gastrointestinal: Denies abdominal pain, Denies diarrhea, Denies nausea and De nies vomiting Neurologic Neurologic: Reports confusion Psychiatric Psychiatric: Reports confusion Endocrine Endocrine: Denies palpitations Physical Exam Vital Signs: Vital Signs: Last Vital Signs Temp 97.9 F 10/28/21 19:31 Pulse 70 10/28/21 19:31 Resp 16 10/28/21 19:31 BP 142/57 H 10/28/21 19:31 Pulse Ox 100 10/28/21 19:31 BMI result Body Mass Index 28.8 Const: Other: awake alert no acute distress General: confusion Orientation/consciousness: confusion Resp: Other: clear to auscultation bilaterally no rales rhonchi wheezes Cardio: Other: no S4; positive S1-S2; no S3 murmurs rubs or gallops GI: Other: soft nontender nondistended normoactive bowel sounds Neuro: General: confusion Extrem: Other: no edema bilateral Objective Data Active Medications Aspirin (Aspirin Enteric Coated 81 Mg Tablet.) 81 mg PO DAILY [facility] Last Admin: 10/28/21 07:52 Dose: 81 mg Documented by: GUY Atorvastatin Calcium (Atorvastatin Calcium 20 Mg Tablet) 20 mg PO DAILY [facility] Last Admin: 10/28/21 07:52 Dose: 20 mg Documented by: GUY Benztropine Mesylate (Benztropine Mesylate 1 Mg Tablet) 1 mg PO BEDTIME [facility] Last Admin: 10/28/21 21:24 Dose: Not Given Documented by: MAURISIO Non-Admin Reason: Patient Refused Cinacalcet (Cinacalcet Hcl 30 Mg Tablet) 60 mg PO DAILY [facility] Last Admin: 10/28/21 07:51 Dose: 60 mg Documented by: GUY Dextrose (Dextrose 50 % 25 Gm/50 Ml Vial) 25 gm IVPUSH Q15M PRN; Protocol PRN Reason: per Hypoglycemia Standing Ord. Glucose (Glucose Gel 15 Gm Gel..Gram.) 15 gm PO Q15M PRN; Protocol PRN Reason: per Hypoglycemia Standing Ord. Last Admin: 10/13/21 21:16 Dose: 15 gm Documented by: ULIS Haloperidol (Haloperidol 5 Mg Tablet) 5 mg PO BEDTIME [facility] Last Admin: 10/28/21 21:24 Dose: Not Given Documented by: MAURISIO Non-Admin Reason: Patient Refused Insulin Human Lispro (Insulin Lispro 100 Unit/Ml 3 Ml Vial) 0 unit SUBCUT QIDACHS [facility]; Protocol Last Admin: 10/29/21 07:31 Dose: Not Given Documented by: FEROZ Non-Admin Reason: patient refused POC [place] Carbonate ([place] Carbonate 300 Mg Capsule) 300 mg PO BID [facility] Last Admin: 10/28/21 21:24 Dose: Not Given Documented by: MAURISIO Non-Admin Reason: Patient Refused Melatonin (Melatonin 3 Mg Tablet) 6 mg PO BEDTIME PRN PRN Reason: Sleep Last Admin: 10/05/21 02:21 Dose: 6 mg Documented by: LUIS Nortriptyline HCl (Nortriptyline Hcl 10 Mg Capsule) 10 mg PO BEDTIME [facility] Last Admin: 10/28/21 21:24 Dose: Not Given Documented by: MAURISIO Non-Admin Reason: Patient Refused Pharmacy Consult (Consult Rx Perform Med Rec) 1 each MISCELLANE ONCE PRN PRN Reason: Consult order Labs CBC & Chem 7: 10/18/21 10:37 10/24/21 12:16 Labs: Laboratory Results - last 24 hr 10/28/21 10/28/21 11:36 16:28 POC Glucose 168 H 245 H Assessment and Plan (1) Bipolar disorder: Status: Acute (2) KEESHA (acute kidney injury): Status: Acute Plan 66yo F with bipolar disorder admitted with encephalopathy initially attributed to UTI but now likely more psychiatric in nature 1.Bipolar disorder - lithium resumed at lower dose -awaiting placement 2.KEESHA on CKD 3 - improved - follow renals/divalents daily - as per Nephrology if creatinine raise is greater than 1.7 lithium will be discontinued 3.HyperCalcemia - Nephrology; sensipar increased to 60 mg daily - outpt f/u with Endocrine Surgery (Dr Day at [facility] [place]) - avoid Ca, vitamin D, thiazides, NSAIDs 4. 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
[2021-10-29 11:40] LABS: Glucose, Whole Blood 342 mg/dL (60-115)
[2021-10-29 12:00] VITALS: BP 133/65; PULSE 130; RESP 20; TEMP 36.2; O2SAT 100
[2021-10-29] MEDS: Insulin Lispro 100 UNIT/ML 3 ML VIAL SUBCUT ×2 (12:10→17:41)
[2021-10-29 16:00] VITALS: BP 156/67; PULSE 72; RESP 18; TEMP 36.9; O2SAT 100
[2021-10-29 16:27] LABS: Glucose, Whole Blood 187 mg/dL (60-115)
[2021-10-29 20:00] VITALS: BP 154/64; PULSE 70; RESP 18; TEMP 37.1; O2SAT 100
[2021-10-29 20:28] LABS: Glucose, Whole Blood 243 mg/dL (60-115)
[2021-10-30] VITALS: RESP 18
[2021-10-30 03:26] VITALS: BP 122/81; PULSE 120; RESP 20; TEMP 36.6; O2SAT 100
[2021-10-30 08:00] VITALS: BP 153/68; PULSE 70; RESP 18; TEMP 36.6; O2SAT 100
[2021-10-30 08:34] LABS: Glucose, Whole Blood 240 mg/dL (60-115)
[2021-10-30] MEDS: Cinacalcet HCl 30 MG TABLET 60 MG PO (09:48)
[2021-10-30] MEDS: Atorvastatin Calcium 20 MG TABLET PO (09:48)
[2021-10-30] MEDS: Aspirin Enteric Coated 81 MG TABLET.DR PO (09:48)
[2021-10-30] MEDS: Insulin Lispro 100 UNIT/ML 3 ML VIAL SUBCUT ×3 (09:48→23:30)
[2021-10-30] MEDS: Lithium Carbonate 300 MG CAPSULE PO ×2 (09:48→19:28)
[2021-10-30 11:24] LABS: Glucose, Whole Blood 349 mg/dL (60-115)
--- NOTE | 2021-10-30 13:12 | P.PNIM_ITS ---
Subjective Subjective Date of Service: 10/30/21 Interval History: No acute issues overnight. Continues to await placement Review of Systems Denies chest pain Denies shortness of breath Denies nausea vomiting diarrhea Constitutional Constitutional: Reports no additional constitutional complaints, Denies chills and Denies fever(s) Cardiovascular Cardiovascular: Denies chest pain, Denies palpitations and Denies dyspnea Respiratory Respiratory: Denies cough and Denies dyspnea Gastrointestinal Gastrointestinal: Denies abdominal pain, Denies diarrhea, Denies nausea and Denies vomiting Neurologic Neurologic: Reports confusion Psychiatric Psychiatric: Reports confusion Endocrine Endocrine: Denies palpitations Physical Exam Vital Signs: Vital Signs: Last Vital Signs Temp 97.8 F 10/30/21 08:00 Pulse 70 10/30/21 08:00 Resp 18 10/30/21 08:00 BP 153/68 H 10/30/21 08:00 Pulse Ox 100 10/30/21 08:00 BMI result Body Mass Index 28.8 Const: General: cooperative, healthy appearing, comfortable, no acute di stress, alert, awake and confusion Nutritional Appearance: average body h abitus and well nourished Orientation/consciousness: confusion Resp: Effort & Inspection: normal respiratory effort and able to speak in complete sentences Auscultation: clear to auscultation bilaterally Cardio: Rate: regular rate Heart sounds: S1 normal heart sound present and S2 normal heart sound present GI: Inspection: No distended Palpation (GI): Soft to palpation and nontender Neuro: General: confusion Objective Data Active Medications Aspirin (Aspirin Enteric Coated 81 Mg Tablet.) 81 mg PO DAILY [facility] Last Admin: 10/30/21 09:48 Dose: 81 mg Documented by: NORM Atorvastatin Calcium (Atorvastatin Calcium 20 Mg Tablet) 20 mg PO DAILY [facility] Last Admin: 10/30/21 09:48 Dose: 20 mg Documented by: NORM Benztropine Mesylate (Benztropine Mesylate 1 Mg Tablet) 1 mg PO BEDTIME [facility]S [facility] Last Admin: 10/29/21 22:27 Dose: Not Given Documented by: JOSE RAMON Non-Admin Reason: Patient Refused Cinacalcet (Cinacalcet Hcl 30 Mg Tablet) 60 mg PO DAILY [facility] Last Admin: 10/30/21 09:48 Dose: 60 mg Documented by: NORM Dextrose (Dextrose 50 % 25 Gm/50 Ml Vial) 25 gm IVPUSH Q15M PRN; Protocol PRN Reason: per Hypoglycemia Standing Ord. Glucose (Glucose Gel 15 Gm Gel..Gram.) 15 gm PO Q15M PRN; Protocol PRN Reason: per Hypoglycemia Standing Ord. Last Admin: 10/13/21 21:16 Dose: 15 gm Documented by: LUIS Haloperidol (Haloperidol 5 Mg Tablet) 5 mg PO BEDTIME [facility]S [facility] Last Admin: 10/29/21 22:27 Dose: Not Given Documented by: JOSE RAMON Non-Admin Reason: Patient Refused Insulin Human Lispro (Insulin Lispro 100 Unit/Ml 3 Ml Vial) 0 unit SUBCUT QIDACHS [facility]S [facility]; Protocol Last Admin: 10/30/21 12:44 Dose: 8 unit Documented by: NORM [place] Carbonate ([place] Carbonate 300 Mg Capsule) 300 mg PO BID [facility]S AT [facility] Last Admin: 10/30/21 09:48 Dose: 300 mg Documented by: NORM Melatonin (Melatonin 3 Mg Tablet) 6 mg PO BEDTIME PRN PRN Reason: Sleep Last Admin: 10/05/21 02:21 Dose: 6 mg Documented by: LUIS Nortriptyline HCl (Nortriptyline Hcl 10 Mg Capsule) 10 mg PO BEDTIME [facility] 234 [facility]S AT [facility] Last Admin: 10/29/21 22:28 Dose: Not Given Documented by: JOSE RAMON Non-Admin Reason: Patient Refused Pharmacy Consult (Consult Rx Perform Med Rec) 1 each MISCELLANE ONCE PRN PRN Reason: Consult order Labs CBC & Chem 7: 10/18/21 10:37 10/24/21 12:16 Labs: Laboratory Results - last 24 hr 10/29/21 10/29/21 10/30/21 16:18 20:25 08:31 POC Glucose 187 H 243 H 240 H 10/30/21 11:19 POC Glucose 349 H Assessment and Plan (1) Dementia: Status: Acute Plan 66yo F with bipolar disorder admitted with encephalopathy initially attributed to UTI but now likely more psychiatric in nature 1.Bipolar disorder - lithium resumed at lower dose -awaiting placement 2.KEESHA on CKD 3 - improved -? follow renals/divalents daily - as per Nephrology if creatinine raise is greater than 1.7 lithium will be discontinued 3.HyperCalcemia - Nephrology; sensipar? increased to 60 mg daily - outpt f/u with Endocrine Surgery (Dr Day at [facility] [place]) - avoid Ca, vitamin D, thiazides, NSAIDs 4. DMII -acceptable control on correction dose lispro -adjust as clinically indicated Quality Stroke Does the patient have a stroke diagnosis?: Yes Reason for No Anti-thrombotic by Day Two: N/A - Med Ordered VTE Prior VTE?: No VTE Risk Level:: Medical - moderate - high VTE Device Contraindication: N/A - Device Ordered VTE Drug Contraindication: N/A - Med Ordered
[2021-10-30 15:19] VITALS: BP 145/70; PULSE 70; RESP 18; TEMP 36.5; O2SAT 100
--- NOTE | 2021-10-30 15:26 | MHC.CM.PN ---
Addendum entered by Bailey Vargas 10/30/21 16:04: of the several referrals sent declined [facility]aruy to [facility], [facility] and continueing to follow Original Note: NURSE YEAST STACKER NOTE ELECTRONIC MEDICAL RECORD REVIEWED , CASE DISCUSSED WITH STAFF NURSE AND HOSP;PL=ITALIST . PATIENT WAS EVALUATED BY PSYCHIATRY ON . PER DOCUMENTATION ( Psychiatric History: History of bipolar disorder. Outpatient psychiatrist Dr. Rosa Faulkner prescribes lithium ER 900 mg at bedtime, Haldol 10 mg at bedtime, nortriptyline 10 mg at bedtime., benzotropine at bedtime.0 patient was initial;ly refusing to eat , whe is now doing much better with thsi, she continues to refuse lab draws, and at times refuses her haldol at night patientwas denied by anisha for str , and we are looking for long nterm placement , son michelle has been working with [employer] financial counselor and has brought some papser work in already , still needs more , they would like the [facility] for placeksn discharge plan once [facility] application has been complete and sent in. 2. and [facility] has been approved patient [facility] be [facility]) family would like the [facility] R/C TO MICHELLE TODAY UNABLE TO REACH HIM , MESSAGE LEFT FOR [place] TO RETURN BY CALL WHEN AVAIABLE
[2021-10-30 16:35] LABS: Glucose, Whole Blood 113 mg/dL (60-115)
[2021-10-30] MEDS: Benztropine Mesylate 1 MG TABLET PO (19:27)
[2021-10-30] MEDS: Nortriptyline HCl 10 MG CAPSULE PO (19:28)
[2021-10-30] MEDS: HaloperidoL 5 MG TABLET PO (19:28)
[2021-10-30 20:00] VITALS: RESP 20
[2021-10-30 20:53] LABS: Glucose, Whole Blood 321 mg/dL (60-115)
[2021-10-31 07:24] LABS: Glucose, Whole Blood 232 mg/dL (60-115)
[2021-10-31 08:00] VITALS: BP 135/86; PULSE 69; RESP 19; TEMP 36.5; O2SAT 97
[2021-10-31] MEDS: Insulin Lispro 100 UNIT/ML 3 ML VIAL SUBCUT ×4 (08:17→20:10)
[2021-10-31] MEDS: Lithium Carbonate 300 MG CAPSULE PO ×2 (08:17→20:09)
[2021-10-31] MEDS: Aspirin Enteric Coated 81 MG TABLET.DR PO (08:17)
[2021-10-31] MEDS: Atorvastatin Calcium 20 MG TABLET PO (08:17)
[2021-10-31 11:40] VITALS: BP 134/63; PULSE 76; RESP 17; TEMP 36.3; O2SAT 98
--- NOTE | 2021-10-31 12:39 | HO.PM.IMPN ---
Subjective Subjective Date of Service: 10/31/21 Interval History: no complaints awaiting placement Review of Systems Review of Systems: Yes all other systems are reviewed and are negative Physical Exam Vital Signs: Vital Signs: Last Vital Signs Temp 97.3 F 10/31/21 11:40 Pulse 76 10/31/21 11:40 Resp 17 10/31/21 11:40 BP 134/63 10/31/21 11:40 Pulse Ox 98 10/31/21 11:40 BMI result Body Mass Index 28.8 Gen: in no acute distress HEENT: sclera anicteric, moist mucus membranes Neck: supple Lungs: clear to auscultation bilaterally Heart: regular rate and rhythm, no murmurs Abd: soft, non-tender, non-distended Ext: no edema Skin: warm/well-perfused Neuro: disoriented Psych: impaired insight Objective Data Active Medications Aspirin (Aspirin Enteric Coated 81 Mg Tablet.) 81 mg PO DAILY [facility] Last Admin: 10/31/21 08:17 Dose: 81 mg Documented by: REYMUNDO Atorvastatin Calcium (Atorvastatin Calcium 20 Mg Tablet) 20 mg PO DAILY [facility] Last Admin: 10/31/21 08:17 Dose: 20 mg Documented by: REYMUNDO Benztropine Mesylate (Benztropine Mesylate 1 Mg Tablet) 1 mg PO BEDTIME [facility] Last Admin: 10/30/21 19:27 Dose: 1 mg Documented by: JOSE RAMON Cinacalcet (Cinacalcet Hcl 30 Mg Tablet) 60 mg PO DAILY [facility] Last Admin: 10/31/21 11:40 Dose: Not Given Documented by: REYMUNDO Non-Admin Reason: not available pharmacy CALLED Dextrose (Dextrose 50 % 25 Gm/50 Ml Vial) 25 gm IVPUSH Q15M PRN; Protocol PRN Reason: per Hypoglycemia Standing Ord. Glucose (Glucose Gel 15 Gm Gel..Gram.) 15 gm PO Q15M PRN; Protocol PRN Reason: per Hypoglycemia Standing Ord. Last Admin: 10/13/21 21:16 Dose: 15 gm Documented by: LUIS Haloperidol (Haloperidol 5 Mg Tablet) 5 mg PO BEDTIME [facility] Last Admin: 10/30/21 19:28 Dose: 5 mg Documented by: JOSE RAMON Insulin Human Lispro (Insulin Lispro 100 Unit/Ml 3 Ml Vial) 0 unit SUBCUT QIDACHS [facility]; Protocol Last Admin: 10/31/21 11:40 Dose: 10 unit Documented by: REYMUNDO [place] Carbonate ([place] Carbonate 300 Mg Capsule) 300 mg PO BID [facility] Last Admin: 10/31/21 08:17 Dose: 300 mg Documented by: REYMUNDO Melatonin (Melatonin 3 Mg Tablet) 6 mg PO BEDTIME PRN PRN Reason: Sleep Last Admin: 10/05/21 02:21 Dose: 6 mg Documented by: LUIS Nortriptyline HCl (Nortriptyline Hcl 10 Mg Capsule) 10 mg PO BEDTIME [facility] Last Admin: 10/30/21 19:28 Dose: 10 mg Documented by: JOSE RAMON Pharmacy Consult (Consult Rx Perform Med Rec) 1 each MISCELLANE ONCE PRN PRN Reason: Consult order Labs CBC & Chem 7: 10/18/21 10:37 10/24/21 12:16 Labs: Laboratory Results - last 24 hr 10/30/21 10/30/21 10/31/21 16:29 20:45 07:18 POC Glucose 113 321 H 232 H Assessment and Plan (1) Dementia: Status: Acute Plan hospital d#[id number] 66yo F with bipolar disorder admitted with encephalopathy initially attributed to UTI but now likely more psychiatric in nature # toxic-metabolic encephalopathy superimposed on likely underlying dementia of probable vascular cause with behavioral agitation - MRI showed generalized atrophy and diffuse white matter microangiopathy - s/p treatment for UTI with no improvement in cognitive function - seen by neuro, EEG showing generalized slowing, no evidence of seizure disorder - B12, folate, TSH, RPR WNL - per PT, not a rehab candidate - per Dr Holland's discussion with family, patient was high-functioning prior to admission; using public tranportation, ambulating without difficulty, living alone and independently in her apartment - after all this workup, it is fairly certain that her mental status changes are due to dementia + decompensated bipolar disorder and she is improving back on lithium # bipolar disorder - lithium, haloperidol, benztropine, nortriptyline # KEESHA/CKD3 - check BMP and lithium level tomorrow AM - as per Nephrology if creatinine raise is greater than 1.7 lithium will be discontinued # hyperCa - due to underlying primary hyperparathyroidism and exacerbated by lithium - not likely at this level to be contributing to her mental status changes - Nephrology following, started on cincalcet 30 mg daily, increased to 60 mg daily - outpt f/u [place] Endocrine [place] [facility] [place] - avoid Ca, vitamin D, thiazides, NSAIDs # DM2 with hyperglycemia - increased sliding scale lispro # Streptococcus agalactiae UTI - completed 5-day ABX course # HLD - statin # VTE ppx - SCDs # dispo - CM working on LTC placement/payment issues Quality Stroke Does the patient have a stroke diagnosis?: Yes Reason for No Anti-thrombotic by Day Two: N/A - Med Ordered VTE Prior VTE?: No VTE Risk Level:: Medical - moderate - high VTE Device Contraindication: N/A - Device Ordered VTE Drug Contraindication: N/A - Med Ordered
[2021-10-31 12:42] LABS: Glucose, Whole Blood 311 mg/dL (60-115)
--- NOTE | 2021-10-31 15:02 | MHC.CM.PN ---
nurse adult protective caseworker note electronic medical record reviewed patient needs intermediate teacher placement and awaiting all finanicals to be secured and then [facility] looking to find ltc facility that is interested in patient denied by [facility], [facility], [facility] ,[facility] nursing care needs exceed current capacility. the following facilityies are following [facility], [facility], [facility], [facility] du[facility]charge plan [facility] care placement (
[2021-10-31 15:44] VITALS: BP 131/62; PULSE 85; RESP 18; TEMP 36.4; O2SAT 99
--- NOTE | 2021-10-31 15:59 | MHC.CM.PN ---
NURSE CASE MANAGEMENT NOTE ELECTRONIC MEDICAL RECORD REVIEWED CASE DISCUSSED WITH HOSPITALIST, , NO CHANGE IN CURRENT TREAMENT PLAN , REIED TO REACH DANG PEARCETYSHAWN COMPLETION OF OBTAINING FINANCIALS NO ANSWER FOR [facility] PLACEMENT
[2021-10-31 16:22] LABS: Glucose, Whole Blood 298 mg/dL (60-115)
[2021-10-31 19:07] VITALS: BP 138/63; PULSE 71; RESP 17; TEMP 36.3; O2SAT 98
[2021-10-31 19:44] LABS: Glucose, Whole Blood 218 mg/dL (60-115)
[2021-10-31] MEDS: HaloperidoL 5 MG TABLET PO (20:09)
[2021-10-31] MEDS: Melatonin 3 MG TABLET 6 MG PO (20:09)
[2021-10-31] MEDS: Nortriptyline HCl 10 MG CAPSULE PO (20:09)
[2021-10-31] MEDS: Benztropine Mesylate 1 MG TABLET PO (20:09)
[2021-11-01 07:37] VITALS: BP 162/72; PULSE 69; RESP 17; TEMP 36.6; O2SAT 95
[2021-11-01 07:44] LABS: Glucose, Whole Blood 249 mg/dL (60-115)
[2021-11-01] MEDS: Insulin Lispro 100 UNIT/ML 3 ML VIAL SUBCUT ×3 (08:00→16:40)
[2021-11-01] MEDS: Lithium Carbonate 300 MG CAPSULE PO (08:00)
[2021-11-01] MEDS: Aspirin Enteric Coated 81 MG TABLET.DR PO (08:00)
[2021-11-01] MEDS: Atorvastatin Calcium 20 MG TABLET PO (08:00)
[2021-11-01] MEDS: Cinacalcet HCl 30 MG TABLET 60 MG PO (08:00)
--- NOTE | 2021-11-01 10:14 | P.PNIM_ITS ---
Subjective Subjective Date of Service: 11/01/21 Interval History: Denies BUNDY, chest pain, dyspnea, nausea, or abd pain Awaiting AM labs Review of Systems Review of Systems: Yes all other systems are reviewed and are negative Physical Exam Vital Signs: Vital Signs: Last Vital Signs Temp 97.9 F 11/01/21 07:37 Pulse 69 11/01/21 07:37 Resp 17 11/01/21 07:37 BP 162/72 H 11/01/21 07:37 Pulse Ox 95 11/01/21 07:37 BMI result Body Mass Index 28.8 Gen: in no acute distress HEENT: sclera anicteric, moist mucus membranes Neck: supple Lungs: clear to auscultation bilaterally Heart: regular rate and rhythm, no murmurs Abd: soft, non-tender, non-distended Ext: no edema Skin: warm/well-perfused Neuro: disoriented Psych: impaired insight Objective Data Active Medications Aspirin (Aspirin Enteric Coated 81 Mg Tablet.) 81 mg PO DAILY [facility] Last Admin: 11/01/21 08:00 Dose: 81 mg Documented by: BLOSSOM Atorvastatin Calcium (Atorvastatin Calcium 20 Mg Tablet) 20 mg PO DAILY [facility] Last Admin: 11/01/21 08:00 Dose: 20 mg Documented by: BLOSSOM Benztropine Mesylate (Benztropine Mesylate 1 Mg Tablet) 1 mg PO BEDTIME [facility] Last Admin: 10/31/21 20:09 Dose: 1 mg Documented by: MELISSA Cinacalcet (Cinacalcet Hcl 30 Mg Tablet) 60 mg PO DAILY [facility] Last Admin: 11/01/21 08:00 Dose: 60 mg Documented by: BLOSSOM Dextrose (Dextrose 50 % 25 Gm/50 Ml Vial) 25 gm IVPUSH Q15M PRN; Protocol PRN Reason: per Hypoglycemia Standing Ord. Glucose (Glucose Gel 15 Gm Gel..Gram.) 15 gm PO Q15M PRN; Protocol PRN Reason: per Hypoglycemia Standing Ord. Last Admin: 10/13/21 21:16 Dose: 15 gm Documented by: LUIS Haloperidol (Haloperidol 5 Mg Tablet) 5 mg PO BEDTIME [facility] Last Admin: 10/31/21 20:09 Dose: 5 mg Documented by: MELISSA Insulin Human Lispro (Insulin Lispro 100 Unit/Ml 3 Ml Vial) 0 unit SUBCUT QIDACHS [facility]; Protocol Last Admin: 11/01/21 08:00 Dose: 6 unit Documented by: BLOSSOM [place] Carbonate ([place] Carbonate 300 Mg Capsule) 300 mg PO BID [facility] Last Admin: 11/01/21 08:00 Dose: 300 mg Documented by: BLOSSOM Melatonin (Melatonin 3 Mg Tablet) 6 mg PO BEDTIME PRN PRN Reason: Sleep Last Admin: 10/31/21 20:09 Dose: 6 mg Documented by: MELISSA Nortriptyline HCl (Nortriptyline Hcl 10 Mg Capsule) 10 mg PO BEDTIME [facility] Last Admin: 10/31/21 20:09 Dose: 10 mg Documented by: MELISSA Pharmacy Consult (Consult Rx Perform Med Rec) 1 each MISCELLANE ONCE PRN PRN Reason: Consult order Labs CBC & Chem 7: 10/18/21 10:37 10/24/21 12:16 Labs: Laboratory Results - last 24 hr 10/31/21 10/31/21 10/31/21 11:38 15:46 19:11 POC Glucose 311 H 298 H 218 H 11/01/21 07:36 POC Glucose 249 H Assessment and Plan (1) Dementia: Status: Acute Plan hospital d#29 66yo F with bipolar disorder admitted with encephalopathy initially attributed to UTI but now likely more psychiatric in nature # toxic-metabolic encephalopathy superimposed on likely underlying dementia of probable vascular cause with behavioral agitation - MRI showed generalized atrophy and diffuse white matter microangiopathy - s/p treatment for UTI with no improvement in cognitive function - seen by neuro, EEG showing generalized slowing, no evidence of seizure disorder - B12, folate, TSH, RPR WNL - per PT, not a rehab candidate - per Dr Holland's discussion with family, patient was high-functioning prior to admission; using public tranportation, ambulating without difficulty, living alone and independently in her apartment - after all this workup, it is fairly certain that her mental status changes are due to dementia + decompensated bipolar disorder and she is improving back on lithium # bipolar disorder - lithium, haloperidol, benztropine, nortriptyline # KEESHA/CKD3 - check BMP and lithium level today - as per Nephrology if creatinine raise is greater than 1.7 lithium will be discontinued # hyperCa - due to underlying primary hyperparathyroidism and exacerbated by lithium - not likely at this level to be contributing to her mental status changes - Nephrology following, started on cincalcet 30 mg daily, increased to 60 mg daily - outpt f/u with Endocrine Surgery [place] Day at [facility] [place] - avoid Ca, vitamin D, thiazides, NSAIDs # DM2 with hyperglycemia - increased sliding scale lispro yesterday # Streptococcus agalactiae UTI - completed 5-day ABX course # HLD - statin # VTE ppx - SCDs # dispo - CM working on LTC placement/payment issues Quality Stroke Does the patient have a stroke diagnosis?: Yes Reason for No Anti-thrombotic by Day Two: N/A - Med Ordered VTE Prior VTE?: No VTE Risk Level:: Medical - moderate - high VTE Device Contraindication: N/A - Device Ordered VTE Drug Contraindication: N/A - Med Ordered
[2021-11-01 11:20] LABS: Glucose, Whole Blood 536 mg/dL (60-115)
[2021-11-01] MEDS: Insulin Glargine,Hum.rec.anlog 100 UNIT/ML 10 ML VIAL 10 UNIT SUBCUT (11:48)
[2021-11-01 12:00] VITALS: BP 152/70; PULSE 69; RESP 16; TEMP 36.7; O2SAT 95
--- NOTE | 2021-11-01 13:29 | MHC.CLN ---
F/U DIET=DIABETIC 2000 KCAL. SUPPLEMENT ENSURE BID. ELEVATED POC GLUCOSE NOTED. INTAKE AT MEALS USUALLY 75-100%. RECOMMEND DISCONTINUE SUPPLEMENT DUE TO USUALLY GOOD INTAKE AT MEALS.
[2021-11-01 15:14] VITALS: BP 140/73; PULSE 72; RESP 18; TEMP 36.9; O2SAT 99
[2021-11-01 16:06] LABS: Glucose, Whole Blood 176 mg/dL (60-115)
[2021-11-01 16:07] LABS: Glucose Random 163 mg/dL (60-115)
[2021-11-01 20:00] VITALS: BP 140/70; PULSE 70; RESP 17; TEMP 36.6; O2SAT 100
[2021-11-01 20:13] LABS: Glucose, Whole Blood 253 mg/dL (60-115)
[2021-11-02] VITALS: BP 131/87; PULSE 70; RESP 18; TEMP 36.3; O2SAT 98
[2021-11-02 07:11] VITALS: BP 173/67; PULSE 77; RESP 17; TEMP 36.2; O2SAT 97
[2021-11-02 07:12] LABS: Glucose, Whole Blood 231 mg/dL (60-115)
[2021-11-02] MEDS: Insulin Lispro 100 UNIT/ML 3 ML VIAL SUBCUT ×2 (10:05→21:27)
[2021-11-02] MEDS: Insulin Glargine,Hum.rec.anlog 100 UNIT/ML 10 ML VIAL 10 UNIT SUBCUT (10:05)
[2021-11-02] MEDS: Lithium Carbonate 300 MG CAPSULE PO ×2 (10:06→20:05)
[2021-11-02] MEDS: Atorvastatin Calcium 20 MG TABLET PO (10:06)
[2021-11-02] MEDS: Aspirin Enteric Coated 81 MG TABLET.DR PO (10:06)
[2021-11-02] MEDS: Cinacalcet HCl 30 MG TABLET 60 MG PO (10:06)
[2021-11-02 10:10] LABS: Lithium 0.44 mmol/L (0.60-1.20)
[2021-11-02 10:33] LABS: Anion Gap 11 (12-20); Blood Urea Nitrogen 14 mg/dL (9-16); Calcium 10.3 mg/dL (8.4-10.2); Carbon Dioxide 26 mmol/L (22-29); Chloride 107 mmol/L (96-108); Creatinine Clr Calc Pharmacy 40.2; Estimated Glomerular Filt Rate 40; Glucose Random 373 mg/dL (60-115); Potassium 4.8 mmol/L (3.3-5.1); Sodium 139 mmol/L (135-145)
[2021-11-02 11:03] LABS: Glucose, Whole Blood 344 mg/dL (60-115)
--- NOTE | 2021-11-02 11:13 | P.PNIM_ITS ---
Subjective Subjective Date of Service: 11/02/21 Interval History: No complaints Had lab work this morning Review of Systems Review of Systems: Yes all other systems are reviewed and are negative Physical Exam Vital Signs: Vital Signs: Last Vital Signs Temp 97.2 F 11/02/21 07:11 Pulse 77 11/02/21 07:11 Resp 17 11/02/21 07:11 BP 173/67 H 11/02/21 07:11 Pulse Ox 97 11/02/21 07:11 BMI result Body Mass Index 28.8 Gen: in no acute distress HEENT: sclera anicteric, moist mucus membranes Neck: supple Lungs: clear to auscultation bilaterally Heart: regular rate and rhythm, no murmurs Abd: soft, non-tender, non-distended Ext: no edema Skin: warm/well-perfused Neuro: disoriented Psych: impaired insight Objective Data Active Medications Aspirin (Aspirin Enteric Coated 81 Mg Tablet.) 81 mg PO DAILY [facility] Last Admin: 11/02/21 10:06 Dose: 81 mg Documented by: NICKI Atorvastatin Calcium (Atorvastatin Calcium 20 Mg Tablet) 20 mg PO DAILY [facility] Last Admin: 11/02/21 10:06 Dose: 20 mg Documented by: NICKI Benztropine Mesylate (Benztropine Mesylate 1 Mg Tablet) 1 mg PO BEDTIME [facility] Last Admin: 11/01/21 22:04 Dose: Not Given Documented by: MAURISIO Non-Admin Reason: Patient Refused Cinacalcet (Cinacalcet Hcl 30 Mg Tablet) 60 mg PO DAILY [facility] Last Admin: 11/02/21 10:06 Dose: 60 mg Documented by: NICKI Dextrose (Dextrose 50 % 25 Gm/50 Ml Vial) 25 gm IVPUSH Q15M PRN; Protocol PRN Reason: per Hypoglycemia Standing Ord. Glucose (Glucose Gel 15 Gm Gel..Gram.) 15 gm PO Q15M PRN; Protocol PRN Reason: per Hypoglycemia Standing Ord. Last Admin: 10/13/21 21:16 Dose: 15 gm Documented by: LUIS Haloperidol (Haloperidol 5 Mg Tablet) 5 mg PO BEDTIME [facility] Last Admin: 11/01/21 22:04 Dose: Not Given Documented by: MAURISIO Non-Admin Reason: Patient Refused Insulin Glargine (Insulin Glargine,Hum.Rec.Anlog 100 Unit/Ml 10 Ml Vial) 10 unit SUBCUT DAILY [facility] Last Admin: 11/02/21 10:05 Dose: 10 unit Documented by: NICKI Insulin Human Lispro (Insulin Lispro 100 Unit/Ml 3 Ml Vial) 0 unit SUBCUT QIDACHS [facility]; Protocol Last Admin: 11/02/21 10:05 Dose: 6 unit Documented by: NICKI [place] Carbonate ([place] Carbonate 300 Mg Capsule) 300 mg PO BID [facility] Last Admin: 11/02/21 10:06 Dose: 300 mg Documented by: NICKI Melatonin (Melatonin 3 Mg Tablet) 6 mg PO BEDTIME PRN PRN Reason: Sleep Last Admin: 10/31/21 20:09 Dose: 6 mg Documented by: MELISSA Nortriptyline HCl (Nortriptyline Hcl 10 Mg Capsule) 10 mg PO BEDTIME [facility] Last Admin: 11/01/21 22:05 Dose: Not Given Documented by: MAURISIO Non-Admin Reason: Patient Refused Pharmacy Consult (Consult Rx Perform Med Rec) 1 each MISCELLANE ONCE PRN PRN Reason: Consult order Labs CBC & Chem 7: 10/18/21 10:37 11/02/21 09:48 Labs: Laboratory Results - last 24 hr 11/01/21 11/01/21 11/01/21 11:15 15:50 16:02 Anion Gap Estim Creat Clear Calc Estimated GFR POC Glucose 536 H* 176 H Random Glucose 163 H Calcium [place] 11/01/21 11/02/21 11/02/21 19:59 07:09 09:48 Anion Gap 11 L Estim Creat Clear Calc 40.2 Estimated GFR 40 POC Glucose 253 H 231 H Random Glucose 373 H* Calcium 10.3 H D [place] 11/02/21 11/02/21 09:48 10:59 Anion Gap Estim Creat Clear Calc Estimated GFR POC Glucose 344 H Random Glucose Calcium [place] 0.44 L Assessment and Plan (1) Dementia: Status: Acute Plan hospital d#30 66yo F with bipolar disorder admitted with encephalopathy initially attributed to UTI but now likely more psychiatric in nature # toxic-metabolic encephalopathy superimposed on likely underlying dementia of probable vascular cause with behavioral agitation - MRI showed generalized atrophy and diffuse white matter microangiopathy - s/p treatment for UTI with no improvement in cognitive function - seen by neuro, EEG showing generalized slowing, no evidence of seizure disorder - B12, folate, TSH, RPR WNL - per PT, not a rehab candidate - per Dr Holland's discussion with family, patient was high-functioning prior to admission; using public tranportation, ambulating without difficulty, living alone and independently in her apartment - after all this workup, it is fairly certain that her mental status changes are due to dementia + decompensated bipolar disorder and she is improving on lithium # bipolar disorder - lithium, haloperidol, benztropine, nortriptyline # KEESHA/CKD3 - SCr 1.3, lithium level OK - as per Nephrology if creatinine raise is greater than 1.7 lithium will be discontinued # hyperCa - due to underlying primary hyperparathyroidism and exacerbated by lithium - not likely at this level to be contributing to her mental status changes - Nephrology following, started on cincalcet 30 mg daily, increased to 60 mg daily - outpt f/u with Endocrine Surgery (Dr Day at [facility] [place] - avoid Ca, vitamin D, thiazides, NSAIDs # DM2 with hyperglycemia - basal/bolus insulin # Streptococcus agalactiae UTI - completed 5-day ABX course # HLD - statin # VTE ppx - SCDs # dispo - CM working on LTC placement/payment issues Quality Stroke Does the patient have a stroke diagnosis?: Yes Reason for No Anti-thrombotic by Day Two: N/A - Med Ordered VTE Prior VTE?: No VTE Risk Level:: Medical - moderate - high VTE Device Contraindication: N/A - Device Ordered VTE Drug Contraindication: N/A - Med Ordered
[2021-11-02 12:00] VITALS: BP 153/71; PULSE 73; RESP 20; TEMP 36.8; O2SAT 100
--- NOTE | 2021-11-02 12:22 | PC.NURSE ---
Patient POC blood glucose was 344. Patient refused insulin. Dr. Minor made aware.
--- NOTE | 2021-11-02 13:41 | MHC.CM.PN ---
nursing case therapist note electronic medical record reviewed along with case [facility] staff nurse and [facility] . 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 discharge plan truck terminal manager care placement once [facility] [employer] [facility] application sent in and approved family requesting in or surround the [facility] area .
[2021-11-02 15:38] VITALS: BP 148/70; PULSE 64; RESP 17; TEMP 36.2; O2SAT 100
[2021-11-02 15:46] LABS: Glucose, Whole Blood 136 mg/dL (60-115)
[2021-11-02 20:00] VITALS: BP 119/77; PULSE 100; RESP 18; TEMP 36.6; O2SAT 99
[2021-11-02] MEDS: HaloperidoL 5 MG TABLET PO (20:05)
[2021-11-02] MEDS: Melatonin 3 MG TABLET 6 MG PO (20:05)
[2021-11-02] MEDS: Nortriptyline HCl 10 MG CAPSULE PO (20:05)
[2021-11-02] MEDS: Benztropine Mesylate 1 MG TABLET PO (20:05)
[2021-11-02 21:10] LABS: Glucose, Whole Blood 296 mg/dL (60-115)
--- NOTE | 2021-11-02 23:35 | P.PNNP_ITS ---
Subjective Subjective Date of Service: 11/02/21 Principal diagnosis: KEESHA Interval history: Seen and examined, events noted Physical Exam Vital Signs: Vital Signs: Last Vital Signs Temp 97.9 F 11/02/21 20:00 Pulse 100 11/02/21 20:00 Resp 18 11/02/21 20:00 BP 119/77 11/02/21 20:00 Pulse Ox 99 11/02/21 20:00 BMI result Body Mass Index 28.8 Const: Other: General: AO X 1, no acute distress Resp: CTA bilateral CVS: S1,S2,RRR GI: +BS, NT, no distention Skin: No rash Neuro: motor grossly intact Psych: appropriate affect General: cooperative, healthy appearing, comfortable, no acute distress, alert, awake and confusion Nutritional Appearance: average body habitus and well nourished Orientation/consciousness: confusion and Other orientation findings HEENT: Head: Yes normal to inspection, Yes normocephalic and Yes atraumatic Eyes: EOM: EOMs intact bilaterally Neck: Neck: Yes normal visual inspection, Yes trachea midline, Yes supple and Yes no JVD Chest: Chest palpation & inspection: normal inspection of the chest Resp: Effort & Inspection: normal respiratory effort and able to speak in complete sentences Auscultation: clear to auscultation bilaterally and diminished lung sounds Cardio: Jugular venous distension: no JVD Rate: regular rate Rhythm: regular rhythm Heart sounds: S1 normal heart sound present and S2 normal heart sound present GI: Inspection: Yes normal to inspection and No distended Palpation (GI): Soft to palpation and nontender Auscultation: normal bowel sounds Skin: General skin exam: no rashes or lesions noted Neuro: Other: non-focal; moving all extremities; confused, follows commands General: moves all extremities and confusion Extrem: Other: moving all 4 extremities spontaneously General: Yes normal to inspection Psych: Attitude: Guarded attititude/behavior present Thought process: Flight of ideas present Thought content: Paranoid delusions present Judgement: Poor judgement present (Psych) Objective Data Labs CBC & Chem 7: 10/18/21 10:37 11/02/21 09:48 Labs: Laboratory Results - last 24 hr 11/02/21 11/02/21 11/02/21 07:09 09:48 09:48 Sodium 139 Potassium 4.8 Chloride 107 Carbon Dioxide 26 Anion Gap 11 L BUN 14 Creatinine 1.34 Estim Creat Clear Calc 40.2 Estimated GFR 40 POC Glucose 231 H Random Glucose 373 H* Calcium 10.3 H D [place] 0.44 L 11/02/21 11/02/21 11/02/21 10:59 15:41 21:06 Sodium Potassium Chloride Carbon Dioxide Anion Gap BUN Creatinine Estim Creat Clear Calc Estimated GFR POC Glucose 344 H 136 H 296 H Random Glucose Calcium [place] Microbiology Microbiology Results: Microbiology 10/11/21 09:13 Blood - Venous Blood Culture - Final No growth after 5 days. 10/11/21 09:19 Blood - Venous Blood Culture - Final No growth after 5 days. 10/10/21 15:52 Urine clean catch - Urine [place] top Urine Culture - Final 10/04/21 Unknown Urine clean catch - Urine [place] top Urine Culture - Final Strep agalactiae (Grp B) Procedures Date of Service Date of Service: 11/02/21 Assessment & Plan Assessment and plan (1) Hyperparathyroidism: Status: Acute (2) KEESHA (acute kidney injury): Status: Acute Assessment and Plan: 66-year-old female admitted with encephalopathy secondary to UTI,? hyperCa & KEESHA 1. KEESHA: resolved 2. HyperCa: c/w primary Hyperpara: now on sensipar and Ca controlled; will cont sensipar; to be eval as outpt fpor PTX 3. CKD 3: need to monitor renal func while on LI and track Li levels ---if Scr > 1.7 will need to stop [place] REC: cont sensipar 60; needs renal labs and Ca level 1x/week for next several weeks call prn while in pt if needed and arrange for f/u with me in 1 month after d/c'd (3) Hypercalcemia: Status: Acute Time Spent With Patient Time: Total time spent is greater than 50% in coordination of care (as documented) at patient's floor/unit and/or counseling patient: Progress Note: Quality Stroke Does the patient have a stroke diagnosis?: Yes Reason for No Anti-thrombotic by Day Two: N/A - Med Ordered
[2021-11-03] VITALS: BP 120/62; PULSE 100; RESP 18; TEMP 36.4; O2SAT 98
[2021-11-03 04:00] VITALS: RESP 18
[2021-11-03 06:43] VITALS: BP 132/64; PULSE 68; RESP 18; TEMP 36.6; O2SAT 96
[2021-11-03 08:33] LABS: Glucose, Whole Blood 309 mg/dL (60-115)
[2021-11-03] MEDS: Insulin Lispro 100 UNIT/ML 3 ML VIAL SUBCUT ×4 (08:36→20:34)
[2021-11-03] MEDS: Cinacalcet HCl 30 MG TABLET 60 MG PO (08:38)
[2021-11-03] MEDS: Atorvastatin Calcium 20 MG TABLET PO (08:39)
[2021-11-03] MEDS: Aspirin Enteric Coated 81 MG TABLET.DR PO (08:39)
[2021-11-03] MEDS: Lithium Carbonate 300 MG CAPSULE PO ×2 (08:39→20:27)
--- NOTE | 2021-11-03 09:33 | P.PNIM_ITS ---
Subjective Subjective Date of Service: 11/03/21 Interval History: No complaints Eating well No pain Review of Systems Review of Systems: Yes all other systems are reviewed and are negative Physical Exam Vital Signs: Vital Signs: Last Vital Signs Temp 98 F 11/03/21 06:43 Pulse 68 11/03/21 06:43 Resp 18 11/03/21 06:43 BP 132/64 11/03/21 06:43 Pulse Ox 96 11/03/21 06:43 BMI result Body Mass Index 28.8 Gen: in no acute distress HEENT: sclera anicteric, moist mucus membranes Neck: supple Lungs: clear to auscultation bilaterally Heart: regular rate and rhythm, no murmurs Abd: soft, non-tender, non-distended Ext: no edema Skin: warm/well-perfused Neuro: oriented to self only Psych: impaired insight Objective Data Active Medications Aspirin (Aspirin Enteric Coated 81 Mg Tablet.) 81 mg PO DAILY [facility] Last Admin: 11/03/21 08:39 Dose: 81 mg Documented by: ARACELI Atorvastatin Calcium (Atorvastatin Calcium 20 Mg Tablet) 20 mg PO DAILY [facility] Last Admin: 11/03/21 08:39 Dose: 20 mg Documented by: ARACELI Benztropine Mesylate (Benztropine Mesylate 1 Mg Tablet) 1 mg PO BEDTIME [facility] Last Admin: 11/02/21 20:05 Dose: 1 mg Documented by: MELISSA Cinacalcet (Cinacalcet Hcl 30 Mg Tablet) 60 mg PO DAILY [facility] Last Admin: 11/03/21 08:38 Dose: 60 mg Documented by: ARACELI Dextrose (Dextrose 50 % 25 Gm/50 Ml Vial) 25 gm IVPUSH Q15M PRN; Protocol PRN Reason: per Hypoglycemia Standing Ord. Glucose (Glucose Gel 15 Gm Gel..Gram.) 15 gm PO Q15M PRN; Protocol PRN Reason: per Hypoglycemia Standing Ord. Last Admin: 10/13/21 21:16 Dose: 15 gm Documented by: LUIS Haloperidol (Haloperidol 5 Mg Tablet) 5 mg PO BEDTIME [facility] Last Admin: 11/02/21 20:05 Dose: 5 mg Documented by: MELISSA Insulin Glargine (Insulin Glargine,Hum.Rec.Anlog 100 Unit/Ml 10 Ml Vial) 10 uni t SUBCUT DAILY [facility] Last Admin: 11/02/21 10:05 Dose: 10 unit Documented by: NICKI Insulin Human Lispro (Insulin Lispro 100 Unit/Ml 3 Ml Vial) 0 unit SUBCUT QIDACHS [facility]; Protocol Last Admin: 11/03/21 08:36 Dose: 10 unit Documented by: ARACELI [place] Carbonate ([place] Carbonate 300 Mg Capsule) 300 mg PO BID [facility] Last Admin: 11/03/21 08:39 Dose: 300 mg Documented by: ARACELI Melatonin (Melatonin 3 Mg Tablet) 6 mg PO BEDTIME PRN PRN Reason: Sleep Last Admin: 11/02/21 20:05 Dose: 6 mg Documented by: MELISSA Nortriptyline HCl (Nortriptyline Hcl 10 Mg Capsule) 10 mg PO BEDTIME [facility] Last Admin: 11/02/21 20:05 Dose: 10 mg Documented by: MELISSA Pharmacy Consult (Consult Rx Perform Med Rec) 1 each MISCELLANE ONCE PRN PRN Reason: Consult order Labs CBC & Chem 7: 10/18/21 10:37 11/02/21 09:48 Labs: Laboratory Results - last 24 hr 11/02/21 11/02/21 11/02/21 09:48 09:48 10:59 Anion Gap 11 L Estim Creat Clear Calc 40.2 Estimated GFR 40 POC Glucose 344 H Random Glucose 373 H* Calcium 10.3 H D [place] 0.44 L 11/02/21 11/02/21 11/03/21 15:41 21:06 08:29 Anion Gap Estim Creat Clear Calc Estimated GFR POC Glucose 136 H 296 H 309 H Random Glucose Calcium [place] Assessment and Plan (1) Dementia: Status: Acute [facility] hospital d#31 66yo F with bipolar disorder admitted with encephalopathy initially attributed to UTI but now likely more psychiatric in nature # toxic-metabolic encephalopathy superimposed on likely underlying dementia of probable vascular cause with behavioral agitation - MRI showed generalized atrophy and diffuse white matter microangiopathy - s/p treatment for UTI with no improvement in cognitive function - seen by neuro, EEG showing generalized slowing, no evidence of seizure disorder - B12, folate, TSH, RPR WNL - per PT, not a rehab candidate - per Dr Holland's discussion with family, patient was high-functioning prior to admission; using public tranportation, ambulating without difficulty, living alone and independently in her apartment - after all this workup, it is fairly certain that her mental status changes are due to dementia + decompensated bipolar disorder and she is improving on lithium # bipolar disorder - lithium, haloperidol, benztropine, nortriptyline # KEESHA/CKD3 - SCr 1.3, lithium level OK 11/02/21 - as per Nephrology if creatinine raise is greater than 1.7 lithium will be discontinued # hyperCa - due to underlying primary hyperparathyroidism and exacerbated by lithium - not likely at this level to be contributing to her mental status changes - Nephrology following, started on cincalcet 30 mg daily, increased to 60 mg daily - outpt f/u with Endocrine Surgery (Dr Day at [facility] [place]) - avoid Ca, vitamin D, thiazides, NSAIDs # DM2 with hyperglycemia - basal/bolus insulin # Streptococcus agalactiae UTI - completed 5-day ABX course # HLD - statin # VTE ppx - SCDs # dispo - CM working on LTC placement/payment issues Quality Stroke Does the patient have a stroke diagnosis?: Yes Reason for No Anti-thrombotic by Day Two: N/A - Med Ordered VTE Prior VTE?: No VTE Risk Level:: Medical - moderate - high VTE Device Contraindication: N/A - Device Ordered VTE Drug Contraindication: N/A - Med Ordered
[2021-11-03] MEDS: Insulin Glargine,Hum.rec.anlog 100 UNIT/ML 10 ML VIAL 10 UNIT SUBCUT (11:18)
[2021-11-03 11:26] LABS: Glucose, Whole Blood 185 mg/dL (60-115)
[2021-11-03 11:42] VITALS: TEMP 36.1
[2021-11-03 15:03] VITALS: BP 122/93; PULSE 66; RESP 18; TEMP 36.8; O2SAT 99
[2021-11-03 16:05] LABS: Glucose, Whole Blood 132 mg/dL (60-115)
[2021-11-03] MEDS: Nortriptyline HCl 10 MG CAPSULE PO (20:26)
[2021-11-03] MEDS: HaloperidoL 5 MG TABLET PO (20:26)
[2021-11-03 20:27] LABS: Glucose, Whole Blood 242 mg/dL (60-115)
[2021-11-03] MEDS: Benztropine Mesylate 1 MG TABLET PO (20:27)
[2021-11-03 23:22] VITALS: BP 143/66; PULSE 73; RESP 18; TEMP 36.3; O2SAT 97
[2021-11-04 04:00] VITALS: RESP 18
[2021-11-04 07:24] VITALS: BP 134/58; PULSE 86; RESP 18; TEMP 36.9; O2SAT 95
[2021-11-04 07:38] LABS: Glucose, Whole Blood 204 mg/dL (60-115)
[2021-11-04] MEDS: Cinacalcet HCl 30 MG TABLET 60 MG PO (08:29)
[2021-11-04] MEDS: Aspirin Enteric Coated 81 MG TABLET.DR PO (08:30)
[2021-11-04] MEDS: Atorvastatin Calcium 20 MG TABLET PO (08:30)
[2021-11-04] MEDS: Lithium Carbonate 300 MG CAPSULE PO ×2 (08:30→21:06)
[2021-11-04] MEDS: Insulin Lispro 100 UNIT/ML 3 ML VIAL SUBCUT ×3 (08:31→21:05)
[2021-11-04] MEDS: Insulin Glargine,Hum.rec.anlog 100 UNIT/ML 10 ML VIAL 10 UNIT SUBCUT (08:34)
--- NOTE | 2021-11-04 09:50 | HO.PM.IMPN ---
Subjective Subjective Date of Service: 11/04/21 Interval History: denies any complaints- no pain. good appetite. behavior calm. Review of Systems Review of Systems: Yes all other systems are reviewed and are negative Physical Exam Vital Signs: Vital Signs: Last Vital Signs Temp 98.5 F 11/04/21 07:24 Pulse 86 11/04/21 07:24 Resp 18 11/04/21 07:24 BP 134/58 L 11/04/21 07:24 Pulse Ox 95 11/04/21 07:24 BMI result Body Mass Index 28.8 Gen: in no acute distress Lungs: normal effort Neuro: oriented to self only Psych: impaired insight Objective Data Active Medications Aspirin (Aspirin Enteric Coated 81 Mg Tablet.) 81 mg PO DAILY [facility] Last Admin: 11/04/21 08:30 Dose: 81 mg Documented by: SINA Atorvastatin Calcium (Atorvastatin Calcium 20 Mg Tablet) 20 mg PO DAILY [facility] Last Admin: 11/04/21 08:30 Dose: 20 mg Documented by: SINA Benztropine Mesylate (Benztropine Mesylate 1 Mg Tablet) 1 mg PO BEDTIME [facility] Last Admin: 11/03/21 20:27 Dose: 1 mg Documented by: JOSE RAMON Cinacalcet (Cinacalcet Hcl 30 Mg Tablet) 60 mg PO DAILY [facility] Last Admin: 11/04/21 08:29 Dose: 60 mg Documented by: SINA Dextrose (Dextrose 50 % 25 Gm/50 Ml Vial) 25 gm IVPUSH Q15M PRN; Protocol PRN Reason: per Hypoglycemia Standing Ord. Glucose (Glucose Gel 15 Gm Gel..Gram.) 15 gm PO Q15M PRN; Protocol PRN Reason: per Hypoglycemia Standing Ord. Last Admin: 10/13/21 21:16 Dose: 15 gm Documented by: LUIS Haloperidol (Haloperidol 5 Mg Tablet) 5 mg PO BEDTIME [facility] Last Admin: 11/03/21 20:26 Dose: 5 mg Documented by: JOSE RAMON Insulin Glargine (Insulin Glargine,Hum.Rec.Anlog 100 Unit/Ml 10 Ml Vial) 10 unit SUBCUT DAILY [facility] Last Admin: 11/04/21 08:34 Dose: 10 unit Documented by: SINA Insulin Human Lispro (Insulin Lispro 100 Unit/Ml 3 Ml Vial) 0 unit SUBCUT QIDACHS [facility]; Protocol Last Admin: 11/04/21 08:31 Dose: 6 unit Documented by: SINA [place] Carbonate ([place] Carbonate 300 Mg Capsule) 300 mg PO BID [facility] Last Admin: 11/04/21 08:30 Dose: 300 mg Documented by: SINA Melatonin (Melatonin 3 Mg Tablet) 6 mg PO BEDTIME PRN PRN Reason: Sleep Last Admin: 11/02/21 20:05 Dose: 6 mg Documented by: MELISSA Nortriptyline HCl (Nortriptyline Hcl 10 Mg Capsule) 10 mg PO BEDTIME [facility] Last Admin: 11/03/21 20:26 Dose: 10 mg Documented by: JOSE RAMON Pharmacy Consult (Consult Rx Perform Med Rec) 1 each MISCELLANE ONCE PRN PRN Reason: Consult order Labs CBC & Chem 7: 10/18/21 10:37 11/02/21 09:48 Labs: Laboratory Results - last 24 hr 11/03/21 11/03/21 11/03/21 11:18 15:05 19:57 POC Glucose 185 H 132 H 242 H 11/04/21 07:33 POC Glucose 204 H Assessment and Plan (1) Dementia: Status: [facility] 66yo F with bipolar disorder admitted with encephalopathy initially attributed to UTI but now likely more psychiatric in nature # toxic-metabolic encephalopathy superimposed on likely underlying dementia of probable vascular cause with behavioral agitation - MRI showed generalized atrophy and diffuse white matter microangiopathy - s/p treatment for UTI with no improvement in cognitive function - seen by neuro, EEG showing generalized slowing, no evidence of seizure disorder - B12, folate, TSH, RPR WNL - per PT, not a rehab candidate - per Dr Holland's discussion with family, patient was high-functioning prior to admission; using public tranportation, ambulating without difficulty, living alone and independently in her apartment - after all this workup, it is fairly certain that her mental status changes are due to dementia + decompensated bipolar disorder and she is improving on lithium # bipolar disorder - lithium, haloperidol, benztropine, nortriptyline # KEESHA/CKD3 - SCr 1.3, lithium level OK 11/02/21 - as per Nephrology if creatinine raise is greater than 1.7 lithium will be discontinued # hyperCa - due to underlying primary hyperparathyroidism and exacerbated by lithium - not likely at this level to be contributing to her mental status changes - Nephrology following, started on cincalcet 30 mg daily, increased to 60 mg daily - [place]pt f/[place] [facility] [place] - avoid Ca, vitamin D, thiazides, NSAIDs # DM2 with hyperglycemia, A1c 10.1 - basal/bolus insulin # Streptococcus agalactiae UTI - completed 5-day ABX course # HLD - statin # VTE ppx - SCDs # dispo - CM working on LTC placement/payment issues Quality Stroke Does the patient have a stroke diagnosis?: Yes Reason for No Anti-thrombotic by Day Two: N/A - Med Ordered VTE Prior VTE?: No VTE Risk Level:: Medical - moderate - high VTE Device Contraindication: N/A - Device Ordered VTE Drug Contraindication: N/A - Med Ordered
[2021-11-04 11:09] LABS: Glucose, Whole Blood 158 mg/dL (60-115)
[2021-11-04 12:00] VITALS: BP 114/76; PULSE 83; RESP 20; TEMP 36.4; O2SAT 98
--- NOTE | 2021-11-04 14:18 | PC.NURSE ---
Family updated on patients status.
[2021-11-04 21:01] LABS: Glucose, Whole Blood 273 mg/dL (60-115)
[2021-11-04] MEDS: HaloperidoL 5 MG TABLET PO (21:06)
[2021-11-04] MEDS: Nortriptyline HCl 10 MG CAPSULE PO (21:06)
[2021-11-04] MEDS: Benztropine Mesylate 1 MG TABLET PO (21:06)
[2021-11-05 08:00] VITALS: BP 139/63; PULSE 68; RESP 18; TEMP 37.1; O2SAT 99
[2021-11-05 08:16] LABS: Glucose, Whole Blood 181 mg/dL (60-115)
--- NOTE | 2021-11-05 09:53 | HO.PM.IMPN ---
Subjective Subjective Date of Service: 11/05/21 Interval History: Denies any pain or shortness of breath. Good appetite. Review of Systems Review of Systems: Yes all other systems are reviewed and are negative Physical Exam Vital Signs: Vital Signs: Last Vital Signs Temp 98.7 F 11/05/21 08:00 Pulse 68 11/05/21 08:00 Resp 18 11/05/21 08:00 BP 139/63 11/05/21 08:00 Pulse Ox 99 11/05/21 08:00 BMI result Body Mass Index 28.8 Gen: in no acute distress Lungs: normal effort Neuro: oriented to self only Psych: impaired insight Objective Data Active Medications Aspirin (Aspirin Enteric Coated 81 Mg Tablet.) 81 mg PO DAILY [facility] Last Admin: 11/04/21 08:30 Dose: 81 mg Documented by: SINA Atorvastatin Calcium (Atorvastatin Calcium 20 Mg Tablet) 20 mg PO DAILY [facility] Last Admin: 11/04/21 08:30 Dose: 20 mg Documented by: SINA Benztropine Mesylate (Benztropine Mesylate 1 Mg Tablet) 1 mg PO BEDTIME [facility] Last Admin: 11/04/21 21:06 Dose: 1 mg Documented by: JOSE RAMON Cinacalcet (Cinacalcet Hcl 30 Mg Tablet) 60 mg PO DAILY [facility] Last Admin: 11/04/21 08:29 Dose: 60 mg Documented by: SINA Dextrose (Dextrose 50 % 25 Gm/50 Ml Vial) 25 gm IVPUSH Q15M PRN; Protocol PRN Reason: per Hypoglycemia Standing Ord. Glucose (Glucose Gel 15 Gm Gel..Gram.) 15 gm PO Q15M PRN; Protocol PRN Reason: per Hypoglycemia Standing Ord. Last Admin: 10/13/21 21:16 Dose: 15 gm Documented by: LUIS Haloperidol (Haloperidol 5 Mg Tablet) 5 mg PO BEDTIME [facility] Last Admin: 11/04/21 21:06 Dose: 5 mg Documented by: JOSE RAMON Insulin Glargine (Insulin Glargine,Hum.Rec.Anlog 100 Unit/Ml 10 Ml Vial) 10 unit SUBCUT DAILY [facility] Last Admin: 11/04/21 08:34 Dose: 10 unit Documented by: SINA Insulin Human Lispro (Insulin Lispro 100 Unit/Ml 3 Ml Vial) 0 unit SUBCUT QIDACHS [facility]; Protocol Last Admin: 11/04/21 21:05 Dose: 8 unit Documented by: JOSE RAMON [place] Carbonate ([place] Carbonate 300 Mg Capsule) 300 mg PO BID [facility] Last Admin: 11/04/21 21:06 Dose: 300 mg Documented by: JOSE RAMON Melatonin (Melatonin 3 Mg Tablet) 6 mg PO BEDTIME PRN PRN Reason: Sleep Last Admin: 11/02/21 20:05 Dose: 6 mg Documented by: MELISSA Nortriptyline HCl (Nortriptyline Hcl 10 Mg Capsule) 10 mg PO BEDTIME [facility] Last Admin: 11/04/21 21:06 Dose: 10 mg Documented by: JOSE RAMON Pharmacy Consult (Consult Rx Perform Med Rec) 1 each MISCELLANE ONCE PRN PRN Reason: Consult order Labs CBC & Chem 7: 10/18/21 10:37 11/02/21 09:48 Labs: Laboratory Results - last 24 hr 11/04/21 11/04/21 11/05/21 11:05 20:57 08:12 POC Glucose 158 H 273 H 181 H Assessment and Plan (1) Dementia: Status: Acute [facility] d#33 66yo F with bipolar disorder admitted with encephalopathy initially attributed to UTI but now likely more psychiatric in nature # toxic-metabolic encephalopathy superimposed on likely underlying dementia of probable vascular cause with behavioral agitation - MRI showed generalized atrophy and diffuse white matter microangiopathy - s/p treatment for UTI with no improvement in cognitive function - seen by neuro, EEG showing generalized slowing, no evidence of seizure disorder - B12, folate, TSH, RPR WNL - per PT, not a rehab candidate - per Dr Holland's discussion with family, patient was high-functioning prior to admission; using public tranportation, ambulating without difficulty, living alone and independently in her apartment - after all this workup, it is fairly certain that her mental status changes are due to dementia + decompensated bipolar disorder and she is improving on lithium # bipolar disorder - lithium, haloperidol, benztropine, nortriptyline # KEESHA/CKD3 - SCr 1.3, lithium level OK 11/02/21 - as per Nephrology if creatinine raise is greater than 1.7 lithium will be discontinued # hyperCa - due to underlying primary hyperparathyroidism and exacerbated by lithium - not likely at this level to be contributing to her mental status changes - Nephrology following, started on cincalcet 30 mg daily, increased to 60 mg daily - outpt f/u with Endocrine Surgery (Dr Day at [facility] [place]) - avoid Ca, vitamin D, thiazides, NSAIDs # DM2 with hyperglycemia, A1c 10.1 - basal/bolus insulin # Streptococcus agalactiae UTI - completed 5-day ABX course # HLD - statin # VTE ppx - SCDs # dispo - CM working on LTC placement/payment issues Quality Stroke Does the patient have a stroke diagnosis?: Yes Reason for No Anti-thrombotic by Day Two: N/A - Med Ordered VTE Prior VTE?: No VTE Risk Level:: Medical - moderate - high VTE Device Contraindication: N/A - Device Ordered VTE Drug Contraindication: N/A - Med Ordered
[2021-11-05] MEDS: Insulin Glargine,Hum.rec.anlog 100 UNIT/ML 10 ML VIAL 10 UNIT SUBCUT (10:01)
[2021-11-05] MEDS: Cinacalcet HCl 30 MG TABLET 60 MG PO (10:02)
[2021-11-05] MEDS: Lithium Carbonate 300 MG CAPSULE PO (10:02)
[2021-11-05] MEDS: Insulin Lispro 100 UNIT/ML 3 ML VIAL SUBCUT ×2 (10:02→13:09)
[2021-11-05] MEDS: Aspirin Enteric Coated 81 MG TABLET.DR PO (10:02)
[2021-11-05] MEDS: Atorvastatin Calcium 20 MG TABLET PO (10:03)
[2021-11-05 11:13] VITALS: BP 141/65; PULSE 65; RESP 18; TEMP 36.7; O2SAT 100
[2021-11-05 11:36] LABS: Glucose, Whole Blood 314 mg/dL (60-115)
[2021-11-05 16:00] VITALS: BP 167/77; PULSE 85; RESP 18; TEMP 36.2; O2SAT 97
[2021-11-05 16:26] LABS: Glucose, Whole Blood 146 mg/dL (60-115)
[2021-11-05 20:00] VITALS: BP 152/76; PULSE 91; RESP 15; TEMP 36.4; O2SAT 100
--- NOTE | 2021-11-05 21:46 | PC.NURSE ---
pt refused 21:00 meds and POC despite multiple attempts to convince her.
[2021-11-05 23:41] VITALS: BP 162/64; PULSE 64; RESP 18; TEMP 36.8; O2SAT 96
[2021-11-06 07:43] VITALS: BP 148/70; PULSE 74; RESP 18; TEMP 36.9; O2SAT 100
[2021-11-06 08:07] LABS: Glucose, Whole Blood 326 mg/dL (60-115)
[2021-11-06] MEDS: Lithium Carbonate 300 MG CAPSULE PO (08:36)
[2021-11-06] MEDS: Insulin Glargine,Hum.rec.anlog 100 UNIT/ML 10 ML VIAL 10 UNIT SUBCUT (08:36)
[2021-11-06] MEDS: Insulin Lispro 100 UNIT/ML 3 ML VIAL SUBCUT ×2 (08:36→11:56)
[2021-11-06] MEDS: Cinacalcet HCl 30 MG TABLET 60 MG PO (08:36)
[2021-11-06] MEDS: Aspirin Enteric Coated 81 MG TABLET.DR PO (08:36)
[2021-11-06] MEDS: Atorvastatin Calcium 20 MG TABLET PO (08:37)
--- NOTE | 2021-11-06 09:52 | HO.PM.IMPN ---
Subjective Subjective Date of Service: 11/06/21 Interval History: No complaints Ambulating Eating Denies depression Review of Systems Review of Systems: Yes all other systems are reviewed and are negative Physical Exam Vital Signs: Vital Signs: Last Vital Signs Temp 98.5 F 11/06/21 07:43 Pulse 74 11/06/21 07:43 Resp 18 11/06/21 07:43 BP 148/70 H 11/06/21 07:43 Pulse Ox 100 11/06/21 07:43 BMI result Body Mass Index 28.8 Gen: in no acute distress Lungs: normal effort Neuro: oriented to self only Psych: impaired insight Objective Data Active Medications Aspirin (Aspirin Enteric Coated 81 Mg Tablet.) 81 mg PO DAILY [facility] Last Admin: 11/06/21 08:36 Dose: 81 mg Documented by: EUGENIA Atorvastatin Calcium (Atorvastatin Calcium 20 Mg Tablet) 20 mg PO DAILY [facility] Last Admin: 11/06/21 08:37 Dose: 20 mg Documented by: EUGENIA Benztropine Mesylate (Benztropine Mesylate 1 Mg Tablet) 1 mg PO BEDTIME [facility] Last Admin: 11/05/21 21:45 Dose: Not Given Documented by: MAURISIO Non-Admin Reason: Patient Refused Cinacalcet (Cinacalcet Hcl 30 Mg Tablet) 60 mg PO DAILY [facility] Last Admin: 11/06/21 08:36 Dose: 60 mg Documented by: EUGENIA Dextrose (Dextrose 50 % 25 Gm/50 Ml Vial) 25 gm IVPUSH Q15M PRN; Protocol PRN Reason: per Hypoglycemia Standing Ord. Glucose (Glucose Gel 15 Gm Gel..Gram.) 15 gm PO Q15M PRN; Protocol PRN Reason: per Hypoglycemia Standing Ord. Last Admin: 10/13/21 21:16 Dose: 15 gm Documented by: LUIS Haloperidol (Haloperidol 5 Mg Tablet) 5 mg PO BEDTIME [facility] Last Admin: 11/05/21 21:45 Dose: Not Given Documented by: MAURISIO Non-Admin Reason: Patient Refused Insulin Glargine (Insulin Glargine,Hum.Rec.Anlog 100 Unit/Ml 10 Ml Vial) 10 unit SUBCUT DAILY [facility] Last Admin: 11/06/21 08:36 Dose: 10 unit Documented by: EUGENIA Insulin Human Lispro (Insulin Lispro 100 Unit/Ml 3 Ml Vial) 0 unit SUBCUT QIDACHS [facility]; Protocol Last Admin: 11/06/21 08:36 Dose: 10 unit Documented by: EUGENIA [employer] Carbonate ([employer] Carbonate 300 Mg Capsule) 300 mg PO BID [facility] Last Admin: 11/06/21 08:36 Dose: 300 mg Documented by: EUGENIA Melatonin (Melatonin 3 Mg Tablet) 6 mg PO BEDTIME PRN PRN Reason: Sleep Last Admin: 11/02/21 20:05 Dose: 6 mg Documented by: MELISSA Nortriptyline HCl (Nortriptyline Hcl 10 Mg Capsule) 10 mg PO BEDTIME [facility] Last Admin: 11/05/21 21:45 Dose: Not Given Documented by: MAURISIO Non-Admin Reason: Patient Refused Pharmacy Consult (Consult Rx Perform Med Rec) 1 each MISCELLANE ONCE PRN PRN Reason: Consult order Labs CBC & Chem 7: 10/18/21 10:37 11/02/21 09:48 Labs: Laboratory Results - last 24 hr 11/05/21 11/05/21 11/06/21 11:12 16:09 08:04 POC Glucose 314 H 146 H 326 H Assessment and Plan (1) Dementia: Status: Acute [facility] d#34 66yo F with bipolar disorder admitted with encephalopathy initially attributed to UTI but now likely more psychiatric in nature # toxic-metabolic encephalopathy superimposed on likely underlying dementia of probable vascular cause with behavioral agitation - MRI showed generalized atrophy and diffuse white matter microangiopathy - s/p treatment for UTI with no improvement in cognitive function - seen by neuro, EEG showing generalized slowing, no evidence of seizure disorder - B12, folate, TSH, RPR WNL - per PT, not a rehab candidate - per Dr Holland's discussion with family, patient was high-functioning prior to admission; using public tranportation, ambulating without difficulty, living alone and independently in her apartment - after all this workup, it is fairly certain that her mental status changes are due to dementia + decompensated bipolar disorder and she is improving on lithium # bipolar disorder - lithium, haloperidol, benztropine, nortriptyline # KEESHA/CKD3 - SCr 1.3, lithium level OK 11/02/21 - as per Nephrology if creatinine raise is greater than 1.7 lithium will be discontinued # hyperCa - due to underlying primary hyperparathyroidism and exacerbated by lithium - not likely at this level to be contributing to her mental status changes - Nephrology following, started on cincalcet 30 mg daily, increased to 60 mg daily - outpt f/u [place] Endocrine [place] [facility] [place] - avoid Ca, vitamin D, thiazides, NSAIDs # DM2 with hyperglycemia, A1c 10.1 - basal/bolus insulin # Streptococcus agalactiae UTI - completed 5-day ABX course # HLD - statin # VTE ppx - SCDs, ambulation # dispo - CM working on LTC placement/payment issues Quality Stroke Does the patient have a stroke diagnosis?: Yes Reason for No Anti-thrombotic by Day Two: N/A - Med Ordered VTE Prior VTE?: No VTE Risk Level:: Medical - moderate - high VTE Device Contraindication: N/A - Device Ordered VTE Drug Contraindication: N/A - Med Ordered
[2021-11-06 11:09] VITALS: BP 135/68; PULSE 82; RESP 20; TEMP 37; O2SAT 100
[2021-11-06 11:24] LABS: Glucose, Whole Blood 153 mg/dL (60-115)
[2021-11-06 15:01] VITALS: BP 119/59; PULSE 74; RESP 18; TEMP 37.2; O2SAT 99
--- NOTE | 2021-11-06 15:51 | PC.NURSE ---
family updated on patients status.
[2021-11-06 16:06] LABS: Glucose, Whole Blood 97 mg/dL (60-115)
--- NOTE | 2021-11-06 16:16 | MHC.CM.PN ---
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
--- NOTE | 2021-11-06 19:40 | PC.NURSE ---
This RN went into patient's room with EMPLOYEE HEALTH NURSE she felt comfortable with, in attempt to get her to take her H.S medication. Pt became noticeably irritated and declined. Tried convincing her otherwise and asked if there was an RN she was comfortable receiving meds from to which she said no. Patient did allow EMPLOYEE HEALTH NURSE to take her POC, (219) but will not allow me to give her insulin.
[2021-11-06 19:54] VITALS: BP 144/79; PULSE 102; RESP 18; TEMP 36.7; O2SAT 99
[2021-11-07 06:47] LABS: Glucose, Whole Blood 219 mg/dL (60-115)
[2021-11-07 07:23] VITALS: BP 111/58; PULSE 63; RESP 18; O2SAT 100
--- NOTE | 2021-11-07 07:40 | HO.PM.IMPN ---
Subjective Subjective Date of Service: 11/07/21 Interval History: No pain No breathing problems Refusing meds + insulin this morning, stating that they are scarring her arms Review of Systems Review of Systems: Yes all other systems are reviewed and are negative Physical Exam Vital Signs: Vital Signs: Last Vital Signs Temp 98.0 F 11/06/21 19:54 Pulse 63 11/07/21 07:23 Resp 18 11/07/21 07:23 BP 111/58 L 11/07/21 07:23 Pulse Ox 100 11/07/21 07:23 BMI result Body Mass Index 28.8 Gen: in no acute distress Lungs: normal effort Neuro: oriented to self only Psych: impaired insight, paranoid delusions Objective Data Active Medications Aspirin (Aspirin Enteric Coated 81 Mg Tablet.Dr) 81 mg PO DAILY [facility] Last Admin: 11/06/21 08:36 Dose: 81 mg Documented by: EUGENIA Atorvastatin Calcium (Atorvastatin Calcium 20 Mg Tablet) 20 mg PO DAILY [facility] Last Admin: 11/06/21 08:37 Dose: 20 mg Documented by: EUGENIA Benztropine Mesylate (Benztropine Mesylate 1 Mg Tablet) 1 mg PO BEDTIME [facility] Last Admin: 11/06/21 19:39 Dose: Not Given Documented by: MAURISIO Non-Admin Reason: Patient Refused Cinacalcet (Cinacalcet Hcl 30 Mg Tablet) 60 mg PO DAILY [facility] Last Admin: 11/06/21 08:36 Dose: 60 mg Documented by: EUGENIA Dextrose (Dextrose 50 % 25 Gm/50 Ml Vial) 25 gm IVPUSH Q15M PRN; Protocol PRN Reason: per Hypoglycemia Standing Ord. Glucose (Glucose Gel 15 Gm Gel..Gram.) 15 gm PO Q15M PRN; Protocol PRN Reason: per Hypoglycemia Standing Ord. Last Admin: 10/13/21 21:16 Dose: 15 gm Documented by: LUIS Haloperidol (Haloperidol 5 Mg Tablet) 5 mg PO BEDTIME [facility] Last Admin: 11/06/21 19:39 Dose: Not Given Documented by: MAURISIO Non-Admin Reason: Patient Refused Insulin Glargine (Insulin Glargine,Hum.Rec.Anlog 100 Unit/Ml 10 Ml Vial) 10 unit SUBCUT DAILY [facility] Last Admin: 11/06/21 08:36 Dose: 10 unit Documented by: EUGENIA Insulin Human Lispro (Insulin Lispro 100 Unit/Ml 3 Ml Vial) 0 unit SUBCUT QIDACHS [facility]; Protocol Last Admin: 11/06/21 20:18 Dose: Not Given Documented by: MAURISIO Non-Admin Reason: Patient Refused [place] Carbonate ([place] Carbonate 300 Mg Capsule) 300 mg PO BID [facility] Last Admin: 11/06/21 19:39 Dose: Not Given Documented by: MAURISIO Non-Admin Reason: Patient Refused Melatonin (Melatonin 3 Mg Tablet) 6 mg PO BEDTIME PRN PRN Reason: Sleep Last Admin: 11/02/21 20:05 Dose: 6 mg Documented by: MELISSA Nortriptyline HCl (Nortriptyline Hcl 10 Mg Capsule) 10 mg PO BEDTIME [facility] Last Admin: 11/06/21 19:39 Dose: Not Given Documented by: MAURISIO Non-Admin Reason: Patient Refused Pharmacy Consult (Consult Rx Perform Med Rec) 1 each MISCELLANE ONCE PRN PRN Reason: Consult order Labs CBC & Chem 7: 10/18/21 10:37 11/02/21 09:48 Labs: Laboratory Results - last 24 hr 11/06/21 11/06/21 11/06/21 08:04 11:13 15:04 POC Glucose 326 H 153 H 97 11/06/21 19:40 POC Glucose 219 H Assessment and Plan (1) Dementia: Status: Acute [facility] hospital d#35 66yo F with bipolar disorder admitted with encephalopathy initially attributed to UTI but actually due to psychiatric disease # toxic-metabolic encephalopathy superimposed on likely underlying dementia of probable vascular cause with behavioral agitation - MRI showed generalized atrophy and diffuse white matter microangiopathy - s/p treatment for UTI with no improvement in cognitive function - seen by neuro, EEG showing generalized slowing, no evidence of seizure disorder - B12, folate, TSH, RPR WNL - per PT, not a rehab candidate - per Dr Holland's discussion with family, patient was high-functioning prior to admission; using public tranportation, ambulating without difficulty, living alone and independently in her apartment - after all this workup, it is fairly certain that her mental status changes are due to dementia + decompensated bipolar disorder and she is improving on lithium # bipolar disorder - lithium, haloperidol, benztropine, nortriptyline # KEESHA/CKD3 - SCr 1.3, lithium level OK 11/02/21; recheck BMP tomorrow; as per Nephrology if creatinine raise is greater than 1.7 lithium will be discontinued # hyperCa - due to underlying primary hyperparathyroidism and exacerbated by lithium - not likely at this level to be contributing to her mental status changes - Nephrology following, started on cincalcet 30 mg daily, increased to 60 mg daily - [place] f[place] [facility] [place] - avoid Ca, vitamin D, thiazides, NSAIDs # DM2 with hyperglycemia, A1c 10.1 - basal/bolus insulin # Streptococcus agalactiae UTI - completed 5-day ABX course # HLD - statin # VTE ppx - SCDs, ambulation # dispo - CM working on LTC placement/payment issues Quality Stroke Does the patient have a stroke diagnosis?: Yes Reason for No Anti-thrombotic by Day Two: N/A - Med Ordered VTE Prior VTE?: No VTE Risk Level:: Medical - moderate - high VTE Device Contraindication: N/A - Device Ordered VTE Drug Contraindication: N/A - Med Ordered
[2021-11-07 07:54] LABS: Glucose, Whole Blood 228 mg/dL (60-115)
--- NOTE | 2021-11-07 08:47 | PC.NURSE ---
Dr. Minor aware that patient refused AM PO meds and Insulin
[2021-11-07 15:00] VITALS: BP 120/58; PULSE 76; RESP 18; TEMP 37; O2SAT 98
[2021-11-07 15:33] LABS: Glucose, Whole Blood 321 mg/dL (60-115)
[2021-11-07 20:07] LABS: Glucose, Whole Blood 360 mg/dL (60-115)
[2021-11-08 07:08] LABS: Glucose, Whole Blood 241 mg/dL (60-115)
[2021-11-08 07:35] VITALS: BP 131/65; PULSE 75; RESP 18; TEMP 36.5; O2SAT 100
[2021-11-08] MEDS: Aspirin Enteric Coated 81 MG TABLET.DR PO (09:30)
[2021-11-08] MEDS: Lithium Carbonate 300 MG CAPSULE PO ×2 (09:30→20:30)
[2021-11-08] MEDS: Cinacalcet HCl 30 MG TABLET 60 MG PO (09:31)
[2021-11-08] MEDS: Atorvastatin Calcium 20 MG TABLET PO (09:31)
[2021-11-08] MEDS: Insulin Lispro 100 UNIT/ML 3 ML VIAL SUBCUT ×4 (09:33→21:06)
[2021-11-08] MEDS: Insulin Glargine,Hum.rec.anlog 100 UNIT/ML 10 ML VIAL 10 UNIT SUBCUT (09:34)
[2021-11-08 11:03] LABS: Anion Gap 15 (12-20); Blood Urea Nitrogen 12 mg/dL (9-16); Calcium 9.9 mg/dL (8.4-10.2); Carbon Dioxide 21 mmol/L (22-29); Chloride 103 mmol/L (96-108); Creatinine Clr Calc Pharmacy 41.5; Estimated Glomerular Filt Rate 41; Glucose Random 482 mg/dL (60-115); Potassium 4.8 mmol/L (3.3-5.1); Sodium 134 mmol/L (135-145)
[2021-11-08 11:26] VITALS: BP 161/60; PULSE 73; RESP 18; TEMP 36.3; O2SAT 100
[2021-11-08 11:28] LABS: Glucose, Whole Blood 456 mg/dL (60-115)
--- NOTE | 2021-11-08 12:40 | HO.PM.IMPN ---
Subjective Subjective Date of Service: 11/08/21 Interval History: No acute issues overnight. Continues to await placement Review of Systems Denies chest pain Denies shortness of breath Denies nausea vomiting diarrhea Constitutional Constitutional: Reports no additional constitutional complaints, Denies chills and Denies fever(s) Cardiovascular Cardiovascular: Denies chest pain, Denies palpitations and Denies dyspnea Respiratory Respiratory: Denies cough and Denies dyspnea Gastrointestinal Gastrointestinal: Denies abdominal pain, Denies diarrhea, Denies nausea and Denies vomiting Neurologic Neurologic: Reports confusion Psychiatric Psychiatric: Reports confusion Endocrine Endocrine: Denies palpitations Physical Exam Vital Signs: Vital Signs: Last Vital Signs Temp 97.3 F 11/08/21 11:26 Pulse 73 11/08/21 11:26 Resp 18 11/08/21 11:26 BP 161/60 H 11/08/21 11:26 Pulse Ox 100 11/08/21 11:26 BMI result Body Mass Index 28.8 Const: General: cooperative, healthy appearing, comfortable, no acute distress, alert, awake and confusion Nutritional Appearance: average body habitus and well nourished Orientation/consciousness: confusion Resp: Effort & Inspection: normal respiratory effort and able to speak in complete sentences Auscultation: clear to auscultation bilaterally Cardio: Rate: regular rate Heart sounds: S1 normal heart sound present and S2 normal heart sound present GI: Inspection: No distended Palpation (GI): Soft to palpation and nontender Neuro: General: confusion Objective Data Active Medications Aspirin (Aspirin Enteric Coated 81 Mg Tablet.) 81 mg PO DAILY [facility] Last Admin: 11/08/21 09:30 Dose: 81 mg Documented by: DENTON Atorvastatin Calcium (Atorvastatin Calcium 20 Mg Tablet) 20 mg PO DAILY [facility] Last Admin: 11/08/21 09:31 Dose: 20 mg Documented by: DENTON Benztropine Mesylate (Benztropine Mesylate 1 Mg Tablet) 1 mg PO BEDTIME [facility] Last Admin: 11/07/21 22:39 Dose: Not Given Documented by: BRAN Non-Admin Reason: Patient Refused Cinacalcet (Cinacalcet Hcl 30 Mg Tablet) 60 mg PO DAILY [facility] Last Admin: 11/08/21 09:31 Dose: 60 mg Documented by: DENTON Dextrose (Dextrose 50 % 25 Gm/50 Ml Vial) 25 gm IVPUSH Q15M PRN; Protocol PRN Reason: per Hypoglycemia Standing Ord. Glucose (Glucose Gel 15 Gm Gel..Gram.) 15 gm PO Q15M PRN; Protocol PRN Reason: per Hypoglycemia Standing Ord. Last Admin: 10/13/21 21:16 Dose: 15 gm Documented by: LUIS Haloperidol (Haloperidol 5 Mg Tablet) 5 mg PO BEDTIME [facility] Last Admin: 11/07/21 22:40 Dose: Not Given Documented by: BRAN Non-Admin Reason: Patient Refused Insulin Glargine (Insulin Glargine,Hum.Rec.Anlog 100 Unit/Ml 10 Ml Vial) 10 unit SUBCUT DAILY [facility] Last Admin: 11/08/21 09:34 Dose: 10 unit Documented by: DENTON Insulin Human Lispro (Insulin Lispro 100 Unit/Ml 3 Ml Vial) 0 unit SUBCUT QIDACHS [facility]; Protocol Last Admin: 11/08/21 12:07 Dose: 12 unit Documented by: DENTON [place] Carbonate ([place] Carbonate 300 Mg Capsule) 300 mg PO BID [facility] Last Admin: 11/08/21 09:30 Dose: 300 mg Documented by: DENTON Melatonin (Melatonin 3 Mg Tablet) 6 mg PO BEDTIME PRN PRN Reason: Sleep Last Admin: 11/02/21 20:05 Dose: 6 mg Documented by: MELISSA Nortriptyline HCl (Nortriptyline Hcl 10 Mg Capsule) 10 mg PO BEDTIME [facility] Last Admin: 11/07/21 22:40 Dose: Not Given Documented by: BRAN Non-Admin Reason: Patient Refused Pharmacy Consult (Consult Rx Perform Med Rec) 1 each MISCELLANE ONCE PRN PRN Reason: Consult order Labs CBC & Chem 7: 10/18/21 10:37 11/08/21 10:42 Labs: Laboratory Results - last 24 hr 11/07/21 11/07/21 11/08/21 14:52 19:12 07:04 Anion Gap Estim Creat Clear Calc Estimated GFR POC Glucose 321 H 360 H* 241 H Random Glucose Calcium 11/08/21 11/08/21 10:42 11:19 Anion Gap 15 Estim Creat Clear Calc 41.5 Estimated GFR 41 POC Glucose 456 H* Random Glucose 482 H* Calcium 9.9 Assessment and Plan (1) Bipolar disorder: Status: Acute Plan 66yo F with bipolar disorder admitted with encephalopathy initially attributed to UTI but now likely more psychiatric in nature 1.Bipolar disorder - lithium resumed at lower dose -awaiting placement 2.KEESHA on CKD 3 - improved -? follow renals/divalents daily - as per Nephrology if creatinine raise is greater than 1.7 lithium will be discontinued 3.HyperCalcemia - Nephrology; sensipar? increased to 60 mg daily - outpt f/u with Endocrine Surgery (Dr Day at [facility] [place]) - avoid Ca, vitamin D, thiazides, NSAIDs 4. DMII -acceptable control on correction dose lispro -adjust as clinically indicated Quality Stroke Does the patient have a stroke diagnosis?: Yes Reason for No Anti-thrombotic by Day Two: N/A - Med Ordered VTE Prior VTE?: No VTE Risk Level:: Medical - moderate - high VTE Device Contraindication: N/A - Device Ordered VTE Drug Contraindication: N/A - Med Ordered
[2021-11-08] MEDS: Insulin Lispro 100 UNIT/ML 3 ML VIAL 10 UNIT SUBCUT (12:41)
[2021-11-08 15:31] VITALS: BP 150/74; PULSE 75; RESP 18; TEMP 36.7; O2SAT 96
[2021-11-08 16:14] LABS: Glucose, Whole Blood 146 mg/dL (60-115)
[2021-11-08 19:43] VITALS: BP 90/61; PULSE 76; RESP 18; TEMP 20.2; O2SAT 100
[2021-11-08] MEDS: Nortriptyline HCl 10 MG CAPSULE PO (20:30)
[2021-11-08] MEDS: HaloperidoL 5 MG TABLET PO (20:30)
[2021-11-08] MEDS: Benztropine Mesylate 1 MG TABLET PO (20:30)
[2021-11-08 20:53] LABS: Glucose, Whole Blood 252 mg/dL (60-115)
[2021-11-08 23:16] VITALS: BP 140/60; PULSE 98; RESP 14; TEMP 36.3; O2SAT 96
[2021-11-09 04:00] VITALS: RESP 18
[2021-11-09 07:07] VITALS: BP 110/56; PULSE 72; RESP 18; TEMP 36.8; O2SAT 100
[2021-11-09 07:43] LABS: Glucose, Whole Blood 218 mg/dL (60-115)
[2021-11-09] MEDS: Aspirin Enteric Coated 81 MG TABLET.DR PO (07:59)
[2021-11-09] MEDS: Cinacalcet HCl 30 MG TABLET 60 MG PO (07:59)
[2021-11-09] MEDS: Lithium Carbonate 300 MG CAPSULE PO ×2 (07:59→20:17)
[2021-11-09] MEDS: Insulin Lispro 100 UNIT/ML 3 ML VIAL SUBCUT ×4 (07:59→20:18)
[2021-11-09] MEDS: Atorvastatin Calcium 20 MG TABLET PO (07:59)
[2021-11-09] MEDS: Insulin Glargine,Hum.rec.anlog 100 UNIT/ML 10 ML VIAL 10 UNIT SUBCUT (08:00)
[2021-11-09 11:39] LABS: Glucose, Whole Blood 133 mg/dL (60-115)
[2021-11-09 11:53] VITALS: BP 153/84; PULSE 79; RESP 18; TEMP 36.7; O2SAT 100
--- NOTE | 2021-11-09 15:08 | HO.PM.IMPN ---
Subjective Subjective Date of Service: 11/09/21 Interval History: No acute issues overnight. Continues to await placement Review of Systems Denies chest pain Denies shortness of breath Denies nausea vomiting diarrhea Constitutional Constitutional: Reports no additional constitutional complaints, Denies chills and Denies fever(s) Cardiovascular Cardiovascular: Denies chest pain, Denies palpitations and Denies dyspnea Respiratory Respiratory: Denies cough and Denies dyspnea Gastrointestinal Gastrointestinal: Denies abdominal pain, Denies diarrhea, Denies nausea and Denies vomiting Neurologic Neurologic: Reports confusion Psychiatric Psychiatric: Reports confusion Endocrine Endocrine: Denies palpitations Physical Exam Vital Signs: Vital Signs: Last Vital Signs Temp 98.0 F 11/09/21 11:53 Pulse 79 11/09/21 11:53 Resp 18 11/09/21 11:53 BP 153/84 H 11/09/21 11:53 Pulse Ox 100 11/09/21 11:53 BMI result Body Mass Index 28.8 Const: General: cooperative, healthy appearing, comfortable, no acute distress, alert, awake and confusion Nutritional Appearance: average body habitus and well nourished Orientation/consciousness: confusion Resp: Effort & Inspection: normal respiratory effort and able to speak in complete sentences Auscultation: clear to auscultation bilaterally Cardio: Rate: regular rate Heart sounds: S1 normal heart sound present and S2 normal heart sound present GI: Inspection: No distended Palpation (GI): Soft to palpation and nontender Neuro: General: confusion Objective Data Active Medications Aspirin (Aspirin Enteric Coated 81 Mg Tablet.) 81 mg PO DAILY [facility] Last Admin: 11/09/21 07:59 Dose: 81 mg Documented by: BLOSSOM Atorvastatin Calcium (Atorvastatin Calcium 20 Mg Tablet) 20 mg PO DAILY [facility] Last Admin: 11/09/21 07:59 Dose: 20 mg Documented by: BLOSSOM Benztropine Mesylate (Benztropine Mesylate 1 Mg Tablet) 1 mg PO BEDTIME [facility] Last Admin: 11/08/21 20:30 Dose: 1 mg Documented by: NITISH Cinacalcet (Cinacalcet Hcl 30 Mg Tablet) 60 mg PO DAILY [facility] Last Admin: 11/09/21 07:59 Dose: 60 mg Documented by: BLOSSOM Dextrose (Dextrose 50 % 25 Gm/50 Ml Vial) 25 gm IVPUSH Q15M PRN; Protocol PRN Reason: per Hypoglycemia Standing Ord. Glucose (Glucose Gel 15 Gm Gel..Gram.) 15 gm PO Q15M PRN; Protocol PRN Reason: per Hypoglycemia Standing Ord. Last Admin: 10/13/21 21:16 Dose: 15 gm Documented by: LUIS Haloperidol (Haloperidol 5 Mg Tablet) 5 mg PO BEDTIME [facility] Last Admin: 11/08/21 20:30 Dose: 5 mg Documented by: NITISH Insulin Glargine (Insulin Glargine,Hum.Rec.Anlog 100 Unit/Ml 10 Ml Vial) 10 unit SUBCUT DAILY [facility] Last Admin: 11/09/21 08:00 Dose: 10 unit Documented by: BLOSSOM Insulin Human Lispro (Insulin Lispro 100 Unit/Ml 3 Ml Vial) 0 unit SUBCUT QIDACHS [facility]; Protocol Last Admin: 11/09/21 11:46 Dose: 2 unit Documented by: BLOSSOM [place] Carbonate ([place] Carbonate 300 Mg Capsule) 300 mg PO BID [facility] Last Admin: 11/09/21 07:59 Dose: 300 mg Documented by: BLOSSOM Melatonin (Melatonin 3 Mg Tablet) 6 mg PO BEDTIME PRN PRN Reason: Sleep Last Admin: 11/02/21 20:05 Dose: 6 mg Documented by: MELISSA Nortriptyline HCl (Nortriptyline Hcl 10 Mg Capsule) 10 mg PO BEDTIME [facility] Last Admin: 11/08/21 20:30 Dose: 10 mg Documented by: NITISH Pharmacy Consult (Consult Rx Perform Med Rec) 1 each MISCELLANE ONCE PRN PRN Reason: Consult order Labs CBC & Chem 7: 10/18/21 10:37 11/08/21 10:42 Labs: Laboratory Results - last 24 hr 11/08/21 11/08/21 11/09/21 16:09 20:43 07:23 POC Glucose 146 H 252 H 218 H 11/09/21 11:13 POC Glucose 133 H Assessment and Plan (1) Dementia: Status: Acute (2) Bipolar disorder: Status: Acute Plan 66yo F with bipolar disorder admitted with encephalopathy initially attributed to UTI but now likely more psychiatric in nature 1.Bipolar disorder - lithium resumed at lower dose -awaiting placement 2.KEESHA on CKD 3 - improved -? follow renals/divalents daily - as per Nephrology if creatinine raise is greater than 1.7 lithium will be discontinued 3.HyperCalcemia - Nephrology; sensipar? increased to 60 mg daily - outpt f/u with Endocrine Surgery (Dr Day at [facility] [place] - avoid Ca, vitamin D, thiazides, NSAIDs 4. DMII -acceptable control on correction dose lispro -adjust as clinically indicated Quality Stroke Does the patient have a stroke diagnosis?: Yes Reason for No Anti-thrombotic by Day Two: N/A - Med Ordered VTE Prior VTE?: No VTE Risk Level:: Medical - moderate - high VTE Device Contraindication: N/A - Device Ordered VTE Drug Contraindication: N/A - Med Ordered
[2021-11-09 15:24] VITALS: BP 130/85; PULSE 75; RESP 18; TEMP 36.6; O2SAT 98
[2021-11-09 16:07] LABS: Glucose, Whole Blood 177 mg/dL (60-115)
[2021-11-09 19:36] VITALS: BP 162/78; PULSE 79; RESP 18; TEMP 36.7; O2SAT 100
[2021-11-09 20:10] LABS: Glucose, Whole Blood 187 mg/dL (60-115)
[2021-11-09] MEDS: Melatonin 3 MG TABLET 6 MG PO (20:18)
[2021-11-09] MEDS: HaloperidoL 5 MG TABLET PO (20:18)
[2021-11-09] MEDS: Nortriptyline HCl 10 MG CAPSULE PO (20:18)
[2021-11-09] MEDS: Benztropine Mesylate 1 MG TABLET PO (20:18)
[2021-11-10 07:46] LABS: Glucose, Whole Blood 226 mg/dL (60-115)
[2021-11-10 08:00] VITALS: BP 123/85; PULSE 81; RESP 18; TEMP 36.7; O2SAT 97
[2021-11-10] MEDS: Aspirin Enteric Coated 81 MG TABLET.DR PO (08:06)
[2021-11-10] MEDS: Atorvastatin Calcium 20 MG TABLET PO (08:06)
[2021-11-10] MEDS: Cinacalcet HCl 30 MG TABLET 60 MG PO (08:06)
[2021-11-10] MEDS: Insulin Lispro 100 UNIT/ML 3 ML VIAL SUBCUT ×3 (08:06→21:47)
[2021-11-10] MEDS: Lithium Carbonate 300 MG CAPSULE PO ×2 (08:06→21:47)
[2021-11-10] MEDS: Insulin Glargine,Hum.rec.anlog 100 UNIT/ML 10 ML VIAL 10 UNIT SUBCUT (08:07)
[2021-11-10 11:36] LABS: Glucose, Whole Blood 83 mg/dL (60-115)
--- NOTE | 2021-11-10 12:47 | HO.PM.IMPN ---
Subjective Subjective Date of Service: 11/10/21 Interval History: No acute issues overnight. Continues to await placement Review of Systems Denies chest pain Denies shortness of breath Denies nausea vomiting diarrhea Constitutional Constitutional: Reports no additional constitutional complaints, Denies chills and Denies fever(s) Cardiovascular Cardiovascular: Denies chest pain, Denies palpitations and Denies dyspnea Respiratory Respiratory: Denies cough and Denies dyspnea Gastrointestinal Gastrointestinal: Denies abdominal pain, Denies diarrhea, Denies nausea and Denies vomiting Neurologic Neurologic: Reports confusion Psychiatric Psychiatric: Reports confusion Endocrine Endocrine: Denies palpitations Physical Exam Vital Signs: Vital Signs: Last Vital Signs Temp 98.1 F 11/10/21 08:00 Pulse 81 11/10/21 08:00 Resp 18 11/10/21 08:00 BP 123/85 11/10/21 08:00 Pulse Ox 97 11/10/21 08:00 BMI result Body Mass Index 28.8 Const: General: cooperative, healthy appearing, comfortable, no acute distress, alert, awake and confusion Nutritional Appearance: average body habitus and well nourished Orientation/consciousness: confusion Resp: Effort & Inspection: normal respiratory effort and able to speak in complete sentences Auscultation: clear to auscultation bilaterally Cardio: Rate: regular rate Heart sounds: S1 normal heart sound present and S2 normal heart sound present GI: Inspection: No distended Palpation (GI): Soft to palpation and nontender Neuro: General: confusion Objective Data Active Medications Aspirin (Aspirin Enteric Coated 81 Mg Tablet.) 81 mg PO DAILY [facility] Last Admin: 11/10/21 08:06 Dose: 81 mg Documented by: BLOSSOM Atorvastatin Calcium (Atorvastatin Calcium 20 Mg Tablet) 20 mg PO DAILY [facility] Last Admin: 11/10/21 08:06 Dose: 20 mg Documented by: BLOSSOM Benztropine Mesylate (Benztropine Mesylate 1 Mg Tablet) 1 mg PO BEDTIME [facility] Last Admin: 11/09/21 20:18 Dose: 1 mg Documented by: MELISSA Cinacalcet (Cinacalcet Hcl 30 Mg Tablet) 60 mg PO DAILY [facility] Last Admin: 11/10/21 08:06 Dose: 60 mg Documented by: BLOSSOM Dextrose (Dextrose 50 % 25 Gm/50 Ml Vial) 25 gm IVPUSH Q15M PRN; Protocol PRN Reason: per Hypoglycemia Standing Ord. Glucose (Glucose Gel 15 Gm Gel..Gram.) 15 gm PO Q15M PRN; Protocol PRN Reason: per Hypoglycemia Standing Ord. Last Admin: 10/13/21 21:16 Dose: 15 gm Documented by: LUIS Haloperidol (Haloperidol 5 Mg Tablet) 5 mg PO BEDTIME [facility] Last Admin: 11/09/21 20:18 Dose: 5 mg Documented by: MELISSA Insulin Glargine (Insulin Glargine,Hum.Rec.Anlog 100 Unit/Ml 10 Ml Vial) 10 unit SUBCUT DAILY [facility] Last Admin: 11/10/21 08:07 Dose: 10 unit Documented by: BLOSSOM Insulin Human Lispro (Insulin Lispro 100 Unit/Ml 3 Ml Vial) 0 unit SUBCUT QIDACHS [facility]; Protocol Last Admin: 11/10/21 11:56 Dose: Not Given Documented by: BLOSSOM Non-Admin Reason: No Insulin Coverage [place] Carbonate ([place] Carbonate 300 Mg Capsule) 300 mg PO BID [facility] Last Admin: 11/10/21 08:06 Dose: 300 mg Documented by: BLOSSOM Melatonin (Melatonin 3 Mg Tablet) 6 mg PO BEDTIME PRN PRN Reason: Sleep Last Admin: 11/09/21 20:18 Dose: 6 mg Documented by: MELISSA Nortriptyline HCl (Nortriptyline Hcl 10 Mg Capsule) 10 mg PO BEDTIME [facility] Last Admin: 11/09/21 20:18 Dose: 10 mg Documented by: MELISSA Pharmacy Consult (Consult Rx Perform Med Rec) 1 each MISCELLANE ONCE PRN PRN Reason: Consult order Labs CBC & Chem 7: 10/18/21 10:37 11/08/21 10:42 Labs: Laboratory Results - last 24 hr 11/09/21 11/09/21 11/10/21 15:45 19:59 07:41 POC Glucose 177 H 187 H 226 H 11/10/21 11:32 POC Glucose 83 Assessment and Plan (1) Dementia: Status: Acute Plan 66yo F with bipolar disorder admitted with encephalopathy initially attributed to UTI but now likely more psychiatric in nature 1.Bipolar disorder - lithium resumed at lower dose -awaiting placement 2.KEESHA on CKD 3 - improved -? follow renals/divalents daily - as per Nephrology if creatinine raise is greater than 1.7 lithium will be discontinued 3.HyperCalcemia - Nephrology; sensipar? increased to 60 mg daily - outpt f/u with Endocrine Surgery [place] [facility] [place] - avoid Ca, vitamin D, thiazides, NSAIDs 4. DMII -acceptable control on correction dose lispro -adjust as clinically indicated Quality Stroke Does the patient have a stroke diagnosis?: Yes Reason for No Anti-thrombotic by Day Two: N/A - Med Ordered VTE Prior VTE?: No VTE Risk Level:: Medical - moderate - high VTE Device Contraindication: N/A - Device Ordered VTE Drug Contraindication: N/A - Med Ordered
[2021-11-10 15:48] VITALS: BP 119/75; PULSE 74; RESP 18; TEMP 36.8; O2SAT 100
[2021-11-10 16:15] LABS: Glucose, Whole Blood 166 mg/dL (60-115)
[2021-11-10 20:14] LABS: Glucose, Whole Blood 300 mg/dL (60-115)
[2021-11-10] MEDS: Nortriptyline HCl 10 MG CAPSULE PO (21:47)
[2021-11-10] MEDS: HaloperidoL 5 MG TABLET PO (21:47)
[2021-11-10] MEDS: Benztropine Mesylate 1 MG TABLET PO (21:47)
[2021-11-11 07:33] VITALS: BP 132/67; PULSE 72; RESP 19; TEMP 36.1; O2SAT 96
[2021-11-11 07:34] LABS: Glucose, Whole Blood 215 mg/dL (60-115)
[2021-11-11] MEDS: Insulin Lispro 100 UNIT/ML 3 ML VIAL SUBCUT ×4 (07:57→20:54)
[2021-11-11] MEDS: Insulin Glargine,Hum.rec.anlog 100 UNIT/ML 10 ML VIAL 10 UNIT SUBCUT (07:58)
[2021-11-11] MEDS: Cinacalcet HCl 30 MG TABLET 60 MG PO (07:58)
[2021-11-11] MEDS: Aspirin Enteric Coated 81 MG TABLET.DR PO (07:59)
[2021-11-11] MEDS: Atorvastatin Calcium 20 MG TABLET PO (07:59)
[2021-11-11] MEDS: Lithium Carbonate 300 MG CAPSULE PO ×2 (07:59→20:55)
[2021-11-11 11:11] LABS: Glucose, Whole Blood 341 mg/dL (60-115)
--- NOTE | 2021-11-11 12:14 | HO.PM.IMPN ---
Subjective Subjective Date of Service: 11/11/21 Interval History: No acute issues overnight. Continues to await placement Review of Systems Denies chest pain Denies shortness of breath Denies nausea vomiting diarrhea Constitutional Constitutional: Reports no additional constitutional complaints, Denies chills and Denies fever(s) Cardiovascular Cardiovascular: Denies chest pain, Denies palpitations and Denies dyspnea Respiratory Respiratory: Denies cough and Denies dyspnea Gastrointestinal Gastrointestinal: Denies abdominal pain, Denies diarrhea, Denies nausea and Denies vomiting Neurologic Neurologic: Reports confusion Psychiatric Psychiatric: Reports confusion Endocrine Endocrine: Denies palpitations Physical Exam Vital Signs: Vital Signs: Last Vital Signs Temp 97 F 11/11/21 07:33 Pulse 72 11/11/21 07:33 Resp 19 11/11/21 07:33 BP 132/67 11/11/21 07:33 Pulse Ox 96 11/11/21 07:33 BMI result Body Mass Index 28.8 Const: General: cooperative, healthy appearing, comfortable, no acute distress, alert, awake and confusion Nutritional Appearance: average body habitus and well nourished Orientation/consciousness: confusion Resp: Effort & Inspection: normal respiratory effort and able to speak in complete sentences Auscultation: clear to auscultation bilaterally Cardio: Rate: regular rate Heart sounds: S1 normal heart sound present and S2 normal heart sound present GI: Inspection: No distended Palpation (GI): Soft to palpation and nontender Neuro: General: confusion Objective Data Active Medications Aspirin (Aspirin Enteric Coated 81 Mg Tablet.) 81 mg PO DAILY [facility] Last Admin: 11/11/21 07:59 Dose: 81 mg Documented by: GUY Atorvastatin Calcium (Atorvastatin Calcium 20 Mg Tablet) 20 mg PO DAILY [facility] Last Admin: 11/11/21 07:59 Dose: 20 mg Documented by: GUY Benztropine Mesylate (Benztropine Mesylate 1 Mg Tablet) 1 mg PO BEDTIME [facility] Last Admin: 11/10/21 21:47 Dose: 1 mg Documented by: JENISE Cinacalcet (Cinacalcet Hcl 30 Mg Tablet) 60 mg PO DAILY [facility] Last Admin: 11/11/21 07:58 Dose: 60 mg Documented by: GUY Dextrose (Dextrose 50 % 25 Gm/50 Ml Vial) 25 gm IVPUSH Q15M PRN; Protocol PRN Reason: per Hypoglycemia Standing Ord. Glucose (Glucose Gel 15 Gm Gel..Gram.) 15 gm PO Q15M PRN; Protocol PRN Reason: per Hypoglycemia Standing Ord. Last Admin: 10/13/21 21:16 Dose: 15 gm Documented by: LUIS Haloperidol (Haloperidol 5 Mg Tablet) 5 mg PO BEDTIME [facility] Last Admin: 11/10/21 21:47 Dose: 5 mg Documented by: JENISE Insulin Glargine (Insulin Glargine,Hum.Rec.Anlog 100 Unit/Ml 10 Ml Vial) 10 unit SUBCUT DAILY [facility] Last Admin: 11/11/21 07:58 Dose: 10 unit Documented by: GUY Insulin Human Lispro (Insulin Lispro 100 Unit/Ml 3 Ml Vial) 0 unit SUBCUT QIDACHS [facility]; Protocol Last Admin: 11/11/21 11:49 Dose: 10 unit Documented by: GUY [place] Carbonate ([place] Carbonate 300 Mg Capsule) 300 mg PO BID [facility] Last Admin: 11/11/21 07:59 Dose: 300 mg Documented by: GUY Melatonin (Melatonin 3 Mg Tablet) 6 mg PO BEDTIME PRN PRN Reason: Sleep Last Admin: 11/09/21 20:18 Dose: 6 mg Documented by: MELISSA Nortriptyline HCl (Nortriptyline Hcl 10 Mg Capsule) 10 mg PO BEDTIME [facility] Last Admin: 11/10/21 21:47 Dose: 10 mg Documented by: JENISE Pharmacy Consult (Consult Rx Perform Med Rec) 1 each MISCELLANE ONCE PRN PRN Reason: Consult order Labs CBC & Chem 7: 10/18/21 10:37 11/08/21 10:42 Labs: Laboratory Results - last 24 hr 11/10/21 11/10/21 11/11/21 15:51 20:10 07:30 POC Glucose 166 H 300 H 215 H 11/11/21 11:07 POC Glucose 341 H Assessment and Plan (1) Dementia: Status: Acute (2) Bipolar disorder: Status: Acute Plan 66yo F with bipolar disorder admitted with encephalopathy initially attributed to UTI but now likely more psychiatric in nature 1.Bipolar disorder - lithium resumed at lower dose -awaiting placement 2.KEESHA on CKD 3 - improved -? follow renals/divalents daily - as per Nephrology if creatinine raise is greater than 1.7 lithium will be discontinued 3.HyperCalcemia - Nephrology; sensipar? increased to 60 mg daily - outpt f/u [place] Endocrine [place] [facility] [place] - avoid Ca, vitamin D, thiazides, NSAIDs 4. DMII -acceptable control on correction dose lispro -adjust as clinically indicated Quality Stroke Does the patient have a stroke diagnosis?: Yes Reason for No Anti-thrombotic by Day Two: N/A - Med Ordered VTE Prior VTE?: No VTE Risk Level:: Medical - moderate - high VTE Device Contraindication: N/A - Device Ordered VTE Drug Contraindication: N/A - Med Ordered
[2021-11-11 15:10] VITALS: BP 135/62; PULSE 78; RESP 18; TEMP 37.1; O2SAT 98
[2021-11-11 16:30] LABS: Glucose, Whole Blood 148 mg/dL (60-115)
[2021-11-11 20:41] LABS: Glucose, Whole Blood 265 mg/dL (60-115)
[2021-11-11] MEDS: Nortriptyline HCl 10 MG CAPSULE PO (20:54)
[2021-11-11] MEDS: Benztropine Mesylate 1 MG TABLET PO (20:55)
[2021-11-11] MEDS: HaloperidoL 5 MG TABLET PO (20:55)
[2021-11-11 23:24] VITALS: BP 110/62; PULSE 81; RESP 16; TEMP 36.2; O2SAT 98
[2021-11-12 06:24] VITALS: BP 148/64; PULSE 82; RESP 16; TEMP 36.5; O2SAT 99
[2021-11-12 07:51] LABS: Glucose, Whole Blood 245 mg/dL (60-115)
[2021-11-12] MEDS: Insulin Glargine,Hum.rec.anlog 100 UNIT/ML 10 ML VIAL 10 UNIT SUBCUT (08:30)
[2021-11-12] MEDS: Cinacalcet HCl 30 MG TABLET 60 MG PO (08:31)
[2021-11-12] MEDS: Aspirin Enteric Coated 81 MG TABLET.DR PO (08:31)
[2021-11-12] MEDS: Lithium Carbonate 300 MG CAPSULE PO ×2 (08:31→21:44)
[2021-11-12] MEDS: Atorvastatin Calcium 20 MG TABLET PO (08:31)
[2021-11-12] MEDS: Insulin Lispro 100 UNIT/ML 3 ML VIAL SUBCUT ×4 (08:31→21:45)
--- NOTE | 2021-11-12 10:36 | HO.PM.IMPN ---
Subjective Subjective Date of Service: 11/12/21 Interval History: No acute issues overnight. Continues to await placement Review of Systems Denies chest pain Denies shortness of breath Denies nausea vomiting diarrhea Constitutional Constitutional: Reports no additional constitutional complaints, Denies chills and Denies fever(s) Cardiovascular Cardiovascular: Denies chest pain, Denies palpitations and Denies dyspnea Respiratory Respiratory: Denies cough and Denies dyspnea Gastrointestinal Gastrointestinal: Denies abdominal pain, Denies diarrhea, Denies nausea and Denies vomiting Neurologic Neurologic: Reports confusion Psychiatric Psychiatric: Reports confusion Endocrine Endocrine: Denies palpitations Physical Exam Vital Signs: Vital Signs: Last Vital Signs Temp 97.7 F 11/12/21 06:24 Pulse 82 11/12/21 06:24 Resp 16 11/12/21 06:24 BP 148/64 H 11/12/21 06:24 Pulse Ox 99 11/12/21 06:24 BMI result Body Mass Index 28.8 Const: General: cooperative, healthy appearing, comfortable, no acute distress, alert, awake and confusion Nutritional Appearance: average body habitus and well nourished Orientation/consciousness: confusion Resp: Effort & Inspection: normal respiratory effort and able to speak in complete sentences Auscultation: clear to auscultation bilaterally Cardio: Rate: regular rate Heart sounds: S1 normal heart sound present and S2 normal heart sound present GI: Inspection: No distended Palpation (GI): Soft to palpation and nontender Neuro: General: confusion Objective Data Active Medications Aspirin (Aspirin Enteric Coated 81 Mg Tablet.) 81 mg PO DAILY [facility] Last Admin: 11/12/21 08:31 Dose: 81 mg Documented by: GUY Atorvastatin Calcium (Atorvastatin Calcium 20 Mg Tablet) 20 mg PO DAILY [facility] Last Admin: 11/12/21 08:31 Dose: 20 mg Documented by: GUY Benztropine Mesylate (Benztropine Mesylate 1 Mg Tablet) 1 mg PO BEDTIME [facility] Last Admin: 11/11/21 20:55 Dose: 1 mg Documented by: ZAFAR Cinacalcet (Cinacalcet Hcl 30 Mg Tablet) 60 mg PO DAILY [facility] Last Admin: 11/12/21 08:31 Dose: 60 mg Documented by: GUY Dextrose (Dextrose 50 % 25 Gm/50 Ml Vial) 25 gm IVPUSH Q15M PRN; Protocol PRN Reason: per Hypoglycemia Standing Ord. Glucose (Glucose Gel 15 Gm Gel..Gram.) 15 gm PO Q15M PRN; Protocol PRN Reason: per Hypoglycemia Standing Ord. Last Admin: 10/13/21 21:16 Dose: 15 gm Documented by: LUIS Haloperidol (Haloperidol 5 Mg Tablet) 5 mg PO BEDTIME [facility] Last Admin: 11/11/21 20:55 Dose: 5 mg Documented by: ZAFAR Insulin Glargine (Insulin Glargine,Hum.Rec.Anlog 100 Unit/Ml 10 Ml Vial) 10 unit SUBCUT DAILY [facility] Last Admin: 11/12/21 08:30 Dose: 10 unit Documented by: GUY Insulin Human Lispro (Insulin Lispro 100 Unit/Ml 3 Ml Vial) 0 unit SUBCUT QIDACHS [facility]; Protocol Last Admin: 11/12/21 08:31 Dose: 6 unit Documented by: GUY [place] Carbonate ([place] Carbonate 300 Mg Capsule) 300 mg PO BID [facility] Last Admin: 11/12/21 08:31 Dose: 300 mg Documented by: GUY Melatonin (Melatonin 3 Mg Tablet) 6 mg PO BEDTIME PRN PRN Reason: Sleep Last Admin: 11/09/21 20:18 Dose: 6 mg Documented by: MELISSA Nortriptyline HCl (Nortriptyline Hcl 10 Mg Capsule) 10 mg PO BEDTIME [facility] Last Admin: 11/11/21 20:54 Dose: 10 mg Documented by: ZAFAR Pharmacy Consult (Consult Rx Perform Med Rec) 1 each MISCELLANE ONCE PRN PRN Reason: Consult order Labs CBC & Chem 7: 10/18/21 10:37 11/08/21 10:42 Labs: Laboratory Results - last 24 hr 11/11/21 11/11/21 11/11/21 11:07 15:09 20:36 POC Glucose 341 H 148 H 265 H 11/12/21 07:42 POC Glucose 245 H Assessment and Plan (1) Bipolar disorder: Status: Acute (2) Dementia: Status: Acute Plan 66yo F with bipolar disorder admitted with encephalopathy initially attributed to UTI but now likely more psychiatric in nature 1.Bipolar disorder - lithium resumed at lower dose -awaiting placement 2.KEESHA on CKD 3 - improved -? follow renals/divalents daily - as per Nephrology if creatinine raise is greater than 1.7 lithium will be discontinued 3.HyperCalcemia - Nephrology; sensipar? increased to 60 mg daily - outpt f/u with Endocrine Surgery (Dr Day at [place]) - avoid Ca, vitamin D, thiazides, NSAIDs 4. DMII -acceptable control on correction dose lispro -adjust as clinically indicated Quality Stroke Does the patient have a stroke diagnosis?: Yes Reason for No Anti-thrombotic by Day Two: N/A - Med Ordered VTE Prior VTE?: No VTE Risk Level:: Medical - moderate - high VTE Device Contraindication: N/A - Device Ordered VTE Drug Contraindication: N/A - Med Ordered
[2021-11-12 11:38] LABS: Glucose, Whole Blood 200 mg/dL (60-115)
[2021-11-12 16:21] LABS: Glucose, Whole Blood 134 mg/dL (60-115)
[2021-11-12 20:59] LABS: Glucose, Whole Blood 344 mg/dL (60-115)
[2021-11-12] MEDS: HaloperidoL 5 MG TABLET PO (21:44)
[2021-11-12] MEDS: Benztropine Mesylate 1 MG TABLET PO (21:44)
[2021-11-12] MEDS: Nortriptyline HCl 10 MG CAPSULE PO (21:44)
[2021-11-12 23:27] VITALS: BP 151/76; PULSE 76; RESP 18; TEMP 36.9; O2SAT 98
[2021-11-13 06:55] VITALS: BP 162/75; PULSE 90; RESP 20; TEMP 36.3; O2SAT 100
[2021-11-13 07:30] LABS: Glucose, Whole Blood 238 mg/dL (60-115)
[2021-11-13] MEDS: Aspirin Enteric Coated 81 MG TABLET.DR PO (07:38)
[2021-11-13] MEDS: Atorvastatin Calcium 20 MG TABLET PO (07:38)
[2021-11-13] MEDS: Lithium Carbonate 300 MG CAPSULE PO ×2 (07:38→21:46)
[2021-11-13] MEDS: Cinacalcet HCl 30 MG TABLET 60 MG PO (07:38)
[2021-11-13] MEDS: Insulin Lispro 100 UNIT/ML 3 ML VIAL SUBCUT ×3 (07:39→21:46)
[2021-11-13] MEDS: Insulin Glargine,Hum.rec.anlog 100 UNIT/ML 10 ML VIAL 10 UNIT SUBCUT (07:39)
[2021-11-13 11:42] LABS: Glucose, Whole Blood 209 mg/dL (60-115)
--- NOTE | 2021-11-13 15:04 | HO.PM.IMPN ---
Subjective Subjective Date of Service: 11/13/21 Interval History: No acute issues overnight. Continues to await placement Review of Systems Denies chest pain Denies shortness of breath Denies nausea vomiting diarrhea Constitutional Constitutional: Reports no additional constitutional complaints, Denies chills and Denies fever(s) Cardiovascular Cardiovascular: Denies chest pain, Denies palpitations and Denies dyspnea Respiratory Respiratory: Denies cough and Denies dyspnea Gastrointestinal Gastrointestinal: Denies abdominal pain, Denies diarrhea, Denies nausea and Denies vomiting Neurologic Neurologic: Reports confusion Psychiatric Psychiatric: Reports confusion Endocrine Endocrine: Denies palpitations Physical Exam Vital Signs: Vital Signs: Last Vital Signs Temp 97.4 F 11/13/21 06:55 Pulse 90 11/13/21 06:55 Resp 20 11/13/21 06:55 BP 162/75 H 11/13/21 06:55 Pulse Ox 100 11/13/21 06:55 BMI result Body Mass Index 28.8 Const: General: cooperative, healthy appearing, comfortable, no acute distress, alert, awake and confusion Nutritional Appearance: average body habitus and well nourished Orientation/consciousness: confusion Resp: Effort & Inspection: normal respiratory effort and able to speak in complete sentences Auscultation: clear to auscultation bilaterally Cardio: Rate: regular rate Heart sounds: S1 normal heart sound present and S2 normal heart sound present GI: Inspection: No distended Palpation (GI): Soft to palpation and nontender Neuro: General: confusion Objective Data Active Medications Aspirin (Aspirin Enteric Coated 81 Mg Tablet.) 81 mg PO DAILY [facility] Last Admin: 11/13/21 07:38 Dose: 81 mg Documented by: BLOSSOM Atorvastatin Calcium (Atorvastatin Calcium 20 Mg Tablet) 20 mg PO DAILY [facility] Last Admin: 11/13/21 07:38 Dose: 20 mg Documented by: BLOSSOM Benztropine Mesylate (Benztropine Mesylate 1 Mg Tablet) 1 mg PO BEDTIME [facility] Last Admin: 11/12/21 21:44 Dose: 1 mg Documented by: ZAFAR Cinacalcet (Cinacalcet Hcl 30 Mg Tablet) 60 mg PO DAILY [facility] Last Admin: 11/13/21 07:38 Dose: 60 mg Documented by: BLOSSOM Dextrose (Dextrose 50 % 25 Gm/50 Ml Vial) 25 gm IVPUSH Q15M PRN; Protocol PRN Reason: per Hypoglycemia Standing Ord. Glucose (Glucose Gel 15 Gm Gel..Gram.) 15 gm PO Q15M PRN; Protocol PRN Reason: per Hypoglycemia Standing Ord. Last Admin: 10/13/21 21:16 Dose: 15 gm Documented by: LUIS Haloperidol (Haloperidol 5 Mg Tablet) 5 mg PO BEDTIME [facility] Last Admin: 11/12/21 21:44 Dose: 5 mg Documented by: ZAFAR Insulin Glargine (Insulin Glargine,Hum.Rec.Anlog 100 Unit/Ml 10 Ml Vial) 10 unit SUBCUT DAILY [facility] Last Admin: 11/13/21 07:39 Dose: 10 unit Documented by: BLOSSOM Insulin Human Lispro (Insulin Lispro 100 Unit/Ml 3 Ml Vial) 0 unit SUBCUT QIDACHS [facility]; Protocol Last Admin: 11/13/21 11:50 Dose: 6 unit Documented by: BLOSSOM [place] Carbonate ([place] Carbonate 300 Mg Capsule) 300 mg PO BID [facility] Last Admin: 11/13/21 07:38 Dose: 300 mg Documented by: BLOSSOM Melatonin (Melatonin 3 Mg Tablet) 6 mg PO BEDTIME PRN PRN Reason: Sleep Last Admin: 11/09/21 20:18 Dose: 6 mg Documented by: MELISSA Nortriptyline HCl (Nortriptyline Hcl 10 Mg Capsule) 10 mg PO BEDTIME [facility] Last Admin: 11/12/21 21:44 Dose: 10 mg Documented by: ZAFAR Pharmacy Consult (Consult Rx Perform Med Rec) 1 each MISCELLANE ONCE PRN PRN Reason: Consult order Labs CBC & Chem 7: 10/18/21 10:37 11/08/21 10:42 Labs: Laboratory Results - last 24 hr 11/12/21 11/12/21 11/13/21 16:07 20:55 07:02 POC Glucose 134 H 344 H 238 H 11/13/21 11:20 POC Glucose 209 H Assessment and Plan (1) Dementia: Status: Acute Plan 66yo F with bipolar disorder admitted with encephalopathy initially attributed to UTI but now likely more psychiatric in nature 1.Bipolar disorder - lithium resumed at lower dose -awaiting placement 2.KEESHA on CKD 3 - improved -? follow renals/divalents daily - as per Nephrology if creatinine raise is greater than 1.7 lithium will be discontinued 3.HyperCalcemia - Nephrology; sensipar? increased to 60 mg daily - outpt f/u with Endocrine Surgery (Dr Day at [facility] [place] - avoid Ca, vitamin D, thiazides, NSAIDs 4. DMII -acceptable control on correction dose lispro -adjust as clinically indicated Quality Stroke Does the patient have a stroke diagnosis?: Yes Reason for No Anti-thrombotic by Day Two: N/A - Med Ordered VTE Prior VTE?: No VTE Risk Level:: Medical - moderate - high VTE Device Contraindication: N/A - Device Ordered VTE Drug Contraindication: N/A - Med Ordered
[2021-11-13 16:00] VITALS: BP 138/67; PULSE 69; RESP 18; TEMP 36.8; O2SAT 94
[2021-11-13 16:36] LABS: Glucose, Whole Blood 110 mg/dL (60-115)
[2021-11-13 20:42] LABS: Glucose, Whole Blood 290 mg/dL (60-115)
[2021-11-13] MEDS: Benztropine Mesylate 1 MG TABLET PO (21:45)
[2021-11-13] MEDS: HaloperidoL 5 MG TABLET PO (21:46)
[2021-11-13] MEDS: Nortriptyline HCl 10 MG CAPSULE PO (21:49)
[2021-11-14] VITALS: RESP 18
[2021-11-14 08:00] VITALS: BP 130/62; PULSE 87; RESP 18; TEMP 36.5; O2SAT 100
[2021-11-14] MEDS: Insulin Lispro 100 UNIT/ML 3 ML VIAL SUBCUT ×3 (08:19→21:36)
[2021-11-14] MEDS: Insulin Glargine,Hum.rec.anlog 100 UNIT/ML 10 ML VIAL 10 UNIT SUBCUT (08:19)
[2021-11-14] MEDS: Aspirin Enteric Coated 81 MG TABLET.DR PO (08:20)
[2021-11-14] MEDS: Lithium Carbonate 300 MG CAPSULE PO ×2 (08:20→21:35)
[2021-11-14] MEDS: Atorvastatin Calcium 20 MG TABLET PO (08:20)
[2021-11-14] MEDS: Cinacalcet HCl 30 MG TABLET 60 MG PO (08:20)
[2021-11-14 10:14] LABS: Glucose, Whole Blood 223 mg/dL (60-115)
[2021-11-14 11:59] LABS: Glucose, Whole Blood 147 mg/dL (60-115)
--- NOTE | 2021-11-14 15:03 | P.PNIM_ITS ---
Subjective Subjective Date of Service: 11/14/21 Interval History: No acute issues overnight. Continues to await placement Review of Systems Denies chest pain Denies shortness of breath Denies nausea vomiting diarrhea Constitutional Constitutional: Reports no additional constitutional complaints, Denies chills and Denies fever(s) Cardiovascular Cardiovascular: Denies chest pain, Denies palpitations and Denies dyspnea Respiratory Respiratory: Denies cough and Denies dyspnea Gastrointestinal Gastrointestinal: Denies abdominal pain, Denies diarrhea, Denies nausea and Denies vomiting Neurologic Neurologic: Reports confusion Psychiatric Psychiatric: Reports confusion Endocrine Endocrine: Denies palpitations Physical Exam Vital Signs: Vital Signs: Last Vital Signs Temp 97.7 F 11/14/21 08:00 Pulse 87 11/14/21 08:00 Resp 18 11/14/21 08:00 BP 130/62 11/14/21 08:00 Pulse Ox 100 11/14/21 08:00 BMI result Body Mass Index 28.8 Const: General: cooperative, healthy appearing, comfortable, no acute di stress, alert, awake and confusion Nutritional Appearance: average body h abitus and well nourished Orientation/consciousness: confusion Resp: Effort & Inspection: normal respiratory effort and able to speak in complete sentences Auscultation: clear to auscultation bilaterally Cardio: Rate: regular rate Heart sounds: S1 normal heart sound present and S2 normal heart sound present GI: Inspection: No distended Palpation (GI): Soft to palpation and nontender Neuro: General: confusion Objective Data Active Medications Aspirin (Aspirin Enteric Coated 81 Mg Tablet.) 81 mg PO DAILY [facility] Last Admin: 11/14/21 08:20 Dose: 81 mg Documented by: SHERLY Atorvastatin Calcium (Atorvastatin Calcium 20 Mg Tablet) 20 mg PO DAILY [facility] Last Admin: 11/14/21 08:20 Dose: 20 mg Documented by: SHERLY Benztropine Mesylate (Benztropine Mesylate 1 Mg Tablet) 1 mg PO BEDTIME [facility] Last Admin: 11/13/21 21:45 Dose: 1 mg Documented by: JENISE Cinacalcet (Cinacalcet Hcl 30 Mg Tablet) 60 mg PO DAILY [facility] Last Admin: 11/14/21 08:20 Dose: 60 mg Documented by: SHERLY Dextrose (Dextrose 50 % 25 Gm/50 Ml Vial) 25 gm IVPUSH Q15M PRN; Protocol PRN Reason: per Hypoglycemia Standing Ord. Glucose (Glucose Gel 15 Gm Gel..Gram.) 15 gm PO Q15M PRN; Protocol PRN Reason: per Hypoglycemia Standing Ord. Last Admin: 10/13/21 21:16 Dose: 15 gm Documented by: LUIS Haloperidol (Haloperidol 5 Mg Tablet) 5 mg PO BEDTIME [facility] Last Admin: 11/13/21 21:46 Dose: 5 mg Documented by: JENISE Insulin Glargine (Insulin Glargine,Hum.Rec.Anlog 100 Unit/Ml 10 Ml Vial) 10 unit SUBCUT DAILY [facility] Last Admin: 11/14/21 08:19 Dose: 10 unit Documented by: SHERLY Insulin Human Lispro (Insulin Lispro 100 Unit/Ml 3 Ml Vial) 0 unit SUBCUT QIDACHS [facility]; Protocol Last Admin: 11/14/21 11:56 Dose: Not Given Documented by: SHERLY Non-Admin Reason: No Insulin Coverage [place] Carbonate ([place] Carbonate 300 Mg Capsule) 300 mg PO BID [facility] Last Admin: 11/14/21 08:20 Dose: 300 mg Documented by: SHERLY Melatonin (Melatonin 3 Mg Tablet) 6 mg PO BEDTIME PRN PRN Reason: Sleep Last Admin: 11/09/21 20:18 Dose: 6 mg Documented by: MELISSA Nortriptyline HCl (Nortriptyline Hcl 10 Mg Capsule) 10 mg PO BEDTIME [facility] Last Admin: 11/13/21 21:49 Dose: 10 mg Documented by: JENISE Pharmacy Consult (Consult Rx Perform Med Rec) 1 each MISCELLANE ONCE PRN PRN Reason: Consult order Labs CBC & Chem 7: 10/18/21 10:37 11/08/21 10:42 Labs: Laboratory Results - last 24 hr 11/13/21 11/13/21 11/14/21 16:19 20:31 08:11 POC Glucose 110 290 H 223 H 11/14/21 11:56 POC Glucose 147 H Assessment and Plan (1) Dementia: Status: Acute (2) Bipolar disorder: Status: Acute Plan 66yo F with bipolar disorder admitted with encephalopathy initially attributed to UTI but now likely more psychiatric in nature 1.Bipolar disorder - lithium resumed at lower dose -awaiting placement 2.KEESHA on CKD 3 - improved -? follow renals/divalents daily - as per Nephrology if creatinine raise is greater than 1.7 lithium will be discontinued 3.HyperCalcemia - Nephrology; sensipar? increased to 60 mg daily - [place]pt f[place] [facility] [place] - avoid Ca, vitamin D, thiazides, NSAIDs 4. DMII -acceptable control on correction dose lispro -adjust as clinically indicated Quality Stroke Does the patient have a stroke diagnosis?: Yes Reason for No Anti-thrombotic by Day Two: N/A - Med Ordered VTE Prior VTE?: No VTE Risk Level:: Medical - moderate - high VTE Device Contraindication: N/A - Device Ordered VTE Drug Contraindication: N/A - Med Ordered
[2021-11-14 15:57] VITALS: BP 137/72; PULSE 87; RESP 18; TEMP 36.9; O2SAT 100
[2021-11-14 16:23] LABS: Glucose, Whole Blood 224 mg/dL (60-115)
[2021-11-14 20:36] LABS: Glucose, Whole Blood 275 mg/dL (60-115)
[2021-11-14] MEDS: HaloperidoL 5 MG TABLET PO (21:35)
[2021-11-14] MEDS: Benztropine Mesylate 1 MG TABLET PO (21:35)
[2021-11-14] MEDS: Nortriptyline HCl 10 MG CAPSULE PO (21:35)
[2021-11-15 07:10] VITALS: BP 116/72; PULSE 91; RESP 18; TEMP 36.4; O2SAT 94
[2021-11-15 07:21] LABS: Glucose, Whole Blood 270 mg/dL (60-115)
[2021-11-15] MEDS: Insulin Glargine,Hum.rec.anlog 100 UNIT/ML 10 ML VIAL 10 UNIT SUBCUT (08:08)
[2021-11-15] MEDS: Cinacalcet HCl 30 MG TABLET 60 MG PO (08:08)
[2021-11-15] MEDS: Atorvastatin Calcium 20 MG TABLET PO (08:08)
[2021-11-15] MEDS: Lithium Carbonate 300 MG CAPSULE PO ×2 (08:08→20:08)
[2021-11-15] MEDS: Insulin Lispro 100 UNIT/ML 3 ML VIAL SUBCUT ×4 (08:08→20:08)
[2021-11-15] MEDS: Aspirin Enteric Coated 81 MG TABLET.DR PO (08:08)
[2021-11-15 11:20] LABS: Glucose, Whole Blood 236 mg/dL (60-115)
--- NOTE | 2021-11-15 15:18 | P.PNIM_ITS ---
Subjective Subjective Date of Service: 11/15/21 Interval History: patient wants to know when she will be going home, denies pain denies nausea , vomiting ,tolerating diet, no other acute issues overnight. Review of Systems Review of Systems: Yes all other systems are reviewed and are negative Physical Exam Vital Signs: Vital Signs: Last Vital Signs Temp 97.6 F 11/15/21 07:10 Pulse 91 11/15/21 07:10 Resp 18 11/15/21 07:10 BP 116/72 11/15/21 07:10 Pulse Ox 94 11/15/21 07:10 BMI result Body Mass Index 28.8 Const: Other: General resting comfortably ,no acute distress. Neck supple no JVD. CVS regular rate rhythm, Respiratory lungs clear to auscultation, no respiratory distress Gastrointestinal abdomen soft, nontender, bowel sounds audible Extremities no edema. Neuro nonfocal psych impaired insight Objective Data Active Medications Aspirin (Aspirin Enteric Coated 81 Mg Tablet.) 81 mg PO DAILY [facility] Last Admin: 11/15/21 08:08 Dose: 81 mg Documented by: SHERLY Atorvastatin Calcium (Atorvastatin Calcium 20 Mg Tablet) 20 mg PO DAILY [facility] Last Admin: 11/15/21 08:08 Dose: 20 mg Documented by: SHERLY Benztropine Mesylate (Benztropine Mesylate 1 Mg Tablet) 1 mg PO BEDTIME [facility] Last Admin: 11/14/21 21:35 Dose: 1 mg Documented by: FEROZ Cinacalcet (Cinacalcet Hcl 30 Mg Tablet) 60 mg PO DAILY [facility] Last Admin: 11/15/21 08:08 Dose: 60 mg Documented by: SHERLY Dextrose (Dextrose 50 % 25 Gm/50 Ml Vial) 25 gm IVPUSH Q15M PRN; Protocol PRN Reason: per Hypoglycemia Standing Ord. Glucose (Glucose Gel 15 Gm Gel..Gram.) 15 gm PO Q15M PRN; Protocol PRN Reason: per Hypoglycemia Standing Ord. Last Admin: 10/13/21 21:16 Dose: 15 gm Documented by: LUIS Haloperidol (Haloperidol 5 Mg Tablet) 5 mg PO BEDTIME [facility] Last Admin: 11/14/21 21:35 Dose: 5 mg Documented by: FEROZ Insulin Glargine (Insulin Glargine,Hum.Rec.Anlog 100 Unit/Ml 10 Ml Vial) 10 unit SUBCUT DAILY [facility] Last Admin: 11/15/21 08:08 Dose: 10 unit Documented by: SHERLY Insulin Human Lispro (Insulin Lispro 100 Unit/Ml 3 Ml Vial) 0 unit SUBCUT QIDACHS [facility]; Protocol Last Admin: 11/15/21 11:37 Dose: 6 unit Documented by: SHERLY [place] Carbonate ([place] Carbonate 300 Mg Capsule) 300 mg PO BID [facility] Last Admin: 11/15/21 08:08 Dose: 300 mg Documented by: SHERLY Melatonin (Melatonin 3 Mg Tablet) 6 mg PO BEDTIME PRN PRN Reason: Sleep Last Admin: 11/09/21 20:18 Dose: 6 mg Documented by: MELISSA Nortriptyline HCl (Nortriptyline Hcl 10 Mg Capsule) 10 mg PO BEDTIME [facility] Last Admin: 11/14/21 21:35 Dose: 10 mg Documented by: FEROZ Pharmacy Consult (Consult Rx Perform Med Rec) 1 each MISCELLANE ONCE PRN PRN Reason: Consult order Labs CBC & Chem 7: 10/18/21 10:37 11/08/21 10:42 Labs: Laboratory Results - last 24 hr 11/14/21 11/14/21 11/15/21 15:59 20:26 07:09 POC Glucose 224 H 275 H 270 H 11/15/21 11:01 POC Glucose 236 H Assessment and Plan (1) Hyperparathyroidism: Status: Acute (2) Dementia: Status: Acute (3) Bipolar disorder: Status: Acute (4) Hypercalcemia: Status: Acute Plan 66yo F with bipolar disorder admitted with encephalopathy initially attributed to UTI but now likely more psychiatric in nature 1.Bipolar disorder - continue lithium resumed at lower dose -awaiting placement 2.KEESHA on CKD 3 - improved - continue lithium, follow BMP if noted to have creatinine greater than 1.7 will DC lithium 3.HyperCalcemia - on sensipar?60 mg daily, calcium 9.9 - [place]pt f/[place] [facility] [place] - avoid Ca, vitamin D, thiazides, NSAIDs 4. DMII - elevated blood sugars on correction dose lispro, and diabetic diet, not on glipizide due to hypoglycemia and not on metformin due to episode of KEESHA, since KEESHA resolved will resume low-dose metformin continue Lantus 10 units at bedtime 5. hyperlipidemia continue Lipitor 6. bipolar disorder continue Haldol, and lithium 7. DVT prophylaxis with compression boots Quality Stroke Does the patient have a stroke diagnosis?: Yes Reason for No Anti-thrombotic by Day Two: N/A - Med Ordered VTE Prior VTE?: No VTE Risk Level:: Medical - moderate - high VTE Device Contraindication: N/A - Device Ordered VTE Drug Contraindication: N/A - Med Ordered
[2021-11-15 16:00] VITALS: BP 149/84; PULSE 91; RESP 18; TEMP 36.9; O2SAT 100
[2021-11-15 16:35] LABS: Glucose, Whole Blood 161 mg/dL (60-115)
[2021-11-15] MEDS: metFORMIN HCl 500 MG TABLET PO (16:40)
[2021-11-15 19:33] LABS: Glucose, Whole Blood 200 mg/dL (60-115)
[2021-11-15] MEDS: Benztropine Mesylate 1 MG TABLET PO (20:07)
[2021-11-15] MEDS: HaloperidoL 5 MG TABLET PO (20:07)
[2021-11-15] MEDS: Nortriptyline HCl 10 MG CAPSULE PO (20:08)
[2021-11-16 07:12] VITALS: BP 96/52; PULSE 76; RESP 17; TEMP 36.4; O2SAT 100
[2021-11-16 07:21] LABS: Glucose, Whole Blood 233 mg/dL (60-115)
[2021-11-16] MEDS: Insulin Lispro 100 UNIT/ML 3 ML VIAL SUBCUT ×3 (08:34→20:10)
[2021-11-16] MEDS: Cinacalcet HCl 30 MG TABLET 60 MG PO (08:34)
[2021-11-16] MEDS: Insulin Glargine,Hum.rec.anlog 100 UNIT/ML 10 ML VIAL 10 UNIT SUBCUT (08:34)
[2021-11-16] MEDS: Lithium Carbonate 300 MG CAPSULE PO ×2 (08:35→20:10)
[2021-11-16] MEDS: metFORMIN HCl 500 MG TABLET PO ×2 (08:35→17:07)
[2021-11-16] MEDS: Atorvastatin Calcium 20 MG TABLET PO (08:35)
[2021-11-16] MEDS: Aspirin Enteric Coated 81 MG TABLET.DR PO (08:35)
[2021-11-16 09:08] LABS: Creatinine Clr Calc Pharmacy 50.8; Estimated Glomerular Filt Rate 52
--- NOTE | 2021-11-16 10:31 | HO.PM.IMPN ---
Subjective Subjective Date of Service: 11/16/21 Interval History: Awake alert sitting comfortably, saying I am going home today, tolerating 100% of meals no acute issues overnight. Review of Systems Review of Systems: Yes all other systems are reviewed and are negative Physical Exam Vital Signs: Vital Signs: Last Vital Signs Temp 97.5 F 11/16/21 07:12 Pulse 76 11/16/21 07:12 Resp 17 11/16/21 07:12 BP 96/52 L 11/16/21 07:12 Pulse Ox 100 11/16/21 07:12 BMI result Body Mass Index 28.8 Const: Other: General resting comfortably ,no acute distress.? Neck supple no JVD. CVS? regular rate rhythm, Respiratory lungs clear to auscultation, no respiratory distress Gastrointestinal abdomen soft, nontender, bowel sounds audible Extremities no edema. Neuro nonfocal psych impaired insight Objective Data Active Medications Aspirin (Aspirin Enteric Coated 81 Mg Tablet.) 81 mg PO DAILY [facility] Last Admin: 11/16/21 08:35 Dose: 81 mg Documented by: NICKI Atorvastatin Calcium (Atorvastatin Calcium 20 Mg Tablet) 20 mg PO DAILY [facility] Last Admin: 11/16/21 08:35 Dose: 20 mg Documented by: NICKI Benztropine Mesylate (Benztropine Mesylate 1 Mg Tablet) 1 mg PO BEDTIME [facility] Last Admin: 11/15/21 20:07 Dose: 1 mg Documented by: MAURISIO Cinacalcet (Cinacalcet Hcl 30 Mg Tablet) 60 mg PO DAILY [facility] Last Admin: 11/16/21 08:34 Dose: 60 mg Documented by: NICKI Dextrose (Dextrose 50 % 25 Gm/50 Ml Vial) 25 gm IVPUSH Q15M PRN; Protocol PRN Reason: per Hypoglycemia Standing Ord. Glucose (Glucose Gel 15 Gm Gel..Gram.) 15 gm PO Q15M PRN; Protocol PRN Reason: per Hypoglycemia Standing Ord. Last Admin: 10/13/21 21:16 Dose: 15 gm Documented by: LUIS Haloperidol (Haloperidol 5 Mg Tablet) 5 mg PO BEDTIME [facility] Last Admin: 11/15/21 20:07 Dose: 5 mg Documented by: MAURISIO Insulin Glargine (Insulin Glargine,Hum.Rec.Anlog 100 Unit/Ml 10 Ml Vial) 10 unit SUBCUT DAILY [facility] Last Admin: 11/16/21 08:34 Dose: 10 unit Documented by: LULEMA Insulin Human Lispro (Insulin Lispro 100 Unit/Ml 3 Ml Vial) 0 unit SUBCUT QIDACHS [facility]; Protocol Last Admin: 11/16/21 08:34 Dose: 6 unit Documented by: NICKI [place] Carbonate ([place] Carbonate 300 Mg Capsule) 300 mg PO BID [facility] Last Admin: 11/16/21 08:35 Dose: 300 mg Documented by: COTEMA Melatonin (Melatonin 3 Mg Tablet) 6 mg PO BEDTIME PRN PRN Reason: Sleep Last Admin: 11/09/21 20:18 Dose: 6 mg Documented by: CHEQC Metformin HCl (Metformin Hcl 500 Mg Tablet) 500 mg PO BIDWM [facility] Last Admin: 11/16/21 08:35 Dose: 500 mg Documented by: LULEMA Nortriptyline HCl (Nortriptyline Hcl 10 Mg Capsule) 10 mg PO BEDTIME [facility] Last Admin: 11/15/21 20:08 Dose: 10 mg Documented by: MAURISIO Pharmacy Consult (Consult Rx Perform Med Rec) 1 each MISCELLANE ONCE PRN PRN Reason: Consult order Labs CBC & Chem 7: 10/18/21 10:37 11/16/21 08:26 Labs: Laboratory Results - last 24 hr 11/15/21 11/15/21 11/15/21 11:01 15:46 19:28 Estim Creat Clear Calc Estimated GFR POC Glucose 236 H 161 H 200 H 11/16/21 11/16/21 07:17 08:26 Estim Creat Clear Calc 50.8 Estimated GFR 52 POC Glucose 233 H Assessment and Plan (1) Hyperparathyroidism: Status: Acute (2) Dementia: Status: Acute (3) Bipolar disorder: Status: Acute (4) Hypercalcemia: Status: Acute Plan 66yo F with bipolar disorder admitted with encephalopathy initially attributed to UTI but now likely more psychiatric in nature 1.Bipolar disorder - continue lithium resumed at lower dose 300 mg b.i.d. -awaiting placement 2.KEESHA on CKD 3 - improved - continue lithium, if noted to have creatinine greater than 1.7 will DC lithium , creatinine 1.06 today 3.HyperCalcemia - on sensipar?60 mg daily, calcium 9.9 - [place] f/[place] [facility] [place] - avoid Ca, vitamin D, thiazides, NSAIDs 4. DMII - elevated blood sugars on correction dose lispro, and diabetic diet, not on glipizide due to hypoglycemia and not on metformin due to episode of KEESHA, since KEESHA resolved , restarted back on metformin 500 b.i.d.on 11/15/21 continue Lantus 10 units at bedtime 5. hyperlipidemia continue Lipitor 6. bipolar disorder continue Haldol, and lithium 7. DVT prophylaxis with compression boots Quality Stroke Does the patient have a stroke diagnosis?: Yes Reason for No Anti-thrombotic by Day Two: N/A - Med Ordered VTE Prior VTE?: No VTE Risk Level:: Medical - moderate - high VTE Device Contraindication: N/A - Device Ordered VTE Drug Contraindication: N/A - Med Ordered
[2021-11-16 10:38] VITALS: BP 115/55; PULSE 82; RESP 17; TEMP 36.2; O2SAT 100
[2021-11-16 10:45] LABS: Glucose, Whole Blood 165 mg/dL (60-115)
[2021-11-16 11:34] LABS: Hematocrit 39.7 % (37.0-47.0); Hemoglobin 12.3 g/dl (12.0-16.0); Mean Corpuscular Hemoglobin 26.9 pg (27.0-33.0); Mean Corpuscular Volume 86.9 fL (80.0-98.0); Mean Platelet Volume 9.9 fL (9.4-12.3); Platelet Count 403 X10*3/uL (160-400); Red Blood Count 4.57 X10*6/uL (4.20-5.50); Red Cell Distribution Width 15.1 % (11.0-16.0); White Blood Count 10.6 X10*3/uL (4.8-10.8)
[2021-11-16 11:39] LABS: Anion Gap 14 (12-20); Blood Urea Nitrogen 11 mg/dL (9-16); Calcium 10.8 mg/dL (8.4-10.2); Carbon Dioxide 24 mmol/L (22-29); Chloride 110 mmol/L (96-108); Creatinine Clr Calc Pharmacy 51.9; Estimated Glomerular Filt Rate 53; Glucose Random 109 mg/dL (60-115); Potassium 4.4 mmol/L (3.3-5.1); Sodium 144 mmol/L (135-145)
[2021-11-16 15:54] VITALS: BP 93/66; PULSE 78; RESP 18; TEMP 36.5; O2SAT 95
[2021-11-16 16:30] LABS: Glucose, Whole Blood 99 mg/dL (60-115)
[2021-11-16 19:45] LABS: Glucose, Whole Blood 253 mg/dL (60-115)
[2021-11-16] MEDS: Nortriptyline HCl 10 MG CAPSULE PO (20:10)
[2021-11-16] MEDS: HaloperidoL 5 MG TABLET PO (20:10)
[2021-11-16] MEDS: Benztropine Mesylate 1 MG TABLET PO (20:10)
[2021-11-16] MEDS: Melatonin 3 MG TABLET 6 MG PO (20:10)
[2021-11-17 07:16] VITALS: BP 115/62; PULSE 82; RESP 20; TEMP 36.2; O2SAT 100
[2021-11-17 07:41] VITALS: BP 115/62; PULSE 65; RESP 17; TEMP 36.4; O2SAT 96
[2021-11-17 07:48] LABS: Glucose, Whole Blood 220 mg/dL (60-115)
[2021-11-17] MEDS: Insulin Lispro 100 UNIT/ML 3 ML VIAL SUBCUT ×4 (08:24→20:25)
[2021-11-17] MEDS: Insulin Glargine,Hum.rec.anlog 100 UNIT/ML 10 ML VIAL 10 UNIT SUBCUT (08:24)
[2021-11-17] MEDS: metFORMIN HCl 500 MG TABLET PO ×2 (08:25→16:56)
[2021-11-17] MEDS: Cinacalcet HCl 30 MG TABLET 60 MG PO (08:25)
[2021-11-17] MEDS: Atorvastatin Calcium 20 MG TABLET PO (08:25)
[2021-11-17] MEDS: Lithium Carbonate 300 MG CAPSULE PO ×2 (08:25→20:25)
[2021-11-17] MEDS: Aspirin Enteric Coated 81 MG TABLET.DR PO (08:25)
--- NOTE | 2021-11-17 10:08 | P.PNIM_ITS ---
Subjective Subjective Date of Service: 11/17/21 Interval History: Sitting comfortably, offers no acute complaints, tolerating diet no overnight acute issues. Review of Systems Review of Systems: Yes all other systems are reviewed and are negative Physical Exam Vital Signs: Vital Signs: Last Vital Signs Temp 97.5 F 11/17/21 07:41 Pulse 65 11/17/21 07:41 Resp 17 11/17/21 07:41 BP 115/62 11/17/21 07:41 Pulse Ox 96 11/17/21 07:41 BMI result Body Mass Index 28.8 Const: Other: General resting co mfortably ,no acut e distress.? Neck supple, no JVD. CV S? regular rate rh ythm, Respiratory lungs clear to aus cultation, no resp iratory distress G astrointestinal ab domen soft, nonten darrius, bowel sounds audible Extremitie s no edema. Neuro nonfocal psych imp aired insight Objective Data Active Medications Aspirin (Aspirin Enteric Coated 81 Mg Tablet.) 81 mg PO DAILY [facility] Last Admin: 11/17/21 08:25 Dose: 81 mg Documented by: RIZWANA Atorvastatin Calcium (Atorvastatin Calcium 20 Mg Tablet) 20 mg PO DAILY [facility] Last Admin: 11/17/21 08:25 Dose: 20 mg Documented by: RIZWANA Benztropine Mesylate (Benztropine Mesylate 1 Mg Tablet) 1 mg PO BEDTIME [facility] Last Admin: 11/16/21 20:10 Dose: 1 mg Documented by: CONNOR Cinacalcet (Cinacalcet Hcl 30 Mg Tablet) 60 mg PO DAILY [facility] Last Admin: 11/17/21 08:25 Dose: 60 mg Documented by: RIZWANA Dextrose (Dextrose 50 % 25 Gm/50 Ml Vial) 25 gm IVPUSH Q15M PRN; Protocol PRN Reason: per Hypoglycemia Standing Ord. Glucose (Glucose Gel 15 Gm Gel..Gram.) 15 gm PO Q15M PRN; Protocol PRN Reason: per Hypoglycemia Standing Ord. Last Admin: 10/13/21 21:16 Dose: 15 gm Documented by: LUIS Haloperidol (Haloperidol 5 Mg Tablet) 5 mg PO BEDTIME [facility] Last Admin: 11/16/21 20:10 Dose: 5 mg Documented by: CONNOR Insulin Glargine (Insulin Glargine,Hum.Rec.Anlog 100 Unit/Ml 10 Ml Vial) 10 unit SUBCUT DAILY [facility] Last Admin: 11/17/21 08:24 Dose: 10 unit Documented by: RIZWANA Insulin Human Lispro (Insulin Lispro 100 Unit/Ml 3 Ml Vial) 0 unit SUBCUT QIDACHS [facility]; Protocol Last Admin: 11/17/21 08:24 Dose: 6 unit Documented by: RIZWANA [place] Carbonate ([place] Carbonate 300 Mg Capsule) 300 mg PO BID [facility] Last Admin: 11/17/21 08:25 Dose: 300 mg Documented by: RIZWANA Melatonin (Melatonin 3 Mg Tablet) 6 mg PO BEDTIME PRN PRN Reason: Sleep Last Admin: 11/16/21 20:10 Dose: 6 mg Documented by: CONNOR Metformin HCl (Metformin Hcl 500 Mg Tablet) 500 mg PO BIDWM [facility] Last Admin: 11/17/21 08:25 Dose: 500 mg Documented by: RIZWANA Nortriptyline HCl (Nortriptyline Hcl 10 Mg Capsule) 10 mg PO BEDTIME [facility] Last Admin: 11/16/21 20:10 Dose: 10 mg Documented by: CONNOR Pharmacy Consult (Consult Rx Perform Med Rec) 1 each MISCELLANE ONCE PRN PRN Reason: Consult order Labs CBC & Chem 7: 11/16/21 11:15 11/16/21 11:15 Labs: Laboratory Results - last 24 hr 11/16/21 11/16/21 11/16/21 10:41 11:15 11:15 MCV 86.9 MCH 26.9 L MCHC 31.0 RDW 15.1 Plt Count 403 H MPV 9.9 Absolute Nucleated RBC 0.000 Nucleated RBC % (auto) 0.0 Anion Gap 14 Estim Creat Clear Calc 51.9 Estimated GFR 53 POC Glucose 165 H Random Glucose 109 D Calcium 10.8 H D 11/16/21 11/16/21 11/17/21 16:00 19:27 07:41 MCV MCH MCHC RDW Plt Count MPV Absolute Nucleated RBC Nucleated RBC % (auto) Anion Gap Estim Creat Clear Calc Estimated GFR POC Glucose 99 253 H 220 H Random Glucose Calcium Assessment and Plan (1) Hyperparathyroidism: Status: Acute (2) Dementia: Status: Acute (3) Bipolar disorder: Status: Acute (4) Hypercalcemia: Status: Acute Plan 66yo F with bipolar disorder admitted with encephalopathy initially attributed to UTI but now likely more psychiatric in nature 1.Bipolar disorder - continue lithium resumed at lower dose 300 mg b.i.d. -awaiting placement 2.KEESHA on CKD 3 - improved - continue lithium, if noted to have creatinine greater than 1.7 will DC lithium , creatinine 1.06 11/16/21 3.HyperCalcemia - on sensipar?60 mg daily, calcium 9.9 - outpt f/u with Endocrine Surgery (Dr Day at [facility] [place] - avoid Ca, vitamin D, thiazides, NSAIDs 4. DMII - elevated blood sugars on correction dose lispro, and diabetic diet, not on glipizide due to hypoglycemia and not on metformin due to episode of KEESHA, since KEESHA resolved , restarted back on metformin 500 b.i.d.on 11/15/21 ( home dose metformin 1000 mg bid )continue Lantus 10 units at bedtime 5. hyperlipidemia continue Lipitor 6. bipolar disorder continue Haldol, and lithium 7. DVT prophylaxis with compression boots Quality Stroke Does the patient have a stroke diagnosis?: Yes Reason for No Anti-thrombotic by Day Two: N/A - Med Ordered VTE Prior VTE?: No VTE Risk Level:: Medical - moderate - high VTE Device Contraindication: N/A - Device Ordered VTE Drug Contraindication: N/A - Med Ordered
[2021-11-17 11:08] LABS: Glucose, Whole Blood 269 mg/dL (60-115)
[2021-11-17 15:12] VITALS: BP 135/75; PULSE 94; RESP 18; TEMP 36.8; O2SAT 96
[2021-11-17 15:41] LABS: Glucose, Whole Blood 144 mg/dL (60-115)
[2021-11-17 20:12] LABS: Glucose, Whole Blood 187 mg/dL (60-115)
[2021-11-17] MEDS: HaloperidoL 5 MG TABLET PO (20:25)
[2021-11-17] MEDS: Benztropine Mesylate 1 MG TABLET PO (20:25)
[2021-11-17] MEDS: Nortriptyline HCl 10 MG CAPSULE PO (20:25)
[2021-11-18 08:00] VITALS: BP 113/62; PULSE 76; RESP 16; TEMP 36.4; O2SAT 100
[2021-11-18 08:00] LABS: Glucose, Whole Blood 190 mg/dL (60-115)
[2021-11-18] MEDS: Insulin Lispro 100 UNIT/ML 3 ML VIAL SUBCUT ×3 (08:36→20:42)
[2021-11-18] MEDS: Atorvastatin Calcium 20 MG TABLET PO (08:37)
[2021-11-18] MEDS: Aspirin Enteric Coated 81 MG TABLET.DR PO (08:37)
[2021-11-18] MEDS: metFORMIN HCl 500 MG TABLET PO (08:37)
[2021-11-18] MEDS: Cinacalcet HCl 30 MG TABLET 60 MG PO (08:37)
[2021-11-18] MEDS: Insulin Glargine,Hum.rec.anlog 100 UNIT/ML 10 ML VIAL 10 UNIT SUBCUT (08:37)
[2021-11-18] MEDS: Lithium Carbonate 300 MG CAPSULE PO ×2 (08:38→20:42)
--- NOTE | 2021-11-18 10:12 | HO.PM.IMPN ---
Subjective Subjective Date of Service: 11/18/21 Interval History: Sitting comfortably on bed eating 100% of meals offers no complaints pain, no acute events overnight. Review of Systems Review of Systems: Yes all other systems are reviewed and are negative Physical Exam Vital Signs: Vital Signs: Last Vital Signs Temp 97.6 F 11/18/21 08:00 Pulse 76 11/18/21 08:00 Resp 16 11/18/21 08:00 BP 113/62 11/18/21 08:00 Pulse Ox 100 11/18/21 08:00 BMI result Body Mass Index 28.8 Const: Other: General resting comfortably ,no acute distress.? Neck supple no JVD. CVS? regular rate rhythm, Respiratory lungs clear to auscultation, no respiratory distress Gastrointestinal abdomen soft, nontender, bowel sounds audible Extremities no edema. Neuro nonfocal psych impaired insight Objective Data Active Medications Aspirin (Aspirin Enteric Coated 81 Mg Tablet.) 81 mg PO DAILY [facility] Last Admin: 11/18/21 08:37 Dose: 81 mg Documented by: RADHA Atorvastatin Calcium (Atorvastatin Calcium 20 Mg Tablet) 20 mg PO DAILY [facility] Last Admin: 11/18/21 08:37 Dose: 20 mg Documented by: RADHA Benztropine Mesylate (Benztropine Mesylate 1 Mg Tablet) 1 mg PO BEDTIME [facility] Last Admin: 11/17/21 20:25 Dose: 1 mg Documented by: NITISH Cinacalcet (Cinacalcet Hcl 30 Mg Tablet) 60 mg PO DAILY [facility] Last Admin: 11/18/21 08:37 Dose: 60 mg Documented by: RADHA Dextrose (Dextrose 50 % 25 Gm/50 Ml Vial) 25 gm IVPUSH Q15M PRN; Protocol PRN Reason: per Hypoglycemia Standing Ord. Glucose (Glucose Gel 15 Gm Gel..Gram.) 15 gm PO Q15M PRN; Protocol PRN Reason: per Hypoglycemia Standing Ord. Last Admin: 10/13/21 21:16 Dose: 15 gm Documented by: LUIS Haloperidol (Haloperidol 5 Mg Tablet) 5 mg PO BEDTIME [facility] Last Admin: 11/17/21 20:25 Dose: 5 mg Documented by: NITISH Insulin Glargine (Insulin Glargine,Hum.Rec.Anlog 100 Unit/Ml 10 Ml Vial) 10 unit SUBCUT DAILY [facility] Last Admin: 11/18/21 08:37 Dose: 10 unit Documented by: RADHA Insulin Human Lispro (Insulin Lispro 100 Unit/Ml 3 Ml Vial) 0 unit SUBCUT QIDACHS [facility]; Protocol Last Admin: 11/18/21 08:36 Dose: 4 unit Documented by: RADHA [place] Carbonate ([place] Carbonate 300 Mg Capsule) 300 mg PO BID [facility] Last Admin: 11/18/21 08:38 Dose: 300 mg Documented by: RADHA Melatonin (Melatonin 3 Mg Tablet) 6 mg PO BEDTIME PRN PRN Reason: Sleep Last Admin: 11/16/21 20:10 Dose: 6 mg Documented by: CONNOR Metformin HCl (Metformin Hcl 500 Mg Tablet) 500 mg PO BIDWM [facility] Last Admin: 11/18/21 08:37 Dose: 500 mg Documented by: RADHA Nortriptyline HCl (Nortriptyline Hcl 10 Mg Capsule) 10 mg PO BEDTIME [facility] Last Admin: 11/17/21 20:25 Dose: 10 mg Documented by: NITISH Pharmacy Consult (Consult Rx Perform Med Rec) 1 each MISCELLANE ONCE PRN PRN Reason: Consult order Labs CBC & Chem 7: 11/16/21 11:15 11/16/21 11:15 Labs: Laboratory Results - last 24 hr 11/17/21 11/17/21 11/17/21 11:03 15:16 20:08 POC Glucose 269 H 144 H 187 H 11/18/21 07:56 POC Glucose 190 H Assessment and Plan (1) Hyperparathyroidism: Status: Acute (2) Dementia: Status: Acute (3) Bipolar disorder: Status: Acute (4) Hypercalcemia: Status: Acute Plan 66yo F with bipolar disorder admitted with encephalopathy initially attributed to UTI but now likely more psychiatric in nature 1.Bipolar disorder - continue lithium resumed at lower dose 300 mg b.i.d. no behavioral issues noted -awaiting placement 2.KEESHA on CKD 3 - improved - continue lithium, if noted to have creatinine greater than 1.7 will DC lithium , creatinine 1.06 11/16/21 3.HyperCalcemia - on sensipar?60 mg daily, calcium 10.8 on 11/16, slight bump from 9.9, 1 week ago, will follow calcium level in 1 week on 11/23. - outpt f/u with Endocrine Surgery (Dr Day at [facility] [place]) - avoid Ca, vitamin D, thiazides, NSAIDs 4. DMII - elevated blood sugars on correction dose lispro, and diabetic diet, not on glipizide due to hypoglycemia and not on metformin due to episode of KEESHA, since KEESHA resolved , restarted back on metformin 500 b.i.d.on 11/15/21 Will increase dose to metformin 1000 mg bid, due to persistent elevated blood sugar, continue Lantus 10 units at bedtime. 5. hyperlipidemia continue Lipitor 6. DVT prophylaxis with compression boots Quality Stroke Does the patient have a stroke diagnosis?: Yes Reason for No Anti-thrombotic by Day Two: N/A - Med Ordered VTE Prior VTE?: No VTE Risk Level:: Medical - moderate - high VTE Device Contraindication: N/A - Device Ordered VTE Drug Contraindication: N/A - Med Ordered
[2021-11-18 11:35] LABS: Glucose, Whole Blood 220 mg/dL (60-115)
[2021-11-18 15:56] VITALS: BP 144/67; PULSE 86; RESP 18; TEMP 36.6; O2SAT 98
[2021-11-18 16:06] LABS: Glucose, Whole Blood 92 mg/dL (60-115)
[2021-11-18] MEDS: metFORMIN HCl 1,000 MG TABLET 1000 MG PO (17:15)
[2021-11-18 20:07] LABS: Glucose, Whole Blood 195 mg/dL (60-115)
[2021-11-18] MEDS: Nortriptyline HCl 10 MG CAPSULE PO (20:42)
[2021-11-18] MEDS: HaloperidoL 5 MG TABLET PO (20:42)
[2021-11-18] MEDS: Benztropine Mesylate 1 MG TABLET PO (20:47)
[2021-11-18 23:04] VITALS: BP 147/63; PULSE 86; RESP 18; TEMP 37.2; O2SAT 99
[2021-11-19 06:58] VITALS: BP 126/70; PULSE 78; RESP 16; TEMP 37.1; O2SAT 100
[2021-11-19 06:58] LABS: Glucose, Whole Blood 185 mg/dL (60-115)
[2021-11-19] MEDS: Atorvastatin Calcium 20 MG TABLET PO (08:21)
[2021-11-19] MEDS: Cinacalcet HCl 30 MG TABLET 60 MG PO (08:21)
[2021-11-19] MEDS: Lithium Carbonate 300 MG CAPSULE PO ×2 (08:21→20:36)
[2021-11-19] MEDS: Insulin Lispro 100 UNIT/ML 3 ML VIAL SUBCUT ×4 (08:23→20:36)
[2021-11-19] MEDS: metFORMIN HCl 1,000 MG TABLET 1000 MG PO ×2 (08:23→16:41)
[2021-11-19] MEDS: Insulin Glargine,Hum.rec.anlog 100 UNIT/ML 10 ML VIAL 10 UNIT SUBCUT (08:23)
[2021-11-19] MEDS: Aspirin Enteric Coated 81 MG TABLET.DR PO (08:23)
--- NOTE | 2021-11-19 10:37 | HO.PM.IMPN ---
Subjective Subjective Date of Service: 11/19/21 Interval History: No acute events overnight, patient offers no complaints of pain, no fevers, no chills, no shortness of breath, tolerating diet. Review of Systems Review of Systems: Yes all other systems are reviewed and are negative Physical Exam Vital Signs: Vital Signs: Last Vital Signs Temp 98.7 F 11/19/21 06:58 Pulse 78 11/19/21 06:58 Resp 16 11/19/21 06:58 BP 126/70 11/19/21 06:58 Pulse Ox 100 11/19/21 06:58 BMI result Body Mass Index 28.8 Const: Other: General resting comfortably ,no acute distress.? Neck supple no JVD. CVS? regular rate rhythm, Respiratory lungs clear to auscultation, no respiratory distress Gastrointestinal abdomen soft, nontender, bowel sounds audible Extremities no edema. Neuro nonfocal psych impaired insight Objective Data Active Medications Aspirin (Aspirin Enteric Coated 81 Mg Tablet.) 81 mg PO DAILY [facility] Last Admin: 11/19/21 08:23 Dose: 81 mg Documented by: RADHA Atorvastatin Calcium (Atorvastatin Calcium 20 Mg Tablet) 20 mg PO DAILY [facility] Last Admin: 11/19/21 08:21 Dose: 20 mg Documented by: RADHA Benztropine Mesylate (Benztropine Mesylate 1 Mg Tablet) 1 mg PO BEDTIME [facility] Last Admin: 11/18/21 20:47 Dose: 1 mg Documented by: NITISH Cinacalcet (Cinacalcet Hcl 30 Mg Tablet) 60 mg PO DAILY [facility] Last Admin: 11/19/21 08:21 Dose: 60 mg Documented by: RADHA Dextrose (Dextrose 50 % 25 Gm/50 Ml Vial) 25 gm IVPUSH Q15M PRN; Protocol PRN Reason: per Hypoglycemia Standing Ord. Glucose (Glucose Gel 15 Gm Gel..Gram.) 15 gm PO Q15M PRN; Protocol PRN Reason: per Hypoglycemia Standing Ord. Last Admin: 10/13/21 21:16 Dose: 15 gm Documented by: LUIS Haloperidol (Haloperidol 5 Mg Tablet) 5 mg PO BEDTIME [facility] Last Admin: 11/18/21 20:42 Dose: 5 mg Documented by: NITISH Insulin Glargine (Insulin Glargine,Hum.Rec.Anlog 100 Unit/Ml 10 Ml Vial) 10 unit SUBCUT DAILY [facility] Last Admin: 11/19/21 08:23 Dose: 10 unit Documented by: RADHA Insulin Human Lispro (Insulin Lispro 100 Unit/Ml 3 Ml Vial) 0 unit SUBCUT QIDACHS [facility]; Protocol Last Admin: 11/19/21 08:23 Dose: 4 unit Documented by: RADHA [place] Carbonate ([place] Carbonate 300 Mg Capsule) 300 mg PO BID [facility] Last Admin: 11/19/21 08:21 Dose: 300 mg Documented by: RADHA Melatonin (Melatonin 3 Mg Tablet) 6 mg PO BEDTIME PRN PRN Reason: Sleep Last Admin: 11/16/21 20:10 Dose: 6 mg Documented by: CONNOR Metformin HCl (Metformin Hcl 1,000 Mg Tablet) 1,000 mg PO BIDWM [facility] Last Admin: 11/19/21 08:23 Dose: 1,000 mg Documented by: RADHA Nortriptyline HCl (Nortriptyline Hcl 10 Mg Capsule) 10 mg PO BEDTIME [facility] Last Admin: 11/18/21 20:42 Dose: 10 mg Documented by: NITISH Pharmacy Consult (Consult Rx Perform Med Rec) 1 each MISCELLANE ONCE PRN PRN Reason: Consult order Labs CBC & Chem 7: 11/16/21 11:15 11/16/21 11:15 Labs: Laboratory Results - last 24 hr 11/18/21 11/18/21 11/18/21 11:31 16:02 20:03 POC Glucose 220 H 92 195 H 11/19/21 06:55 POC Glucose 185 H Assessment and Plan (1) Hyperparathyroidism: Status: Acute (2) Dementia: Status: Acute (3) Bipolar disorder: Status: Acute (4) Hypercalcemia: Status: Acute Plan 66yo F with bipolar disorder admitted with encephalopathy initially attributed to UTI but now likely more psychiatric in nature 1.Bipolar disorder - continue lithium resumed at lower dose 300 mg b.i.d. no behavioral issues noted (previously was on lithium 900mg at bedtime) last lithium level 0.44 on November 02. -awaiting placement 2.KEESHA on CKD 3 - improved - continue lithium, if noted to have creatinine greater than 1.7 will DC lithium , creatinine 1.06 11/16/21 3.HyperCalcemia - on sensipar?60 mg daily, calcium 10.8 on 11/16, slight bump from 9.9, 1 week ago, will follow calcium level in 1 week on 11/23. - outpt f/u [place] Endocrine [place] [facility] [place] avoid Ca, vitamin D, thiazides, NSAIDs 4. DMII - elevated blood sugars on correction dose lispro, and diabetic diet, not on glipizide due to hypoglycemia and not on metformin due to episode of KEESHA, since KEESHA resolved , restarted back on metformin 500 b.i.d.on 11/15/21 dose increased to metformin 1000 mg bid,on 11/18 due to persistent elevated blood sugar, blood sugars less than 200 now, continue Lantus 10 units at bedtime. 5. hyperlipidemia continue Lipitor 6. DVT prophylaxis with compression boots Quality Stroke Does the patient have a stroke diagnosis?: Yes Reason for No Anti-thrombotic by Day Two: N/A - Med Ordered VTE Prior VTE?: No VTE Risk Level:: Medical - moderate - high VTE Device Contraindication: N/A - Device Ordered VTE Drug Contraindication: N/A - Med Ordered
[2021-11-19 11:05] LABS: Glucose, Whole Blood 143 mg/dL (60-115)
[2021-11-19 16:00] VITALS: BP 156/70; PULSE 89; RESP 17; TEMP 37.1; O2SAT 100
[2021-11-19 16:31] LABS: Glucose, Whole Blood 232 mg/dL (60-115)
[2021-11-19 20:12] LABS: Glucose, Whole Blood 195 mg/dL (60-115)
[2021-11-19] MEDS: Benztropine Mesylate 1 MG TABLET PO (20:36)
[2021-11-19] MEDS: Nortriptyline HCl 10 MG CAPSULE PO (20:36)
[2021-11-19] MEDS: HaloperidoL 5 MG TABLET PO (20:36)
[2021-11-20 07:07] LABS: Glucose, Whole Blood 195 mg/dL (60-115)
[2021-11-20 08:00] VITALS: BP 126/58; PULSE 84; RESP 18; TEMP 37; O2SAT 100
[2021-11-20] MEDS: Insulin Glargine,Hum.rec.anlog 100 UNIT/ML 10 ML VIAL 10 UNIT SUBCUT (08:27)
[2021-11-20] MEDS: Cinacalcet HCl 30 MG TABLET 60 MG PO (08:27)
[2021-11-20] MEDS: Insulin Lispro 100 UNIT/ML 3 ML VIAL SUBCUT ×4 (08:27→20:59)
[2021-11-20] MEDS: Aspirin Enteric Coated 81 MG TABLET.DR PO (08:28)
[2021-11-20] MEDS: metFORMIN HCl 1,000 MG TABLET 1000 MG PO ×2 (08:28→16:48)
[2021-11-20] MEDS: Lithium Carbonate 300 MG CAPSULE PO ×2 (08:28→20:59)
[2021-11-20] MEDS: Atorvastatin Calcium 20 MG TABLET PO (08:28)
--- NOTE | 2021-11-20 10:13 | P.PNIM_ITS ---
Subjective Subjective Date of Service: 11/20/21 Interval History: Resting comfortably offers no acute complaints no acute events overnight, patient asks same question daily when is she going home. Review of Systems Review of Systems: Yes all other systems are reviewed and are negative Physical Exam Vital Signs: Vital Signs: Last Vital Signs Temp 98.8 F 11/19/21 16:00 Pulse 89 11/19/21 16:00 Resp 17 11/19/21 16:00 BP 156/70 H 11/19/21 16:00 Pulse Ox 100 11/19/21 16:00 BMI result Body Mass Index 28.8 Const: Other: General resting comfortably ,no acute distress.? Neck supple no JVD. CVS? regular rate rhythm, Respiratory lungs clear to auscultation, no respiratory distress Gastrointestinal abdomen soft, nontender, bowel sounds audible Extremities no edema. Neuro nonfocal psych impaired insight Objective Data Active Medications Aspirin (Aspirin Enteric Coated 81 Mg Tablet.) 81 mg PO DAILY [facility] Last Admin: 11/20/21 08:28 Dose: 81 mg Documented by: RADHA Atorvastatin Calcium (Atorvastatin Calcium 20 Mg Tablet) 20 mg PO DAILY [facility] Last Admin: 11/20/21 08:28 Dose: 20 mg Documented by: RADHA Benztropine Mesylate (Benztropine Mesylate 1 Mg Tablet) 1 mg PO BEDTIME [facility] Last Admin: 11/19/21 20:36 Dose: 1 mg Documented by: NITISH Cinacalcet (Cinacalcet Hcl 30 Mg Tablet) 60 mg PO DAILY [facility] Last Admin: 11/20/21 08:27 Dose: 60 mg Documented by: RADHA Dextrose (Dextrose 50 % 25 Gm/50 Ml Vial) 25 gm IVPUSH Q15M PRN; Protocol PRN Reason: per Hypoglycemia Standing Ord. Glucose (Glucose Gel 15 Gm Gel..Gram.) 15 gm PO Q15M PRN; Protocol PRN Reason: per Hypoglycemia Standing Ord. Last Admin: 10/13/21 21:16 Dose: 15 gm Documented by: LUIS Haloperidol (Haloperidol 5 Mg Tablet) 5 mg PO BEDTIME [facility] Last Admin: 11/19/21 20:36 Dose: 5 mg Documented by: NITISH Insulin Glargine (Insulin Glargine,Hum.Rec.Anlog 100 Unit/Ml 10 Ml Vial) 10 unit SUBCUT DAILY [facility] Last Admin: 11/20/21 08:27 Dose: 10 unit Documented by: RADHA Insulin Human Lispro (Insulin Lispro 100 Unit/Ml 3 Ml Vial) 0 unit SUBCUT QIDACHS [facility]; Protocol Last Admin: 11/20/21 08:27 Dose: 4 unit Documented by: RADHA [place] Carbonate ([place] Carbonate 300 Mg Capsule) 300 mg PO BID [facility] Last Admin: 11/20/21 08:28 Dose: 300 mg Documented by: RADHA Melatonin (Melatonin 3 Mg Tablet) 6 mg PO BEDTIME PRN PRN Reason: Sleep Last Admin: 11/16/21 20:10 Dose: 6 mg Documented by: CONNOR Metformin HCl (Metformin Hcl 1,000 Mg Tablet) 1,000 mg PO BIDWM [facility] Last Admin: 11/20/21 08:28 Dose: 1,000 mg Documented by: RADHA Nortriptyline HCl (Nortriptyline Hcl 10 Mg Capsule) 10 mg PO BEDTIME [facility] Last Admin: 11/19/21 20:36 Dose: 10 mg Documented by: NITISH Pharmacy Consult (Consult Rx Perform Med Rec) 1 each MISCELLANE ONCE PRN PRN Reason: Consult order Labs CBC & Chem 7: 11/16/21 11:15 11/16/21 11:15 Labs: Laboratory Results - last 24 hr 11/19/21 11/19/21 11/19/21 11:01 16:17 20:09 POC Glucose 143 H 232 H 195 H 11/20/21 07:02 POC Glucose 195 H Assessment and Plan (1) Hyperparathyroidism: Status: Acute (2) Dementia: Status: Acute (3) Bipolar disorder: Status: Acute (4) Hypercalcemia: Status: Acute Plan 66yo F with bipolar disorder admitted with encephalopathy initially attributed to UTI , her cognitive function did not improve despite treatment with UTI, she underwent extensive workup including MRI that showed atrophy and diffuse white matter microangiopathy, EEG showed generalized slowing with no evidence of seizure disorder, B12, folate, TSH and RPR were within normal range , seen by PT they felt she is not a rehab candidate case discussed with family they felt that patient was higher functioning prior to admission using public transportation ambulating without difficulty and was living alone in her apartment so was unable to return back home After all extensive workup it seems her issues are more psychiatric in nature. 1.Bipolar disorder - continue lithium resumed at lower dose 300 mg b.i.d. no behavioral issues noted (previously was on lithium 900mg at bedtime) last lithium level 0.44 on November 02. -awaiting placement 2.KEESHA on CKD 3 - improved - continue lithium, if noted to have creatinine greater than 1.7 will DC lithium , creatinine 1.06 11/16/21 3.HyperCalcemia - on sensipar?60 mg daily, calcium 10.8 on 11/16, slight bump from 9.9, 1 week ago, will follow calcium level in 1 week on 11/23. - outpt f/u with Endocrine Surgery ([place] Day at [facility] [place] - avoid Ca, vitamin D, thiazides, NSAIDs 4. DMII - elevated blood sugars on correction dose lispro, and diabetic diet, glipizide was discontinued due to hypoglycemia and metformin stopped due to episode of KEESHA, since KEESHA resolved , restarted back on metformin 1000 mg bid, on 11/18 due to persistent elevated blood sugar, blood sugars less than 200 now, continue Lantus 10 units at bedtime. 5. hyperlipidemia continue Lipitor 6. DVT prophylaxis with compression boots Patient need continued inpatient stay since CM working on LTC placement/payment issues, patient is unsafe to live alone. Quality Stroke Does the patient have a stroke diagnosis?: Yes Reason for No Anti-thrombotic by Day Two: N/A - Med Ordered VTE Prior VTE?: No VTE Risk Level:: Medical - moderate - high VTE Device Contraindication: N/A - Device Ordered VTE Drug Contraindication: N/A - Med Ordered
[2021-11-20 11:10] LABS: Glucose, Whole Blood 144 mg/dL (60-115)
[2021-11-20 16:00] VITALS: BP 163/70; PULSE 89; RESP 18; TEMP 36.6; O2SAT 100
[2021-11-20 16:36] LABS: Glucose, Whole Blood 191 mg/dL (60-115)
[2021-11-20 20:39] LABS: Glucose, Whole Blood 176 mg/dL (60-115)
[2021-11-20] MEDS: HaloperidoL 5 MG TABLET PO (20:59)
[2021-11-20] MEDS: Melatonin 3 MG TABLET 6 MG PO (20:59)
[2021-11-20] MEDS: Nortriptyline HCl 10 MG CAPSULE PO (20:59)
[2021-11-20] MEDS: Benztropine Mesylate 1 MG TABLET PO (20:59)
[2021-11-21] VITALS: BP 156/72; PULSE 88; RESP 16; TEMP 36.8; O2SAT 99
[2021-11-21 07:30] LABS: Glucose, Whole Blood 180 mg/dL (60-115)
[2021-11-21] MEDS: metFORMIN HCl 1,000 MG TABLET 1000 MG PO ×2 (07:35→16:24)
[2021-11-21] MEDS: Aspirin Enteric Coated 81 MG TABLET.DR PO (07:35)
[2021-11-21] MEDS: Cinacalcet HCl 30 MG TABLET 60 MG PO (07:35)
[2021-11-21] MEDS: Atorvastatin Calcium 20 MG TABLET PO (07:35)
[2021-11-21] MEDS: Insulin Lispro 100 UNIT/ML 3 ML VIAL SUBCUT ×4 (07:36→19:51)
[2021-11-21] MEDS: Insulin Glargine,Hum.rec.anlog 100 UNIT/ML 10 ML VIAL 10 UNIT SUBCUT (07:36)
[2021-11-21] MEDS: Lithium Carbonate 300 MG CAPSULE PO ×2 (07:36→19:50)
[2021-11-21 08:00] VITALS: BP 121/59; PULSE 85; RESP 17; TEMP 36.5; O2SAT 100
--- NOTE | 2021-11-21 10:27 | P.PNIM_ITS ---
Subjective Subjective Date of Service: 11/21/21 Interval History: Resting comfortably offers no acute complaints no acute events overnight, patient asks same question daily when is she going home. Physical Exam Vital Signs: Vital Signs: Last Vital Signs Temp 97.7 F 11/21/21 08:00 Pulse 85 11/21/21 08:00 Resp 17 11/21/21 08:00 BP 121/59 L 11/21/21 08:00 Pulse Ox 100 11/21/21 08:00 BMI result Body Mass Index 28.8 Const: Other: General: AO X 1, no acute distress Resp: CTA bilateral CVS: S1,S2,RRR GI: +BS, NT, no distention Skin: No rash Neuro: motor grossly intact Psych: appropriate affect Objective Data Active Medications Aspirin (Aspirin Enteric Coated 81 Mg Tablet.) 81 mg PO DAILY [facility] Last Admin: 11/21/21 07:35 Dose: 81 mg Documented by: NORM Atorvastatin Calcium (Atorvastatin Calcium 20 Mg Tablet) 20 mg PO DAILY [facility] Last Admin: 11/21/21 07:35 Dose: 20 mg Documented by: NORM Benztropine Mesylate (Benztropine Mesylate 1 Mg Tablet) 1 mg PO BEDTIME [facility] Last Admin: 11/20/21 20:59 Dose: 1 mg Documented by: CONNOR Cinacalcet (Cinacalcet Hcl 30 Mg Tablet) 60 mg PO DAILY [facility] Last Admin: 11/21/21 07:35 Dose: 60 mg Documented by: NORM Dextrose (Dextrose 50 % 25 Gm/50 Ml Vial) 25 gm IVPUSH Q15M PRN; Protocol PRN Reason: per Hypoglycemia Standing Ord. Glucose (Glucose Gel 15 Gm Gel..Gram.) 15 gm PO Q15M PRN; Protocol PRN Reason: per Hypoglycemia Standing Ord. Last Admin: 10/13/21 21:16 Dose: 15 gm Documented by: LUIS Haloperidol (Haloperidol 5 Mg Tablet) 5 mg PO BEDTIME [facility] Last Admin: 11/20/21 20:59 Dose: 5 mg Documented by: CONNOR Insulin Glargine (Insulin Glargine,Hum.Rec.Anlog 100 Unit/Ml 10 Ml Vial) 10 unit SUBCUT DAILY [facility] Last Admin: 11/21/21 07:36 Dose: 10 unit Documented by: NORM Insulin Human Lispro (Insulin Lispro 100 Unit/Ml 3 Ml Vial) 0 unit SUBCUT QIDACHS [facility]; Protocol Last Admin: 11/21/21 07:36 Dose: 2 unit Documented by: NORM [place] Carbonate ([place] Carbonate 300 Mg Capsule) 300 mg PO BID [facility] Last Admin: 11/21/21 07:36 Dose: 300 mg Documented by: NORM Melatonin (Melatonin 3 Mg Tablet) 6 mg PO BEDTIME PRN PRN Reason: Sleep Last Admin: 11/20/21 20:59 Dose: 6 mg Documented by: CONNOR Metformin HCl (Metformin Hcl 1,000 Mg Tablet) 1,000 mg PO BIDWM [facility] Last Admin: 11/21/21 07:35 Dose: 1,000 mg Documented by: NORM Nortriptyline HCl (Nortriptyline Hcl 10 Mg Capsule) 10 mg PO BEDTIME [facility] Last Admin: 11/20/21 20:59 Dose: 10 mg Documented by: CONNOR Pharmacy Consult (Consult Rx Perform Med Rec) 1 each MISCELLANE ONCE PRN PRN Reason: Consult order Labs CBC & Chem 7: 11/16/21 11:15 11/16/21 11:15 Labs: Laboratory Results - last 24 hr 11/20/21 11/20/21 11/20/21 11:04 16:26 20:34 POC Glucose 144 H 191 H 176 H 11/21/21 07:27 POC Glucose 180 H Assessment and Plan (1) Hyperparathyroidism: Status: Acute (2) Dementia: Status: Acute (3) Bipolar disorder: Status: Acute (4) Hypercalcemia: Status: Acute Plan 66yo F with bipolar disorder admitted with encephalopathy initially attributed to UTI , her cognitive function did not improve despite treatment with UTI, she underwent extensive workup including MRI that showed atrophy and diffuse white matter microangiopathy, EEG showed generalized slowing with no evidence of seizure disorder, B12, folate, TSH and RPR were within normal range , seen by PT they felt she is not a rehab candidate case discussed with family they felt that patient was higher functioning prior to admission using public transportation ambulating without difficulty and was living alone in her apartment so was unable to return back home After all extensive workup it seems her issues are more psychiatric in nature. 1.Bipolar disorder - continue lithium resumed at lower dose 300 mg b.i.d. no behavioral issues noted (previously was on lithium 900mg at bedtime) last lithium level 0.44 on November 02. -awaiting placement 2.KEESHA on CKD 3 - improved - continue lithium, if noted to have creatinine greater than 1.7 will DC lithium , creatinine 1.06 11/16/21 3.HyperCalcemia - on sensipar?60 mg daily, calcium 10.8 on 11/16, slight bump from 9.9, 1 week ago, will follow calcium level in 1 week on 11/23. - outpt f/u with Endocrine Surgery (Dr Day at [facility] [place] - avoid Ca, vitamin D, thiazides, NSAIDs 4. DMII - elevated blood sugars on correction dose lispro, and diabetic diet, glipizide was discontinued due to hypoglycemia and metformin stopped due to episode of KEESHA, since KEESHA resolved , restarted back on metformin 1000 mg bid, on 11/18 due to persistent elevated blood sugar, blood sugars less than 200 now, continue Lantus 10 units at bedtime. 5. hyperlipidemia continue Lipitor 6. DVT prophylaxis with compression boots Patient need continued inpatient stay since CM working on LTC placement/payment issues, patient is unsafe to live alone. Essentially no change today Quality Stroke Does the patient have a stroke diagnosis?: Yes Reason for No Anti-thrombotic by Day Two: N/A - Med Ordered VTE Prior VTE?: No VTE Risk Level:: Medical - moderate - high VTE Device Contraindication: N/A - Device Ordered VTE Drug Contraindication: N/A - Med Ordered
[2021-11-21 11:15] LABS: Glucose, Whole Blood 163 mg/dL (60-115)
[2021-11-21 15:30] VITALS: BP 144/65; PULSE 85; RESP 18; TEMP 36.4; O2SAT 100
[2021-11-21 15:48] LABS: Glucose, Whole Blood 243 mg/dL (60-115)
[2021-11-21] MEDS: Melatonin 3 MG TABLET 6 MG PO (19:50)
[2021-11-21] MEDS: Nortriptyline HCl 10 MG CAPSULE PO (19:50)
[2021-11-21] MEDS: HaloperidoL 5 MG TABLET PO (19:50)
[2021-11-21] MEDS: Benztropine Mesylate 1 MG TABLET PO (19:50)
[2021-11-21 20:14] LABS: Glucose, Whole Blood 201 mg/dL (60-115)
[2021-11-21 20:50] LABS: Glucose, Whole Blood 221 mg/dL (60-115)
[2021-11-22 06:54] VITALS: BP 123/60; PULSE 75; RESP 18; TEMP 36.7; O2SAT 100
[2021-11-22 07:10] LABS: Glucose, Whole Blood 188 mg/dL (60-115)
[2021-11-22] MEDS: Insulin Glargine,Hum.rec.anlog 100 UNIT/ML 10 ML VIAL 10 UNIT SUBCUT (07:40)
[2021-11-22] MEDS: Insulin Lispro 100 UNIT/ML 3 ML VIAL SUBCUT ×3 (07:40→20:42)
[2021-11-22] MEDS: Aspirin Enteric Coated 81 MG TABLET.DR PO (07:40)
[2021-11-22] MEDS: Atorvastatin Calcium 20 MG TABLET PO (07:41)
[2021-11-22] MEDS: metFORMIN HCl 1,000 MG TABLET 1000 MG PO ×2 (07:41→16:33)
[2021-11-22] MEDS: Lithium Carbonate 300 MG CAPSULE PO ×2 (07:41→20:42)
[2021-11-22] MEDS: Cinacalcet HCl 30 MG TABLET 60 MG PO (07:41)
[2021-11-22 11:34] LABS: Glucose, Whole Blood 138 mg/dL (60-115)
--- NOTE | 2021-11-22 12:04 | P.PNIM_ITS ---
Subjective Subjective Date of Service: 11/22/21 Interval History: No acute issues overnight. Continues to await placement Review of Systems Denies chest pain Denies shortness of breath Denies nausea vomiting diarrhea Constitutional Constitutional: Reports no additional constitutional complaints, Denies chills and Denies fever(s) Cardiovascular Cardiovascular: Denies chest pain, Denies palpitations and Denies dyspnea Respiratory Respiratory: Denies cough and Denies dyspnea Gastrointestinal Gastrointestinal: Denies abdominal pain, Denies diarrhea, Denies nausea and Denies vomiting Neurologic Neurologic: Reports confusion Psychiatric Psychiatric: Reports confusion Endocrine Endocrine: Denies palpitations Physical Exam Vital Signs: Vital Signs: Last Vital Signs Temp 98.0 F 11/22/21 06:54 Pulse 75 11/22/21 06:54 Resp 18 11/22/21 06:54 BP 123/60 11/22/21 06:54 Pulse Ox 100 11/22/21 06:54 BMI result Body Mass Index 28.8 Const: General: cooperative, healthy appearing, comfortable, no acute di stress, alert, awake and confusion Nutritional Appearance: average body h abitus and well nourished Orientation/consciousness: confusion Resp: Effort & Inspection: normal respiratory effort and able to speak in complete sentences Auscultation: clear to auscultation bilaterally Cardio: Rate: regular rate Heart sounds: S1 normal heart sound present and S2 normal heart sound present GI: Inspection: No distended Palpation (GI): Soft to palpation and nontender Neuro: General: confusion Objective Data Active Medications Aspirin (Aspirin Enteric Coated 81 Mg Tablet.) 81 mg PO DAILY [facility] Last Admin: 11/22/21 07:40 Dose: 81 mg Documented by: SHERLY Atorvastatin Calcium (Atorvastatin Calcium 20 Mg Tablet) 20 mg PO DAILY [facility] Last Admin: 11/22/21 07:41 Dose: 20 mg Documented by: SHERLY Benztropine Mesylate (Benztropine Mesylate 1 Mg Tablet) 1 mg PO BEDTIME [facility] Last Admin: 11/21/21 19:50 Dose: 1 mg Documented by: CONNOR Cinacalcet (Cinacalcet Hcl 30 Mg Tablet) 60 mg PO DAILY [facility] Last Admin: 11/22/21 07:41 Dose: 60 mg Documented by: SHERLY Dextrose (Dextrose 50 % 25 Gm/50 Ml Vial) 25 gm IVPUSH Q15M PRN; Protocol PRN Reason: per Hypoglycemia Standing Ord. Glucose (Glucose Gel 15 Gm Gel..Gram.) 15 gm PO Q15M PRN; Protocol PRN Reason: per Hypoglycemia Standing Ord. Last Admin: 10/13/21 21:16 Dose: 15 gm Documented by: LUIS Haloperidol (Haloperidol 5 Mg Tablet) 5 mg PO BEDTIME [facility] Last Admin: 11/21/21 19:50 Dose: 5 mg Documented by: CONNOR Insulin Glargine (Insulin Glargine,Hum.Rec.Anlog 100 Unit/Ml 10 Ml Vial) 10 unit SUBCUT DAILY [facility] Last Admin: 11/22/21 07:40 Dose: 10 unit Documented by: SHERLY Insulin Human Lispro (Insulin Lispro 100 Unit/Ml 3 Ml Vial) 0 unit SUBCUT QIDACHS [facility]; Protocol Last Admin: 11/22/21 11:55 Dose: Not Given Documented by: SHERLY Non-Admin Reason: No Insulin Coverage [place] Carbonate ([place] Carbonate 300 Mg Capsule) 300 mg PO BID [facility] Last Admin: 11/22/21 07:41 Dose: 300 mg Documented by: SHERLY Melatonin (Melatonin 3 Mg Tablet) 6 mg PO BEDTIME PRN PRN Reason: Sleep Last Admin: 11/21/21 19:50 Dose: 6 mg Documented by: CONNOR Metformin HCl (Metformin Hcl 1,000 Mg Tablet) 1,000 mg PO BIDWM [facility] Last Admin: 11/22/21 07:41 Dose: 1,000 mg Documented by: SHERLY Nortriptyline HCl (Nortriptyline Hcl 10 Mg Capsule) 10 mg PO BEDTIME [facility] Last Admin: 11/21/21 19:50 Dose: 10 mg Documented by: CONNOR Pharmacy Consult (Consult Rx Perform Med Rec) 1 each MISCELLANE ONCE PRN PRN Reason: Consult order Labs CBC & Chem 7: 11/16/21 11:15 11/16/21 11:15 Labs: Laboratory Results - last 24 hr 11/21/21 11/21/21 11/21/21 15:38 19:47 20:38 POC Glucose 243 H 201 H 221 H 11/22/21 11/22/21 06:59 11:25 POC Glucose 188 H 138 H Assessment and Plan (1) Dementia: Status: Acute (2) Bipolar disorder: Status: Acute Plan 66yo F with bipolar disorder admitted with encephalopathy initially attributed to UTI but now likely more psychiatric in nature 1.Bipolar disorder - lithium resumed at lower dose -awaiting placement 2.KEESHA on CKD 3 - improved -? follow renals/divalents daily - as per Nephrology if creatinine raise is greater than 1.7 lithium will be discontinued 3.HyperCalcemia - Nephrology; sensipar? increased to 60 mg daily - outpt f/u with Endocrine Surgery (Dr Day at [facility] [place]) - avoid Ca, vitamin D, thiazides, NSAIDs 4. DMII -acceptable control on correction dose lispro -adjust as clinically indicated Quality Stroke Does the patient have a stroke diagnosis?: Yes Reason for No Anti-thrombotic by Day Two: N/A - Med Ordered VTE Prior VTE?: No VTE Risk Level:: Medical - moderate - high VTE Device Contraindication: N/A - Device Ordered VTE Drug Contraindication: N/A - Med Ordered
[2021-11-22 15:07] VITALS: BP 135/63; PULSE 90; RESP 18; TEMP 36.6; O2SAT 100
[2021-11-22 15:33] LABS: Glucose, Whole Blood 154 mg/dL (60-115)
[2021-11-22 20:19] LABS: Glucose, Whole Blood 164 mg/dL (60-115)
[2021-11-22] MEDS: Nortriptyline HCl 10 MG CAPSULE PO (20:42)
[2021-11-22] MEDS: HaloperidoL 5 MG TABLET PO (20:42)
[2021-11-22] MEDS: Benztropine Mesylate 1 MG TABLET PO (20:42)
[2021-11-22] MEDS: polyethylene glycoL 3350 17 GM POWD.PACK PO (22:24)
[2021-11-22] MEDS: Magnesium Hydrox/Alum Hydrox 30 ML ORAL.SUSP 15 ML PO (22:24)
[2021-11-22 23:15] VITALS: BP 136/65; PULSE 94; RESP 18; TEMP 37.3; O2SAT 100
[2021-11-23 06:08] LABS: Anion Gap 12 (12-20); Blood Urea Nitrogen 9 mg/dL (9-16); Calcium 10.5 mg/dL (8.4-10.2); Carbon Dioxide 26 mmol/L (22-29); Chloride 108 mmol/L (96-108); Creatinine Clr Calc Pharmacy 50.4; Estimated Glomerular Filt Rate 51; Glucose Random 157 mg/dL (60-115); Potassium 4.6 mmol/L (3.3-5.1); Sodium 141 mmol/L (135-145)
[2021-11-23 07:02] VITALS: BP 108/58; PULSE 76; RESP 16; TEMP 36.4; O2SAT 97
[2021-11-23 07:07] LABS: Glucose, Whole Blood 139 mg/dL (60-115)
[2021-11-23] MEDS: Lithium Carbonate 300 MG CAPSULE PO ×2 (08:04→20:21)
[2021-11-23] MEDS: Atorvastatin Calcium 20 MG TABLET PO (08:04)
[2021-11-23] MEDS: Cinacalcet HCl 30 MG TABLET 60 MG PO (08:04)
[2021-11-23] MEDS: Insulin Glargine,Hum.rec.anlog 100 UNIT/ML 10 ML VIAL 10 UNIT SUBCUT (08:05)
[2021-11-23] MEDS: Aspirin Enteric Coated 81 MG TABLET.DR PO (08:05)
[2021-11-23] MEDS: metFORMIN HCl 1,000 MG TABLET 1000 MG PO ×2 (08:05→16:51)
[2021-11-23] MEDS: Insulin Lispro 100 UNIT/ML 3 ML VIAL SUBCUT ×4 (08:05→21:41)
[2021-11-23 11:39] LABS: Glucose, Whole Blood 130 mg/dL (60-115)
--- NOTE | 2021-11-23 12:19 | MHC.CM.PN ---
Addendum entered by Gloria Lindsay 11/23/21 12:58: CALL FROM SON JAYDA, WHO STATES YOUR MESSAGE MAKES NO SENSE. I AM WORKING ON GETTING MY MOM [place] THIS WET WHEELER AGREED AND ALSO STARED THAT PATIENT DOES NOT NEED TO REMAIN IN THE HOSPITAL FOR THE PROCESS OF LTC TO BE COMPLETED. JAYDA STATES THAT PATIENT LIVES ALONE AND CANNOT RETURN HOME. HE DENIES THAT ANY FAMILY MEMBER CAN STAY WITH PATIENT. JAYDA [place] [facility] [place] START THE PROCESS OF MEDICARE APPEALS. Original Note: MESSAGE LEFT FOR SONJAYDA @ [phone] JAYDA MADE AWARE THAT PATIENT IS READY FOR DISCHARGE AND NO LONGER MEETS HOSPITAL LEVEL OF CARE. MEDICARE APPEAL PROCESS INTRODUCED AND CASE MANAGEMENT WAITING FOR A RETURN CALL OR SON TO VISIT CALL BACK NUMBERS FOR THIS WET WHEELER LEFT ON VOICEMAIL
[2021-11-23] MEDS: polyethylene glycoL 3350 17 GM POWD.PACK PO (13:07)
--- NOTE | 2021-11-23 13:07 | HO.PM.IMPN ---
Subjective Subjective Date of Service: 11/23/21 Interval History: No acute issues overnight. Continues to await placement Review of Systems Denies chest pain Denies shortness of breath Denies nausea vomiting diarrhea Constitutional Constitutional: Reports no additional constitutional complaints, Denies chills and Denies fever(s) Cardiovascular Cardiovascular: Denies chest pain, Denies palpitations and Denies dyspnea Respiratory Respiratory: Denies cough and Denies dyspnea Gastrointestinal Gastrointestinal: Denies abdominal pain, Denies diarrhea, Denies nausea and Denies vomiting Neurologic Neurologic: Reports confusion Psychiatric Psychiatric: Reports confusion Endocrine Endocrine: Denies palpitations Physical Exam Vital Signs: Vital Signs: Last Vital Signs Temp 97.5 F 11/23/21 07:02 Pulse 76 11/23/21 07:02 Resp 16 11/23/21 07:02 BP 108/58 L 11/23/21 07:02 Pulse Ox 97 11/23/21 07:02 BMI result Body Mass Index 28.8 Const: General: cooperative, healthy appearing, comfortable, no acute distress, alert, awake and confusion Nutritional Appearance: average body habitus and well nourished Orientation/consciousness: confusion Resp: Effort & Inspection: normal respiratory effort and able to speak in complete sentences Auscultation: clear to auscultation bilaterally Cardio: Rate: regular rate Heart sounds: S1 normal heart sound present and S2 normal heart sound present GI: Inspection: No distended Palpation (GI): Soft to palpation and nontender Neuro: General: confusion Objective Data Active Medications Al Hydroxide/Mg Hydroxide (Magnesium Hydrox/Alum Hydrox 30 Ml Oral.Susp) 15 ml PO Q6H PRN PRN Reason: heartburn Last Admin: 11/22/21 22:24 Dose: 15 ml Documented by: JENISE Aspirin (Aspirin Enteric Coated 81 Mg Tablet.) 81 mg PO DAILY [facility] Last Admin: 11/23/21 08:05 Dose: 81 mg Documented by: EUGENIA Atorvastatin Calcium (Atorvastatin Calcium 20 Mg Tablet) 20 mg PO DAILY [facility] Last Admin: 11/23/21 08:04 Dose: 20 mg Documented by: EUGENIA Benztropine Mesylate (Benztropine Mesylate 1 Mg Tablet) 1 mg PO BEDTIME [facility] Last Admin: 11/22/21 20:42 Dose: 1 mg Documented by: JENISE Cinacalcet (Cinacalcet Hcl 30 Mg Tablet) 60 mg PO DAILY [facility] Last Admin: 11/23/21 08:04 Dose: 60 mg Documented by: EUGENIA Dextrose (Dextrose 50 % 25 Gm/50 Ml Vial) 25 gm IVPUSH Q15M PRN; Protocol PRN Reason: per Hypoglycemia Standing Ord. Glucose (Glucose Gel 15 Gm Gel..Gram.) 15 gm PO Q15M PRN; Protocol PRN Reason: per Hypoglycemia Standing Ord. Last Admin: 10/13/21 21:16 Dose: 15 gm Documented by: LUIS Haloperidol (Haloperidol 5 Mg Tablet) 5 mg PO BEDTIME [facility] Last Admin: 11/22/21 20:42 Dose: 5 mg Documented by: JENISE Insulin Glargine (Insulin Glargine,Hum.Rec.Anlog 100 Unit/Ml 10 Ml Vial) 10 unit SUBCUT DAILY [facility] Last Admin: 11/23/21 08:05 Dose: 10 unit Documented by: EUGENIA Insulin Human Lispro (Insulin Lispro 100 Unit/Ml 3 Ml Vial) 0 unit SUBCUT QIDACHS [facility]; Protocol Last Admin: 11/23/21 11:58 Dose: 2 unit Documented by: EUGENIA [place] Carbonate ([place] Carbonate 300 Mg Capsule) 300 mg PO BID [facility] Last Admin: 11/23/21 08:04 Dose: 300 mg Documented by: EUGENIA Melatonin (Melatonin 3 Mg Tablet) 6 mg PO BEDTIME PRN PRN Reason: Sleep Last Admin: 11/21/21 19:50 Dose: 6 mg Documented by: CONNOR Metformin HCl (Metformin Hcl 1,000 Mg Tablet) 1,000 mg PO BIDWM [facility] Last Admin: 11/23/21 08:05 Dose: 1,000 mg Documented by: EUGENIA Nortriptyline HCl (Nortriptyline Hcl 10 Mg Capsule) 10 mg PO BEDTIME [facility] Last Admin: 11/22/21 20:42 Dose: 10 mg Documented by: JENISE Pharmacy Consult (Consult Rx Perform Med Rec) 1 each MISCELLANE ONCE PRN PRN Reason: Consult order Polyethylene Glycol (Polyethylene Glycol 3350 17 Gm Powd.Pack) 17 gm PO DAILY PRN PRN Reason: constipation Last Admin: 11/22/21 22:24 Dose: 17 gm Documented by: JENISE Labs CBC & Chem 7: 11/16/21 11:15 11/23/21 05:21 Labs: Laboratory Results - last 24 hr 11/22/21 11/22/21 11/23/21 15:24 20:16 05:21 Anion Gap 12 Estim Creat Clear Calc 50.4 Estimated GFR 51 POC Glucose 154 H 164 H Random Glucose 157 H Calcium 10.5 H 11/23/21 11/23/21 07:00 11:22 Anion Gap Estim Creat Clear Calc Estimated GFR POC Glucose 139 H 130 H Random Glucose Calcium Assessment and Plan (1) Bipolar disorder: Status: Acute (2) Dementia: Status: Acute Plan 66yo F with bipolar disorder admitted with encephalopathy initially attributed to UTI but now likely more psychiatric in nature 1.Bipolar disorder - lithium resumed at lower dose -awaiting placement 2.KEESHA on CKD 3 - improved -? follow renals/divalents daily - as per Nephrology if creatinine raise is greater than 1.7 lithium will be discontinued 3.HyperCalcemia - Nephrology; sensipar? increased to 60 mg daily - outpt f/u with Endocrine Surgery (Dr Day at [facility] [place]) - avoid Ca, vitamin D, thiazides, NSAIDs 4. DMII -acceptable control on correction dose lispro -adjust as clinically indicated Quality Stroke Does the patient have a stroke diagnosis?: Yes Reason for No Anti-thrombotic by Day Two: N/A - Med Ordered VTE Prior VTE?: No VTE Risk Level:: Medical - moderate - high VTE Device Contraindication: N/A - Device Ordered VTE Drug Contraindication: N/A - Med Ordered
[2021-11-23 15:52] VITALS: BP 162/73; PULSE 92; RESP 18; TEMP 36.6; O2SAT 99
[2021-11-23 16:28] LABS: Glucose, Whole Blood 159 mg/dL (60-115)
[2021-11-23] MEDS: HaloperidoL 5 MG TABLET PO (20:21)
[2021-11-23] MEDS: Benztropine Mesylate 1 MG TABLET PO (20:21)
[2021-11-23] MEDS: Nortriptyline HCl 10 MG CAPSULE PO (20:21)
[2021-11-23 20:40] LABS: Glucose, Whole Blood 144 mg/dL (60-115)
[2021-11-23] MEDS: Magnesium Hydrox/Alum Hydrox 30 ML ORAL.SUSP 15 ML PO (21:44)
[2021-11-23] MEDS: Melatonin 3 MG TABLET 6 MG PO (21:44)
[2021-11-24 07:28] VITALS: BP 100/57; PULSE 97; RESP 19; TEMP 36.4; O2SAT 100
[2021-11-24 07:59] LABS: Glucose, Whole Blood 160 mg/dL (60-115)
[2021-11-24] MEDS: Insulin Lispro 100 UNIT/ML 3 ML VIAL SUBCUT ×3 (08:21→19:57)
[2021-11-24] MEDS: Insulin Glargine,Hum.rec.anlog 100 UNIT/ML 10 ML VIAL 10 UNIT SUBCUT (08:21)
[2021-11-24] MEDS: Aspirin Enteric Coated 81 MG TABLET.DR PO (08:22)
[2021-11-24] MEDS: Lithium Carbonate 300 MG CAPSULE PO ×2 (08:22→19:57)
[2021-11-24] MEDS: metFORMIN HCl 1,000 MG TABLET 1000 MG PO ×2 (08:22→16:39)
[2021-11-24] MEDS: Atorvastatin Calcium 20 MG TABLET PO (08:22)
[2021-11-24] MEDS: Cinacalcet HCl 30 MG TABLET 60 MG PO (08:22)
--- NOTE | 2021-11-24 10:27 | P.PNIM_ITS ---
Subjective Subjective Date of Service: 11/24/21 Interval History: No acute issues overnight. Continues to await placement Review of Systems Denies chest pain Denies shortness of breath Denies nausea vomiting diarrhea Constitutional Constitutional: Reports no additional constitutional complaints, Denies chills and Denies fever(s) Cardiovascular Cardiovascular: Denies chest pain, Denies palpitations and Denies dyspnea Respiratory Respiratory: Denies cough and Denies dyspnea Gastrointestinal Gastrointestinal: Denies abdominal pain, Denies diarrhea, Denies nausea and Denies vomiting Neurologic Neurologic: Reports confusion Psychiatric Psychiatric: Reports confusion Endocrine Endocrine: Denies palpitations Physical Exam Vital Signs: Vital Signs: Last Vital Signs Temp 97.5 F 11/24/21 07:28 Pulse 97 11/24/21 07:28 Resp 19 11/24/21 07:28 BP 100/57 L 11/24/21 07:28 Pulse Ox 100 11/24/21 07:28 BMI result Body Mass Index 28.8 Const: General: cooperative, healthy appearing, comfortable, no acute di stress, alert, awake and confusion Nutritional Appearance: average body h abitus and well nourished Orientation/consciousness: confusion Resp: Effort & Inspection: normal respiratory effort and able to speak in complete sentences Auscultation: clear to auscultation bilaterally Cardio: Rate: regular rate Heart sounds: S1 normal heart sound present and S2 normal heart sound present GI: Inspection: No distended Palpation (GI): Soft to palpation and nontender Neuro: General: confusion Objective Data Active Medications Al Hydroxide/Mg Hydroxide (Magnesium Hydrox/Alum Hydrox 30 Ml Oral.Susp) 15 ml PO Q6H PRN PRN Reason: heartburn Last Admin: 11/23/21 21:44 Dose: 15 ml Documented by: JOSE RAMON Aspirin (Aspirin Enteric Coated 81 Mg Tablet.) 81 mg PO DAILY [facility] Last Admin: 11/24/21 08:22 Dose: 81 mg Documented by: RIZWANA Atorvastatin Calcium (Atorvastatin Calcium 20 Mg Tablet) 20 mg PO DAILY [facility] Last Admin: 11/24/21 08:22 Dose: 20 mg Documented by: RIZWANA Benztropine Mesylate (Benztropine Mesylate 1 Mg Tablet) 1 mg PO BEDTIME [facility] Last Admin: 11/23/21 20:21 Dose: 1 mg Documented by: JOSE RAMON Cinacalcet (Cinacalcet Hcl 30 Mg Tablet) 60 mg PO DAILY [facility] Last Admin: 11/24/21 08:22 Dose: 60 mg Documented by: RIZWANA Dextrose (Dextrose 50 % 25 Gm/50 Ml Vial) 25 gm IVPUSH Q15M PRN; Protocol PRN Reason: per Hypoglycemia Standing Ord. Glucose (Glucose Gel 15 Gm Gel..Gram.) 15 gm PO Q15M PRN; Protocol PRN Reason: per Hypoglycemia Standing Ord. Last Admin: 10/13/21 21:16 Dose: 15 gm Documented by: LUIS Haloperidol (Haloperidol 5 Mg Tablet) 5 mg PO BEDTIME [facility] Last Admin: 11/23/21 20:21 Dose: 5 mg Documented by: JOSE RAMON Insulin Glargine (Insulin Glargine,Hum.Rec.Anlog 100 Unit/Ml 10 Ml Vial) 10 unit SUBCUT DAILY [facility] Last Admin: 11/24/21 08:21 Dose: 10 unit Documented by: RIZWANA Insulin Human Lispro (Insulin Lispro 100 Unit/Ml 3 Ml Vial) 0 unit SUBCUT QIDACHS [facility]; Protocol Last Admin: 11/24/21 08:21 Dose: 4 unit Documented by: RIZWANA [place] Carbonate ([place] Carbonate 300 Mg Capsule) 300 mg PO BID [facility] Last Admin: 11/24/21 08:22 Dose: 300 mg Documented by: RIZWANA Melatonin (Melatonin 3 Mg Tablet) 6 mg PO BEDTIME PRN PRN Reason: Sleep Last Admin: 11/23/21 21:44 Dose: 6 mg Documented by: JOSE RAMON Metformin HCl (Metformin Hcl 1,000 Mg Tablet) 1,000 mg PO BIDWM [facility] Last Admin: 11/24/21 08:22 Dose: 1,000 mg Documented by: RIZWANA Nortriptyline HCl (Nortriptyline Hcl 10 Mg Capsule) 10 mg PO BEDTIME [facility] Last Admin: 11/23/21 20:21 Dose: 10 mg Documented by: JOSE RAMON Pharmacy Consult (Consult Rx Perform Med Rec) 1 each MISCELLANE ONCE PRN PRN Reason: Consult order Polyethylene Glycol (Polyethylene Glycol 3350 17 Gm Powd.Pack) 17 gm PO DAILY PRN PRN Reason: constipation Last Admin: 11/23/21 13:07 Dose: 17 gm Documented by: EUGENIA Labs CBC & Chem 7: 11/16/21 11:15 11/23/21 05:21 Labs: Laboratory Results - last 24 hr 11/23/21 11/23/21 11/23/21 11:22 16:05 20:36 POC Glucose 130 H 159 H 144 H 11/24/21 07:35 POC Glucose 160 H Assessment and Plan (1) Bipolar disorder: Status: Acute Plan 66yo F with bipolar disorder admitted with encephalopathy initially attributed to UTI but now likely more psychiatric in nature 1.Bipolar disorder - lithium resumed at lower dose -awaiting placement 2.KEESHA on CKD 3 - improved -? follow renals/divalents daily - as per Nephrology if creatinine raise is greater than 1.7 lithium will be discontinued 3.HyperCalcemia - Nephrology; sensipar? increased to 60 mg daily - outpt f/u with Endocrine Surgery (Dr Day at [facility]) - avoid Ca, vitamin D, thiazides, NSAIDs 4. DMII -acceptable control on correction dose lispro -adjust as clinically indicated Quality Stroke Does the patient have a stroke diagnosis?: Yes Reason for No Anti-thrombotic by Day Two: N/A - Med Ordered VTE Prior VTE?: No VTE Risk Level:: Medical - moderate - high VTE Device Contraindication: N/A - Device Ordered VTE Drug Contraindication: N/A - Med Ordered
[2021-11-24] MEDS: polyethylene glycoL 3350 17 GM POWD.PACK PO (10:52)
[2021-11-24 11:13] LABS: Lithium 0.94 mmol/L (0.60-1.20)
[2021-11-24 11:25] LABS: Alanine Aminotransferase 23 U/L (0-31); Alkaline Phosphatase 180 U/L (39-117); Anion Gap 12 (12-20); Aspartate Amino Transferase 18 U/L (5-31); Bilirubin Total 0.6 mg/dL (0.0-1.0); Blood Urea Nitrogen 11 mg/dL (9-16); Calcium 10.6 mg/dL (8.4-10.2); Carbon Dioxide 28 mmol/L (22-29); Chloride 103 mmol/L (96-108); Creatinine Clr Calc Pharmacy 52.4; Estimated Glomerular Filt Rate 54; Glucose Random 168 mg/dL (60-115); Potassium 4.6 mmol/L (3.3-5.1); Sodium 138 mmol/L (135-145); Total Protein 7.1 g/dL (6.5-8.0)
--- NOTE | 2021-11-24 11:38 | MHC.CM.PN ---
PATIENT TELLS THIS FUEL[employer] SALES REPRESENTATIVE THAT SHE WANTS TO GO BACK HOME. SHE ALSO STATES MAYBE I CAN STAY WITH MY BROTHER OR MAYBE HE CAN EVEN STAY WITH ME PATIENT ALSO TELLS THIS FUELS SALES REPRESENTATIVE THAT SHE IS AWARE THAT SHE WAS NOT IN ANY CONDITION TO GO HOME WHEN SHE FIRST ARRIVE, ' BUT I FEEL 100% BETTER PATIENT STATES THAT SHE WILL CALL HER BROTHER AND LET THIS FUELS SALES REPRESENTATIVE KNOW ONCE SHE MAKES CONTACT PATIENT CAN BENEFIT FROM [facility] THE HOME [facility], AND SHE IS IN AGREEMENT
[2021-11-24 11:41] LABS: Glucose, Whole Blood 134 mg/dL (60-115)
[2021-11-24] MEDS: Milk of Magnesia 30 ML ORAL.SUSP PO (14:00)
--- NOTE | 2021-11-24 14:02 | MHC.CM.PN ---
Addendum entered by Gloria Lindsay 11/24/21 15:04: DR CORTEZ IS NO LONGER AT [facility] PATIENT HAS REPORTS FROM HARRIETTMaci FIGUEROA OF [facility]S PCP OFFICES CALL TO OFFICE AND THEY ARE NOT ACCEPTING NEW PATIENTS UNTIL JUNE Original Note: DISCUSSION WITH PATIENT, SON JAYDA, AND GRAND DAUGHTER (IN ROOM AND WITH PERMISSION FROM PATIENT) PLAN IS FOR PATIENT TO RETURN HOME ON Saturday11/27/21. BROTHER YOSSI IS REPORTEDLY GOING TO MOVE INTO THE HOME PATIENT IS AGREEABLE TO A REFERRAL TO [facility] FOR MEDICATION MANAGEMENT AND SYMPTOM MONITORING. [facility] AND [facility] REFERRALS PLACED.
[2021-11-24 15:28] VITALS: BP 122/68; PULSE 98; RESP 20; TEMP 36.6; O2SAT 100
--- NOTE | 2021-11-24 15:30 | MHC.CM.PN ---
Addendum entered by Gloria Lindsay 11/24/21 15:42: PATIENT WAS ACTIVE WITH DR KANWAL FERNANDEZ, WHO RECENTLY LEFT THE PRACTICE. PATIENT IS ACTIVE WITH DR TEJ [facility] (SAME LOCATION [address] [place] [address]) SHE HAS A NEXT VISIT ON AT 1500. CINDI MADE AWARE IF SHE NEEDS TO BE SEEN PRIOR TO THIS, CASE MANAGEMENT CAN CALL BACK SATURDAY AND ARRANGE FOR ANOTHER PROVIDER TO SEE HER Original Note: PATIENT REPORTS THAT HER LAST PCP VISIT WAS AT [address] [facility] THIS IS [facility]. [phone] THIS COSTUME RENTAL CLERK ATTEMPTING TO SECURE PCP INFORMATION AND WILL UPDATE THIS NOTE WITH ANY PROGRESS TOWARDS. CINDI FOLLOWING FOR THE INFO WELL.
[2021-11-24 16:22] LABS: Glucose, Whole Blood 102 mg/dL (60-115)
[2021-11-24 19:36] LABS: Glucose, Whole Blood 182 mg/dL (60-115)
[2021-11-24] MEDS: Melatonin 3 MG TABLET 6 MG PO (19:57)
[2021-11-24] MEDS: Nortriptyline HCl 10 MG CAPSULE PO (19:57)
[2021-11-24] MEDS: Benztropine Mesylate 1 MG TABLET PO (19:57)
[2021-11-24] MEDS: HaloperidoL 5 MG TABLET PO (19:57)
[2021-11-24 23:41] VITALS: BP 135/73; PULSE 84; RESP 14; TEMP 36; O2SAT 99
[2021-11-25] MEDS: Magnesium Hydrox/Alum Hydrox 30 ML ORAL.SUSP 15 ML PO (00:03)
[2021-11-25 06:57] VITALS: BP 108/53; PULSE 76; RESP 18; TEMP 36.8; O2SAT 100
[2021-11-25 07:30] LABS: Glucose, Whole Blood 151 mg/dL (60-115)
[2021-11-25] MEDS: Insulin Lispro 100 UNIT/ML 3 ML VIAL SUBCUT (07:37)
[2021-11-25] MEDS: Insulin Glargine,Hum.rec.anlog 100 UNIT/ML 10 ML VIAL 10 UNIT SUBCUT (07:38)
[2021-11-25] MEDS: Atorvastatin Calcium 20 MG TABLET PO (07:39)
[2021-11-25] MEDS: Lithium Carbonate 300 MG CAPSULE PO ×2 (07:39→21:19)
[2021-11-25] MEDS: metFORMIN HCl 1,000 MG TABLET 1000 MG PO ×2 (07:39→16:29)
[2021-11-25] MEDS: Cinacalcet HCl 30 MG TABLET 60 MG PO (07:39)
[2021-11-25] MEDS: Aspirin Enteric Coated 81 MG TABLET.DR PO (07:47)
[2021-11-25 11:31] LABS: Glucose, Whole Blood 88 mg/dL (60-115)
--- NOTE | 2021-11-25 12:06 | P.PNIM_ITS ---
Subjective Subjective Date of Service: 11/25/21 Interval History: No acute issues overnight. Continues to await placement Review of Systems Denies chest pain Denies shortness of breath Denies nausea vomiting diarrhea Constitutional Constitutional: Reports no additional constitutional complaints, Denies chills and Denies fever(s) Cardiovascular Cardiovascular: Denies chest pain, Denies palpitations and Denies dyspnea Respiratory Respiratory: Denies cough and Denies dyspnea Gastrointestinal Gastrointestinal: Denies abdominal pain, Denies diarrhea, Denies nausea and Denies vomiting Neurologic Neurologic: Reports confusion Psychiatric Psychiatric: Reports confusion Endocrine Endocrine: Denies palpitations Physical Exam Vital Signs: Vital Signs: Last Vital Signs Temp 98.3 F 11/25/21 06:57 Pulse 76 11/25/21 06:57 Resp 18 11/25/21 06:57 BP 108/53 L 11/25/21 06:57 Pulse Ox 100 11/25/21 06:57 BMI result Body Mass Index 28.8 Const: General: cooperative, healthy appearing, comfortable, no acute di stress, alert, awake and confusion Nutritional Appearance: average body h abitus and well nourished Orientation/consciousness: confusion Resp: Effort & Inspection: normal respiratory effort and able to speak in complete sentences Auscultation: clear to auscultation bilaterally Cardio: Rate: regular rate Heart sounds: S1 normal heart sound present and S2 normal heart sound present GI: Inspection: No distended Palpation (GI): Soft to palpation and nontender Neuro: General: confusion Objective Data Active Medications Al Hydroxide/Mg Hydroxide (Magnesium Hydrox/Alum Hydrox 30 Ml Oral.Susp) 15 ml PO Q6H PRN PRN Reason: heartburn Last Admin: 11/25/21 00:03 Dose: 15 ml Documented by: FEROZ Aspirin (Aspirin Enteric Coated 81 Mg Tablet.) 81 mg PO DAILY [facility] Last Admin: 11/25/21 07:47 Dose: 81 mg Documented by: RIZWANA Atorvastatin Calcium (Atorvastatin Calcium 20 Mg Tablet) 20 mg PO DAILY [facility] Last Admin: 11/25/21 07:39 Dose: 20 mg Documented by: RIZWANA Benztropine Mesylate (Benztropine Mesylate 1 Mg Tablet) 1 mg PO BEDTIME [facility] Last Admin: 11/24/21 19:57 Dose: 1 mg Documented by: FEROZ Cinacalcet (Cinacalcet Hcl 30 Mg Tablet) 60 mg PO DAILY [facility] Last Admin: 11/25/21 07:39 Dose: 60 mg Documented by: RIZWANA Dextrose (Dextrose 50 % 25 Gm/50 Ml Vial) 25 gm IVPUSH Q15M PRN; Protocol PRN Reason: per Hypoglycemia Standing Ord. Glucose (Glucose Gel 15 Gm Gel..Gram.) 15 gm PO Q15M PRN; Protocol PRN Reason: per Hypoglycemia Standing Ord. Last Admin: 10/13/21 21:16 Dose: 15 gm Documented by: LUIS Haloperidol (Haloperidol 5 Mg Tablet) 5 mg PO BEDTIME [facility] Last Admin: 11/24/21 19:57 Dose: 5 mg Documented by: FEROZ Insulin Glargine (Insulin Glargine,Hum.Rec.Anlog 100 Unit/Ml 10 Ml Vial) 10 unit SUBCUT DAILY [facility] Last Admin: 11/25/21 07:38 Dose: 10 unit Documented by: RIZWANA Insulin Human Lispro (Insulin Lispro 100 Unit/Ml 3 Ml Vial) 0 unit SUBCUT QIDACHS [facility]; Protocol Last Admin: 11/25/21 11:30 Dose: Not Given Documented by: RIZWANA Non-Admin Reason: No Insulin Coverage [place] Carbonate ([place] Carbonate 300 Mg Capsule) 300 mg PO BID [facility] Last Admin: 11/25/21 07:39 Dose: 300 mg Documented by: RIZWANA Melatonin (Melatonin 3 Mg Tablet) 6 mg PO BEDTIME PRN PRN Reason: Sleep Last Admin: 11/24/21 19:57 Dose: 6 mg Documented by: FEROZ Metformin HCl (Metformin Hcl 1,000 Mg Tablet) 1,000 mg PO BIDWM [facility] Last Admin: 11/25/21 07:39 Dose: 1,000 mg Documented by: RIZWANA Nortriptyline HCl (Nortriptyline Hcl 10 Mg Capsule) 10 mg PO BEDTIME [facility] Last Admin: 11/24/21 19:57 Dose: 10 mg Documented by: FEROZ Pharmacy Consult (Consult Rx Perform Med Rec) 1 each MISCELLANE ONCE PRN PRN Reason: Consult order Polyethylene Glycol (Polyethylene Glycol 3350 17 Gm Powd.Pack) 17 gm PO DAILY PRN PRN Reason: constipation Last Admin: 11/24/21 10:52 Dose: 17 gm Documented by: RIZWANA Labs CBC & Chem 7: 11/16/21 11:15 11/24/21 10:59 Labs: Laboratory Results - last 24 hr 11/24/21 11/24/21 11/25/21 16:09 19:32 07:03 POC Glucose 102 182 H 151 H 11/25/21 11:27 POC Glucose 88 Assessment and Plan (1) Dementia: Status: Acute Plan 66yo F with bipolar disorder admitted with encephalopathy initially attributed to UTI but now likely more psychiatric in nature 1.Bipolar disorder - lithium resumed at lower dose -awaiting placement 2.KEESHA on CKD 3 - improved -? follow renals/divalents daily - as per Nephrology if creatinine raise is greater than 1.7 lithium will be discontinued 3.HyperCalcemia - Nephrology; sensipar? increased to 60 mg daily - outpt f/u with Endocrine Surgery (Dr Day at [facility]) - avoid Ca, vitamin D, thiazides, NSAIDs 4. DMII -acceptable control on correction dose lispro -adjust as clinically indicated Quality Stroke Does the patient have a stroke diagnosis?: Yes Reason for No Anti-thrombotic by Day Two: N/A - Med Ordered VTE Prior VTE?: No VTE Risk Level:: Medical - moderate - high VTE Device Contraindication: N/A - Device Ordered VTE Drug Contraindication: N/A - Med Ordered
[2021-11-25] MEDS: polyethylene glycoL 3350 17 GM POWD.PACK PO (13:18)
[2021-11-25 15:52] VITALS: BP 131/68; PULSE 81; RESP 20; TEMP 37.3; O2SAT 100
[2021-11-25 16:04] LABS: Glucose, Whole Blood 86 mg/dL (60-115)
[2021-11-25 19:55] LABS: Glucose, Whole Blood 147 mg/dL (60-115)
[2021-11-25] MEDS: Melatonin 3 MG TABLET 6 MG PO (21:19)
[2021-11-25] MEDS: Benztropine Mesylate 1 MG TABLET PO (21:19)
[2021-11-25] MEDS: Nortriptyline HCl 10 MG CAPSULE PO (21:19)
[2021-11-25] MEDS: HaloperidoL 5 MG TABLET PO (21:19)
[2021-11-25 23:36] VITALS: BP 136/63; PULSE 85; RESP 16; TEMP 36.3; O2SAT 100
[2021-11-26 06:56] VITALS: BP 166/74; PULSE 84; RESP 18; TEMP 36.5; O2SAT 98
[2021-11-26 07:25] LABS: Glucose, Whole Blood 126 mg/dL (60-115)
[2021-11-26] MEDS: Insulin Lispro 100 UNIT/ML 3 ML VIAL SUBCUT (07:42)
[2021-11-26] MEDS: Insulin Glargine,Hum.rec.anlog 100 UNIT/ML 10 ML VIAL 10 UNIT SUBCUT (07:42)
[2021-11-26] MEDS: Cinacalcet HCl 30 MG TABLET 60 MG PO (07:43)
[2021-11-26] MEDS: Aspirin Enteric Coated 81 MG TABLET.DR PO (07:43)
[2021-11-26] MEDS: metFORMIN HCl 1,000 MG TABLET 1000 MG PO ×2 (07:43→17:17)
[2021-11-26] MEDS: Atorvastatin Calcium 20 MG TABLET PO (07:44)
[2021-11-26] MEDS: Lithium Carbonate 300 MG CAPSULE PO ×2 (07:44→19:59)
[2021-11-26 11:54] LABS: Glucose, Whole Blood 50 mg/dL (60-115)
[2021-11-26 12:00] LABS: Glucose, Whole Blood 82 mg/dL (60-115)
--- NOTE | 2021-11-26 14:54 | HO.PM.IMPN ---
Subjective Subjective Date of Service: 11/26/21 Interval History: No acute issues overnight. Continues to await placement Review of Systems Denies chest pain Denies shortness of breath Denies nausea vomiting diarrhea Constitutional Constitutional: Reports no additional constitutional complaints, Denies chills and Denies fever(s) Cardiovascular Cardiovascular: Denies chest pain, Denies palpitations and Denies dyspnea Respiratory Respiratory: Denies cough and Denies dyspnea Gastrointestinal Gastrointestinal: Denies abdominal pain, Denies diarrhea, Denies nausea and Denies vomiting Neurologic Neurologic: Reports confusion Psychiatric Psychiatric: Reports confusion Endocrine Endocrine: Denies palpitations Physical Exam Vital Signs: Vital Signs: Last Vital Signs Temp 97.7 F 11/26/21 06:56 Pulse 84 11/26/21 06:56 Resp 18 11/26/21 06:56 BP 166/74 H 11/26/21 06:56 Pulse Ox 98 11/26/21 06:56 BMI result Body Mass Index 28.8 Const: General: cooperative, healthy appearing, comfortable, no acute distress, alert, awake and confusion Nutritional Appearance: average body habitus and well nourished Orientation/consciousness: confusion Resp: Effort & Inspection: normal respiratory effort and able to speak in complete sentences Auscultation: clear to auscultation bilaterally Cardio: Rate: regular rate Heart sounds: S1 normal heart sound present and S2 normal heart sound present GI: Inspection: No distended Palpation (GI): Soft to palpation and nontender Neuro: General: confusion Objective Data Active Medications Al Hydroxide/Mg Hydroxide (Magnesium Hydrox/Alum Hydrox 30 Ml Oral.Susp) 15 ml PO Q6H PRN PRN Reason: heartburn Last Admin: 11/25/21 00:03 Dose: 15 ml Documented by: FEROZ Aspirin (Aspirin Enteric Coated 81 Mg Tablet.) 81 mg PO DAILY [facility] Last Admin: 11/26/21 07:43 Dose: 81 mg Documented by: RIZWANA Atorvastatin Calcium (Atorvastatin Calcium 20 Mg Tablet) 20 mg PO DAILY [facility] Last Admin: 11/26/21 07:44 Dose: 20 mg Documented by: RIZWANA Benztropine Mesylate (Benztropine Mesylate 1 Mg Tablet) 1 mg PO BEDTIME [facility] Last Admin: 11/25/21 21:19 Dose: 1 mg Documented by: FEROZ Cinacalcet (Cinacalcet Hcl 30 Mg Tablet) 60 mg PO DAILY [facility] Last Admin: 11/26/21 07:43 Dose: 60 mg Documented by: RIZWANA Dextrose (Dextrose 50 % 25 Gm/50 Ml Vial) 25 gm IVPUSH Q15M PRN; Protocol PRN Reason: per Hypoglycemia Standing Ord. Glucose (Glucose Gel 15 Gm Gel..Gram.) 15 gm PO Q15M PRN; Protocol PRN Reason: per Hypoglycemia Standing Ord. Last Admin: 10/13/21 21:16 Dose: 15 gm Documented by: LUIS Haloperidol (Haloperidol 5 Mg Tablet) 5 mg PO BEDTIME [facility] Last Admin: 11/25/21 21:19 Dose: 5 mg Documented by: FEROZ Insulin Glargine (Insulin Glargine,Hum.Rec.Anlog 100 Unit/Ml 10 Ml Vial) 10 unit SUBCUT DAILY [facility] Last Admin: 11/26/21 07:42 Dose: 10 unit Documented by: RIZWANA Insulin Human Lispro (Insulin Lispro 100 Unit/Ml 3 Ml Vial) 0 unit SUBCUT QIDACHS [facility]; Protocol Last Admin: 11/26/21 11:32 Dose: Not Given Documented by: RIZWANA Non-Admin Reason: No Insulin Coverage [place] Carbonate ([place] Carbonate 300 Mg Capsule) 300 mg PO BID [facility] Last Admin: 11/26/21 07:44 Dose: 300 mg Documented by: RIZWANA Melatonin (Melatonin 3 Mg Tablet) 6 mg PO BEDTIME PRN PRN Reason: Sleep Last Admin: 11/25/21 21:19 Dose: 6 mg Documented by: FEROZ Metformin HCl (Metformin Hcl 1,000 Mg Tablet) 1,000 mg PO BIDWM [facility] Last Admin: 11/26/21 07:43 Dose: 1,000 mg Documented by: RIZWANA Nortriptyline HCl (Nortriptyline Hcl 10 Mg Capsule) 10 mg PO BEDTIME [facility] Last Admin: 11/25/21 21:19 Dose: 10 mg Documented by: FEROZ Pharmacy Consult (Consult Rx Perform Med Rec) 1 each MISCELLANE ONCE PRN PRN Reason: Consult order Polyethylene Glycol (Polyethylene Glycol 3350 17 Gm Powd.Pack) 17 gm PO DAILY PRN PRN Reason: constipation Last Admin: 11/25/21 13:18 Dose: 17 gm Documented by: HO.MATTHEP Labs CBC & Chem 7: 11/16/21 11:15 11/24/21 10:59 Labs: Laboratory Results - last 24 hr 11/25/21 11/25/21 11/26/21 15:57 19:51 06:58 POC Glucose 86 147 H 126 H 11/26/21 11/26/21 11:20 11:57 POC Glucose 50 L* 82 Assessment and Plan (1) Dementia: Status: Acute Plan 66yo F with bipolar disorder admitted with encephalopathy initially attributed to UTI but now likely more psychiatric in nature 1.Bipolar disorder - lithium resumed at lower dose -awaiting placement 2.KEESHA on CKD 3 - improved -? follow renals/divalents daily - as per Nephrology if creatinine raise is greater than 1.7 lithium will be discontinued 3.HyperCalcemia - Nephrology; sensipar? increased to 60 mg daily - outpt f/u with Endocrine Surgery (Dr Day at [facility] [place]) - avoid Ca, vitamin D, thiazides, NSAIDs 4. DMII -acceptable control on correction dose lispro -adjust as clinically indicated Quality Stroke Does the patient have a stroke diagnosis?: Yes Reason for No Anti-thrombotic by Day Two: N/A - Med Ordered VTE Prior VTE?: No VTE Risk Level:: Medical - moderate - high VTE Device Contraindication: N/A - Device Ordered VTE Drug Contraindication: N/A - Med Ordered
[2021-11-26 15:57] VITALS: BP 121/76; PULSE 84; RESP 16; TEMP 37.1; O2SAT 100
[2021-11-26 16:07] LABS: Glucose, Whole Blood 85 mg/dL (60-115)
--- NOTE | 2021-11-26 17:23 | PC.NURSE ---
At 1124, POC glucose test of 50, pt asymptomatic. Following hypoglycemia protocol, pt was given two orange juices and shortly after provided with lunch tray. made aware. At 15 minutes, follow-up POC glucose 82.
[2021-11-26 19:59] LABS: Glucose, Whole Blood 128 mg/dL (60-115)
[2021-11-26] MEDS: Nortriptyline HCl 10 MG CAPSULE PO (19:59)
[2021-11-26] MEDS: HaloperidoL 5 MG TABLET PO (19:59)
[2021-11-26] MEDS: Benztropine Mesylate 1 MG TABLET PO (20:00)
[2021-11-26 23:43] VITALS: BP 140/66; PULSE 64; RESP 18; TEMP 36.4; O2SAT 96
[2021-11-27 06:52] VITALS: BP 142/69; PULSE 86; RESP 18; TEMP 36.2; O2SAT 95
[2021-11-27 07:30] LABS: Glucose, Whole Blood 165 mg/dL (60-115)
[2021-11-27] MEDS: Cinacalcet HCl 30 MG TABLET 60 MG PO (08:55)
[2021-11-27] MEDS: Insulin Glargine,Hum.rec.anlog 100 UNIT/ML 10 ML VIAL 10 UNIT SUBCUT (08:55)
[2021-11-27] MEDS: Lithium Carbonate 300 MG CAPSULE PO (08:55)
[2021-11-27] MEDS: Atorvastatin Calcium 20 MG TABLET PO (08:55)
[2021-11-27] MEDS: metFORMIN HCl 1,000 MG TABLET 1000 MG PO (08:55)
[2021-11-27] MEDS: Insulin Lispro 100 UNIT/ML 3 ML VIAL SUBCUT (08:55)
[2021-11-27] MEDS: Aspirin Enteric Coated 81 MG TABLET.DR PO (08:55)
--- NOTE | 2021-11-27 09:50 | PM.DS ---
DS: Providers Provider Date of Service: 11/27/21 Date of admission: 10/04/21 15:45 Date of discharge: 11/27/21 Primary care physician: Unknown Physician Consults: 10/04/21 15:42 Consult to Neurology Routine Consulting Provider: [facility] Reason for consultation: cva -acute to subacute Has provider been notified: No 10/05/21 13:52 Consult to Psychiatry Routine Consulting Provider: [facility] Reason for consultation: eval for capacity Has provider been notified: No 10/10/21 08:47 Consult to Neurology Routine Consulting Provider: [facility] Reason for consultation: worsening encephalopathy Has provider been notified: No 10/12/21 11:41 Consult to Care Team Routine Comment: Reason for consultation: depression; h/o bipolar disorder 10/13/21 12:04 Consult to Nephrology Routine Consulting Provider: Oneal Segovia Reason for consultation: hypercalcemia Has provider been notified: No 10/19/21 12:21 Consult for Sitter Routine Reason for consultation: agitattion 10/20/21 07:54 Consult to Care Team Routine Comment: Reason for consultation: encephalopathy worked up extensively, all psychiatric DS: Diagnosis Discharge Diagnosis (1) Dementia: Status: Acute DS: Summary Hospital Course Hospital Course: 66-year-old female with multiple comorbidities including diabetes, hyperlipidemia also has history of bipolar disorder:? Came to the hospital because of almost a week of symptoms of slurred speech and feeling wobbly- she says that the symptoms are ongoing for at least a week duration, her balance is also off-because of that she decided to come to the hospital. Currently her speech is improved significantly and back to normal, still has some ataxia with walking. Patient speech improved to the baseline, she can walk some steps but says feels slightly wobbly otherwise that is also improving as per the patient. Hospital Course Admitted; seen by Neurology with no focal abnormalities noted. Was noted to be lithium toxic and lithium level was adjusted by Psychiatry. Was seen by Renal; labs were followed and lithium was titrated and maintained. Patient was difficult at 1st to manage however became more cooperative with labs and medication. 48 hours prior to discharge, routine labs were done which demonstrated normal lifting level and normal chemistries. It this point in time she is medically stable to be discharged with Clarice Time Spent with Patient Time attestation: Total time spent providing and/or coordinating discharge services: Discharge coordination time: Greater than 30 minutes Quality: Safe Use of Opioids Does Pt have an Active Cancer Diagnosis on the Problem List?: No Quality: Stroke Does the patient have a stroke diagnosis?: No Physical Exam Vital Signs: Vital Signs: Last Vital Signs Temp 97.1 F 11/27/21 06:52 Pulse 86 11/27/21 06:52 Resp 18 11/27/21 06:52 BP 142/69 H 11/27/21 06:52 Pulse Ox 95 11/27/21 06:52 BMI result Body Mass Index 28.8 Const: General: cooperative, healthy appearing, comfortable, no acute distress, alert, awake and confusion Nutritional Appearance: average body habitus and well nourished Orientation/consciousness: confusion Resp: Effort & Inspection: normal respiratory effort and able to speak in complete sentences Auscultation: clear to auscultation bilaterally Cardio: Rate: regular rate Heart sounds: S1 normal heart sound present and S2 normal heart sound present GI: Inspection: No distended Palpation (GI): Soft to palpation and nontender Neuro: General: confusion DS: Data Data Completed and Pending Labs on day of discharge: Laboratory Results - last 24 hr 11/26/21 11/26/21 11/26/21 11:20 11:57 16:02 POC Glucose 50 L* 82 85 11/26/21 11/27/21 19:54 06:57 POC Glucose 128 H 165 H Discharge Plan Discharge Patient Disposition: Home, Self-Care Discharge Diagnosis: Encephalopathy UTI Referrals: Tanya Gallardo DO [Physician] - 04/27/22 3:00 pm (PATIENT SEES HER PCP AT [address] [place] [address] SHE HAS HER NEXT VISIT ON AT 3 P.M.) Discharge Medications: New cinacalcet [Sensipar] 30 mg Tablet 30 mg PO DAILY Qty: 30 0RF haloperidol 5 mg Tablet 5 mg PO BEDTIME Qty: 30 0RF lithium carbonate 300 mg Capsule 300 mg PO BID Qty: 60 0RF metformin 1,000 mg Tablet 1,000 mg PO BIDWM Qty: 60 0RF Continued atorvastatin 20 mg tablet 1 tab PO DAILY 0RF aspirin 81 mg tablet,delayed release (DR/EC) 1 tab PO DAILY 0RF nortriptyline 10 mg capsule 1 cap PO BEDTIME 0RF haloperidol 10 mg tablet 1 tab PO BEDTIME 0RF benztropine 1 mg tablet 1 tab PO BEDTIME 0RF metformin 500 mg tablet extended release 24 hr 1,000 mg PO BID 0RF Changed glipizide 5 mg tablet extended release 24 hr 1 tab PO DAILY Qty: 0 0RF Discontinued lithium carbonate 450 mg tablet extended release 2 tab PO BEDTIME 0RF Discharge Orders: Discharge Order (Routine); Ordered 11/27/21 Ordered By: Matt Holland Diet: advance to usual diet Activity on Discharge: As tolerated Stand Alone Forms: Patient Portal Discharge page Care Plan Goals: Resolution of urinary symptoms Health Concerns: Encephalopathy UTI Plan of Treatment: Follow up with your primary care provider as needed and with Psychiatry Assessment: See discharge summary
[2021-11-27 11:41] LABS: Glucose, Whole Blood 79 mg/dL (60-115)
--- NOTE | 2021-11-27 11:55 | MHC.CM.PN ---
Addendum entered by Gloria Lindsay 11/27/21 12:11: CALL TO [employer] [facility] ([phone]) CASE EXPLAINED TO TELEPHONE REP. CASE MANAGEMENT REQUESTED INFORMATION ON WHAT SERVICES ARE PROVIDED TO PATIENT, WELL WHAT SERVICES ARE AVAILABLE FOR PATIENT. REP TELLS THIS NUCLEAR OPERATOR THAT CALL REQUEST WILL BE REVIEWED AND A RETURN CALL WILL BE MADE WAR[facility]ANCH AWARE THAT PATIENT IS DC TODAY CASE REFERENCE # [id number] Original Note: DESPITE CONVERSATION WITH PATIENT THAT DC WOULD BE IN AFTERNOON ONCE A VNA WAS ESTABLISHED, PATIENT LEFT WITH HER SON. CASE MANAGEMENT ATTEMPTING TO SECURE A VNA. CALL TO [facility] ([phone]) AGENT STATES THAT FAMILY WILL HEAR FROM THEM BY Saturday11/30/21 (3 BUSINESS DAYS). PATIENT'S DC PAPERWORK FAXED TO [facility] @ [phone].
--- NOTE | 2021-11-29 11:49 | MHC.CM.PN ---
POST DISCHARGE NOTE - [facility] CERTIFIED FORKLIFT OPERATOR TUAN ([phone]) CALLED TO ASK FOR NEW CONTACT NUMBER FOR PATIENT. CALL TO [facility] [place] [phone] WHO GIVES THIS PRODUCTION ASSOCIATE PATIENT'S BROTHER'S (YOSSI) NUMBER OF [phone]. ACCORDING TO MENDEZ, PATIENT HAS A PCP VISIT AT [facility] ON DECEMBER 08 @ 1400. NUMBER GIVEN TO TUAN
== END 2021-11-27 11:55 | disposition home or self-care (01) | DRG 682 ==
LOC: HO.ED 15:11 → HO.EDOVER 15:50 → HO.IMC 18:49 → HO.S3 10-21 05:56
PROVIDERS: Family Medicine; Hospitalist; Internal Medicine; Internal Medicine Nephrology; Nurse Practitioner Acute Care; Nurse Practitioner Psychiatric/Mental Health; Physician Assistant Medical; Psychiatry & Neurology Psychiatry; Admitting Provider Internal Medicine; Emergency Provider Emergency Medicine; Visit Provider Hospitalist
DX: N17.0 Acute kidney failure with tubular necrosis (principal); G93.41 Metabolic encephalopathy; N39.0 Urinary tract infection, site not specified; F03.91 Unspecified dementia, unspecified severity, with behavioral disturbance; E78.5 Hyperlipidemia, unspecified; E86.0 Dehydration; E21.3 Hyperparathyroidism, unspecified; E11.22 Type 2 diabetes mellitus with diabetic chronic kidney disease; E11.65 Type 2 diabetes mellitus with hyperglycemia; B95.1 Streptococcus, group B, as the cause of diseases classified elsewhere; T43.595A Adverse effect of other antipsychotics and neuroleptics, initial encounter; E11.649 Type 2 diabetes mellitus with hypoglycemia without coma; N18.30 Chronic kidney disease, stage 3 unspecified; Z20.822 Contact with and (suspected) exposure to COVID-19; Z88.0 Allergy status to penicillin; Z88.5 Allergy status to narcotic agent; Z79.82 Long term (current) use of aspirin; Z79.84 Long term (current) use of oral hypoglycemic drugs; Z79.899 Other long term (current) drug therapy
CPT/HCPCS: 36415; 70450; 70551; 71046; 80048; 80053; 80061; 80076; 80178; 81001; 82040; 82043; 82306; 82310; 82565; 82607; 82652; 82746; 82784; 82947; 83036; 83970; 84443; 84484; 84540; 85025; 85027; 86334; 86780; 87040; 87086; 87147; 87635; 92610; 93005; 93306; 95816; 96360; 97110; 97116; 97162; 97166; 97530; 97535; 99285; J0696; J1650